=== PATIENT | female | born 1990 | race Caucasian/White ===

== ENCOUNTER 2018-12-13 06:01 | Emergency (ER) | payer OTHER ==
--- OUTSIDE RECORDS SUMMARY | 2018-12-13 06:04 | XMS REPORT | Clinical Summary ---
:1990 Author Organization [facility] Address [address] [place] [address] Care Team Providers Name Role Phone Shira Primary Care Provider Allergies No Known Allergies Medications Medication Sig Dispensed Refills Start Date End Date Status norethindrone-ethinyl Take 1 tablet by 0 Active estradiol mouth daily. (MICROGESTIN 08/16) 1-20 mg-mcg per tablet ALPRAZolam (XANAX) Take 0.5 mg by 0 Active 0.5 MG tablet mouth every night as needed for Anxiety. clonazePAM (KLONOPIN) Take 0.5 mg by 0 Active 0.5 MG tablet mouth 2 (two) times daily as needed for Anxiety. levoFLOXacin Take 1 tablet 9 tablet 0 08/22/2018 08/31/2018 (LEVAQUIN) 500 MG (500 mg total) tablet by mouth daily for 9 days. traMADol (ULTRAM) 50 Take 2 tablets 20 tablet 0 08/21/2018 08/31/2018 mg tablet (100 mg total) by mouth every 8 (eight) hours as needed for up to 10 days. Max Daily Amount: 300 mg Active Problems Problem Noted Date Hemorrhagic ovarian cyst 02/08/2017 Encounters Date Type Specialty Care Team Description 08/21/2018 Emergency Emergency Medicine Brandi Beltran Pyelonephritis ( Primary Dx); MD Gianna Acute right flank pain; Abdominal pain, unspecified abdominal location 08/21/2018 Travel after 12/12/2017 Family History Medical History Relation Name Comments Other Mother bleeding/ hysterectomy Other Sister bleeding; endometriosis Relation Name Status Comments Mother Sister Social History Tobacco Use Types Packs/Day Years Used Date Never Smoker Smokeless Tobacco: Never Used Alcohol Use Drinks/Week oz/Week Comments No Sex Assigned at Date Recorded Not on file Job Start Date Occupation Industry Not on file Not on file Not on file Travel History Travel Start Travel End No recent travel history available. Last Filed Vital Signs Vital Sign Reading Time Taken Blood Pressure 99/51 08/21/2018 6:56 AM [employer]BI[employer]HICLE OPERATOR Pulse 84 08/21/2018 6:56 AM MOBILE HEALTH VEHICLE OPERATOR Temperature 36.2 C (97.2 F) 08/21/2018 6:56 AM [employer]BILE HEALTH VEHICLE OPERATOR Respiratory Rate 19 08/21/2018 6:56 AM MOBILE HEALTH VEHICLE OPERATOR Oxygen Saturation 100% 08/21/2018 6:34 AM MOBILE HEALTH VEHICLE OPERATOR Inhaled Oxygen Concentration - - Weight 72.6 kg (160 lb) 08/21/2018 2:25 AM MOBILE HEALTH VEHICLE OPERATOR Height 167.6 cm (5' 6") 08/21/2018 2:25 AM MOBILE HE[employer] VEHICLE OPERATOR Body Mass Index 25.82 08/21/2018 2:25 AM MOBILE HE[employer] VEHICLE OPERATOR Plan of Treatment Not on file Procedures Procedure Name Priority Date/Time Associated Comments Diagnosis US PELVIS WITH STAT 08/21/2018 5:07 Results for this ENDOVAG WITH DOPPLER AM [employer]BI[employer] HE[employer] VEHICLE OPERATOR procedure are in the results section. SCREEN, STAT 08/21/2018 3:07 Results for this URINE AM [employer] HE[employer] VEHICLE OPERATOR procedure are in the results section. URINALYSIS W/ STAT 08/21/2018 3:07 Results for this MICROSCOPIC AM [employer] VEHICLE OPERATOR procedure are in the results section. CBC W/PLT COUNT & STAT 08/21/2018 3:06 Results for this AUTO DIFFERENTIAL AM [employer] HE[employer] VEHICLE OPERATOR procedure are in the results section. BASIC METABOLIC PANEL STAT 08/21/2018 3:06 Results for this (7) AM [employer]BI[employer] HE[employer] VEHICLE OPERATOR procedure are in the results section. CBC W/PLT COUNT & STAT 08/21/2018 3:06 Results for this AUTO DIFFERENTIAL AM [employer]BI[employer] HEALTH VEHICLE OPERATOR procedure are in the results section. after 12/12/2017 Results US pelvis with endovag with doppler (08/21/2018 5:07 AM MOBILE HEALTH VEHICLE OPERATOR) Specimen Narrative Performed At FINAL REPORT [facility] U/S, PELVIS, WITH ENDOVAG AND DOPPLER CLINICAL INDICATION: right lower quadrant pain , patient is not , history of endometriosis COMPARISON: None TECHNIQUE:Ultrasound imaging of the pelvis was performed transabdominally through a distended urinary bladder followed by transvaginal examination postvoid. Color and spectral Doppler evaluation was also performed. FINDINGS: Uterus Orientation: Retroverted Size: 8.1 x 4.5 x 5.2 cm Masses: None Endometrial thickness: 1.1 cm. Cervix: Unremarkable Adnexa: Right Ovary: Size: 1.7 x 1.1 x 1.5cm. Echogenicity: Normal Vascular flow: Preserved Left Ovary: Size: 2.0 x 2.0 x 2.1cm. Echogenicity: Normal Vascular flow: Preserved Free fluid: Trace. Additional findings: Small cyst within the right ovary measures 1 x 1 x 1 cm without definite through transmission. No septations or internal vascularity. IMPRESSION: Unremarkable sonographic examination of the pelvis. Signed: Jennifer Evans MD Report Verified Date/Time:08/21/2018 05:32:26 Reading Location: [address] Neuro Reading Room Procedure Note Interface, External Ris In - 08/21/2018 5:34 AM MOBILE HEALTH VEHICLE OPERATOR FINAL REPORT U/S, PELVIS, WITH ENDOVAG AND DOPPLER CLINICAL INDICATION: right lower quadrant pain , patient is not , history of endometriosis COMPARISON: None TECHNIQUE: Ultrasound imaging of the pelvis was performed transabdominally through a distended urinary bladder followed by transvaginal examination postvoid. Color and spectral Doppler evaluation was also performed. FINDINGS: Uterus Orientation: Retroverted Size: 8.1 x 4.5 x 5.2 cm Masses: None Endometrial thickness: 1.1 cm. Cervix: Unremarkable Adnexa: Right Ovary: Size: 1.7 x 1.1 x 1.5cm. Echogenicity: Normal Vascular flow: Preserved Left Ovary: Size: 2.0 x 2.0 x 2.1cm. Echogenicity: Normal Vascular flow: Preserved Free fluid: Trace. Additional findings: Small cyst within the right ovary measures 1 x 1 x 1 cm without definite through transmission. No septations or internal vascularity. IMPRESSION: Unremarkable sonographic examination of the pelvis. Signed: Jennifer Evans MD Report Verified Date/Time: 08/21/2018 05:32:26 Reading Location: [address] Neuro Reading Room Performing Organization Address City/[facility] Phone Number RIS screen, urine (08/21/2018 3:07 AM MOBILE HEALTH VEHICLE OPERATOR) Preg Test, Ur Negative [facility] Specimen Urine Performing Organization Address [facility] Phone Number [facility] [address] [place] [address] Urinalysis w/Microscopic (08/21/2018 3:07 AM MOBILE HEALTH VEHICLE OPERATOR) Color, UA Yellow [facility] Clarity, UA Slightly Cloudy [facility] Specific [place], UA 1.015 1.001 - 1.035 [facility] pH, UA 6.5 5.0 - 8.0 [facility] Protein, UA Negative Negative [facility] Glucose, UA Negative Negative [facility] Ketones, UA Negative Negative [facility] Bilirubin, UA Negative Negative [facility] Blood, UA Negative Negative [facility] Nitrite, UA Negative Negative [facility] Leukocytes, UA Moderate (A) Negative [facility] Urobilinogen, UA 0.2 0.2 - 1.0 mg/dL [facility] Bacteria, UA Few [facility] RBC, UA <5 /HPF [facility] WBC, UA 10-20 /HPF [facility] SQUAMOUS EPITHELIAL 10-20 /HPF [facility] Specimen Source [facility] Specimen Urine Performing Organization Address [facility] Phone Number [facility] [address] [place] [address] CBC with platelet count + automated diff (08/21/2018 3:06 AM MOBILE HEALTH VEHICLE OPERATOR) WBC 7.2 4.0 - 10.0 K/L [facility] RBC 4.11 4.00 - 5.00 M/L [facility] Hemoglobin 8.9 (L) 12.0 - 15.5 GM/DL [facility] Hematocrit 30.7 (L) 36.0 - 46.0 % [facility] MCV 74.7 (L) 82.0 - 99.0 fL [facility] MCH 21.7 (L) 27.0 - 33.0 pg [facility] MCHC 29.0 (L) 32.0 - 36.0 GM/DL [facility] RDW 17.9 (H) 12.0 - 15.0 % [facility] Platelets 242 150 - 430 K/CU MM [facility] MPV 11.8 (H) 6.0 - 11.5 fL [facility] nRBC 0 0 - 0 /100 WBC [facility] % Neutros 57 % [facility] % Lymphs 31 % [facility] % Monos 8 % [facility] % Eos 3 % [facility] % Baso 1 % [facility] # Neutros 4.11 1.80 - 8.00 K/L [facility] # Lymphs 2.22 1.48 - 4.50 K/L [facility] # Monos 0.60 0.00 - 1.30 K/L [facility] # Eos 0.24 0.00 - 0.50 K/L [facility] # Baso 0.05 0.00 - 0.20 K/L [facility] Immature Granulocytes-Relative 0 0 - 0 % [facility] Specimen Blood Performing Organization Address City/[facility]/Zipcode Phone Number [facility] [address] [place], [place] [id number] Basic metabolic panel (Na, K+, Cl, CO2, Glu, Ca, BUN, Cr) (08/21/2018 3:06 AM MOBILE HEALTH VEHICLE OPERATOR) Sodium 140 135 - 148 meq/L [facility] Potassium 4.0 3.6 - 5.5 meq/L [facility] Chloride 108 (H) 98 - 106 meq/L [facility] CO2 23 20 - 29 meq/L [facility] BUN 12 10 - 26 mg/dL [facility] Creatinine 0.71 0.50 - 1.20 mg/dL [facility] Glucose 87 70 - 110 mg/dL [facility] Calcium 8.8 8.5 - 10.5 mg/dL [facility] EGFR 100Comment: ESTIMATED GFR IS NOT mL/min/1.73 sq m [facility] ACCURATE CREATININE CLEARANCE IN PREDICTING GLOMERULAR FILTRATION RATE. ESTIMATED GFR IS NOT APPLICABLE FOR DIALYSIS PATIENTS. Specimen Blood Performing Organization Address City/[facility]/Zipcode Phone Number [facility] [address] [place], [place] [id number] after 12/12/2017 Insurance Payer Benefit Plan / Group Subscriber ID Type Phone Address [facility] xxxxxxxxx CHIP Contracted CHOICE CHIP Advance Directives For more information, please contact:[place] [address] [address] [facility] [place] [phone] Code Status Date Activated Date Inactivated Comments Full Code 02/08/2017 3:22 AM 02/08/2017 9:13 PM This code status was determined by: Patient
--- OUTSIDE RECORDS SUMMARY | 2018-12-13 06:04 | XMS REPORT | Clinical Summary ---
:1990 Author Organization [facility] Address [address] [place] [address] Care Team Providers Name Role Phone Leslie Chadwick MD Primary Care Provider Allergies Active Allergy Reactions Severity Noted Date Comments Ketorolac 11/27/2018 Tramadol 01/05/2017 Medications Medication Sig Dispensed Refills Start Date End Date Status ALPRAZolam (XANAX) 0.5 Take 0.5 mg by 0 Active MG tablet mouth nightly as needed for anxiety. zolpidem (AMBIEN) 5 MG Take 5 mg by 0 Active tablet mouth nightly as needed for sleep. cyclobenzaprine Take 1 tablet 20 tablet 0 11/27/2018 12/27/2018 Active (FLEXERIL) 10 mg (10 mg total) tablet by mouth 2 (two) times a day as needed for muscle spasms for up to 30 days. acetaminophen-codeine Take 1-2 15 tablet 0 11/27/2018 12/02/2018 (TYLENOL WITH CODEINE tablets by #3) 300-30 mg per mouth every 6 tablet (six) hours as needed for moderate pain for up to 5 days. Active Problems Not on file Encounters Date Type Specialty Care Team Description 11/27/2018 Emergency Emergency Medicine Nirali Mckeon, Muscle strain (Primary Dx); Contusion of left knee, initial encounter; Acute left ankle pain; Acute thoracic back pain, unspecified back pain laterality; Contusion of rib, unspecified laterality, initial encounter after 12/12/2017 Social History Tobacco Use Types Packs/Day Years Used Date Never Smoker Alcohol Use Drinks/Week oz/Week Comments Yes 1 Glasses of wine 0.6 on occasion Sex Assigned at Date Recorded Not on file Job Start Date Occupation Industry Not on file Not on file Not on file Travel History Travel Start Travel End No recent travel history available. Last Filed Vital Signs Vital Sign Reading Time Taken Blood Pressure 113/67 11/27/2018 4:54 AM CDT Pulse 104 11/27/2018 4:54 AM CDT Temperature 36.1 C (97 F) 11/27/2018 4:54 AM CDT Respiratory Rate 18 11/27/2018 4:54 AM CDT Oxygen Saturation 100% 11/27/2018 4:54 AM CDT Inhaled Oxygen Concentration - - Weight - - Height - - Body Mass Index - - Plan of Treatment Health Maintenance Due Date Last Done Comments CERVICAL CANCER SCREENING 2013 INFLUENZA VACCINE 02/25/2019 Procedures Procedure Name Priority Date/Time Associated Diagnosis Comments XR LUMBAR SPINE 2 STAT 11/27/2018 6:39 AM Results for this OR 3 VW CDT procedure are in the results section. XR THORACIC SPINE 2 STAT 11/27/2018 6:38 AM Results for this VW CDT procedure are in the results section. XR ANKLE 3+ VW LEFT STAT 11/27/2018 6:38 AM Results for this CDT procedure are in the results section. XR KNEE 1 OR 2 VW STAT 11/27/2018 6:37 AM Results for this LEFT CDT procedure are in the results section. XR SHOULDER 2+ VW STAT 11/27/2018 6:36 AM Results for this RIGHT CDT procedure are in the results section. XR RIBS 3 VW STAT 11/27/2018 6:36 AM Results for this BILATERAL CDT procedure are in the results section. HCG QUALITATIVE, STAT 11/27/2018 5:04 AM Results for this URINE SCREEN CDT procedure are in the results section. after 12/12/2017 Results XR Lumbar Spine 2 Or 3 Vw (11/27/2018 6:39 AM CDT) Specimen Narrative Performed At EXAMINATION:XR LUMBAR SPINE 2 OR 3 VW [facility] NUMBER OF VIEWS: 4 CLINICAL HISTORY:fall COMPARISON:None. FINDINGS: There is no acute abnormality demonstrated. Specifically is no fracture. There are 5 nonrib-bearing lumbar vertebra. There is mild curvature of the lumbar spine convex towards the right. The disc spaces are well-maintained. There is no significant spondylosis. There is no spondylolisthesis. IMPRESSION: No acute abnormality. [id number] Procedure Note Hm Interface, Radiology Results Incoming - 11/27/2018 7:08 AM CDT EXAMINATION: XR LUMBAR SPINE 2 OR 3 VW NUMBER OF VIEWS: 4 CLINICAL HISTORY: fall COMPARISON: None. FINDINGS: There is no acute abnormality demonstrated. Specifically is no fracture. There are 5 nonrib-bearing lumbar vertebra. There is mild curvature of the lumbar spine convex towards the right. The disc spaces are well-maintained. There is no significant spondylosis. There is no spondylolisthesis. IMPRESSION: No acute abnormality. [facility]-[id number] Performing Organization Address [facility] Phone Number [facility] [address] [place] [address] XR Thoracic Spine 2 Vw (11/27/2018 6:38 AM CDT) Specimen Narrative Performed At EXAMINATION:XR THORACIC SPINE 2 VW [facility] NUMBER OF VIEWS: 4 CLINICAL HISTORY:fall COMPARISON:None. FINDINGS: There is no acute abnormality demonstrated. Specifically there is no fracture. There is no significant thoracic spondylosis. There is very slight focal curvature of the upper thoracic spine convex towards the left and mid thoracic spine towards the right. There is straightening of the thoracic spine in the lateral projection. IMPRESSION: No acute abnormality. [id number] Procedure Note Interface, Radiology Results - 11/27/2018 7:06 AM CDT EXAMINATION: XR THORACIC SPINE 2 VW NUMBER OF VIEWS: 4 CLINICAL HISTORY: fall COMPARISON: None. FINDINGS: There is no acute abnormality demonstrated. Specifically there is no fracture. There is no significant thoracic spondylosis. There is very slight focal curvature of the upper thoracic spine convex towards the left and mid thoracic spine towards the right. There is straightening of the thoracic spine in the lateral projection. IMPRESSION: No acute abnormality. [facility]-[id number] Performing Organization Address [facility] Phone Number [facility] [address] [place] [address] XR Ankle 3+ Vw Left (11/27/2018 6:38 AM CDT) Specimen Narrative Performed At [facility] EXAMINATION:XR ANKLE 3VW LEFT CLINICAL HISTORY:fall COMPARISON:None. IMPRESSION: 1.There is no evidence of acute left ankle fracture or dislocation. [id number] Procedure Note Interface, Radiology Results Incoming - 11/27/2018 6:42 AM CDT EXAMINATION: XR ANKLE 3 VW LEFT CLINICAL HISTORY: fall COMPARISON: None. IMPRESSION: 1. There is no evidence of acute left ankle fracture or dislocation. [facility]-[id number] Performing Organization Address [facility]/Zipcode Phone Number [facility] [address] [place] [address] XR Knee 1 Or 2 Vw Left (11/27/2018 6:37 AM CDT) Specimen Narrative Performed At EXAMINATION:XR KNEE 1 OR 2 VW LEFT [facility] CLINICAL HISTORY:fall COMPARISON:None. IMPRESSION: 1.There is no evidence of left knee fracture, dislocation, or joint effusion. Bone mineralization is normal. [facility]-[id number] Procedure Note Interface, Radiology Results Incoming - 11/27/2018 6:42 AM CDT EXAMINATION: XR KNEE 1 OR 2 VW LEFT CLINICAL HISTORY: fall COMPARISON: None. IMPRESSION: 1. There is no evidence of left knee fracture, dislocation, or joint effusion. Bone mineralization is normal. [facility]-[id number] Performing Organization Address [facility] Phone Number [facility] [address] [place] [address] XR Shoulder 2+ Vw Right (11/27/2018 6:36 AM CDT) Specimen Narrative Performed At EXAMINATION:XR SHOULDER 2VW RIGHT [facility] CLINICAL HISTORY:fall COMPARISON:None available at this time. IMPRESSION: 1. No fracture, malalignment, or osseous destructive lesion of the right shoulder. 2. Joint spaces are maintained. No degenerative or inflammatory bony changes. 3. Soft tissues are unremarkable. [facility]-[id number] Procedure Note Interface, Radiology Results Incoming - 11/27/2018 6:42 AM CDT EXAMINATION: XR SHOULDER 2 VW RIGHT CLINICAL HISTORY: fall COMPARISON: None available at this time. IMPRESSION: 1. No fracture, malalignment, or osseous destructive lesion of the right shoulder. 2. Joint spaces are maintained. No degenerative or inflammatory bony changes. 3. Soft tissues are unremarkable. [facility]-[id number] Performing Organization Address [facility]/Zipcode Phone Number [facility] [address] [place] [address] XR Ribs 3 Vw Bilateral (11/27/2018 6:36 AM CDT) Specimen Narrative Performed At EXAMINATION:XR RIBS 3 VW BILATERAL [facility] CLINICAL HISTORY:fall COMPARISON:February 18, 2017. IMPRESSION: Cardiomediastinal silhouette and pulmonary vasculature are within normal limits. Lungs are clear. No pleural effusion or pneumothorax. Bones are unremarkable. No rib fracture is identified. If there is persistent pain or unexplained clinical symptoms, consider repeat radiographs in 10-[address] chest for further evaluation of radiographically occult injury. Procedure Note Interface, Radiology Results Incoming - 11/27/2018 6:46 AM CDT EXAMINATION: XR RIBS 3 VW BILATERAL CLINICAL HISTORY: fall COMPARISON: February 18, 2017. IMPRESSION: Cardiomediastinal silhouette and pulmonary vasculature are within normal limits. Lungs are clear. No pleural effusion or pneumothorax. Bones are unremarkable. No rib fracture is identified. If there is persistent pain or unexplained clinical symptoms, consider repeat radiographs in 10-[address] chest for further evaluation of radiographically occult injury. Performing Organization Address City/[facility] Phone Number [facility] [address] [place] [address] hCG qualitative, urine screen (11/27/2018 5:04 AM CDT) hCG qualitative, Negative [facility] urine Comment: EMERGENCY CARE Sensitivity of HCG test: 25 mIU/mL [facility] Negative test results in patients suspected RAN to be should be retested with a sample obtained 48-72 hours later, or by performing a quantitative assay. Specimen Urine Performing Organization Address City/[facility]/Zipcode Phone Number DEPARTMENT OF PATHOLOGY AND GENOMIC [address] [address] [place] [address] [facility] [address] [address] [place] [address] AT [facility] after 12/12/2017 Insurance Payer Benefit Plan / Subscriber ID Effective Dates Phone Address Type [facility] [employer] [facility] xxxxxxxxx 2016-Present HMO CHOICE [facility] Advance Directives Patient has advance care planning documents on file. For more information, please contact:[place] [address] [address]
--- OUTSIDE RECORDS SUMMARY | 2018-12-13 06:05 | XMS REPORT ---
:1990 Author Organization [employer] Care Team Providers Name Role Phone Leslie Chadwick Provider Role Unavailable Encounters Encounter Location Date Unknown [facility]/ C. Adriano Ding MD, PhD, [place] Aug 27, 2016 Social History Social History Element Qualifiers Date Reported Do you smoke? . Answer: nonsmoker Aug 14, 2016 Use of recreational / street drugs? . Answer: No Aug 14, 2016 Marital Status: . Single Aug 14, 2016 Caffeine intake? . Status: Yes, What type: Soft Aug 14, 2016 Drinks Do you exercise? . Answer: No Aug 14, 2016 Do you drink alcohol? . Status: No Aug 14, 2016 Occupation: . Unemployed Aug 14, 2016 Summary Purpose e[employer] Submission
--- OUTSIDE RECORDS SUMMARY | 2018-12-13 06:05 | XMS REPORT | Continuity of Care Document ---
:1990 Author Organization Interface Problems Problem Status Onset Classification Date Comments Source Date Reported Pelvic and Active Problem 07/03/2018 [place] for perineal pain [facility] Medications Medication Details Route Status Patient Ordering Order Source Instructions Provider Date Allergies, Adverse Reactions, Alerts Substance Category Reaction Severity Reaction Status Date Comments Source type Reported Immunizations Immunization Date Given Site Status Last Updated Comments Source Results Order Results Value Reference Date Interpretation Comments Source Name Range Vital Signs Vital Sign Value Date Comments Source Encounters Location Location Encounter Encounter Reason Attending ADM DC Status Source Details Type Number For Provider Date Date Visit Center For Unknown [id number] 08/27 08/27 [facility] [id number] for Health/ C. [id number] [facility] 3ae [facility] MD Toña, PhD, [place] Center For Unknown [id number] 08/27 08/27 [facility] [id number] for Health/ C. [id number] [facility] fc6 [facility] MD Toña, [place], [place] Center For Unknown [id number] 08/27 08/27 [facility] [id number] for Health/ C. [id number] [facility] 87c [facility] MD To[place], [place], [place] Center For surgery [id number] 09/05 09/05 [facility] [id number] for Health/ C. [id number] [facility] 785 [facility] MD Toña, [place], [place] Center For surgery [id number] 09/05 09/05 [facility] [id number] for Health/ C. [id number] [facility] e11 [facility] MD Toña, [place], [place] Center For Rx Request, [id number] 09/16 09/16 [facility] [id number] /[id number] for Health/ C. [id number] [facility] 8aa [facility] MD Toña, [place], [place] Procedures Procedure Code Date Perfomer Comments Source
--- OUTSIDE RECORDS SUMMARY | 2018-12-13 06:05 | XMS REPORT ---
:1990 Author Organization eClinicalWorks Care Team Providers Name Role Phone Leslie Chadwick Provider Role Unavailable Allergies No Known Allergies Problems Problem Type Condition Code Onset Dates Condition Status Problem Pelvic and perineal pain R10.2 Active Medications No Known Medications Results No Known Results Summary Purpose eClinicalWorks Submission
--- OUTSIDE RECORDS SUMMARY | 2018-12-13 06:05 | XMS REPORT ---
:1990 Author Organization eClinicalWorks Care Team Providers Name Role Phone Leslie Chadwick Provider Role Unavailable Encounters Encounter Location Date Unknown [facility] Health/ C. Adriano Ding MD, Aug 27, 2016 PhD, [place] surgery [facility]/ C. Adriano Ding MD, Sep 04, 2016 PhD, [place] Rx Request, Post Op [facility]/ C. Adriano Ding MD, Aug [place], [place] Problems Problem Type Condition ICD-9 Code Onset Dates Condition Status Problem Pelvic and perineal pain R10.2 Active Social History Social History Element Qualifiers Date Reported Do you smoke? . Answer: nonsmoker Sep 04, 2016 Use of recreational / street drugs? . Answer: No Sep 04, 2016 Marital Status: . Single Sep 04, 2016 Caffeine intake? . Status: Yes, What type: Soft Sep 04, 2016 Drinks Do you exercise? . Answer: No Sep 04, 2016 Do you drink alcohol? . Status: No Sep 04, 2016 Occupation: . Unemployed Sep 04, 2016 Summary Purpose eClinicalWorks Submission
--- OUTSIDE RECORDS SUMMARY | 2018-12-13 06:05 | XMS REPORT ---
:1990 Author Organization eClinicalWorks Care Team Providers Name Role Phone Leslie Chadwick Provider Role Unavailable Encounters Encounter Location Date Unknown [facility] s [facility]/ C. Adriano Ding MD, [place], [place] Aug 27, 2016 surgery [facility]/ C. Adriano Ding MD, [place], [place] Sep 04, 2016 Problems Problem Type Condition ICD-9 Code Onset [...]
--- OUTSIDE RECORDS SUMMARY | 2018-12-13 06:12 | XMS REPORT | Summary of Care ---
:1990 Author Name Elizabeth Chu M.A. Address Unavailable Unavailable , Care Team Providers Name Role Phone DOMINIQUE Carl, NANNETTE Unavailable Unavailable CLOTILDE BAEZA M.D. Unavailable Unavailable ALEXA N.Candido, JERNAE Unavailable Unavailable SOTERO N.PElias, UNIQUE Unavailable Unavailable Elmer MARSH, Ganga Unavailable Unavailable Unavailable Unavailable Unavailable Functional Status Name Dates Details Functional status health issues are not documented Status: Name Dates Details Cognitive status health issues are not documented Status: Problems Name Dates Details Bacterial vaginosis (616.10, N76.0) Status: Active [place] vaginitis (112.1, B37.3) Status: Active Gastritis, chronic (535.10, K29.50) Status: Active BMI 28.0-28.9,adult (V85.24, Z68.28) Status: Active Impetigo contagiosa (684, L01.00) Status: Active Pelvic pain (R10.2) Status: Active Major depressive disorder (296.20, F32.9) Status: Active Generalized anxiety disorder (300.02, F41.1) Status: Active Cannot sleep (780.52, G47.00) Status: Active Medications Name Dates Details Zolpidem Tartrate 10 MG Oral Tablet TAKE 1 TABLET AT BEDTIME NEEDED. Quantity: 30 Refills: 0 CLOTILDE BAEZA M.D. Start : 27-Aug-2016 Active Ondansetron 8 MG Oral Tablet Disintegrating TAKE 1 TABLET EVERY 8 HOURS Quantity: 30 Refills: 0 SOTERO N.P., UNIQUE Start : 18-Dec-2017 Active Mupirocin 2 % External Ointment APPLY A SMALL AMOUNT 3 TIMES DAILY DIRECTED. Quantity: 1 Refills: 1 SOTERO N.P., UNIQUE Start : 04-May-2018 Active 22 GM Tube IBU 600 MG Oral Tablet TAKE 1 TABLET 4 TIMES DAILY NEEDED. Quantity: 60 Refills: 1 NANNETTE FOX M.D. Start : 27-May-2018 Active Tylenol 8 Hour 650 MG Oral Tablet Extended Release TAKE 1 TABLET 4 TIMES DAILY NEEDED. Quantity: 60 Refills: 1 DOMINIQUE Carl NANNETTE Start : 27-May-2018 Active Sertraline HCl - 100 MG Oral Tablet TAKE 1 TABLET ONCE DAILY. Quantity: 30 Refills: 3 FELISHA Carl, CLOTILDE Start : 14-Jul-2018 Active clonazePAM 1 MG Oral Tablet TAKE 1 TABLET DAILY NEEDED. Quantity: 30 Refills: 3 FELISHA Carl, [place] Start : 14-Jul-2018 Active metroNIDAZOLE 500 MG Oral Tablet TAKE 1 TABLET TWICE DAILY Quantity: 14 Refills: 0 BIJOU N.P., JERNAE Start : 17-Jul-2018 Active Miconazole 7 2 % Vaginal Cream INSERT 1 APPLICATORFUL INTRAVAGINALLY AT BEDTIME NIGHTLY. Quantity: 7 Refills: 0 BIJOU N.P., JERNAE Start : 17-Jul-2018 Active 45 GM Tube Allergies and Adverse Reactions Name Dates Details Tramadol (Allergy) Status: Active Past Medical History Name Dates Details History of Anxiety (300.00, F41.9) Status: Resolved History of Cysts of both ovaries (620.2, N83.201) Status: Resolved History of No significant past medical history Status: Resolved Procedures Procedure Dates Details History of Ovarian Cystectomy Completed History of Section Completed History of Colonoscopy Completed Immunization Name Dates Details Immunizations not documented Family History Name Dates Details Family history of depression (V17.0, Z81.8) Status: Active Family history of Diverticulitis (562.11, K57.92) Status: Active Family history of Anxiety and depression (300.00, F41.9) Status: Active Name Dates Details Family history of CAD (coronary artery disease) (414.00, I25.10) Status: Active Family history of Anxiety and depression (300.00, F41.9) Status: Active Social History Name Dates Details - Status: Name Dates Details Never smoker Never smoker Vital Signs Date Test Result Details [id number] BP Systolic 94 mm[Hg] Status: Comments: Location: LUE; Position: Sitting BP Diastolic 62 mm[Hg] Status: Comments: Location: LUE; Position: Sitting Weight 162.5 lb Status: Body Mass Index Calculated 27.04 kg/m2 Status: Body Surface Area Calculated 1.81 m2 Status: Heart Rate 84 /min Status: Comments: Location: L Radial; Results Date Description Value Details Results not documented Plan of Care Name Dates Details Planned Observations Planned Goals not documented Interventions Provided Medication ChangesclonazePAM 1 MG Oral Tablet - Renew with ChangesSertraline HCl - 100 MG Oral Tablet - RenewZolpidem Tartrate 10 MG Oral Tablet - RenewPlanDiscussed diagnosis, differential diagnosis, co morbidities, bio psychosocial factors, predisposing,precipitating and maintaining symptoms 1) increase zoloft to 100 mg qd2) increase clonazepam to 1 mg qd prn3) ambien 10 mg 1 tab qhs prn insomnia4) discussed safety plan, call 911, suicide prevention helpline5) discussed therapy referral , pt declined.Discussion/SummaryProgress made toward Goal mild progress, actively participated. Discussed the following with patient/family/other who verbally acknowledged and agrees to comply. Safety issues, Patient understands and will comply. Bio-psychosocial factors. Co -Morbidities. Differential diagnosis. Emergency treatment. Maintaining symptoms. Predisposing symptoms. Precipating symptoms. Safety plan. Alternative medication(s). Current medication(s). Risks/benefits. Side effects. Target symptoms. Treatment plan. Diagnosis. follow-up 4 months Instructions Name Dates Details Instructions not documented Encounters Appointment; CLOTILDE BAEZA M.D. On: 03-Dec-2016 8:00 Encounter Diagnosis: Problem not documented Appointment; CLOTILDE BAEZA M.D. On: 14-Mar-2017 8:00 Encounter Diagnosis: Problem not documented Appointment; CLOTILDE BAEZA M.D. On: 20-May-2017 10:00 Encounter Diagnosis: Problem not documented Appointment; ELIZABETH BLACKBURN M.D. On: 26-May-2017 14:00 Encounter Diagnosis: Problem not documented Appointment; CLOTILDE BAEZA M.D. On: 20-Aug-2017 8:00 Encounter Diagnosis: Problem not documented Appointment; CLOTILDE BAEZA M.D. On: 11-Nov-2017 8:00 Encounter Diagnosis: Problem not documented Appointment; UNIQUE BEY NP On: 18-Dec-2017 15:30 Encounter Diagnosis: Problem not documented Appointment; CLOTILDE BAEZA M.D. On: 10-Feb-2018 8:00 Encounter Diagnosis: Problem not documented Appointment; UNIQUE BEY NP On: 04-May-2018 11:00 Encounter Diagnosis: Problem not documented Appointment; CLOTILDE BAEZA M.D. On: 12-May-2018 8:00 Encounter Diagnosis: Problem not documented Appointment; ALEJANDRA PEOPLES M.D. On: 27-May-2018 13:00 Encounter Diagnosis: Problem not documented Appointment; CLOTILDE BAEZA M.D. On: 14-Jul-2018 16:00 Encounter Diagnosis: Problem not documented Appointment; SIENNA LIU NP On: 17-Jul-2018 15:30 Encounter Diagnosis: Problem not documented Appointment; CLOTILDE BAEZA M.D. On: 25-Sep-2018 11:00 Encounter Diagnosis: Problem not documented Appointment; CLOTILDE BAEZA M.D. On: 27-Nov-2018 15:00 Encounter Diagnosis: Problem not documented
--- OUTSIDE RECORDS SUMMARY | 2018-12-13 06:12 | XMS REPORT ---
:1990 [facility] [address] [place] [address] [address] [place] [address] Care Team Providers Name Role Phone VAHE, DR JACKSON Unavailable Unavailable FUENTES, DR GERALDO Stout Unavailable Unavailable MILENA, DR SANTOS Unavailable Unavailable SUE, DR NICANOR MICHAUD Unavailable Unavailable MERCEDES, DR ABDIAS Petersen Unavailable Unavailable KIKI MOISE Unavailable Unavailable DOMINIK, DR NATE Caballero Unavailable Unavailable ZARIA, DR KIMMY Prather Unavailable Unavailable ROSA, DR HOLDER Unavailable Unavailable ARIE, DR SERGEY BELTRAN Unavailable Unavailable FUENTES, DR GARCIA Unavailable Unavailable SEAN, DR CARRERO Unavailable Unavailable ROBBY COREAS Unavailable Unavailable VINICIO, WILL Unavailable Unavailable NAHID, DR ROSARIO PLATA Unavailable Unavailable Payers Payer Name Policy Type Policy Number Effective Date Expiration Date Problems This patient has no known problems. Allergies, Adverse Reactions, Alerts Allergy Allergy Status Severity Reaction(s) Onset Inactive Treating Comments Name Type Date Date Clinician No Known DA Active U 2006-10 Contrast -10 Allergies 00:00:0 0 No Known DA Active U 2006-10 Drug -10 Allergies 00:00:0 0 No Known DA Active U 2006-10 Food -10 Allergies 00:00:0 0 No Known DA Active U 2006-10 Other -10 Allergies 00:00:0 0 Medications This patient has no known medications. Encounters Start End Encounter Admission Attending Care Care Encounter Date/Time Date/Time Type Type Clinicians Facility Department ID 2018-11-13 2018-11-13 Emergency E MANUEL COTTER [facility] [id number] 02:44:00 04:14:00 2018-11-04 2018-11-04 Emergency E [id number] 08:04:00 08:04:00 2018-10-22 2018-10-22 Emergency E GERALDO DILL [facility] [id number] 10:10:00 13:01:00 2018-10-19 2018-10-19 Emergency E DILL, GERALDO [facility] [id number] 15:20:00 18:15:00 2018-10-06 2018-10-06 Emergency E OEI, [facility] [id number] 12:53:00 14:15:00 DANIELLE 2018-09-11 2018-09-11 Emergency E SUE, [facility] [id number] 13:37:00 17:15:00 NICANOR JASWANT 2018-09-09 2018-09-09 Emergency E MERCEDES, [facility] [id number] 12:45:00 16:45:00 ABDIAS 2018-08-17 2018-08-17 Emergency E FUENTES GERALDO [facility] [id number] 01:32:00 04:20:00 2018-07-28 2018-07-28 Outpatient E DOMINIK, [facility] TELE [id number] 06:49:00 16:28:00 NATE 2018-06-19 2018-06-19 Emergency E ZARIA, [facility] [id number] 17:59:00 19:07:00 KIMMY 2018-05-21 2018-05-21 Emergency E ZARIA, [facility] [id number] 17:21:00 20:22:00 KIMMY 2018-05-10 2018-05-10 Emergency E ROSA [facility] [id number] 12:36:00 16:00:00 GLORY 2018-05-01 2018-05-01 Emergency E FUENTES GERALDO [facility] [id number] 01:08:00 03:19:00 2018-04-05 2018-04-05 Emergency E GERALDO DILL [facility] [id number] 14:18:00 17:55:00 2018-02-24 2018-02-24 Emergency E ARIE [facility] [id number] 03:20:00 05:50:00 SERGEY 2017-11-22 2017-11-22 Emergency E MERCEDES [facility] [id number] 06:21:00 11:45:00 ABDIAS 2017-08-20 2017-08-20 Emergency E FUENTES, [facility] [id number] 08:47:00 09:45:00 RADHA 2017-08-15 2017-08-15 Emergency E SEAN, [facility] [id number] 00:28:00 02:58:00 ALISE 2017-06-21 2017-06-21 Emergency E JOSS, [facility] [id number] 14:26:00 18:19:00 ROBBY Results Test Description Test Time Test Comments Text Results Atomic Results Result Comments LIVER PROFILE 2018-11-13 04:00:00 Test Item Value Reference Range Comments BILI TOTAL (test code=11A) 0.4 mg/dL 0.2-1.0 BILI DIRCT (test code=12A) <0.1 mg/dL 0.0-0.2 PROTEIN (test code=07D) 8.8 g/dL 6.4-8.2 ALBUMIN (test code=08D) 4.7 g/dL 3.5-4.8 GLOBULIN (test code=GLB) 4.1 g/dL 1.5-3.8 ALB/GLOB (test code=AGRR) 1.1 1.0-2.6 ALK PHOS (test code=35A) 99 IU/L 42-121 AST (test code=30A) 16 IU/L <=42 ALT (test code=31A) 9 IU/L <=78 AMYLASE AND [id number] 03:24:00 Test Item Value Reference Range Comments AMYLASE (test code=10A) 48 U/L 28-100 LIPASE (test code=60A) 122 IU/L 73-393 BASIC METABOLIC [id number] 03:23:00 Test Item Value Reference Range Comments GLUCOSE (test code=06D) 92 mg/dL 75-100 SODIUM (test code=01A) 138 mmol/L 136-145 POTASSIUM (test code=01B) 3.3 mmol/L 3.6-5.1 CHLORIDE (test code=04A) 104 mmol/L 98-107 CO2 (test code=02A) 25 mmol/L 22-32 ANION GAP (test code=ANG) 12.3 mmol/L BUN (test code=05D) 12 mg/dL 7-18 CREATININE (test code=03E) 0.8 mg/dL 0.4-1.1 BUN/CREA (test code=BCR) 16 12-20 CALCIUM (test code=09D) 8.8 mg/dL 8.3-9.5 URINALYSIS WITH [id number] 03:20:00 Test Item Value Reference Range Comments COLOR (test code=COLU) YELLOW YELLOW CLARITY (test code=CLA) CLOUDY CLEAR GLUCOSE UR (test code=UA GLUCOSE) NEGATIVE NEGATIVE BILI UR (test code=BILE) NEGATIVE NEGATIVE KETONES UR (test code=KARSON) NEGATIVE NEGATIVE SP GRAVITY (test code=SPGR) 1.025 1.005-1.030 PH UR (test code=PH) 6.0 4.5-8.0 PROTEIN UR (test code=PU) TRACE NEGATIVE UROBIL UR (test code=UROQ) 0.2 EU/dL 0.2-1.0 NITRITE UR (test code=NITRITE) NEGATIVE NEGATIVE BLOOD UR (test code=UA BLOOD) NEGATIVE NEGATIVE LEUK ES UR (test code=LEUK) 2+ NEGATIVE WBC UR (test code=UWBC) 4 /HPF 0-5 RBC UR (test code=URBC) 0 /HPF 0-2 EPITH UR (test code=UEPC) MANY /LPF FEW BACTERIA UR (test code=UBACT) FEW /HPF NONE CAST UR (test code=CAST) /LPF NONE CRYSTAL UR (test code=CRYU) / LPF NONE MUCUS UR (test code=MUC) / HPF NONE AMORPH UR (test code=BRENT) / HPF NONE TRICH UR (test code=UTRICH) /HPF NONE YEAST UR (test code=UY) /HPF NONE SPERM UR (test code=USPERM) /HPF NONE SERUM [id number] 03:18:00 Test Item Value Reference Range Comments PREG SRM (test code=PGS) NEGATIVE NEGATIVE CBC (INCLUDES AUTOMATED DIFFERENTIAL)2018-11-13 03:12:00 Test Item Value Reference Range Comments WBC (test code=WBC) 8.5 10\S\3/uL 4.5-11.0 RBC (test code=RBC) 4.42 10\S\6/uL 4.30-5.70 HGB (test code=HBG) 9.7 g/dL 12.0-15.5 HCT (test code=HCT) 33.0 % 35.0-44.0 MCV (test code=MCV) 74.7 fL 81.0-99.0 MCH (test code=MCH) 21.9 pg 27.0-31.0 MCHC (test code=MCHC) 29.4 g/dL 32.0-36.0 RDW (test code=RDW) 17.1 % 11.5-14.5 PLT (test code=PLT) 244 10\S\3/uL 130-400 MPV (test code=MPV) 10.9 fL 9.4-12.4 NEUTROP # (test code=NE#) 5.1 10\S\3/uL 1.6-8.0 LYMPH # (test code=LY#) 2.5 10\S\3/uL 1.1-3.5 MONOCYTE # (test code=MO#) 0.7 10\S\3/uL 0.0-1.1 EOSINOPH # (test code=EO#) 0.2 10\S\3/uL 0.0-0.7 BASOPHIL # (test code=BA#) 0.0 10\S\3/uL 0.0-0.3 IG # (test code=IG#) 0.02 10\S\3/uL 0.00-0.06 NRBC # (test code=NRBC#) 0.00 10\S\3/uL 0.00-0.01 NEUTROPH % (test code=NE%) 59.6 % 35.0-73.0 LYMPH % (test code=LY%) 29.7 % 20.0-55.0 MONO % (test code=MO%) 8.0 % 2.5-10.0 EOSINOPH % (test code=EO%) 2.1 % 0.0-5.0 BASOPHIL % (test code=BA%) 0.4 % 0.0-2.0 IG % (test code=IG%) 0.2 % 0.0-0.8 NRBC% (test code=NRBC%) 0.0 % 0.0-0.2 MANDIFF (test code=MDIFF) NO NO RBC MORPH (test code=RBCMOR) NORMAL CT ABDOMEN AND PELVIS WITH [id number] 12:25:13CT abdomen and pelvis with contrastLocation Code: [id number] HISTORY: Lower abdominal painCOMPARISON: 09/11/2018Technique: Helical CT of the abdomen and pelvis was performed following theadministration of intravenous contrast. Thin section axial, sagittal andcoronal images were obtained. Automatic exposure control was utilized. TotalDLP: 1393 mGycmFINDINGS:The lung bases are clear. The liver, gallbladder, adrenal glands, kidneys, pancreas, and spleen areunremarkable.The unopacified loops of bowel demonstrate no focal thickening or dilatation.The appendix is visualized and is normal. There is no free peritoneal air orfluid. The abdominal aorta is normal in caliber and contour. There is noretroperitoneal mass or fluid collection. The urinary bladder is unremarkable.There is no pelvic mass or fluidcollection. The bones, skin, and surrounding soft tissues are unremarkable.IMPRESSION: No acute intra- abdominal or pelvic abnormality.AMYLASE AND [id number] 11:44:00 Test Item Value Reference Range Comments AMYLASE (test code=10A) 41 U/L 28-100 LIPASE (test code=60A) 76 IU/L 73-393 COMPREHENSIVE METABOLIC [id number] 11:44:00 Test Item Value Reference Range Comments GLUCOSE (test code=06D) 89 mg/dL 75-100 SODIUM (test code=01A) 140 mmol/L 136-145 POTASSIUM (test code=01B) 3.7 mmol/L 3.6-5.1 CHLORIDE (test code=04A) 106 mmol/L 98-107 CO2 (test code=02A) 26 mmol/L 22-32 ANION GAP (test code=ANG) 11.7 mmol/L BUN (test code=05D) 14 mg/dL 7-18 CREATININE (test code=03E) 0.7 mg/dL 0.4-1.1 BUN/CREA (test code=BCR) 21 12-20 CALCIUM (test code=09D) 9.3 mg/dL 8.3-9.5 BILI TOTAL (test code=11A) 0.5 mg/dL 0.2-1.0 PROTEIN (test code=07D) 8.6 g/dL 6.4-8.2 ALBUMIN (test code=08D) 4.4 g/dL 3.5-4.8 GLOBULIN (test code=GLB) 4.2 g/dL 1.5-3.8 ALB/GLOB (test code=AGRR) 1.0 1.0-2.6 ALK PHOS (test code=35A) 105 IU/L 42-121 AST (test code=30A) 34 IU/L <=42 ALT (test code=31A) 23 IU/L <=78 PRO TIME AND [id number] 11:41:00 Test Item Value Reference Range Comments PT (test code=TT) 12.2 s 9.8-13.6 INR (test code=INR) 1.1 INRH (test code=INRH) SUGGESTED THERAPEUTIC RANGE FOR INR: 2.5 - 3.5 For Patients with Prosthetic Valves or Patients with recurrent Thromboembolic Events 2.0 - 3.0 For Most Other Applications PTT (test code=PTT) 30.5 s 20.2-38.0 PTTH (test code=PTTH) To monitor the effectiveness of heparin, we offer the Anti-Xa (Heparin Assay). It can be used for either unfractionated or LMW Heparin. Order Code is ANTI-XA SERUM [id number] 11:39:00 Test Item Value Reference Range Comments PREG SRM (test code=PGS) NEGATIVE NEGATIVE [id number] 11:39:00 Test Item Value Reference Range Comments MAGNESIUM (test code=48A) 2.1 mg/dL 1.8-2.4 OCCULT [id number] 11:28:00 Test Item Value Reference Range Comments Direct Exam (test code=DE1) POSITIVE FOR OCCULT BLOOD CBC (INCLUDES AUTOMATED DIFFERENTIAL)2018-10-22 11:24:00 Test Item Value Reference Range Comments WBC (test code=WBC) 6.4 10\S\3/uL 4.5-11.0 RBC (test code=RBC) 4.34 10\S\6/uL 4.30-5.70 HGB (test code=HBG) 9.4 g/dL 12.0-15.5 HCT (test code=HCT) 32.8 % 35.0-44.0 MCV (test code=MCV) 75.6 fL 81.0-99.0 MCH (test code=MCH) 21.7 pg 27.0-31.0 MCHC (test code=MCHC) 28.7 g/dL 32.0-36.0 RDW (test code=RDW) 16.9 % 11.5-14.5 PLT (test code=PLT) 241 10\S\3/uL 130-400 MPV (test code=MPV) 11.0 fL 9.4-12.4 NEUTROP # (test code=NE#) 4.7 10\S\3/uL 1.6-8.0 LYMPH # (test code=LY#) 1.2 10\S\3/uL 1.1-3.5 MONOCYTE # (test code=MO#) 0.4 10\S\3/uL 0.0-1.1 EOSINOPH # (test code=EO#) 0.1 10\S\3/uL 0.0-0.7 BASOPHIL # (test code=BA#) 0.0 10\S\3/uL 0.0-0.3 IG # (test code=IG#) 0.02 10\S\3/uL 0.00-0.06 NRBC # (test code=NRBC#) 0.00 10\S\3/uL 0.00-0.01 NEUTROPH % (test code=NE%) 72.5 % 35.0-73.0 LYMPH % (test code=LY%) 19.1 % 20.0-55.0 MONO % (test code=MO%) 6.4 % 2.5-10.0 EOSINOPH % (test code=EO%) 1.2 % 0.0-5.0 BASOPHIL % (test code=BA%) 0.5 % 0.0-2.0 IG % (test code=IG%) 0.3 % 0.0-0.8 NRBC% (test code=NRBC%) 0.0 % 0.0-0.2 MANDIFF (test code=MDIFF) NO NO RBC MORPH (test code=RBCMOR) NORMAL DRUGS OF [id number] 17:34:00 Test Item Value Reference Range Comments DRUG SCRN (test code=HDOA) URINE DRUG SCREEN This is an unconfirmed screening result and should not be used for non-medical purposes CANNABINOD (test code=88C) Negative NEGATIVE AMPHETAMINE (test code=84A) Negative NEGATIVE BENZODIAZP (test code=86A) POSITIVE NEGATIVE BARBITURAT (test code=85A) Negative NEGATIVE OPIATES (test code=92B) Negative NEGATIVE COCAINE (test code=87A) Negative NEGATIVE PHENCYCLID (test code=66A) Negative NEGATIVE METHADONE (test code=64A) Negative NEGATIVE DOAH (test code=DOAH.) URINE DRUG SCREEN Cut-off values are as follows: Cannabinoids 50 ng/mL Cocaine 300 ng/mL Amphetamines 1000 ng/mL Phencyclidine 25 ng/mL Benzodiazepines 200 ng.mL Methadone 300 ng/mL Barbiturates 200 ng/mL Opiates 2000 ng/mL U/S [id number] 17:32:02PELVIC ULTRASOUND:Location code: [id number] HISTORY : [id number]: Acute pelvic painComparison: NoneTECHNIQUE: Transabdominal sonography of the pelvis was performed. The patientrefused transvaginal scan..FINDINGS: The uterus is uniform in echogenicity measuring 7.8 x 83.7 x 6.9 cm. The endometrium is poorly visualized. The bilateral ovaries are nonvisualized. There is no adnexal mass or freefluid.IMPRESSION:No visualized acute abnormality on limited examination.COMPREHENSIVE METABOLIC [id number] 16:53:00 Test Item Value Reference Range Comments GLUCOSE (test code=06D) 106 mg/dL 75-100 SODIUM (test code=01A) 141 mmol/L 136-145 POTASSIUM (test code=01B) 4.2 mmol/L 3.6-5.1 CHLORIDE (test code=04A) 109 mmol/L 98-107 CO2 (test code=02A) 27 mmol/L 22-32 ANION GAP (test code=ANG) 9.2 mmol/L BUN (test code=05D) 9 mg/dL 7-18 CREATININE (test code=03E) 0.6 mg/dL 0.4-1.1 BUN/CREA (test code=BCR) 15 12-20 CALCIUM (test code=09D) 9.2 mg/dL 8.3-9.5 BILI TOTAL (test code=11A) 0.4 mg/dL 0.2-1.0 PROTEIN (test code=07D) 7.6 g/dL 6.4-8.2 ALBUMIN (test code=08D) 3.8 g/dL 3.5-4.8 GLOBULIN (test code=GLB) 3.8 g/dL 1.5-3.8 ALB/GLOB (test code=AGRR) 1.0 1.0-2.6 ALK PHOS (test code=35A) 104 IU/L 42-121 AST (test code=30A) 38 IU/L <=42 ALT (test code=31A) 21 IU/L <=78 AMYLASE AND [id number] 16:47:00 Test Item Value Reference Range Comments AMYLASE (test code=10A) 45 U/L 28-100 LIPASE (test code=60A) 47 IU/L 73-393 SERUM [id number] 16:46:00 Test Item Value Reference Range Comments PREG SRM (test code=PGS) NEGATIVE NEGATIVE [id number] 16:39:00 Test Item Value Reference Range Comments COLOR (test code=COLU) YELLOW YELLOW CLARITY (test code=CLA) CLEAR CLEAR GLUCOSE UR (test code=UA GLUCOSE) NEGATIVE NEGATIVE BILI UR (test code=BILE) NEGATIVE NEGATIVE KETONES UR (test code=KARSON) NEGATIVE NEGATIVE SP GRAVITY (test code=SPGR) 1.006 1.005-1.030 PH UR (test code=PH) 7.0 4.5-8.0 PROTEIN UR (test code=PU) NEGATIVE NEGATIVE UROBIL UR (test code=UROQ) 0.2 EU/dL 0.2-1.0 NITRITE UR (test code=NITRITE) NEGATIVE NEGATIVE BLOOD UR (test code=UA BLOOD) NEGATIVE NEGATIVE LEUK ES UR (test code=LEUK) NEGATIVE NEGATIVE CBC (INCLUDES AUTOMATED DIFFERENTIAL)2018-10-19 16:37:00 Test Item Value Reference Range Comments WBC (test code=WBC) 8.0 10\S\3/uL 4.5-11.0 RBC (test code=RBC) 4.15 10\S\6/uL 4.30-5.70 HGB (test code=HBG) 9.1 g/dL 12.0-15.5 HCT (test code=HCT) 31.2 % 35.0-44.0 MCV (test code=MCV) 75.2 fL 81.0-99.0 MCH (test code=MCH) 21.9 pg 27.0-31.0 MCHC (test code=MCHC) 29.2 g/dL 32.0-36.0 RDW (test code=RDW) 17.1 % 11.5-14.5 PLT (test code=PLT) 244 10\S\3/uL 130-400 MPV (test code=MPV) 11.1 fL 9.4-12.4 NEUTROP # (test code=NE#) 6.4 10\S\3/uL 1.6-8.0 LYMPH # (test code=LY#) 1.0 10\S\3/uL 1.1-3.5 MONOCYTE # (test code=MO#) 0.4 10\S\3/uL 0.0-1.1 EOSINOPH # (test code=EO#) 0.1 10\S\3/uL 0.0-0.7 BASOPHIL # (test code=BA#) 0.0 10\S\3/uL 0.0-0.3 IG # (test code=IG#) 0.02 10\S\3/uL 0.00-0.06 NRBC # (test code=NRBC#) 0.00 10\S\3/uL 0.00-0.01 NEUTROPH % (test code=NE%) 80.6 % 35.0-73.0 LYMPH % (test code=LY%) 12.0 % 20.0-55.0 MONO % (test code=MO%) 4.9 % 2.5-10.0 EOSINOPH % (test code=EO%) 1.8 % 0.0-5.0 BASOPHIL % (test code=BA%) 0.4 % 0.0-2.0 IG % (test code=IG%) 0.3 % 0.0-0.8 NRBC% (test code=NRBC%) 0.0 % 0.0-0.2 MANDIFF (test code=MDIFF) NO NO CBC WITH [id number] 13:43:00 Test Item Value Reference Range Comments WBC (test code=WBC) 5.2 10\S\3/uL 4.5-11.0 RBC (test code=RBC) 3.74 10\S\6/uL 4.30-5.70 HGB (test code=HBG) 8.2 g/dL 12.0-15.5 HCT (test code=HCT) 28.5 % 35.0-44.0 MCV (test code=MCV) 76.2 fL 81.0-99.0 MCH (test code=MCH) 21.9 pg 27.0-31.0 MCHC (test code=MCHC) 28.8 g/dL 32.0-36.0 RDW (test code=RDW) 18.0 % 11.5-14.5 PLT (test code=PLT) 169 10\S\3/uL 130-400 MPV (test code=MPV) 10.1 fL 9.4-12.4 NEUTROP # (test code=NE#) 3.7 10\S\3/uL 1.6-8.0 LYMPH # (test code=LY#) 1.0 10\S\3/uL 1.1-3.5 MONOCYTE # (test code=MO#) 0.4 10\S\3/uL 0.0-1.1 EOSINOPH # (test code=EO#) 0.1 10\S\3/uL 0.0-0.7 BASOPHIL # (test code=BA#) 0.0 10\S\3/uL 0.0-0.3 IG # (test code=IG#) 0.02 10\S\3/uL 0.00-0.06 NRBC # (test code=NRBC#) 0.00 10\S\3/uL 0.00-0.01 NEUTROPH % (test code=NE%) 71.8 % 35.0-73.0 LYMPH % (test code=LY%) 18.7 % 20.0-55.0 MONO % (test code=MO%) 7.3 % 2.5-10.0 EOSINOPH % (test code=EO%) 1.2 % 0.0-5.0 BASOPHIL % (test code=BA%) 0.6 % 0.0-2.0 IG % (test code=IG%) 0.4 % 0.0-0.8 NRBC% (test code=NRBC%) 0.0 % 0.0-0.2 PLT EST (test code=PLTEST) ADEQUATE ADEQUATE PLT MORPH (test code=PLTMOR) NORMAL (1.5-3 um) NORMAL HYPOCHROM (test code=HYPOC) 1+ NONE POLYCHROM (test code=POLY) 1+ NONE BASIC METABOLIC [id number] 13:40:00 Test Item Value Reference Range Comments GLUCOSE (test code=06D) 96 mg/dL 75-100 SODIUM (test code=01A) 142 mmol/L 136-145 POTASSIUM (test code=01B) 3.7 mmol/L 3.6-5.1 CHLORIDE (test code=04A) 109 mmol/L 98-107 CO2 (test code=02A) 24 mmol/L 22-32 ANION GAP (test code=ANG) 12.7 mmol/L BUN (test code=05D) 10 mg/dL 7-18 CREATININE (test code=03E) 0.6 mg/dL 0.4-1.1 BUN/CREA (test code=BCR) 16 12-20 CALCIUM (test code=09D) 8.8 mg/dL 8.3-9.5 [id number] 13:30:00 Test Item Value Reference Range Comments COLOR (test code=COLU) YELLOW YELLOW CLARITY (test code=CLA) CLEAR CLEAR GLUCOSE UR (test code=UA GLUCOSE) NEGATIVE NEGATIVE BILI UR (test code=BILE) NEGATIVE NEGATIVE KETONES UR (test code=KARSON) TRACE NEGATIVE SP GRAVITY (test code=SPGR) 1.007 1.005-1.030 PH UR (test code=PH) 6.0 4.5-8.0 PROTEIN UR (test code=PU) NEGATIVE NEGATIVE UROBIL UR (test code=UROQ) 0.2 EU/dL 0.2-1.0 NITRITE UR (test code=NITRITE) NEGATIVE NEGATIVE BLOOD UR (test code=UA BLOOD) NEGATIVE NEGATIVE LEUK ES UR (test code=LEUK) NEGATIVE NEGATIVE URINE [id number] 13:30:00 Test Item Value Reference Range Comments PREG UR (test code=PGU) NEGATIVE NEGATIVE CT ABDOMEN AND PELVIS W/O [id number] 15:32:22CT abdomen and pelvis without contrastLocation Code: [id number] HISTORY: Pain in pelvisCOMPARISON: Technique: Helical CT of the abdomen and pelvis was performed without contrast.Thin section axial, sagittal and coronal images were obtained. Automaticexposure control was utilized. Total DLP: 790 mGycmFINDINGS:The lung bases are clear. The unenhanced liver, gallbladder, adrenal glands, kidneys, pancreas, andspleen are unremarkable.The unopacified loops of bowel demonstrate no focal thickening or dilatation.The appendix is visualized and is normal. There is no free peritoneal air orfluid. The abdominal aorta is normal in caliber and contour. There is noretroperitoneal mass or fluid collection. The urinary bladder is unremarkable. 4.3 cm left adnexal cyst is likelyovarian. There is trace pelvic free fluid.The bones, skin, and surrounding soft tissues are unremarkable.IMPRESSION:1. Stable left ovarian cyst and trace pelvic free fluid. 2. Otherwise, no acute intra-abdominal or pelvic abnormality.URINALYSIS WITH [id number] 14:45:00 Test Item Value Reference Range Comments COLOR (test code=COLU) ORANGE YELLOW CLARITY (test code=CLA) CLOUDY CLEAR GLUCOSE UR (test code=UA GLUCOSE) NEGATIVE NEGATIVE BILI UR (test code=BILE) 1+ NEGATIVE KETONES UR (test code=KARSON) TRACE NEGATIVE SP GRAVITY (test code=SPGR) 1.029 1.005-1.030 PH UR (test code=PH) 5.5 4.5-8.0 PROTEIN UR (test code=PU) 1+ NEGATIVE UROBIL UR (test code=UROQ) 1.0 EU/dL 0.2-1.0 NITRITE UR (test code=NITRITE) POSITIVE NEGATIVE BLOOD UR (test code=UA BLOOD) NEGATIVE NEGATIVE LEUK ES UR (test code=LEUK) 2+ NEGATIVE WBC UR (test code=UWBC) 6 /HPF 0-5 RBC UR (test code=URBC) 0 /HPF 0-2 EPITH UR (test code=UEPC) MODERATE /LPF FEW BACTERIA UR (test code=UBACT) MODERATE /HPF NONE CAST UR (test code=CAST) /LPF NONE CRYSTAL UR (test code=CRYU) / LPF NONE MUCUS UR (test code=MUC) MODERATE / HPF NONE AMORPH UR (test code=BRENT) / HPF NONE TRICH UR (test code=UTRICH) /HPF NONE YEAST UR (test code=UY) /HPF NONE SPERM UR (test code=USPERM) /HPF NONE URINE [id number] 14:40:00 Test Item Value Reference Range Comments PREG UR (test code=PGU) NEGATIVE NEGATIVE DIRECT STREP GROUP [id number] 10:48:00 Test Item Value Reference Range Comments Culture Observations (test NO BETA HEMOLYTIC code=COB1) STREPTOCOCCUS ISOLATED Direct Exam (test code=DE1) NO STREPTOCOCCUS GROUP A ANTIGEN DETECTED U/S [id number] 15:54:21PELVIC ULTRASOUND:Location code: [id number] HISTORY : lower abdominal pain, 4cm ovarian cyst on CTComparison: CT performed earlier on same dayTECHNIQUE: Transabdominal sonography of the pelvis was performed. FINDINGS: The uterus is uniform in echogenicity measuring 7.6 x 5.4 x 6.0 cm. The endometrium is unremarkable at 13 mm. The right ovary is not visualized The left ovary measures 4.9 x 3.6 x 4.5 cm.There is a complex cyst measuring 3.8 cm with low-level internal echoes. Colorflow is normal. There is no adnexal mass or free fluid. IMPRESSION:1. 3.8 cm complex, likely hemorrhagic left ovariancyst. There is no evidenceof torsion.2. Nonvisualization of the right ovary.U/S NON [id number] 15:54:21PELVIC ULTRASOUND: Location code: [id number] HISTORY: lower abdominal pain, 4cm ovarian cyst on CTComparison: CT performed earlier on same dayTECHNIQUE: Transabdominal sonography of the pelvis was performed. FINDINGS: The uterus is uniform in echogenicity measuring 7.6 x 5.4 x 6.0 cm. The endometrium is unremarkable at 13 mm. The right ovary is not visualized The left ovary measures 4.9 x 3.6 x 4.5 cm.There is a complex cyst measuring 3.8 cm with low-level internal echoes. Colorflow is normal. There is no adnexal mass or free fluid. IMPRESSION:1. 3.8 cm complex, likely hemorrhagic left ovariancyst. There is no evidenceof torsion.2. Nonvisualization of the right ovary.URINALYSIS WITH [id number] 15:27:00 Test Item Value Reference Range Comments COLOR (test code=COLU) YELLOW YELLOW CLARITY (test code=CLA) CLOUDY CLEAR GLUCOSE UR (test code=UA GLUCOSE) NEGATIVE NEGATIVE BILI UR (test code=BILE) NEGATIVE NEGATIVE KETONES UR (test code=KARSON) NEGATIVE NEGATIVE SP GRAVITY (test code=SPGR) 1.025 1.005-1.030 PH UR (test code=PH) 7.5 4.5-8.0 PROTEIN UR (test code=PU) TRACE NEGATIVE UROBIL UR (test code=UROQ) 0.2 EU/dL 0.2-1.0 NITRITE UR (test code=NITRITE) NEGATIVE NEGATIVE BLOOD UR (test code=UA BLOOD) NEGATIVE NEGATIVE LEUK ES UR (test code=LEUK) 2+ NEGATIVE WBC UR (test code=UWBC) 6 /HPF 0-5 RBC UR (test code=URBC) 0 /HPF 0-2 EPITH UR (test code=UEPC) FEW /LPF FEW BACTERIA UR (test code=UBACT) FEW /HPF NONE CAST UR (test code=CAST) /LPF NONE CRYSTAL UR (test code=CRYU) / LPF NONE MUCUS UR (test code=MUC) / HPF NONE AMORPH UR (test code=BRENT) / HPF NONE TRICH UR (test code=UTRICH) /HPF NONE YEAST UR (test code=UY) /HPF NONE SPERM UR (test code=USPERM) /HPF NONE CT ABDOMEN AND PELVIS WITH [id number] 14:44:45CT abdomen and pelvis with contrastLocation Code: [id number] HISTORY: 2 days post laparoscopy with abd pain, back pain, feverCOMPARISON: 07/28/2018Technique: Helical CT of the abdomen and pelvis was performed following theadministration of intravenous contrast. Thin section axial, sagittal andcoronal images were obtained. Automatic exposure control was utilized. TotalDLP: 1402 mGycmFINDINGS:The lung bases are clear. The liver, gallbladder, adrenal glands, kidneys, pancreas, and spleen areunremarkable.The unopacified loops of bowel demonstrate no focal thickening or dilatation.The appendix is visualized and is normal. There is no free peritoneal air orfluid. The abdominal aorta is normal in caliberand contour. There is noretroperitoneal mass or fluid collection. The urinary bladder is unremarkable.4.2 cm left adnexal cyst is likely ovarian. There is no pelvic mass or fluidcollection. The bones, skin, and surrounding soft tissues are unremarkable.IMPRESSION:1. 4.2 cm left ovarian cyst.2. Otherwise, no acute abnormality.XR CHEST 2 [id number] 14:10:17PA and lateral chest, 2 viewsLocation code: [id number] HISTORY: CoughCOMPARISON: 06/07/2016COMMENTS:The lungs are clear and well inflated. The costophrenic angles aresharp. The cardiomediastinal silhouette is unremarkable. The bones are intact.IMPRESSION: Stable chest with no acute abnormalityAMYLASE AND [id number] 14:07:00 Test Item Value Reference Range Comments AMYLASE (test code=10A) 34 U/L 28-100 LIPASE (test code=60A) 45 IU/L 73-393 COMPREHENSIVE METABOLIC [id number] 14:07:00 Test Item Value Reference Range Comments GLUCOSE (test code=06D) 100 mg/dL 75-100 SODIUM (test code=01A) 135 mmol/L 136-145 POTASSIUM (test code=01B) 3.8 mmol/L 3.6-5.1 CHLORIDE (test code=04A) 102 mmol/L 98-107 CO2 (test code=02A) 24 mmol/L 22-32 ANION GAP (test code=ANG) 12.8 mmol/L BUN (test code=05D) 9 mg/dL 7-18 CREATININE (test code=03E) 0.8 mg/dL 0.4-1.1 BUN/CREA (test code=BCR) 12 12-20 CALCIUM (test code=09D) 8.9 mg/dL 8.3-9.5 BILI TOTAL (test code=11A) 0.5 mg/dL 0.2-1.0 PROTEIN (test code=07D) 8.2 g/dL 6.4-8.2 ALBUMIN (test code=08D) 3.9 g/dL 3.5-4.8 GLOBULIN (test code=GLB) 4.3 g/dL 1.5-3.8 ALB/GLOB (test code=AGRR) 0.9 1.0-2.6 ALK PHOS (test code=35A) 134 IU/L 42-121 AST (test code=30A) 36 IU/L <=42 ALT (test code=31A) 23 IU/L <=78 PRO TIME AND [id number] 14:00:00 Test Item Value Reference Range Comments PT (test code=TT) 12.0 s 9.8-13.6 INR (test code=INR) 1.1 INRH (test code=INRH) SUGGESTED THERAPEUTIC RANGE FOR INR: 2.5 - 3.5 For Patients with Prosthetic Valves or Patients with recurrent Thromboembolic Events 2.0 - 3.0 For Most Other Applications PTT (test code=PTT) 32.4 s 20.2-38.0 PTTH (test code=PTTH) To monitor the effectiveness of heparin, we offer the Anti-Xa (Heparin Assay). It can be used for either unfractionated or LMW Heparin. Order Code is ANTI-XA SERUM [id number] 13:59:00 Test Item Value Reference Range Comments PREG SRM (test code=PGS) NEGATIVE NEGATIVE CBC (INCLUDES AUTOMATED DIFFERENTIAL)2018-09-09 13:53:00 Test Item Value Reference Range Comments WBC (test code=WBC) 7.3 10\S\3/uL 4.5-11.0 RBC (test code=RBC) 4.26 10\S\6/uL 4.30-5.70 HGB (test code=HBG) 9.4 g/dL 12.0-15.5 HCT (test code=HCT) 31.8 % 35.0-44.0 MCV (test code=MCV) 74.6 fL 81.0-99.0 MCH (test code=MCH) 22.1 pg 27.0-31.0 MCHC (test code=MCHC) 29.6 g/dL 32.0-36.0 RDW (test code=RDW) 18.2 % 11.5-14.5 PLT (test code=PLT) 232 10\S\3/uL 130-400 MPV (test code=MPV) 10.9 fL 9.4-12.4 NEUTROP # (test code=NE#) 5.9 10\S\3/uL 1.6-8.0 LYMPH # (test code=LY#) 0.4 10\S\3/uL 1.1-3.5 MONOCYTE # (test code=MO#) 0.7 10\S\3/uL 0.0-1.1 EOSINOPH # (test code=EO#) 0.2 10\S\3/uL 0.0-0.7 BASOPHIL # (test code=BA#) 0.0 10\S\3/uL 0.0-0.3 IG # (test code=IG#) 0.01 10\S\3/uL 0.00-0.06 NRBC # (test code=NRBC#) 0.00 10\S\3/uL 0.00-0.01 NEUTROPH % (test code=NE%) 81.5 % 35.0-73.0 LYMPH % (test code=LY%) 5.8 % 20.0-55.0 MONO % (test code=MO%) 9.5 % 2.5-10.0 EOSINOPH % (test code=EO%) 2.7 % 0.0-5.0 BASOPHIL % (test code=BA%) 0.4 % 0.0-2.0 IG % (test code=IG%) 0.1 % 0.0-0.8 NRBC% (test code=NRBC%) 0.0 % 0.0-0.2 MANDIFF (test code=MDIFF) NO NO RBC MORPH (test code=RBCMOR) NORMAL DIRECT INFLUENZA A AND B [id number] 13:24:00 Test Item Value Reference Range Comments Direct Exam (test code=DE1) PRESUMPTIVE NEGATIVE FOR THE PRESENCE OF INFLUENZA ANTIGEN U/S, PELVIS, WITH ENDOVAG AND [id number] 05:32:00Reason for exam:-> right lower quadrant painShould this be performed at the bedside?->NoFINAL REPORT U/S, PELVIS, WITH ENDOVAG AND DOPPLER CLINICAL INDICATION: rightlower quadrant pain , patient is not , [...] Ovary: Size: 1.7 x 1.1 x 1.5cm. Echogenicity : Normal Vascular flow: Preserved Left Ovary: Size: 2.0 x 2.0 x 2.1cm. Echogenicity: Normal Vascular flow: Preserved Free fluid: Trace. Additional findings: Small cyst within the right ovary measures 1 x 1 x 1 cm without definite through transmission. No septations or internal vascularity. IMPRESSION: Unremarkable sonographic examination of the pelvis. Signed: Benjamin Peres MDReport Verified Date/Time: 08/21/2018 05:32:26 Reading Location: [facility] [id number] Neuro Reading Room BASIC METABOLIC [id number] 03: 50:00 Test Item Value Reference Range Comments SODIUM (BEAKER) (test 140 meq/L 135-148 ppfg=418) POTASSIUM (BEAKER) (test 4.0 meq/L 3.6-5.5 rzwa=630) CHLORIDE (BEAKER) (test 108 meq/L 98-106 zvyq=468) CO2 (BEAKER) (test 23 meq/L 20-29 ymhs=371) BLOOD UREA NITROGEN 12 mg/dL 10-26 (BEAKER) (test ridp=389) CREATININE (BEAKER) (test 0.71 mg/dL 0.50-1.20 srmg=806) GLUCOSE RANDOM (BEAKER) 87 mg/dL 70-110 (test laek=346) CALCIUM (BEAKER) (test 8.8 mg/dL 8.5-10.5 gwdt=320) EGFR (BEAKER) (test 100 mL/min/1.73 sq m ESTIMATED GFR IS NOT zlmq=1384) ACCURATE CREATININE CLEARANCE IN PREDICTING GLOMERULAR FILTRATION RATE. ESTIMATED GFR IS NOT APPLICABLE FOR DIALYSIS PATIENTS. CBC W/PLT COUNT & AUTO [id number] 03:44:00 Test Item Value Reference Range Comments WHITE BLOOD CELL COUNT (BEAKER) (test krio=005) 7.2 K/ L 4.0-10.0 RED BLOOD CELL COUNT (BEAKER) (test bozu=764) 4.11 M/ L 4.00-5.00 HEMOGLOBIN (BEAKER) (test cvcf=293) 8.9 GM/DL 12.0-15.5 HEMATOCRIT (BEAKER) (test grku=153) 30.7 % 36.0-46.0 MEAN CORPUSCULAR VOLUME (BEAKER) (test pptd=140) 74.7 fL 82.0-99.0 MEAN CORPUSCULAR HEMOGLOBIN (BEAKER) (test 21.7 pg 27.0-33.0 vohc=835) MEAN CORPUSCULAR HEMOGLOBIN CONC (BEAKER) (test 29.0 GM/DL 32.0-36.0 ajto=005) RED CELL DISTRIBUTION WIDTH (BEAKER) (test 17.9 % 12.0-15.0 dsqj=864) PLATELET COUNT (BEAKER) (test aorw=963) 242 K/CU MM 150-430 MEAN PLATELET VOLUME (BEAKER) (test pzgt=139) 11.8 fL 6.0-11.5 NUCLEATED RED BLOOD CELLS (BEAKER) (test 0 /100 WBC 0-0 xmbe=554) NEUTROPHILS RELATIVE PERCENT (BEAKER) (test 57 % rsco=266) LYMPHOCYTES RELATIVE PERCENT (BEAKER) (test 31 % wzsf=550) MONOCYTES RELATIVE PERCENT (BEAKER) (test 8 % ezwy=545) EOSINOPHILS RELATIVE PERCENT (BEAKER) (test 3 % ctgy=515) BASOPHILS RELATIVE PERCENT (BEAKER) (test 1 % zyqy=358) NEUTROPHILS ABSOLUTE COUNT (BEAKER) (test 4.11 K/ L 1.80-8.00 quzh=435) LYMPHOCYTES ABSOLUTE COUNT (BEAKER) (test 2.22 K/ L 1.48-4.50 nppa=738) MONOCYTES ABSOLUTE COUNT (BEAKER) (test 0.60 K/ L 0.00-1.30 qgso=556) EOSINOPHILS ABSOLUTE COUNT (BEAKER) (test 0.24 K/ L 0.00-0.50 ytye=381) BASOPHILS ABSOLUTE COUNT (BEAKER) (test 0.05 K/ L 0.00-0.20 ralf=304) IMMATURE GRANULOCYTES-RELATIVE PERCENT (BEAKER) 0 % 0-0 (test giur=4086) URINALYSIS W/ [id number] 03:31:00 Test Item Value Reference Range Comments COLOR (BEAKER) (test azeo=632) Yellow CLARITY (BEAKER) (test slcv=765) Slightly Cloudy SPECIFIC GRAVITY UA (BEAKER) (test gulg=384) 1.015 1.001-1.035 PH UA (BEAKER) (test azmc=469) 6.5 5.0-8.0 PROTEIN UA (BEAKER) (test hcuw=838) Negative Negative GLUCOSE UA (BEAKER) (test axkv=882) Negative Negative KETONES UA (BEAKER) (test aohw=004) Negative Negative BILIRUBIN UA (BEAKER) (test dhmn=745) Negative Negative BLOOD UA (BEAKER) (test ispu=102) Negative Negative NITRITE UA (BEAKER) (test vztu=047) Negative Negative LEUKOCYTE ESTERASE UA (BEAKER) (test Moderate Negative jvlq=793) UROBILINOGEN UA (BEAKER) (test jhmx=782) 0.2 mg/dL 0.2-1.0 BACTERIA (BEAKER) (test nksd=134) Few RBC UA-MANUAL (BEAKER) (test bywb=6915) <5 /HPF WBC UA-MANUAL (BEAKER) (test qitk=3206) 10-20 /HPF SQUAMOUS EPITHELIAL MANUAL (BEAKER) (test 10-20 /HPF jsti=4739) SOURCE(BEAKER) (test ckzf=1340) SCREEN, [id number] 03:25:00 Test Item Value Reference Range Comments TEST URINE (BEAKER) (test qljj=501) Negative U/S [id number] 03:53:09AFTER HOURS SERVICE ON: 08/17/2018 3:51 AMPelvic UltrasoundLocation Code W82Nepkhtu: pelvic painTRANSABDOMINAL ScanTechnique: Longitudinal and transverse real-time osorio scale, Doppler spectralanalysis and Doppler color flow evaluation was performed using a dedicatedtransducer. Transabdominal pelvis imaging is inherently limited for anatomicdetail without transvaginal imaging. Findings:The uterus is retroflexed measuring 12 x 6 x 8 cm. Endometrial stripe measures1.1 cm. Right ovary measures 24 x 20 x 25 mm. Left ovary measures 30 x 17 x 27mm. Adequate ovarian flow with arterial inflow and venous outflow noted. Thereis no free fluid. Impression:Unremarkable ultrasound.DRUGS OF [id number] 02:28:00 Test Item Value Reference Range Comments DRUG SCRN (test code=HDOA) URINE DRUG SCREEN This is an unconfirmed screening result and should not be used for non-medical purposes CANNABINOD (test code=88C) Negative NEGATIVE AMPHETAMINE (test code=84A) Negative NEGATIVE BENZODIAZP (test code=86A) Negative NEGATIVE BARBITURAT (test code=85A) Negative NEGATIVE OPIATES (test code=92B) Negative NEGATIVE COCAINE (test code=87A) Negative NEGATIVE PHENCYCLID (test code=66A) Negative NEGATIVE METHADONE (test code=64A) Negative NEGATIVE DOAH (test code=DOAH.) URINE DRUG SCREEN Cut-off values are as follows: Cannabinoids 50 ng/mL Cocaine 300 ng/mL Amphetamines 1000 ng/mL Phencyclidine 25 ng/mL Benzodiazepines 200 ng.mL Methadone 300 ng/mL Barbiturates 200 ng/mL Opiates 2000 ng/mL AMYLASE AND [id number] 02:27:00 Test Item Value Reference Range Comments AMYLASE (test code=10A) 62 U/L 28-100 LIPASE (test code=60A) 112 IU/L 73-393 COMPREHENSIVE METABOLIC [id number] 02:27:00 Test Item Value Reference Range Comments GLUCOSE (test code=06D) 95 mg/dL 75-100 SODIUM (test code=01A) 141 mmol/L 136-145 POTASSIUM (test code=01B) 4.1 mmol/L 3.6-5.1 CHLORIDE (test code=04A) 107 mmol/L 98-107 CO2 (test code=02A) 26 mmol/L 22-32 ANION GAP (test code=ANG) 12.1 mmol/L BUN (test code=05D) 12 mg/dL 7-18 CREATININE (test code=03E) 0.7 mg/dL 0.4-1.1 BUN/CREA (test code=BCR) 16 12-20 CALCIUM (test code=09D) 8.7 mg/dL 8.3-9.5 BILI TOTAL (test code=11A) 0.2 mg/dL 0.2-1.0 PROTEIN (test code=07D) 8.2 g/dL 6.4-8.2 ALBUMIN (test code=08D) 4.5 g/dL 3.5-4.8 GLOBULIN (test code=GLB) 3.7 g/dL 1.5-3.8 ALB/GLOB (test code=AGRR) 1.2 1.0-2.6 ALK PHOS (test code=35A) 108 IU/L 42-121 AST (test code=30A) 29 IU/L <=42 ALT (test code=31A) 15 IU/L <=78 URINALYSIS WITH [id number] 02:26:00 Test Item Value Reference Range Comments COLOR (test code=COLU) YELLOW YELLOW CLARITY (test code=CLA) CLOUDY CLEAR GLUCOSE UR (test code=UA GLUCOSE) NEGATIVE NEGATIVE BILI UR (test code=BILE) NEGATIVE NEGATIVE KETONES UR (test code=KARSON) NEGATIVE NEGATIVE SP GRAVITY (test code=SPGR) 1.008 1.005-1.030 PH UR (test code=PH) 6.5 4.5-8.0 PROTEIN UR (test code=PU) NEGATIVE NEGATIVE UROBIL UR (test code=UROQ) 0.2 EU/dL 0.2-1.0 NITRITE UR (test code=NITRITE) NEGATIVE NEGATIVE BLOOD UR (test code=UA BLOOD) NEGATIVE NEGATIVE LEUK ES UR (test code=LEUK) TRACE NEGATIVE WBC UR (test code=UWBC) 1 /HPF 0-5 RBC UR (test code=URBC) 0 /HPF 0-2 EPITH UR (test code=UEPC) FEW /LPF FEW BACTERIA UR (test code=UBACT) NONE /HPF NONE CAST UR (test code=CAST) /LPF NONE CRYSTAL UR (test code=CRYU) / LPF NONE MUCUS UR (test code=MUC) / HPF NONE AMORPH UR (test code=BRENT) FEW / HPF NONE TRICH UR (test code=UTRICH) /HPF NONE YEAST UR (test code=UY) /HPF NONE SPERM UR (test code=USPERM) /HPF NONE SERUM [id number] 02:24:00 Test Item Value Reference Range Comments PREG SRM (test code=PGS) NEGATIVE NEGATIVE CBC (INCLUDES AUTOMATED DIFFERENTIAL)2018-08-17 02:12:00 Test Item Value Reference Range Comments WBC (test code=WBC) 7.6 10\S\3/uL 4.5-11.0 RBC (test code=RBC) 4.23 10\S\6/uL 4.30-5.70 HGB (test code=HBG) 9.4 g/dL 12.0-15.5 HCT (test code=HCT) 32.1 % 35.0-44.0 MCV (test code=MCV) 75.9 fL 81.0-99.0 MCH (test code=MCH) 22.2 pg 27.0-31.0 MCHC (test code=MCHC) 29.3 g/dL 32.0-36.0 RDW (test code=RDW) 17.9 % 11.5-14.5 PLT (test code=PLT) 229 10\S\3/uL 130-400 MPV (test code=MPV) 11.0 fL 9.4-12.4 NEUTROP # (test code=NE#) 4.3 10\S\3/uL 1.6-8.0 LYMPH # (test code=LY#) 2.4 10\S\3/uL 1.1-3.5 MONOCYTE # (test code=MO#) 0.7 10\S\3/uL 0.0-1.1 EOSINOPH # (test code=EO#) 0.3 10\S\3/uL 0.0-0.7 BASOPHIL # (test code=BA#) 0.1 10\S\3/uL 0.0-0.3 IG # (test code=IG#) 0.01 10\S\3/uL 0.00-0.06 NRBC # (test code=NRBC#) 0.00 10\S\3/uL 0.00-0.01 NEUTROPH % (test code=NE%) 56.1 % 35.0-73.0 LYMPH % (test code=LY%) 31.3 % 20.0-55.0 MONO % (test code=MO%) 8.5 % 2.5-10.0 EOSINOPH % (test code=EO%) 3.3 % 0.0-5.0 BASOPHIL % (test code=BA%) 0.7 % 0.0-2.0 IG % (test code=IG%) 0.1 % 0.0-0.8 NRBC% (test code=NRBC%) 0.0 % 0.0-0.2 MANDIFF (test code=MDIFF) NO NO RBC MORPH (test code=RBCMOR) NORMAL DIRECT CHLAMYDIA EXAM *WW*2018-07-31 10:12:00 Test Item Value Reference Range Comments CHLAMYDIA TRACHOMATIS NOT DETECTED NOT DETECTED (test qbzw=[id number]) NEISSERIA GONORRHOEAE NOT DETECTED NOT DETECTED (test apue=[id number]) Endnote (test This test was performed using honp=[id number]) the APTIMA COMBO2 Assay([employer]The analytical performance characteristics of thisassay, when used to test SurePath specimens havebeen determined by [employer].TEST PERFORMED AT:[facility] [address] [id number] TALLEY M.D. HEPATITIS C ANTIBODY *WW*2018-07-29 00:07:00 Test Item Value Reference Range Comments HCAB (test code=HCAB) NON-REACTIVE NON-REACTIVE HIV *WW*2018-07-29 00:06:00 Test Item Value Reference Range Comments HIV-1,2 and p24 (test code=CHIV) NON-REACTIVE NON-REACTIVE HEPATITIS B SURFACE ANTIGEN *WW*2018-07-28 23:39:00 Test Item Value Reference Range Comments HBSAG (test code=HBSAG) NON-REACTIVE NON-REACTIVE SYPHILIS SCREENING WW2018-07-28 23:38:00 Test Item Value Reference Range Comments T PALLIDUM AB (test NON-REACTIVE NON-REACTIVE code=SYPHINT) SYPHC (test code=SYPHC) RPR test has been updated to Treponemal Immunoassay. Interpretation of results is similar MRI PELVIS W/WO CONTRAST*WW*2018-07-28 12:54:44Exam: MRI of the pelvis with and without contrastHistory: Pain with thickened endometriumLocation: [id number]: High-resolution multiplanar multiecho imaging of the pelvis wasperformed with and wgrgyka46 cc of intravenous Dotarem.Findings:Endometrium is thickened at 19 mm. There is no definite enhancing endometriallesion.No definite uterine mass, fibroid, or irregular endometrial lesion.There is no adnexal mass noted. No evidence of ovarian neoplasm.There is no evidence of pelvic adenopathy or mass.No evidence of free intrapelvic fluid.The marrow signal throughout the osseous structures is preserved.Impression:1. Thickened endometrium without definite worrisome mass although clinicalcorrelation recommended.MRCP *WW*07-28 12:11:11MRCPLocation code: [id number] history: Dilated common ductComparison: Reference is made to CT performed on 07/28/18 at 5:41 AMTechnique: Heavily T2-weighted MR imaging of the abdomen was performed withoutcontrast. Volume rendered, 3-D reformatted images of the pancreatic andbiliary ductal systems were obtained from the source data for the purpose of anMRCP. Findings:Common duct is at the upper limits of normal 7.7 mm. There is no evidence ofcholedocholithiasis. No evidence of gallstones or gallbladder wall thickening.Ampulla is unremarkable with normal insertion of the common duct.Tiny 5 mm cyst seen in the left lobe of the liver. The liver, spleen, kidneys,pancreas, and adrenal glands are otherwise unremarkable.No evidence of adenopathy or ascites.Impression: Common duct at the upper limits of normal at 7.7 mm. No choledocholithiasis orobstruction. Small cyst in the liver.CT ABDOMEN AND PELVIS WITH [id number] 06:13:19CT abdomen and pelvis with contrastLocation Code: [id number] HISTORY: [id number]: Acute pelvic painCOMPARISON: NoneTechnique: Helical CT of the abdomen and pelvis was performed followingthe administration of intravenous contrast. Thin section axial, [place] coronal images were obtained.Automatic exposure control was utilized. FINDINGS:The lung bases are clear. The liver, adrenal glands, kidneys, pancreas, and spleen are unremarkable theexception of a greater than expected dilation ofthe common bile duct measuringup to 8 mm..The gallbladder is unremarkableThe unopacified loops of bowel demonstrate no evidence of obstruction. Theappendix is visualized and is normal. A large volume of stool seen throughoutthe colon compatible clinical diagnosis of constipation. There is no freeperitoneal air or fluid. Limited evaluation of the uterus demonstrates fluid filled endometrium withquestionable density seen within the lower uterine segment/cervix, recommendfurther evaluation with directvisualization and/or MRI of the pelvis. Thebilateral adnexa have a relatively unremarkable CT appearance with theexception of a 1.3 cm left adnexal cyst.No aggressive osseous lesions are seen. IMPRESSION:1. Limited evaluation of the uterus demonstrates fluid filled endometrium withquestionable densityseen within the lower uterine segment/cervix, recommendfurther evaluation with direct visualization and/or MRI of the pelvis. Thebilateral adnexa have a relatively unremarkable CT appearance with theexception of a 1.3 cm left adnexal cyst.2.A large volume of stool seen throughout the colon compatible clinicaldiagnosis of constipation3.greater than expected dilation of the common bile duct measuring up to 8 mmrecommend further evaluation with MRCP to exclude the presence ofcholedocholithiasis or stricture.U/S NON [id number] 05:59:08PELVIC ULTRASOUND:Location code: [id number] HISTORY: Pain, bleedingComparison: NoneTECHNIQUE: Transabdominal sonography of the pelvis was performed followed byendovaginal scanning for better characterization of the ovaries. FINDINGS: The uterus is uniform in echogenicity measuring 7.7 x 5.9 x 5.5 cm.The endometrium is slightly heterogeneous and hyperdense measuring up to 1 cmThe bilateral adnexa are not visualized. Trace free fluid is noted within hqdkuk-ba-dwm.IMPRESSION: Nonspecific heterogeneityof the endometriumThe bilateral adnexa are not visualized.U/S [id number] 05:59:08PELVIC ULTRASOUND:Location code: [id number] HISTORY: Pain, bleedingComparison: NoneTECHNIQUE: Transabdominal sonography of the pelvis was performed followed byendovaginal scanning for better characterization of the ovaries. FINDINGS: The uterus is uniform in echogenicity measuring 7.7 x 5.9 x 5.5 cm.The endometrium is slightly heterogeneous and hyperdense measuring up to 1 cmThe bilateral adnexa are not visualized. Trace free fluid is noted within flzndb-kd-tfq.IMPRESSION: Nonspecific heterogeneityof the endometriumThe bilateral adnexa are not visualized.AMYLASE AND [id number] 05:13:00 Test Item Value Reference Range Comments AMYLASE (test code=10A) 80 U/L 28-100 LIPASE (test code=60A) 150 IU/L 73-393 COMPREHENSIVE METABOLIC [id number] 05:13:00 Test Item Value Reference Range Comments GLUCOSE (test code=06D) 88 mg/dL 75-100 SODIUM (test code=01A) 140 mmol/L 136-145 POTASSIUM (test code=01B) 3.7 mmol/L 3.6-5.1 CHLORIDE (test code=04A) 109 mmol/L 98-107 CO2 (test code=02A) 27 mmol/L 22-32 ANION GAP (test code=ANG) 7.7 mmol/L BUN (test code=05D) 11 mg/dL 7-18 CREATININE (test code=03E) 0.6 mg/dL 0.4-1.1 BUN/CREA (test code=BCR) 18 12-20 CALCIUM (test code=09D) 8.2 mg/dL 8.3-9.5 BILI TOTAL (test code=11A) 0.2 mg/dL 0.2-1.0 PROTEIN (test code=07D) 7.2 g/dL 6.4-8.2 ALBUMIN (test code=08D) 3.6 g/dL 3.5-4.8 GLOBULIN (test code=GLB) 3.6 g/dL 1.5-3.8 ALB/GLOB (test code=AGRR) 1.0 1.0-2.6 ALK PHOS (test code=35A) 82 IU/L 42-121 AST (test code=30A) 21 IU/L <=42 ALT (test code=31A) 16 IU/L <=78 URINALYSIS WITH [id number] 05:10:00 Test Item Value Reference Range Comments COLOR (test code=COLU) YELLOW YELLOW CLARITY (test code=CLA) CLOUDY CLEAR GLUCOSE UR (test code=UA GLUCOSE) NEGATIVE NEGATIVE BILI UR (test code=BILE) NEGATIVE NEGATIVE KETONES UR (test code=KARSON) NEGATIVE NEGATIVE SP GRAVITY (test code=SPGR) 1.011 1.005-1.030 PH UR (test code=PH) 6.5 4.5-8.0 PROTEIN UR (test code=PU) NEGATIVE NEGATIVE UROBIL UR (test code=UROQ) 0.2 EU/dL 0.2-1.0 NITRITE UR (test code=NITRITE) NEGATIVE NEGATIVE BLOOD UR (test code=UA BLOOD) NEGATIVE NEGATIVE LEUK ES UR (test code=LEUK) 3+ NEGATIVE WBC UR (test code=UWBC) 8 /HPF 0-5 RBC UR (test code=URBC) 0 /HPF 0-2 EPITH UR (test code=UEPC) FEW /LPF FEW BACTERIA UR (test code=UBACT) FEW /HPF NONE CAST UR (test code=CAST) /LPF NONE CRYSTAL UR (test code=CRYU) / LPF NONE MUCUS UR (test code=MUC) / HPF NONE AMORPH UR (test code=BRENT) / HPF NONE TRICH UR (test code=UTRICH) /HPF NONE YEAST UR (test code=UY) /HPF NONE SPERM UR (test code=USPERM) /HPF NONE URINE [id number] 05:01:00 Test Item Value Reference Range Comments PREG UR (test code=PGU) NEGATIVE NEGATIVE CBC (INCLUDES AUTOMATED DIFFERENTIAL)2018-07-28 04:48:00 Test Item Value Reference Range Comments WBC (test code=WBC) 7.3 10\S\3/uL 4.5-11.0 RBC (test code=RBC) 3.99 10\S\6/uL 4.30-5.70 HGB (test code=HBG) 8.7 g/dL 12.0-15.5 HCT (test code=HCT) 29.5 % 35.0-44.0 MCV (test code=MCV) 73.9 fL 81.0-99.0 MCH (test code=MCH) 21.8 pg 27.0-31.0 MCHC (test code=MCHC) 29.5 g/dL 32.0-36.0 RDW (test code=RDW) 18.0 % 11.5-14.5 PLT (test code=PLT) 198 10\S\3/uL 130-400 MPV (test code=MPV) 10.7 fL 9.4-12.4 NEUTROP # (test code=NE#) 4.4 10\S\3/uL 1.6-8.0 LYMPH # (test code=LY#) 2.2 10\S\3/uL 1.1-3.5 MONOCYTE # (test code=MO#) 0.5 10\S\3/uL 0.0-1.1 EOSINOPH # (test code=EO#) 0.2 10\S\3/uL 0.0-0.7 BASOPHIL # (test code=BA#) 0.0 10\S\3/uL 0.0-0.3 IG # (test code=IG#) 0.02 10\S\3/uL 0.00-0.06 NRBC # (test code=NRBC#) 0.00 10\S\3/uL 0.00-0.01 NEUTROPH % (test code=NE%) 60.3 % 35.0-73.0 LYMPH % (test code=LY%) 29.8 % 20.0-55.0 MONO % (test code=MO%) 6.4 % 2.5-10.0 EOSINOPH % (test code=EO%) 2.7 % 0.0-5.0 BASOPHIL % (test code=BA%) 0.5 % 0.0-2.0 IG % (test code=IG%) 0.3 % 0.0-0.8 NRBC% (test code=NRBC%) 0.0 % 0.0-0.2 MANDIFF (test code=MDIFF) NO NO RBC MORPH (test code=RBCMOR) NORMAL URINALYSIS WITH [id number] 18:39:00 Test Item Value Reference Range Comments COLOR (test code=COLU) YELLOW YELLOW CLARITY (test code=CLA) HAZY CLEAR GLUCOSE UR (test code=UA GLUCOSE) NEGATIVE NEGATIVE BILI UR (test code=BILE) NEGATIVE NEGATIVE KETONES UR (test code=KARSON) NEGATIVE NEGATIVE SP GRAVITY (test code=SPGR) 1.019 1.005-1.030 PH UR (test code=PH) 6.5 4.5-8.0 PROTEIN UR (test code=PU) TRACE NEGATIVE UROBIL UR (test code=UROQ) 0.2 EU/dL 0.2-1.0 NITRITE UR (test code=NITRITE) NEGATIVE NEGATIVE BLOOD UR (test code=UA BLOOD) 1+ NEGATIVE LEUK ES UR (test code=LEUK) 3+ NEGATIVE WBC UR (test code=UWBC) 8 /HPF 0-5 RBC UR (test code=URBC) 2 /HPF 0-2 EPITH UR (test code=UEPC) FEW /LPF FEW BACTERIA UR (test code=UBACT) FEW /HPF NONE CAST UR (test code=CAST) /LPF NONE CRYSTAL UR (test code=CRYU) / LPF NONE MUCUS UR (test code=MUC) FEW / HPF NONE AMORPH UR (test code=BRENT) / HPF NONE TRICH UR (test code=UTRICH) /HPF NONE YEAST UR (test code=UY) FEW /HPF NONE SPERM UR (test code=USPERM) /HPF NONE URINE [id number] 18:31:00 Test Item Value Reference Range Comments PREG UR (test code=PGU) NEGATIVE NEGATIVE U/S [id number] 18:46:36HISTORY: Pain.Location Code: [id number]: Multiple transverse and longitudinal sonographic images wereobtained.FINDINGS: The uterus measures 8 x 4 x 4.7 cm. It is likely heterogeneous inechogenicity, containing a 2.9 x 2.2 x 2.6 ammeter isoechoic lesion, likely afibroid. The endometrial stripe is notwell visualized.The ovaries are not well-visualized bilaterally. No suspicious adnexal massesare seen.There is no free fluid in the cul-de-sac.IMPRESSION:1. Suggestion of uterine fibroid2. Endometrial stripe and ovaries are not well seen.URINALYSIS WITH [id number] 18:33:00 Test Item Value Reference Range Comments COLOR (test code=COLU) YELLOW YELLOW CLARITY (test code=CLA) CLEAR CLEAR GLUCOSE UR (test code=UA GLUCOSE) NEGATIVE NEGATIVE BILI UR (test code=BILE) NEGATIVE NEGATIVE KETONES UR (test code=KARSON) NEGATIVE NEGATIVE SP GRAVITY (test code=SPGR) 1.007 1.005-1.030 PH UR (test code=PH) 6.0 4.5-8.0 PROTEIN UR (test code=PU) NEGATIVE NEGATIVE UROBIL UR (test code=UROQ) 0.2 EU/dL 0.2-1.0 NITRITE UR (test code=NITRITE) NEGATIVE NEGATIVE BLOOD UR (test code=UA BLOOD) TRACE NEGATIVE LEUK ES UR (test code=LEUK) NEGATIVE NEGATIVE WBC UR (test code=UWBC) 2 /HPF 0-5 RBC UR (test code=URBC) 4 /HPF 0-2 EPITH UR (test code=UEPC) FEW /LPF FEW BACTERIA UR (test code=UBACT) NONE /HPF NONE CAST UR (test code=CAST) /LPF NONE CRYSTAL UR (test code=CRYU) / LPF NONE MUCUS UR (test code=MUC) / HPF NONE AMORPH UR (test code=BRENT) / HPF NONE TRICH UR (test code=UTRICH) /HPF NONE YEAST UR (test code=UY) /HPF NONE SPERM UR (test code=USPERM) /HPF NONE COMPREHENSIVE METABOLIC [id number] 18:31:00 Test Item Value Reference Range Comments GLUCOSE (test code=06D) 94 mg/dL 75-100 SODIUM (test code=01A) 141 mmol/L 136-145 POTASSIUM (test code=01B) 3.8 mmol/L 3.6-5.1 CHLORIDE (test code=04A) 109 mmol/L 98-107 CO2 (test code=02A) 26 mmol/L 22-32 ANION GAP (test code=ANG) 9.8 mmol/L BUN (test code=05D) 10 mg/dL 7-18 CREATININE (test code=03E) 0.7 mg/dL 0.4-1.1 BUN/CREA (test code=BCR) 14 12-20 CALCIUM (test code=09D) 9.2 mg/dL 8.3-9.5 BILI TOTAL (test code=11A) 0.4 mg/dL 0.2-1.0 PROTEIN (test code=07D) 8.5 g/dL 6.4-8.2 ALBUMIN (test code=08D) 4.5 g/dL 3.5-4.8 GLOBULIN (test code=GLB) 4.0 g/dL 1.5-3.8 ALB/GLOB (test code=AGRR) 1.1 1.0-2.6 ALK PHOS (test code=35A) 92 IU/L 42-121 AST (test code=30A) 18 IU/L <=42 ALT (test code=31A) 11 IU/L <=78 AMYLASE AND [id number] 18:31:00 Test Item Value Reference Range Comments AMYLASE (test code=10A) 46 U/L 28-100 LIPASE (test code=60A) 97 IU/L 73-393 URINE [id number] 18:29:00 Test Item Value Reference Range Comments PREG UR (test code=PGU) NEGATIVE NEGATIVE CBC (INCLUDES AUTOMATED DIFFERENTIAL)2018-05-21 18:19:00 Test Item Value Reference Range Comments WBC (test code=WBC) 7.0 10\S\3/uL 4.5-11.0 RBC (test code=RBC) 4.47 10\S\6/uL 4.30-5.70 HGB (test code=HBG) 9.8 g/dL 12.0-15.5 HCT (test code=HCT) 33.4 % 35.0-44.0 MCV (test code=MCV) 74.7 fL 81.0-99.0 MCH (test code=MCH) 21.9 pg 27.0-31.0 MCHC (test code=MCHC) 29.3 g/dL 32.0-36.0 RDW (test code=RDW) 18.0 % 11.5-14.5 PLT (test code=PLT) 298 10\S\3/uL 130-400 MPV (test code=MPV) 10.8 fL 9.4-12.4 NEUTROP # (test code=NE#) 4.7 10\S\3/uL 1.6-8.0 LYMPH # (test code=LY#) 1.5 10\S\3/uL 1.1-3.5 MONOCYTE # (test code=MO#) 0.6 10\S\3/uL 0.0-1.1 EOSINOPH # (test code=EO#) 0.2 10\S\3/uL 0.0-0.7 BASOPHIL # (test code=BA#) 0.1 10\S\3/uL 0.0-0.3 IG # (test code=IG#) 0.01 10\S\3/uL 0.00-0.06 NRBC # (test code=NRBC#) 0.00 10\S\3/uL 0.00-0.01 NEUTROPH % (test code=NE%) 67.2 % 35.0-73.0 LYMPH % (test code=LY%) 21.5 % 20.0-55.0 MONO % (test code=MO%) 7.9 % 2.5-10.0 EOSINOPH % (test code=EO%) 2.6 % 0.0-5.0 BASOPHIL % (test code=BA%) 0.7 % 0.0-2.0 IG % (test code=IG%) 0.1 % 0.0-0.8 NRBC% (test code=NRBC%) 0.0 % 0.0-0.2 MANDIFF (test code=MDIFF) NO NO RBC MORPH (test code=RBCMOR) NORMAL URINE [id number] 08:09:00 Test Item Value Reference Range Comments Culture Observations (test NO GROWTH (<1,000 CFU/ML) code=COB1) U/S [id number] 15:59:01EXAM: Pelvic ultrasoundLocation: A1 COMPARISON: Pelvic ultrasound on 04/05/18INDICATION: Abdominal pain.DISCUSSION: Osorio scale and color Doppler transabdominal images of the pelviswere obtained. Transvaginal imaging was refused. The uterus measures 8.4 x 6.1x 4.7 cm. A hyperechoic uterine body myometrial mass measures up to 1.6 cm,consistent with a fibroid. The endometrial stripe measures 0.7 cm.Theovaries are normal in size and echogenicity. The right ovary measures 3.6 x3.5 x 4.3 cm and the leftovary measures 4.5 x 3.4 x 3.2 cm. A 2 cm dominantright ovarian follicle is identified. A 1.8 cm dominant left ovarian follicleis seen. Ovarian flow is appropriate. No free fluid is seen. No bladder wallthickening or mass is identified.IMPRESSION:1. 2 cm right ovarian cyst or dominant follicle. No ovarian torsion.2. 1.6 cm hyperechoic uterine mass, suggestive of a fibroid. The endometrialstripe is within normal limits.3. No free fluid.COMPREHENSIVE METABOLIC [id number] 13:45:00 Test Item Value Reference Range Comments GLUCOSE (test code=06D) 122 mg/dL 75-100 SODIUM (test code=01A) 139 mmol/L 136-145 POTASSIUM (test code=01B) 3.7 mmol/L 3.6-5.1 CHLORIDE (test code=04A) 106 mmol/L 98-107 CO2 (test code=02A) 24 mmol/L 22-32 ANION GAP (test code=ANG) 12.7 mmol/L BUN (test code=05D) 10 mg/dL 7-18 CREATININE (test code=03E) 0.8 mg/dL 0.4-1.1 BUN/CREA (test code=BCR) 13 12-20 CALCIUM (test code=09D) 8.8 mg/dL 8.3-9.5 BILI TOTAL (test code=11A) 0.5 mg/dL 0.2-1.0 PROTEIN (test code=07D) 8.3 g/dL 6.4-8.2 ALBUMIN (test code=08D) 4.3 g/dL 3.5-4.8 GLOBULIN (test code=GLB) 4.0 g/dL 1.5-3.8 ALB/GLOB (test code=AGRR) 1.1 1.0-2.6 ALK PHOS (test code=35A) 101 IU/L 42-121 AST (test code=30A) 22 IU/L <=42 ALT (test code=31A) 17 IU/L <=78 [id number] 13:45:00 Test Item Value Reference Range Comments AMYLASE (test code=10A) 54 U/L 28-100 LIPASE [id number] 13:40:00 Test Item Value Reference Range Comments LIPASE (test code=60A) 87 IU/L 73-393 URINALYSIS WITH [id number] 13:39:00 Test Item Value Reference Range Comments COLOR (test code=COLU) DK YELLOW YELLOW CLARITY (test code=CLA) CLOUDY CLEAR GLUCOSE UR (test code=UA GLUCOSE) NEGATIVE NEGATIVE BILI UR (test code=BILE) 1+ NEGATIVE KETONES UR (test code=KARSON) NEGATIVE NEGATIVE SP GRAVITY (test code=SPGR) 1.026 1.005-1.030 PH UR (test code=PH) 5.5 4.5-8.0 PROTEIN UR (test code=PU) TRACE NEGATIVE UROBIL UR (test code=UROQ) 0.2 EU/dL 0.2-1.0 NITRITE UR (test code=NITRITE) NEGATIVE NEGATIVE BLOOD UR (test code=UA BLOOD) NEGATIVE NEGATIVE LEUK ES UR (test code=LEUK) 2+ NEGATIVE WBC UR (test code=UWBC) 12 /HPF 0-5 RBC UR (test code=URBC) 0 /HPF 0-2 EPITH UR (test code=UEPC) MODERATE /LPF FEW BACTERIA UR (test code=UBACT) FEW /HPF NONE CAST UR (test code=CAST) /LPF NONE CRYSTAL UR (test code=CRYU) / LPF NONE MUCUS UR (test code=MUC) / HPF NONE AMORPH UR (test code=BRENT) / HPF NONE TRICH UR (test code=UTRICH) /HPF NONE YEAST UR (test code=UY) /HPF NONE SPERM UR (test code=USPERM) /HPF NONE CBC (INCLUDES AUTOMATED DIFFERENTIAL)2018-05-10 13:33:00 Test Item Value Reference Range Comments WBC (test code=WBC) 8.1 10\S\3/uL 4.5-11.0 RBC (test code=RBC) 4.52 10\S\6/uL 4.30-5.70 HGB (test code=HBG) 9.8 g/dL 12.0-15.5 HCT (test code=HCT) 33.6 % 35.0-44.0 MCV (test code=MCV) 74.3 fL 81.0-99.0 MCH (test code=MCH) 21.7 pg 27.0-31.0 MCHC (test code=MCHC) 29.2 g/dL 32.0-36.0 RDW (test code=RDW) 17.7 % 11.5-14.5 PLT (test code=PLT) 222 10\S\3/uL 130-400 MPV (test code=MPV) 10.9 fL 9.4-12.4 NEUTROP # (test code=NE#) 5.5 10\S\3/uL 1.6-8.0 LYMPH # (test code=LY#) 1.9 10\S\3/uL 1.1-3.5 MONOCYTE # (test code=MO#) 0.5 10\S\3/uL 0.0-1.1 EOSINOPH # (test code=EO#) 0.2 10\S\3/uL 0.0-0.7 BASOPHIL # (test code=BA#) 0.0 10\S\3/uL 0.0-0.3 IG # (test code=IG#) 0.02 10\S\3/uL 0.00-0.06 NRBC # (test code=NRBC#) 0.00 10\S\3/uL 0.00-0.01 NEUTROPH % (test code=NE%) 68.2 % 35.0-73.0 LYMPH % (test code=LY%) 22.8 % 20.0-55.0 MONO % (test code=MO%) 6.2 % 2.5-10.0 EOSINOPH % (test code=EO%) 2.1 % 0.0-5.0 BASOPHIL % (test code=BA%) 0.5 % 0.0-2.0 IG % (test code=IG%) 0.2 % 0.0-0.8 NRBC% (test code=NRBC%) 0.0 % 0.0-0.2 MANDIFF (test code=MDIFF) NO NO RBC MORPH (test code=RBCMOR) NORMAL URINE [id number] 13:31:00 Test Item Value Reference Range Comments PREG UR (test code=PGU) NEGATIVE NEGATIVE CT ABDOMEN AND PELVIS WITH [id number] 03:08:26CT OF THE ABDOMEN AND PELVIS WITH CONTRASTLocation code:[id number] HISTORY:lower abdominal pain COMPARISON: None TECHNIQUE:Multiple transaxial images of the abdomen and pelvis were obtained after 100 mL of Isovue 300 contrast . Coronal reformatted images wereobtained. FINDINGS: AbdomenThe visualized structures of the lower thorax are unremarkable. The liver, spleen, pancreas, gallbladder, adrenal glands, and both kidneys arewithin normal limits. Unopacified loops of large and smallbowel are within normal limits. There isno evidence for obstruction or abnormal mural thickening. The appendix is notidentified. No right lower quadrant inflammation is identified. No mesentericor retroperitoneal lymphadenopathy is found. There is no free intraperitonealair or fluid.Visualized abdominal aorta is within normal limits.FINDINGS: PelvisVisualized intra-pelvic contents are within normallimits. The urinary bladderis unremarkable. There is no free pelvic fluid.Visualized skeletal structures are within normal limits.IMPRESSION: 1. Unremarkable CT evaluation of the abdomen and pelvis.CBC WITH [id number] 02:39:00 Test Item Value Reference Range Comments WBC (test code=WBC) 9.0 10\S\3/uL 4.5-11.0 RBC (test code=RBC) 3.97 10\S\6/uL 4.30-5.70 HGB (test code=HBG) 8.5 g/dL 12.0-15.5 HCT (test code=HCT) 29.4 % 35.0-44.0 MCV (test code=MCV) 74.1 fL 81.0-99.0 MCH (test code=MCH) 21.4 pg 27.0-31.0 MCHC (test code=MCHC) 28.9 g/dL 32.0-36.0 RDW (test code=RDW) 17.2 % 11.5-14.5 PLT (test code=PLT) 224 10\S\3/uL 130-400 MPV (test code=MPV) 11.3 fL 9.4-12.4 NEUTROP # (test code=NE#) 5.9 10\S\3/uL 1.6-8.0 LYMPH # (test code=LY#) 2.2 10\S\3/uL 1.1-3.5 MONOCYTE # (test code=MO#) 0.7 10\S\3/uL 0.0-1.1 EOSINOPH # (test code=EO#) 0.2 10\S\3/uL 0.0-0.7 BASOPHIL # (test code=BA#) 0.0 10\S\3/uL 0.0-0.3 IG # (test code=IG#) 0.02 10\S\3/uL 0.00-0.06 NRBC # (test code=NRBC#) 0.00 10\S\3/uL 0.00-0.01 NEUTROPH % (test code=NE%) 65.4 % 35.0-73.0 LYMPH % (test code=LY%) 24.2 % 20.0-55.0 MONO % (test code=MO%) 7.9 % 2.5-10.0 EOSINOPH % (test code=EO%) 1.9 % 0.0-5.0 BASOPHIL % (test code=BA%) 0.4 % 0.0-2.0 IG % (test code=IG%) 0.2 % 0.0-0.8 NRBC% (test code=NRBC%) 0.0 % 0.0-0.2 PLT EST (test code=PLTEST) ADEQUATE ADEQUATE PLT MORPH (test code=PLTMOR) NORMAL (1.5-3 um) NORMAL POIK (test code=POIK) 1+ NONE HYPOCHROM (test code=HYPOC) 3+ NONE OVALOCYTES (test code=OVA) 1+ NONE TEAR DROP (test code=TD) 1+ NONE AMYLASE AND [id number] 02:19:00 Test Item Value Reference Range Comments AMYLASE (test code=10A) 67 U/L 28-100 LIPASE (test code=60A) 127 IU/L 73-393 COMPREHENSIVE METABOLIC [id number] 02:19:00 Test Item Value Reference Range Comments GLUCOSE (test code=06D) 90 mg/dL 75-100 SODIUM (test code=01A) 139 mmol/L 136-145 POTASSIUM (test code=01B) 3.8 mmol/L 3.6-5.1 CHLORIDE (test code=04A) 106 mmol/L 98-107 CO2 (test code=02A) 28 mmol/L 22-32 ANION GAP (test code=ANG) 8.8 mmol/L BUN (test code=05D) 10 mg/dL 7-18 CREATININE (test code=03E) 0.6 mg/dL 0.4-1.1 BUN/CREA (test code=BCR) 16 12-20 CALCIUM (test code=09D) 8.6 mg/dL 8.3-9.5 BILI TOTAL (test code=11A) 0.2 mg/dL 0.2-1.0 PROTEIN (test code=07D) 7.3 g/dL 6.4-8.2 ALBUMIN (test code=08D) 3.6 g/dL 3.5-4.8 GLOBULIN (test code=GLB) 3.7 g/dL 1.5-3.8 ALB/GLOB (test code=AGRR) 1.0 1.0-2.6 ALK PHOS (test code=35A) 101 IU/L 42-121 AST (test code=30A) 10 IU/L <=42 ALT (test code=31A) 10 IU/L <=78 URINALYSIS WITH [id number] 02:01:00 Test Item Value Reference Range Comments COLOR (test code=COLU) YELLOW YELLOW CLARITY (test code=CLA) CLOUDY CLEAR GLUCOSE UR (test code=UA GLUCOSE) NEGATIVE NEGATIVE BILI UR (test code=BILE) NEGATIVE NEGATIVE KETONES UR (test code=KARSON) NEGATIVE NEGATIVE SP GRAVITY (test code=SPGR) 1.010 1.005-1.030 PH UR (test code=PH) 7.0 4.5-8.0 PROTEIN UR (test code=PU) NEGATIVE NEGATIVE UROBIL UR (test code=UROQ) 0.2 EU/dL 0.2-1.0 NITRITE UR (test code=NITRITE) NEGATIVE NEGATIVE BLOOD UR (test code=UA BLOOD) NEGATIVE NEGATIVE LEUK ES UR (test code=LEUK) 2+ NEGATIVE WBC UR (test code=UWBC) 4 /HPF 0-5 RBC UR (test code=URBC) 0 /HPF 0-2 EPITH UR (test code=UEPC) FEW /LPF FEW BACTERIA UR (test code=UBACT) FEW /HPF NONE CAST UR (test code=CAST) /LPF NONE CRYSTAL UR (test code=CRYU) / LPF NONE MUCUS UR (test code=MUC) / HPF NONE AMORPH UR (test code=BRENT) / HPF NONE TRICH UR (test code=UTRICH) /HPF NONE YEAST UR (test code=UY) /HPF NONE SPERM UR (test code=USPERM) /HPF NONE SERUM [id number] 02:01:00 Test Item Value Reference Range Comments PREG SRM (test code=PGS) NEGATIVE NEGATIVE U/S NON [id number] 17:52:13EXAM: Pelvic ultrasoundLocation : A1 COMPARISON: Pelvic ultrasound on 08/15/17INDICATION: Pelvic pain, history of ruptured ovarian cyst.DISCUSSION: Osorio scale and color Doppler transabdominal and transvaginal imagesof the pelvis were obtained. The uterus is retroflexed and measures 7.9 x 5.6x 4.5 cm.No uterine mass is identified. The endometrial stripe measures 0.8cm.; There is a trace amount of endometrial canal free fluidThe ovaries are normal in size and echogenicity. The right ovary measures 2.1 x2 x 1.2 cm and the left ovary measures 3.4 x 2.9 x 1.9 cm. A 2.2 cm dominantleft ovarian follicle is noted. Ovarian flow is appropriate. Small volumenonspecific cul-de-sac free fluid is seen.IMPRESSION:1. Trace nonspecific endometrial canal free fluid. The uterus is otherwiseunremarkable.2. 2.2 cmdominant left ovarian follicle. No solid ovarian mass or torsion isseen.3. Small volume nonspecific cul-de-sac free fluid.COMPREHENSIVE METABOLIC [id number] 15:32:00 Test Item Value Reference Range Comments GLUCOSE (test code=06D) 87 mg/dL 75-100 SODIUM (test code=01A) 140 mmol/L 136-145 POTASSIUM (test code=01B) 4.0 mmol/L 3.6-5.1 CHLORIDE (test code=04A) 108 mmol/L 98-107 CO2 (test code=02A) 25 mmol/L 22-32 ANION GAP (test code=ANG) 11.0 mmol/L BUN (test code=05D) 7 mg/dL 7-18 CREATININE (test code=03E) 0.6 mg/dL 0.4-1.1 BUN/CREA (test code=BCR) 12 12-20 CALCIUM (test code=09D) 8.9 mg/dL 8.3-9.5 BILI TOTAL (test code=11A) 0.6 mg/dL 0.2-1.0 PROTEIN (test code=07D) 7.5 g/dL 6.4-8.2 ALBUMIN (test code=08D) 4.2 g/dL 3.5-4.8 GLOBULIN (test code=GLB) 3.3 g/dL 1.5-3.8 ALB/GLOB (test code=AGRR) 1.3 1.0-2.6 ALK PHOS (test code=35A) 98 IU/L 42-121 AST (test code=30A) 16 IU/L <=42 ALT (test code=31A) 11 IU/L <=78 SERUM [id number] 15:31:00 Test Item Value Reference Range Comments PREG SRM (test code=PGS) NEGATIVE NEGATIVE CBC (INCLUDES AUTOMATED DIFFERENTIAL)2018-04-05 15:25:00 Test Item Value Reference Range Comments WBC (test code=WBC) 6.4 10\S\3/uL 4.5-11.0 RBC (test code=RBC) 4.11 10\S\6/uL 4.30-5.70 HGB (test code=HBG) 9.0 g/dL 12.0-15.5 HCT (test code=HCT) 30.3 % 35.0-44.0 MCV (test code=MCV) 73.7 fL 81.0-99.0 MCH (test code=MCH) 21.9 pg 27.0-31.0 MCHC (test code=MCHC) 29.7 g/dL 32.0-36.0 RDW (test code=RDW) 16.8 % 11.5-14.5 PLT (test code=PLT) 249 10\S\3/uL 130-400 MPV (test code=MPV) 11.3 fL 9.4-12.4 NEUTROP # (test code=NE#) 3.8 10\S\3/uL 1.6-8.0 LYMPH # (test code=LY#) 1.9 10\S\3/uL 1.1-3.5 MONOCYTE # (test code=MO#) 0.6 10\S\3/uL 0.0-1.1 EOSINOPH # (test code=EO#) 0.1 10\S\3/uL 0.0-0.7 BASOPHIL # (test code=BA#) 0.0 10\S\3/uL 0.0-0.3 IG # (test code=IG#) 0.01 10\S\3/uL 0.00-0.06 NRBC # (test code=NRBC#) 0.00 10\S\3/uL 0.00-0.01 NEUTROPH % (test code=NE%) 58.2 % 35.0-73.0 LYMPH % (test code=LY%) 28.7 % 20.0-55.0 MONO % (test code=MO%) 9.8 % 2.5-10.0 EOSINOPH % (test code=EO%) 2.2 % 0.0-5.0 BASOPHIL % (test code=BA%) 0.9 % 0.0-2.0 IG % (test code=IG%) 0.2 % 0.0-0.8 NRBC% (test code=NRBC%) 0.0 % 0.0-0.2 MANDIFF (test code=MDIFF) NO NO PRO TIME AND [id number] 15:20:00 Test Item Value Reference Range Comments PT (test code=TT) 12.2 s 9.8-13.6 INR (test code=INR) 1.1 INRH (test code=INRH) SUGGESTED THERAPEUTIC RANGE FOR INR: 2.5 - 3.5 For Patients with Prosthetic Valves or Patients with recurrent Thromboembolic Events 2.0 - 3.0 For Most Other Applications PTT (test code=PTT) 18.9 s 20.2-38.0 PTTH (test code=PTTH) To monitor the effectiveness of heparin, we offer the Anti-Xa (Heparin Assay). It can be used for either unfractionated or LMW Heparin. Order Code is ANTI-XA URINALYSIS WITH [id number] 15:19:00 Test Item Value Reference Range Comments COLOR (test code=COLU) YELLOW YELLOW CLARITY (test code=CLA) CLOUDY CLEAR GLUCOSE UR (test code=UA GLUCOSE) NEGATIVE NEGATIVE BILI UR (test code=BILE) NEGATIVE NEGATIVE KETONES UR (test code=KARSON) NEGATIVE NEGATIVE SP GRAVITY (test code=SPGR) 1.024 1.005-1.030 PH UR (test code=PH) 8.0 4.5-8.0 PROTEIN UR (test code=PU) 1+ NEGATIVE UROBIL UR (test code=UROQ) 0.2 EU/dL 0.2-1.0 NITRITE UR (test code=NITRITE) NEGATIVE NEGATIVE BLOOD UR (test code=UA BLOOD) NEGATIVE NEGATIVE LEUK ES UR (test code=LEUK) 1+ NEGATIVE WBC UR (test code=UWBC) 4 /HPF 0-5 RBC UR (test code=URBC) 1 /HPF 0-2 EPITH UR (test code=UEPC) MODERATE /LPF FEW BACTERIA UR (test code=UBACT) MODERATE /HPF NONE CAST UR (test code=CAST) /LPF NONE CRYSTAL UR (test code=CRYU) / LPF NONE MUCUS UR (test code=MUC) FEW / HPF NONE AMORPH UR (test code=BRENT) / HPF NONE TRICH UR (test code=UTRICH) /HPF NONE YEAST UR (test code=UY) /HPF NONE SPERM UR (test code=USPERM) /HPF NONE URINALYSIS WITH [id number] 05:18:00 Test Item Value Reference Range Comments COLOR (test code=COLU) YELLOW YELLOW CLARITY (test code=CLA) HAZY CLEAR GLUCOSE UR (test code=UA GLUCOSE) NEGATIVE NEGATIVE BILI UR (test code=BILE) NEGATIVE NEGATIVE KETONES UR (test code=KARSON) NEGATIVE NEGATIVE SP GRAVITY (test code=SPGR) 1.012 1.005-1.030 PH UR (test code=PH) 6.5 4.5-8.0 PROTEIN UR (test code=PU) NEGATIVE NEGATIVE UROBIL UR (test code=UROQ) 0.2 EU/dL 0.2-1.0 NITRITE UR (test code=NITRITE) NEGATIVE NEGATIVE BLOOD UR (test code=UA BLOOD) NEGATIVE NEGATIVE LEUK ES UR (test code=LEUK) TRACE NEGATIVE WBC UR (test code=UWBC) 1 /HPF 0-5 RBC UR (test code=URBC) 0 /HPF 0-2 EPITH UR (test code=UEPC) MODERATE /LPF FEW BACTERIA UR (test code=UBACT) NONE /HPF NONE CAST UR (test code=CAST) /LPF NONE CRYSTAL UR (test code=CRYU) / LPF NONE MUCUS UR (test code=MUC) / HPF NONE AMORPH UR (test code=BRENT) FEW / HPF NONE TRICH UR (test code=UTRICH) /HPF NONE YEAST UR (test code=UY) /HPF NONE SPERM UR (test code=USPERM) /HPF NONE URINE [id number] 05:01:00 Test Item Value Reference Range Comments PREG UR (test code=PGU) NEGATIVE NEGATIVE PRO TIME AND [id number] 04:14:00 Test Item Value Reference Range Comments PT (test code=TT) 11.4 s 9.8-13.6 INR (test code=INR) 1.0 INRH (test code=INRH) SUGGESTED THERAPEUTIC RANGE FOR INR: 2.5 - 3.5 For Patients with Prosthetic Valves or Patients with recurrent Thromboembolic Events 2.0 - 3.0 For Most Other Applications PTT (test code=PTT) 29.4 s 20.2-38.0 PTTH (test code=PTTH) To monitor the effectiveness of heparin, we offer the Anti-Xa (Heparin Assay). It can be used for either unfractionated or LMW Heparin. Order Code is ANTI-XA COMPREHENSIVE METABOLIC [id number] 04:08:00 Test Item Value Reference Range Comments GLUCOSE (test code=06D) 92 mg/dL 75-100 SODIUM (test code=01A) 140 mmol/L 136-145 POTASSIUM (test code=01B) 3.6 mmol/L 3.6-5.1 CHLORIDE (test code=04A) 106 mmol/L 98-107 CO2 (test code=02A) 28 mmol/L 22-32 ANION GAP (test code=ANG) 9.6 mmol/L BUN (test code=05D) 12 mg/dL 7-18 CREATININE (test code=03E) 0.7 mg/dL 0.4-1.1 BUN/CREA (test code=BCR) 17 12-20 CALCIUM (test code=09D) 9.2 mg/dL 8.3-9.5 BILI TOTAL (test code=11A) 0.3 mg/dL 0.2-1.0 PROTEIN (test code=07D) 7.9 g/dL 6.4-8.2 ALBUMIN (test code=08D) 4.0 g/dL 3.5-4.8 GLOBULIN (test code=GLB) 3.9 g/dL 1.5-3.8 ALB/GLOB (test code=AGRR) 1.0 1.0-2.6 ALK PHOS (test code=35A) 100 IU/L 42-121 AST (test code=30A) 22 IU/L <=42 ALT (test code=31A) 15 IU/L <=78 CBC (INCLUDES AUTOMATED DIFFERENTIAL)2018-02-24 03:53:00 Test Item Value Reference Range Comments WBC (test code=WBC) 7.7 10\S\3/uL 4.5-11.0 RBC (test code=RBC) 4.25 10\S\6/uL 4.30-5.70 HGB (test code=HBG) 9.3 g/dL 12.0-15.5 HCT (test code=HCT) 31.8 % 35.0-44.0 MCV (test code=MCV) 74.8 fL 81.0-99.0 MCH (test code=MCH) 21.9 pg 27.0-31.0 MCHC (test code=MCHC) 29.2 g/dL 32.0-36.0 RDW (test code=RDW) 17.2 % 11.5-14.5 PLT (test code=PLT) 233 10\S\3/uL 130-400 MPV (test code=MPV) 10.8 fL 9.4-12.4 NEUTROP # (test code=NE#) 4.4 10\S\3/uL 1.6-8.0 LYMPH # (test code=LY#) 2.5 10\S\3/uL 1.1-3.5 MONOCYTE # (test code=MO#) 0.6 10\S\3/uL 0.0-1.1 EOSINOPH # (test code=EO#) 0.3 10\S\3/uL 0.0-0.7 BASOPHIL # (test code=BA#) 0.0 10\S\3/uL 0.0-0.3 IG # (test code=IG#) 0.01 10\S\3/uL 0.00-0.06 NRBC # (test code=NRBC#) 0.00 10\S\3/uL 0.00-0.01 NEUTROPH % (test code=NE%) 56.6 % 35.0-73.0 LYMPH % (test code=LY%) 31.9 % 20.0-55.0 MONO % (test code=MO%) 7.8 % 2.5-10.0 EOSINOPH % (test code=EO%) 3.2 % 0.0-5.0 BASOPHIL % (test code=BA%) 0.4 % 0.0-2.0 IG % (test code=IG%) 0.1 % 0.0-0.8 NRBC% (test code=NRBC%) 0.0 % 0.0-0.2 MANDIFF (test code=MDIFF) NO NO RBC MORPH (test code=RBCMOR) NORMAL CT HEAD W/O [id number] 07:27:51Clinical History: Headache.Location: D4.Findings: Multislice axial noncontrast images are obtained through the head.No comparison studies. No areas of abnormal density are identified within thebrain. No mass effect. No evidence of hydrocephalus. No intra or extra axialhemorrhage or fluid collections are identified. There is no evidence of acuteinfarct. There is mild/moderate mucosal thickening withinthe ethmoid sinusesand left frontal sinus.No abnormalities are noted of the visualized skeletal structures or softtissues.Impression:1. Intracranially negative.2. There is mild/moderate mucosal thickening within the ethmoid sinuses andwithin the left frontal sinus.DRUGS OF [id number] 07:16:00 Test Item Value Reference Range Comments DRUG SCRN (test code=HDOA) URINE DRUG SCREEN This is an unconfirmed screening result and should not be used for non-medical purposes CANNABINOD (test code=88C) Negative NEGATIVE AMPHETAMINE (test code=84A) Negative NEGATIVE BENZODIAZP (test code=86A) POSITIVE NEGATIVE BARBITURAT (test code=85A) Negative NEGATIVE OPIATES (test code=92B) Negative NEGATIVE COCAINE (test code=87A) Negative NEGATIVE PHENCYCLID (test code=66A) Negative NEGATIVE METHADONE (test code=64A) Negative NEGATIVE DOAH (test code=DOAH) URINE DRUG SCREEN Cut-off values are as follows: ---- Cannabinoids 50 ng/mL Cocaine 300 ng/mL Amphetamines 1000 ng/mL Phencyclidine 25 ng/mL Benzodiazepines 200 ng.mL Methadone 300 ng/mL Barbiturates 200 ng/mL Opiates 2000 ng/mL URINALYSIS WITH [id number] 07:14:00 Test Item Value Reference Range Comments COLOR (test code=COLU) YELLOW YELLOW CLARITY (test code=CLA) CLOUDY CLEAR GLUCOSE UR (test code=UA NEGATIVE NEGATIVE GLUCOSE) BILI UR (test code=BILE) NEGATIVE NEGATIVE KETONES UR (test code=KARSON) NEGATIVE NEGATIVE SP GRAVITY (test code=SPGR) 1.017 1.005-1.030 PH UR (test code=PH) 7.0 4.5-8.0 PROTEIN UR (test code=PU) NEGATIVE NEGATIVE UROBIL UR (test code=UROQ) 1.0 EU/dL 0.2-1.0 NITRITE UR (test NEGATIVE NEGATIVE code=NITRITE) BLOOD UR (test code=UA NEGATIVE NEGATIVE BLOOD) LEUK ES UR (test code=LEUK) 3+ NEGATIVE WBC UR (test code=UWBC) 10 /HPF 0-5 Previously reported as: 4 On 11/22/2017 07:14 By [id number] RBC UR (test code=URBC) 1 /HPF 0-2 Previously reported as: 0 On 11/22/2017 07:14 By [id number] EPITH UR (test code=UEPC) MODERATE /LPF FEW Previously reported as: FEW On 11/22/2017 07:14 By [id number] BACTERIA UR (test MANY /HPF NONE Previously reported as: NONE code=UBACT) On 11/22/2017 07:14 By [id number] CAST UR (test code=CAST) /LPF NONE CRYSTAL UR (test code=CRYU) / LPF NONE MUCUS UR (test code=MUC) / HPF NONE AMORPH UR (test code=BRENT) FEW / HPF NONE TRICH UR (test code=UTRICH) /HPF NONE YEAST UR (test code=UY) /HPF NONE SPERM UR (test code=USPERM) /HPF NONE COMPREHENSIVE METABOLIC [id number] 06:59:00 Test Item Value Reference Range Comments GLUCOSE (test code=06D) 99 mg/dL 75-100 SODIUM (test code=01A) 137 mmol/L 136-145 POTASSIUM (test code=01B) 3.9 mmol/L 3.6-5.1 CHLORIDE (test code=04A) 105 mmol/L 98-107 CO2 (test code=02A) 27 mmol/L 22-32 ANION GAP (test code=ANG) 8.9 mmol/L BUN (test code=05D) 8 mg/dL 7-18 CREATININE (test code=03E) 0.8 mg/dL 0.4-1.1 BUN/CREA (test code=BCR) 10 12-20 CALCIUM (test code=09D) 9.1 mg/dL 8.3-9.5 BILI TOTAL (test code=11A) 0.6 mg/dL 0.2-1.0 PROTEIN (test code=07D) 8.1 g/dL 6.4-8.2 ALBUMIN (test code=08D) 3.9 g/dL 3.5-4.8 GLOBULIN (test code=GLB) 4.2 g/dL 1.5-3.8 ALB/GLOB (test code=AGRR) 0.9 1.0-2.6 ALK PHOS (test code=35A) 102 IU/L 42-121 AST (test code=30A) 23 IU/L <=42 ALT (test code=31A) 14 IU/L <=78 SERUM [id number] 06:51:00 Test Item Value Reference Range Comments PREG SRM (test code=PGS) NEGATIVE NEGATIVE CBC (INCLUDES AUTOMATED DIFFERENTIAL)2017-11-22 06:51:00 Test Item Value Reference Range Comments WBC (test code=WBC) 8.6 10\S\3/uL 4.5-11.0 RBC (test code=RBC) 4.65 10\S\6/uL 4.30-5.70 HGB (test code=HBG) 10.2 g/dL 12.0-15.5 HCT (test code=HCT) 34.1 % 35.0-44.0 MCV (test code=MCV) 73.3 fL 81.0-99.0 MCH (test code=MCH) 21.9 pg 27.0-31.0 MCHC (test code=MCHC) 29.9 g/dL 32.0-36.0 RDW (test code=RDW) 17.7 % 11.5-14.5 PLT (test code=PLT) 231 10\S\3/uL 130-400 MPV (test code=MPV) 11.5 fL 9.4-12.4 NEUTROP # (test code=NE#) 6.4 10\S\3/uL 1.6-8.0 LYMPH # (test code=LY#) 1.6 10\S\3/uL 1.1-3.5 MONOCYTE # (test code=MO#) 0.4 10\S\3/uL 0.0-1.1 EOSINOPH # (test code=EO#) 0.1 10\S\3/uL 0.0-0.7 BASOPHIL # (test code=BA#) 0.0 10\S\3/uL 0.0-0.3 IG # (test code=IG#) 0.02 10\S\3/uL 0.00-0.06 NRBC # (test code=NRBC#) 0.00 10\S\3/uL 0.00-0.01 NEUTROPH % (test code=NE%) 74.1 % 35.0-73.0 LYMPH % (test code=LY%) 18.6 % 20.0-55.0 MONO % (test code=MO%) 5.0 % 2.5-10.0 EOSINOPH % (test code=EO%) 1.6 % 0.0-5.0 BASOPHIL % (test code=BA%) 0.5 % 0.0-2.0 IG % (test code=IG%) 0.2 % 0.0-0.8 NRBC% (test code=NRBC%) 0.0 % 0.0-0.2 MANDIFF (test code=MDIFF) NO NO RBC MORPH (test code=RBCMOR) NORMAL URINE [id number] 10:45:00 Test Item Value Reference Range Comments Culture Observations (test NO GROWTH (<1,000 CFU/ML) code=COB1) U/S PELVIS*WW*2017-08-15 02:47:38U/S PELVIS*WW*Location: [address] hours services provided 08/15/2017 2:45 AMIndication: pelvic painComparison: 06/21/17Technique: Transabdominal sonographic osorio scale, color and Doppler imaging wasperformed to the female pelvis.Findings:Uterus: Normal in size and echogenicity measuring 7.3 x 4.5 x 6.0 cm.Endometrial complex: Normal at 4 mm.Ovaries: Not seen secondary to overlying bowel gas.Other: The urinary bladder appears normal.Impression:Nonvisualization of the ovaries, otherwise normal transabdominalpelvic ultrasound.URINALYSIS WITH MICRO *WW*2017-08-15 01:24:00 Test Item Value Reference Range Comments COLOR (test code=COLU) YELLOW YELLOW CLARITY (test code=CLA) SLT HAZY CLEAR GLUCOSE UR (test code=UA NEGATIVE NEGATIVE GLUCOSE) BILI UR (test code=BILE) NEGATIVE NEGATIVE KETONES UR (test code=KARSON) NEGATIVE NEGATIVE SP GRAVITY (test code=SPGR) <=1.005 1.005-1.030 PH UR (test code=PH) 6.5 4.5-8.0 PROTEIN UR (test code=PU) NEGATIVE NEGATIVE UROBIL UR (test code=UROQ) 0.2 EU/dL 0.2-1.0 NITRITE UR (test NEGATIVE NEGATIVE code=NITRITE) BLOOD UR (test code=UA BLOOD) 3+ NEGATIVE LEUK ES UR (test code=LEUK) 3+ NEGATIVE WBC UR (test code=UWBC) 10 /HPF 0-5 few wbc clumps seen RBC UR (test code=URBC) 3 /HPF 0-2 EPITH UR (test code=UEPC) FEW /LPF FEW BACTERIA UR (test code=UBACT) MODERATE /HPF NONE CAST UR (test code=CAST) /LPF NONE CRYSTAL UR (test code=CRYU) / LPF NONE MUCUS UR (test code=MUC) / HPF NONE AMORPH UR (test code=BRENT) / HPF NONE TRICH UR (test code=UTRICH) /HPF NONE YEAST UR (test code=UY) /HPF NONE rare fungal elements seen SPERM UR (test code=USPERM) /HPF NONE URINE MONOCLONAL *WW*2017-08-15 01:07:00 Test Item Value Reference Range Comments PREG UR (test code=PGU) NEGATIVE NEGATIVE U/S [id number] 18:19:54PELVIC ULTRASOUND:Location code: [id number] HISTORY : Pelvic pain with ovarian cystComparison: NoneTECHNIQUE: Transabdominal sonography of the pelvis was performed. FINDINGS: The uterus is uniform in echogenicity measuring 8.5 x 4.5 x 6.4 cm. The endometrium is unremarkable at 12 mm. The right ovary measures 3.2 x 2.0 x 2.8 cm with a dominant cyst measuring 1.3x 1.2 cm. The left ovary measures 3.2 x 1.4 x 3.0 cm. Small follicles arenoted bilaterally. Color flow is normal in the ovaries bilaterally. There isno adnexal mass or free fluid. IMPRESSION:Dominant 1.3 cm cyst in the right ovary and otherwise unremarkable exam.BASIC METABOLIC [id number] 15:38:00 Test Item Value Reference Range Comments GLUCOSE (test code=06D) 89 mg/dL 75-100 SODIUM (test code=01A) 139 mmol/L 136-145 POTASSIUM (test code=01B) 4.2 mmol/L 3.6-5.1 CHLORIDE (test code=04A) 106 mmol/L 98-107 CO2 (test code=02A) 27 mmol/L 22-32 ANION GAP (test code=ANG) 10.2 mmol/L BUN (test code=05D) 12 mg/dL 7-18 CREATININE (test code=03E) 0.9 mg/dL 0.4-1.1 BUN/CREA (test code=BCR) 14 12-20 CALCIUM (test code=09D) 8.8 mg/dL 8.3-9.5 [id number] 15:37:00 Test Item Value Reference Range Comments COLOR (test code=COLU) YELLOW YELLOW CLARITY (test code=CLA) CLEAR CLEAR GLUCOSE UR (test code=UA GLUCOSE) NEGATIVE NEGATIVE BILI UR (test code=BILE) NEGATIVE NEGATIVE KETONES UR (test code=KARSON) NEGATIVE NEGATIVE SP GRAVITY (test code=SPGR) 1.011 1.005-1.030 PH UR (test code=PH) 6.5 4.5-8.0 PROTEIN UR (test code=PU) NEGATIVE NEGATIVE UROBIL UR (test code=UROQ) 0.2 EU/dL 0.2-1.0 NITRITE UR (test code=NITRITE) NEGATIVE NEGATIVE BLOOD UR (test code=UA BLOOD) NEGATIVE NEGATIVE LEUK ES UR (test code=LEUK) NEGATIVE NEGATIVE SERUM [id number] 15:35:00 Test Item Value Reference Range Comments PREG SRM (test code=PGS) NEGATIVE NEGATIVE PRO TIME AND [id number] 15:31:00 Test Item Value Reference Range Comments PT (test code=TT) 12.0 s 9.8-13.6 INR (test code=INR) 1.1 INRH (test code=INRH) SUGGESTED THERAPEUTIC RANGE FOR INR: 2.5 - 3.5 For Patients with Prosthetic Valves or Patients with recurrent Thromboembolic Events 2.0 - 3.0 For Most Other Applications PTT (test code=PTT) 29.5 s 20.2-38.0 PTTH (test code=PTTH) To monitor the effectiveness of heparin, we offer the Anti-Xa (Heparin Assay). It can be used for either unfractionated or LMW Heparin. Order Code is ANTI-XA CBC (INCLUDES AUTOMATED DIFFERENTIAL)2017-06-21 15:21:00 Test Item Value Reference Range Comments WBC (test code=WBC) 6.3 10\S\3/uL 4.5-11.0 RBC (test code=RBC) 4.35 10\S\6/uL 4.30-5.70 HGB (test code=HBG) 9.5 g/dL 12.0-15.5 HCT (test code=HCT) 31.4 % 35.0-44.0 MCV (test code=MCV) 72.2 fL 81.0-99.0 MCH (test code=MCH) 21.8 pg 27.0-31.0 MCHC (test code=MCHC) 30.3 g/dL 32.0-36.0 RDW (test code=RDW) 17.0 % 11.5-14.5 PLT (test code=PLT) 253 10\S\3/uL 130-400 MPV (test code=MPV) 11.5 fL 9.4-12.4 NEUTROP # (test code=NE#) 3.9 10\S\3/uL 1.6-8.0 LYMPH # (test code=LY#) 1.5 10\S\3/uL 1.1-3.5 MONOCYTE # (test code=MO#) 0.5 10\S\3/uL 0.0-1.1 EOSINOPH # (test code=EO#) 0.2 10\S\3/uL 0.0-0.7 BASOPHIL # (test code=BA#) 0.1 10\S\3/uL 0.0-0.3 IG # (test code=IG#) 0.01 10\S\3/uL 0.00-0.06 NRBC # (test code=NRBC#) 0.00 10\S\3/uL 0.00-0.01 NEUTROPH % (test code=NE%) 62.5 % 35.0-73.0 LYMPH % (test code=LY%) 24.2 % 20.0-55.0 MONO % (test code=MO%) 8.3 % 2.5-10.0 EOSINOPH % (test code=EO%) 3.8 % 0.0-5.0 BASOPHIL % (test code=BA%) 1.0 % 0.0-2.0 IG % (test code=IG%) 0.2 % 0.0-0.8 NRBC% (test code=NRBC%) 0.0 % 0.0-0.2 MANDIFF (test code=MDIFF) NO NO RBC MORPH (test code=RBCMOR) NORMAL DIRECT CHLAMYDIA [id number] 15:42:00 Test Item Value Reference Range Comments CHLAMYDIA TRACHOMATIS NOT DETECTED NOT DETECTED (test wqoi=[id number]) NEISSERIA GONORRHOEAE NOT DETECTED NOT DETECTED (test edco=[id number]) Endnote (test This test was performed using gnqb=[id number]) the APTIMA COMBO2 Assay([employer]The analytical performance characteristics of thisassay, when used to test SurePath specimens havebeen determined by [employer].TEST PERFORMED AT:[facility] [id number] [place] [address]ELFWQTWILA TALLEY M.D. U/S [id number] 23:50:15LOCATION: [id number]: 26-year-old female who presents with pelvic pain.COMMENT: After-hours service at 11:47 p.m.Sonographic imaging of this patient's pelvis was obtained with transabdominaltechnique. Grayscale, color-flow, and Doppler waveform imaging modalities wereutilized.An older study of the pelvis obtained 01/12/17 is available for comparison.The uterus is unremarkable measuring 8.7 x 4.3 x 6.0 cm.The endometrial stripe is 15 mm thick.The left ovary contains a complex cyst having the appearance of a hemorrhagiccyst, measuring 23 x 25 x 16 mm. This cyst was present previously and appearsto have slightly decreased in size. The overall dimension of the left ovary is56 x 34 x 50 mm.A small cystis seen in the right ovary measuring 10 x 11 x 11 mm. This cystalso has a mildly complex pattern, again having the appearance of a hemorrhagiccyst. The overall dimension of the right ovary is 29 x 29 x30 mm.Low resistance arterial blood flow seen in both ovaries on the Doppler study.Free fluid is seen adjacent to the left ovary.IMPRESSION:Again seen are findings of a hemorrhagic cyst in this patient's left ovary. Thesize of the hemorrhagic cyst is decreased when compared to the prior studyobtained this past December.A small cyst, possibly hemorrhagic is seen in the right ovary.The uterus and endometrial stripe are unremarkable.There is no sonographic evidence of ovarian torsion.URINALYSIS WITH [id number] 22:11:00 Test Item Value Reference Range Comments COLOR (test code=COLU) YELLOW YELLOW CLARITY (test code=CLA) HAZY CLEAR GLUCOSE UR (test code=UA GLUCOSE) NEGATIVE NEGATIVE BILI UR (test code=BILE) NEGATIVE NEGATIVE KETONES UR (test code=KARSON) NEGATIVE NEGATIVE SP GRAVITY (test code=SPGR) 1.028 1.005-1.030 PH UR (test code=PH) 6.0 4.5-8.0 PROTEIN UR (test code=PU) TRACE NEGATIVE UROBIL UR (test code=UROQ) 0.2 EU/dL 0.2-1.0 NITRITE UR (test code=NITRITE) NEGATIVE NEGATIVE BLOOD UR (test code=UA BLOOD) NEGATIVE NEGATIVE LEUK ES UR (test code=LEUK) TRACE NEGATIVE WBC UR (test code=UWBC) 3 /HPF 0-5 RBC UR (test code=URBC) 1 /HPF 0-2 EPITH UR (test code=UEPC) FEW /LPF FEW BACTERIA UR (test code=UBACT) FEW /HPF NONE CAST UR (test code=CAST) /LPF NONE CRYSTAL UR (test code=CRYU) / LPF NONE MUCUS UR (test code=MUC) / HPF NONE AMORPH UR (test code=BRENT) / HPF NONE TRICH UR (test code=UTRICH) /HPF NONE YEAST UR (test code=UY) /HPF NONE SPERM UR (test code=USPERM) /HPF NONE URINE [id number] 21:56:00 Test Item Value Reference Range Comments PREG UR (test code=PGU) NEGATIVE NEGATIVE CBC W/PLT COUNT & AUTO [id number] 18:46:00 Test Item Value Reference Range Comments WHITE BLOOD CELL COUNT (BEAKER) (test jdfl=731) 4.8 K/ L 4.0-10.0 RED BLOOD CELL COUNT (BEAKER) (test hipf=261) 3.93 M/ L 4.00-5.00 HEMOGLOBIN (BEAKER) (test tzbu=731) 8.7 GM/DL 12.0-15.0 HEMATOCRIT (BEAKER) (test dxtu=936) 28.0 % 36.0-45.0 MEAN CORPUSCULAR VOLUME (BEAKER) (test trji=203) 71.3 fL 82.0-99.0 MEAN CORPUSCULAR HEMOGLOBIN (BEAKER) (test 22.2 pg 27.0-33.0 bxaq=408) MEAN CORPUSCULAR HEMOGLOBIN CONC (BEAKER) (test 31.1 GM/DL 32.0-36.0 isst=044) RED CELL DISTRIBUTION WIDTH (BEAKER) (test 17.0 % 10.3-14.2 abrg=849) PLATELET COUNT (BEAKER) (test pvlz=879) 179 K/CU MM 150-430 MEAN PLATELET VOLUME (BEAKER) (test mgfe=275) 9.3 fL 6.5-10.5 NUCLEATED RED BLOOD CELLS (BEAKER) (test 0 /100 WBC 0-0 hggb=610) NEUTROPHILS RELATIVE PERCENT (BEAKER) (test 55 % cghu=829) LYMPHOCYTES RELATIVE PERCENT (BEAKER) (test 33 % nogz=134) MONOCYTES RELATIVE PERCENT (BEAKER) (test 8 % clsj=560) EOSINOPHILS RELATIVE PERCENT (BEAKER) (test 3 % ydta=266) BASOPHILS RELATIVE PERCENT (BEAKER) (test 1 % xsdc=015) NEUTROPHILS ABSOLUTE COUNT (BEAKER) (test 2.60 K/ L 1.80-8.00 mdlj=903) LYMPHOCYTES ABSOLUTE COUNT (BEAKER) (test 1.60 K/ L 1.48-4.50 gjuz=285) MONOCYTES ABSOLUTE COUNT (BEAKER) (test 0.40 K/ L 0.00-1.30 hdsj=857) EOSINOPHILS ABSOLUTE COUNT (BEAKER) (test 0.10 K/ L 0.00-0.50 yixo=910) BASOPHILS ABSOLUTE COUNT (BEAKER) (test 0.00 K/ L 0.00-0.20 aocb=376) (MANUAL DIFFERENTIAL)2017-02-08 18:46:00 Test Item Value Reference Range Comments TOTAL COUNTED (BEAKER) (test udpt=6874) WBC MORPHOLOGY (BEAKER) (test apir=697) Normal PLT MORPHOLOGY (BEAKER) (test xexl=135) Normal HYPOCHROMIA (BEAKER) (test wzie=240) 2+ moderate MACROCYTES (BEAKER) (test lzzq=089) 1+ few SCREEN, [id number] 00:18:00 Test Item Value Reference Range Comments TEST URINE (BEAKER) (test soeg=491) Negative URINALYSIS W/ REFLEX URINE [id number] 00:16:00 Test Item Value Reference Range Comments COLOR (BEAKER) (test pqwd=112) Yellow CLARITY (BEAKER) (test ynlj=311) Slightly Cloudy SPECIFIC GRAVITY UA (BEAKER) (test nrpv=639) 1.020 1.001-1.035 PH UA (BEAKER) (test rarb=777) 6.0 5.0-8.0 PROTEIN UA (BEAKER) (test mpao=092) Negative Negative GLUCOSE UA (BEAKER) (test eiwx=387) Negative Negative KETONES UA (BEAKER) (test awhv=576) Negative Negative BILIRUBIN UA (BEAKER) (test fzuv=076) Negative Negative BLOOD UA (BEAKER) (test scje=967) Large Negative NITRITE UA (BEAKER) (test vaah=271) Negative Negative LEUKOCYTE ESTERASE UA (BEAKER) (test Negative Negative yqen=402) UROBILINOGEN UA (BEAKER) (test gbog=685) 0.2 mg/dL 0.2-1.0 BACTERIA (BEAKER) (test hoiq=842) Few RBC UA-MANUAL (BEAKER) (test hnry=1232) 10-20 /HPF WBC UA-MANUAL (BEAKER) (test qmys=4794) <5 /HPF SQUAMOUS EPITHELIAL MANUAL (BEAKER) (test <5 /HPF slzp=4137) SOURCE(BEAKER) (test qper=4943) CBC W/PLT COUNT & AUTO [id number] 00:08:00 Test Item Value Reference Range Comments WHITE BLOOD CELL COUNT (BEAKER) (test znfb=715) 7.7 K/ L 4.0-10.0 RED BLOOD CELL COUNT (BEAKER) (test jsqe=068) 4.33 M/ L 4.00-5.00 HEMOGLOBIN (BEAKER) (test uxhr=031) 9.6 GM/DL 12.0-15.0 HEMATOCRIT (BEAKER) (test dwnh=273) 31.2 % 36.0-45.0 MEAN CORPUSCULAR VOLUME (BEAKER) (test ybie=666) 72.0 fL 82.0-99.0 MEAN CORPUSCULAR HEMOGLOBIN (BEAKER) (test 22.2 pg 27.0-33.0 mtqt=850) MEAN CORPUSCULAR HEMOGLOBIN CONC (BEAKER) (test 30.9 GM/DL 32.0-36.0 ksyc=080) RED CELL DISTRIBUTION WIDTH (BEAKER) (test 16.7 % 10.3-14.2 rvgn=958) PLATELET COUNT (BEAKER) (test mttc=206) 204 K/CU MM 150-430 MEAN PLATELET VOLUME (BEAKER) (test nghd=516) 10.0 fL 6.5-10.5 NEUTROPHILS RELATIVE PERCENT (BEAKER) (test 62 % ouie=854) LYMPHOCYTES RELATIVE PERCENT (BEAKER) (test 29 % rzdf=691) MONOCYTES RELATIVE PERCENT (BEAKER) (test 6 % twns=016) EOSINOPHILS RELATIVE PERCENT (BEAKER) (test 2 % pzgk=269) BASOPHILS RELATIVE PERCENT (BEAKER) (test 1 % tjsq=622) NEUTROPHILS ABSOLUTE COUNT (BEAKER) (test 4.80 K/ L 1.80-8.00 pcyx=818) LYMPHOCYTES ABSOLUTE COUNT (BEAKER) (test 2.20 K/ L 1.48-4.50 ojva=460) MONOCYTES ABSOLUTE COUNT (BEAKER) (test 0.50 K/ L 0.00-1.30 silo=520) EOSINOPHILS ABSOLUTE COUNT (BEAKER) (test 0.20 K/ L 0.00-0.50 sjzh=557) BASOPHILS ABSOLUTE COUNT (BEAKER) (test 0.00 K/ L 0.00-0.20 eift=412) (MANUAL DIFFERENTIAL)2017-02-08 00:08:00 Test Item Value Reference Range Comments TOTAL COUNTED (BEAKER) (test ghdt=4835) WBC MORPHOLOGY (BEAKER) (test yimp=491) Normal PLT MORPHOLOGY (BEAKER) (test vizi=141) Normal HYPOCHROMIA (BEAKER) (test zhky=068) 2+ moderate MICROCYTES (BEAKER) (test ozhq=996) 1+ few BASIC METABOLIC [id number] 00:04:00 Test Item Value Reference Range Comments SODIUM (BEAKER) (test 142 meq/L 135-148 urvt=776) POTASSIUM (BEAKER) (test 3.4 meq/L 3.6-5.5 rnko=727) CHLORIDE (BEAKER) (test 110 meq/L 98-106 gabz=673) CO2 (BEAKER) (test 20 meq/L 20-29 rgej=454) BLOOD UREA NITROGEN 6 mg/dL 10-26 (BEAKER) (test gzzg=240) CREATININE (BEAKER) (test 0.80 mg/dL 0.50-1.20 qfvo=109) GLUCOSE RANDOM (BEAKER) 88 mg/dL 70-110 (test xnyr=074) CALCIUM (BEAKER) (test 9.1 mg/dL 8.5-10.5 phmd=639) EGFR (BEAKER) (test 88 mL/min/1.73 sq m ESTIMATED GFR IS NOT osjb=8634) ACCURATE CREATININE CLEARANCE IN PREDICTING GLOMERULAR FILTRATION RATE. ESTIMATED GFR IS NOT APPLICABLE FOR DIALYSIS PATIENTS. [id number] 22:38:00 Test Item Value Reference Range Comments COLOR (test code=COLU) YELLOW YELLOW CLARITY (test code=CLA) CLEAR CLEAR GLUCOSE UR (test code=UA GLUCOSE) NEGATIVE NEGATIVE BILI UR (test code=BILE) NEGATIVE NEGATIVE KETONES UR (test code=KARSON) NEGATIVE NEGATIVE SP GRAVITY (test code=SPGR) 1.026 1.005-1.030 PH UR (test code=PH) 6.5 4.5-8.0 PROTEIN UR (test code=PU) NEGATIVE NEGATIVE UROBIL UR (test code=UROQ) 0.2 EU/dL 0.2-1.0 NITRITE UR (test code=NITRITE) NEGATIVE NEGATIVE BLOOD UR (test code=UA BLOOD) NEGATIVE NEGATIVE LEUK ES UR (test code=LEUK) NEGATIVE NEGATIVE AUAM (test code=AUAM) NO NO CT ABDOMEN AND PELVIS WITH [id number] 22:32:06LOCATION: [id number]: 26- year-old female who presents with periumbilical abdominal pain andbloody stool.COMMENT: After-hours service at 10:[address] imaging of this patient 's abdomen and pelvis was obtained during andafter IV contrast injection. Coronal and sagittal soft tissue reconstructionswere included. An older examination of 12/14/16 is available for comparison.One or more of the following dose reduction techniques are used: Automatedexposure control, adjustment of the mA and/or kV according the patient size,and/or utilization of iterative reconstruction technique.DLP: 1273 mGy-cmCONTRAST: 100 mL of Omnipaque 300 nonionic contrast was injected into the rightantecubital vein. Serum creatinine level was 0.7.FINDINGS:The lung bases are clear. The cardiac silhouette is unremarkable.The liver, spleen, pancreas, adrenal glands, kidneys , and gallbladder areunremarkable.The upper intestinal tract on the small intestine are unremarkable. Theappendix is unremarkable. Submucosal edema with hyperemia seen in the colonextending from the hepatic flexure distally to the proximal sigmoid colon,compatible with colitis.No ascites or adenopathy is seen in the abdomen.In the pelvis a large left ovarian cyst is seen measuring 15 mm in diameter.The urinary bladder, uterus, and right ovary are unremarkable.The vascular anatomy is unremarkable.The musculoskeletal anatomy is unremarkable.IMPRESSION:Findings in this patient's colon extending from the hepatic flexure distally tothe proximal sigmoid colonare suspicious for colitis.A large left ovarian cyst is seen measuring approximately 5 cm diameter. Pelvicultrasound correlation is suggested. SERUM [id number] 21:33:00 Test Item Value Reference Range Comments PREG SRM (test code=PGS) NEGATIVE NEGATIVE AMYLASE AND [id number] 21:31:00 Test Item Value Reference Range Comments AMYLASE (test code=10A) 54 U/L 28-100 LIPASE (test code=60A) 113 IU/L 73-393 COMPREHENSIVE METABOLIC [id number] 21:31:00 Test Item Value Reference Range Comments GLUCOSE (test code=06D) 106 mg/dL 75-100 SODIUM (test code=01A) 141 mmol/L 136-145 POTASSIUM (test code=01B) 3.6 mmol/L 3.6-5.1 CHLORIDE (test code=04A) 106 mmol/L 98-107 CO2 (test code=02A) 28 mmol/L 22-32 ANION GAP (test code=ANG) 10.6 mmol/L BUN (test code=05D) 8 mg/dL 7-18 CREATININE (test code=03E) 0.7 mg/dL 0.4-1.1 BUN/CREA R (test code=BCR) 11 12-20 CALCIUM (test code=09D) 8.5 mg/dL 8.3-9.5 BILI TOTAL (test code=11A) 0.3 mg/dL 0.2-1.0 PROTEIN (test code=07D) 8.0 g/dL 6.4-8.2 ALBUMIN (test code=08D) 4.1 g/dL 3.5-4.8 GLOBULIN (test code=GLB) 3.9 g/dL 1.5-3.8 ALB/GLOB (test code=AGRR) 1.1 1.0-2.6 ALK PHOS (test code=35A) 104 IU/L 42-121 AST (test code=30A) 50 IU/L <=42 ALT (test code=31A) 23 IU/L <=78 OCCULT [id number] 21:12:00 Test Item Value Reference Range Comments Direct Exam (test code=DE3) NEGATIVE FOR OCCULT BLOOD CBC (INCLUDES AUTOMATED DIFFERENTIAL)2017-01-20 21:12:00 Test Item Value Reference Range Comments WBC (test code=WBC) 7.8 10\S\3/uL 4.5-11.0 RBC (test code=RBC) 4.19 10\S\6/uL 4.30-5.70 HGB (test code=HBG) 9.4 g/dL 12.0-15.5 HCT (test code=HCT) 31.1 % 35.0-44.0 MCV (test code=MCV) 74.2 fL 81.0-99.0 MCH (test code=MCH) 22.4 pg 27.0-31.0 MCHC (test code=MCHC) 30.2 g/dL 32.0-36.0 RDW (test code=RDW) 17.1 % 11.5-14.5 PLT (test code=PLT) 261 10\S\3/uL 130-400 MPV (test code=MPV) 11.0 fL 9.4-12.4 NEUTROP # (test code=NE#) 5.9 10\S\3/uL 1.6-8.0 LYMPH # (test code=LY#) 1.2 10\S\3/uL 1.1-3.5 MONOCYTE # (test code=MO#) 0.6 10\S\3/uL 0.0-1.1 EOSINOPH # (test code=EO#) 0.1 10\S\3/uL 0.0-0.7 BASOPHIL # (test code=BA#) 0.0 10\S\3/uL 0.0-0.3 IG # (test code=IG#) 0.02 10\S\3/uL 0.00-0.06 NRBC # (test code=NRBC#) 0.00 10\S\3/uL 0.00-0.01 NEUTROPH % (test code=NE%) 75.5 % 35.0-73.0 LYMPH % (test code=LY%) 15.7 % 20.0-55.0 MONO % (test code=MO%) 7.2 % 2.5-10.0 EOSINOPH % (test code=EO%) 0.9 % 0.0-5.0 BASOPHIL % (test code=BA%) 0.4 % 0.0-2.0 IG % (test code=IG%) 0.3 % 0.0-0.8 NRBC% (test code=NRBC%) 0.0 % 0.0-0.2 MANDIFF (test code=MDIFF) NO NO RBC MORPH (test code=RBCMOR) NORMAL URINALYSIS WITH [id number] 15:38:00 Test Item Value Reference Range Comments COLOR (test code=COLU) YELLOW YELLOW CLARITY (test code=CLA) HAZY CLEAR GLUCOSE UR (test code=UA GLUCOSE) NEGATIVE NEGATIVE BILI UR (test code=BILE) NEGATIVE NEGATIVE KETONES UR (test code=KARSON) NEGATIVE NEGATIVE SP GRAVITY (test code=SPGR) 1.005 1.005-1.030 PH UR (test code=PH) 7.0 4.5-8.0 PROTEIN UR (test code=PU) NEGATIVE NEGATIVE UROBIL UR (test code=UROQ) 0.2 EU/dL 0.2-1.0 NITRITE UR (test code=NITRITE) NEGATIVE NEGATIVE BLOOD UR (test code=UA BLOOD) NEGATIVE NEGATIVE LEUK ES UR (test code=LEUK) TRACE NEGATIVE WBC UR (test code=UWBC) 4 /HPF 0-5 RBC UR (test code=URBC) 0 /HPF 0-2 EPITH UR (test code=UEPC) FEW /LPF FEW BACTERIA UR (test code=UBACT) NONE /HPF NONE CAST UR (test code=CAST) /LPF NONE CRYSTAL UR (test code=CRYU) / LPF NONE MUCUS UR (test code=MUC) / HPF NONE AMORPH UR (test code=BRENT) / HPF NONE TRICH UR (test code=UTRICH) /HPF NONE YEAST UR (test code=UY) /HPF NONE SPERM UR (test code=USPERM) /HPF NONE U/S [id number] 15:37:29LOCATION: [id number]: 26-year-old female who presents with pelvic pain.COMMENT:Sonographic imaging of this patient's pelvis was obtained with transabdominaltechnique utilizing a scale, color flow, and Doppler waveform imagingmodalities.An older examination of 12/14/16 is available for comparison.The uterus is retroverted and measures 8.0 x 5.6 x 6.5 cm. Endometrial stripeis 17 mm thick.The left ovarycontains a complex cyst exhibiting low level internalechotexture having the appearance of a hemorrhagic cyst. This cyst measures 40x 31 x 41 mm. The overall dimension of the left ovary is 15 x 39 x 46 mm.The right ovary was not seen.Low resistance arterial blood flow is seen in the left ovary on the Dopplerstudy.A small amount of fluid seen in the pelvic cul-de-sac adjacent to the leftovary.IMPRESSION: Sonographic findings compatible with a hemorrhagic cyst are seen in thispatient' s left ovary. Thereis no evidence on the Doppler study of torsion ofthis ovary.The uterus is retroverted but otherwise unremarkable.The right ovary is not seen.AMYLASE AND [id number] 15:00:00 Test Item Value Reference Range Comments AMYLASE (test code=10A) 54 U/L 28-100 LIPASE (test code=60A) 93 IU/L 73-393 COMPREHENSIVE METABOLIC [id number] 15:00:00 Test Item Value Reference Range Comments GLUCOSE (test code=06D) 109 mg/dL 75-100 SODIUM (test code=01A) 139 mmol/L 136-145 POTASSIUM (test code=01B) 4.0 mmol/L 3.6-5.1 CHLORIDE (test code=04A) 106 mmol/L 98-107 CO2 (test code=02A) 25 mmol/L 22-32 ANION GAP (test code=ANG) 12.0 mmol/L BUN (test code=05D) 7 mg/dL 7-18 CREATININE (test code=03E) 0.9 mg/dL 0.4-1.1 BUN/CREA R (test code=BCR) 8 12-20 CALCIUM (test code=09D) 9.0 mg/dL 8.3-9.5 BILI TOTAL (test code=11A) 0.7 mg/dL 0.2-1.0 PROTEIN (test code=07D) 7.8 g/dL 6.4-8.2 ALBUMIN (test code=08D) 3.9 g/dL 3.5-4.8 GLOBULIN (test code=GLB) 3.9 g/dL 1.5-3.8 ALB/GLOB (test code=AGRR) 1.0 1.0-2.6 ALK PHOS (test code=35A) 90 IU/L 42-121 AST (test code=30A) 15 IU/L <=42 ALT (test code=31A) 12 IU/L <=78 SERUM [id number] 14:52:00 Test Item Value Reference Range Comments PREG SRM (test code=PGS) NEGATIVE NEGATIVE CBC (INCLUDES AUTOMATED DIFFERENTIAL)[id number] 14:40:00 Test Item Value Reference Range Comments WBC (test code=WBC) 6.4 10\S\3/uL 4.5-11.0 RBC (test code=RBC) 4.31 10\S\6/uL 4.30-5.70 HGB (test code=HBG) 9.8 g/dL 12.0-15.5 HCT (test code=HCT) 32.2 % 35.0-44.0 MCV (test code=MCV) 74.7 fL 81.0-99.0 MCH (test code=MCH) 22.7 pg 27.0-31.0 MCHC (test code=MCHC) 30.4 g/dL 32.0-36.0 RDW (test code=RDW) 16.5 % 11.5-14.5 PLT (test code=PLT) 173 10\S\3/uL 130-400 MPV (test code=MPV) 11.5 fL 9.4-12.4 NEUTROP # (test code=NE#) 3.6 10\S\3/uL 1.6-8.0 LYMPH # (test code=LY#) 2.2 10\S\3/uL 1.1-3.5 MONOCYTE # (test code=MO#) 0.5 10\S\3/uL 0.0-1.1 EOSINOPH # (test code=EO#) 0.1 10\S\3/uL 0.0-0.7 BASOPHIL # (test code=BA#) 0.0 10\S\3/uL 0.0-0.3 IG # (test code=IG#) 0.02 10\S\3/uL 0.00-0.06 NRBC # (test code=NRBC#) 0.00 10\S\3/uL 0.00-0.01 NEUTROPH % (test code=NE%) 56.2 % 35.0-73.0 LYMPH % (test code=LY%) 33.7 % 20.0-55.0 MONO % (test code=MO%) 7.3 % 2.5-10.0 EOSINOPH % (test code=EO%) 1.9 % 0.0-5.0 BASOPHIL % (test code=BA%) 0.6 % 0.0-2.0 IG % (test code=IG%) 0.3 % 0.0-0.8 NRBC% (test code=NRBC%) 0.0 % 0.0-0.2 MANDIFF (test code=MDIFF) NO NO RBC MORPH (test code=RBCMOR) NORMAL U/S [id number] 09:19:09Exam: Ultrasound pelvis with transvaginalLocation: A 1History: Abdominal painComparison: 09/18/2016Technique: Static grayscale images of the pelvis were obtained bothtransabdominally and endovaginally.Findings:The uterus is retroverted and measures 7.6 x 6.5 x 4.9 cm. Endometrial stripemeasures 1.4 cm in thickness and appears slightly heterogeneous. No endometrialfluid is seen. Myometrium is unremarkable. Cervix is not well characterized.Right ovary is not visualized. The left ovary measures 2.4 x 1.5 x 2.5 cm.Normal arterial waveforms are seen in the left ovary. There is no free pelvicfluid.IMPRESSION:1. Right ovary is not visualized.2. Nonspecific heterogeneity of the endometrial stripe which is still withinnormal limits.3. Otherwise unremarkable sonographic evaluation of the pelvis.CT ABDOMEN AND PELVIS WITH [id number] 07:27:27CT abdomen and pelvis with contrast.Clinical indication: Right lower quadrant abdominal painComparison: July 15, 2016Location: B2.Technique: Computed axial images were obtained from the diaphragms through thepubic symphysis along with the administration of 100 mL Omnipaque 300. Findings:Abdomen: Lung bases are clear. The liver, spleen, gallbladder, adrenal glands,and pancreas are without acute abnormality. Kidneys are normal. No bowelobstruction.Pelvis: The appendix is normal. Uterus is present.Urinary bladder is partiallydistended. No free pelvic fluid. Uterus is retroverted. No acute osseousabnormality.Impression:No acute abnormality to account for patient's symptoms.DRUGS OF [id number] 06:49:00 Test Item Value Reference Range Comments DRUG SCRN (test code=HDOA) URINE DRUG SCREEN This is an unconfirmed screening result and should not be used for non-medical purposes CANNABINOD (test code=88C) Negative NEGATIVE AMPHETHETM (test code=84A) Negative NEGATIVE BENZODIAZP (test code=86A) Negative NEGATIVE BARBITURAT (test code=85A) Negative NEGATIVE OPIATES (test code=92B) Negative NEGATIVE COCAINE (test code=87A) Negative NEGATIVE PHENCYCLID (test code=66A) Negative NEGATIVE METHADONE (test code=64A) Negative NEGATIVE DOAH (test code=DOAH) URINE DRUG SCREEN Cut-off values are as follows: --- Cannabinoids 50 ng/mL Cocaine 300 ng/mL Amphetamines 1000 ng/mL Phencyclidine 25 ng/mL Benzodiazepines 200 ng.mL Methadone 300 ng/mL Barbiturates 200 ng/mL Opiates 2000 ng/mL COMPREHENSIVE METABOLIC [id number] 06:28:00 Test Item Value Reference Range Comments GLUCOSE (test code=06D) 86 mg/dL 75-100 SODIUM (test code=01A) 141 mmol/L 136-145 POTASSIUM (test code=01B) 4.6 mmol/L 3.6-5.1 CHLORIDE (test code=04A) 106 mmol/L 98-107 CO2 (test code=02A) 29 mmol/L 22-32 ANION GAP (test code=ANG) 10.6 mmol/L BUN (test code=05D) 8 mg/dL 7-18 CREATININE (test code=03E) 0.8 mg/dL 0.4-1.1 BUN/CREA R (test code=BCR) 10 12-20 CALCIUM (test code=09D) 9.2 mg/dL 8.3-9.5 BILI TOTAL (test code=11A) 0.4 mg/dL 0.2-1.0 PROTEIN (test code=07D) 8.0 g/dL 6.4-8.2 ALBUMIN (test code=08D) 3.9 g/dL 3.5-4.8 GLOBULIN (test code=GLB) 4.1 g/dL 1.5-3.8 ALB/GLOB (test code=AGRR) 1.0 1.0-2.6 ALK PHOS (test code=35A) 93 IU/L 42-121 AST (test code=30A) 44 IU/L <=42 ALT (test code=31A) 17 IU/L <=78 LIPASE [id number] 06:28:00 Test Item Value Reference Range Comments LIPASE (test code=60A) 103 IU/L 73-393 SERUM [id number] 06:20:00 Test Item Value Reference Range Comments PREG SRM (test code=PGS) NEGATIVE NEGATIVE CBC (INCLUDES AUTOMATED DIFFERENTIAL)2016-12-14 06:19:00 Test Item Value Reference Range Comments WBC (test code=WBC) 7.5 10\S\3/uL 4.5-11.0 RBC (test code=RBC) 4.17 10\S\6/uL 4.30-5.70 HGB (test code=HBG) 9.5 g/dL 12.0-15.5 HCT (test code=HCT) 31.6 % 35.0-44.0 MCV (test code=MCV) 75.8 fL 81.0-99.0 MCH (test code=MCH) 22.8 pg 27.0-31.0 MCHC (test code=MCHC) 30.1 g/dL 32.0-36.0 RDW (test code=RDW) 16.4 % 11.5-14.5 PLT (test code=PLT) 221 10\S\3/uL 130-400 MPV (test code=MPV) 11.5 fL 9.4-12.4 NEUTROP # (test code=NE#) 3.6 10\S\3/uL 1.6-8.0 LYMPH # (test code=LY#) 3.0 10\S\3/uL 1.1-3.5 MONOCYTE # (test code=MO#) 0.8 10\S\3/uL 0.0-1.1 EOSINOPH # (test code=EO#) 0.2 10\S\3/uL 0.0-0.7 BASOPHIL # (test code=BA#) 0.1 10\S\3/uL 0.0-0.3 IG # (test code=IG#) 0.01 10\S\3/uL 0.00-0.06 NRBC # (test code=NRBC#) 0.00 10\S\3/uL 0.00-0.01 NEUTROPH % (test code=NE%) 47.1 % 35.0-73.0 LYMPH % (test code=LY%) 39.1 % 20.0-55.0 MONO % (test code=MO%) 10.2 % 2.5-10.0 EOSINOPH % (test code=EO%) 2.8 % 0.0-5.0 BASOPHIL % (test code=BA%) 0.7 % 0.0-2.0 IG % (test code=IG%) 0.1 % 0.0-0.8 NRBC% (test code=NRBC%) 0.0 % 0.0-0.2 MANDIFF (test code=MDIFF) NO NO RBC MORPH (test code=RBCMOR) NORMAL [id number] 06:17:00 Test Item Value Reference Range Comments COLOR (test code=COLU) YELLOW YELLOW CLARITY (test code=CLA) CLEAR CLEAR GLUCOSE UR (test code=UA GLUCOSE) NEGATIVE NEGATIVE BILI UR (test code=BILE) NEGATIVE NEGATIVE KETONES UR (test code=KARSON) NEGATIVE NEGATIVE SP GRAVITY (test code=SPGR) 1.005 1.005-1.030 PH UR (test code=PH) 6.5 4.5-8.0 PROTEIN UR (test code=PU) NEGATIVE NEGATIVE UROBIL UR (test code=UROQ) 0.2 EU/dL 0.2-1.0 NITRITE UR (test code=NITRITE) NEGATIVE NEGATIVE BLOOD UR (test code=UA BLOOD) NEGATIVE NEGATIVE LEUK ES UR (test code=LEUK) NEGATIVE NEGATIVE U/S [id number] 10:33:25PELVIC ULTRASOUND:Location code: [id number] HISTORY : Pain,, recent ovarian cyst removalComparison: NoneTECHNIQUE: Transabdominal sonography of the pelvis was performed. The patientdeclined transvaginalscanning.FINDINGS: Evaluation is limited. The uterus and bilateral ovaries arenonvisualized. There is no pelvic mass or fluid collection. IMPRESSION:Limited exam with no visualized acute abnormality.URINALYSIS WITH [id number] 09:15:00 Test Item Value Reference Range Comments COLOR (test code=COLU) YELLOW YELLOW CLARITY (test code=CLA) HAZY CLEAR GLUCOSE UR (test code=UA GLUCOSE) NEGATIVE NEGATIVE BILI UR (test code=BILE) NEGATIVE NEGATIVE KETONES UR (test code=KARSON) NEGATIVE NEGATIVE SP GRAVITY (test code=SPGR) 1.007 1.005-1.030 PH UR (test code=PH) 6.0 4.5-8.0 PROTEIN UR (test code=PU) NEGATIVE NEGATIVE UROBIL UR (test code=UROQ) 0.2 EU/dL 0.2-1.0 NITRITE UR (test code=NITRITE) NEGATIVE NEGATIVE BLOOD UR (test code=UA BLOOD) NEGATIVE NEGATIVE LEUK ES UR (test code=LEUK) 2+ NEGATIVE WBC UR (test code=UWBC) 8 /HPF 0-5 RBC UR (test code=URBC) 0 /HPF 0-2 EPITH UR (test code=UEPC) MANY /LPF FEW BACTERIA UR (test code=UBACT) MANY /HPF NONE CAST UR (test code=CAST) /LPF NONE CRYSTAL UR (test code=CRYU) / LPF NONE MUCUS UR (test code=MUC) / HPF NONE AMORPH UR (test code=BRENT) / HPF NONE TRICH UR (test code=UTRICH) /HPF NONE YEAST UR (test code=UY) FEW /HPF NONE SPERM UR (test code=USPERM) /HPF NONE CBC WITH [id number] 08:42:00 Test Item Value Reference Range Comments WBC (test code=WBC) 5.7 10\S\3/uL 4.5-11.0 RBC (test code=RBC) 4.05 10\S\6/uL 4.30-5.70 HGB (test code=HBG) 9.8 g/dL 12.0-15.5 HCT (test code=HCT) 32.1 % 35.0-44.0 MCV (test code=MCV) 79.3 fL 81.0-99.0 MCH (test code=MCH) 24.2 pg 27.0-31.0 MCHC (test code=MCHC) 30.5 g/dL 32.0-36.0 RDW (test code=RDW) 15.1 % 11.5-14.5 PLT (test code=PLT) 251 10\S\3/uL 130-400 MPV (test code=MPV) 10.1 fL 9.4-12.4 NEUTROP # (test code=NE#) 3.1 10\S\3/uL 1.6-8.0 LYMPH # (test code=LY#) 2.0 10\S\3/uL 1.1-3.5 MONOCYTE # (test code=MO#) 0.4 10\S\3/uL 0.0-1.1 EOSINOPH # (test code=EO#) 0.2 10\S\3/uL 0.0-0.7 BASOPHIL # (test code=BA#) 0.0 10\S\3/uL 0.0-0.3 IG # (test code=IG#) 0.02 10\S\3/uL 0.00-0.06 NRBC # (test code=NRBC#) 0.00 10\S\3/uL 0.00-0.01 NEUTROPH % (test code=NE%) 53.8 % 35.0-73.0 LYMPH % (test code=LY%) 34.7 % 20.0-55.0 MONO % (test code=MO%) 6.5 % 2.5-10.0 EOSINOPH % (test code=EO%) 3.9 % 0.0-5.0 BASOPHIL % (test code=BA%) 0.7 % 0.0-2.0 IG % (test code=IG%) 0.4 % 0.0-0.8 NRBC% (test code=NRBC%) 0.0 % 0.0-0.2 PLT EST (test code=PLTEST) ADEQUATE ADEQUATE PLT MORPH (test code=PLTMOR) NORMAL (1.5-3 um) NORMAL HYPOCHROM (test code=HYPOC) 1+ NONE MICROCYTIC (test code=MICRO) 1+ NONE STOMATO (test code=STOM) 1+ NONE COMPREHENSIVE METABOLIC [id number] 08:38:00 Test Item Value Reference Range Comments GLUCOSE (test code=06D) 98 mg/dL 75-100 SODIUM (test code=01A) 140 mmol/L 136-145 POTASSIUM (test code=01B) 4.2 mmol/L 3.6-5.1 CHLORIDE (test code=04A) 106 mmol/L 98-107 CO2 (test code=02A) 27 mmol/L 22-32 ANION GAP (test code=ANG) 11.2 mmol/L BUN (test code=05D) 10 mg/dL 7-18 CREATININE (test code=03E) 0.7 mg/dL 0.4-1.1 BUN/CREA R (test code=BCR) 15 12-20 CALCIUM (test code=09D) 8.6 mg/dL 8.3-9.5 BILI TOTAL (test code=11A) 0.2 mg/dL 0.2-1.0 PROTEIN (test code=07D) 7.1 g/dL 6.4-8.2 ALBUMIN (test code=08D) 3.5 g/dL 3.5-4.8 GLOBULIN (test code=GLB) 3.6 g/dL 1.5-3.8 ALB/GLOB (test code=AGRR) 1.0 1.0-2.6 ALK PHOS (test code=35A) 101 IU/L 42-121 AST (test code=30A) 56 IU/L <=42 ALT (test code=31A) 31 IU/L <=78 SERUM [id number] 08:30:00 Test Item Value Reference Range Comments PREG SRM (test code=PGS) NEGATIVE NEGATIVE BASIC METABOLIC PANEL *WW*2016-09-12 08:28:00 Test Item Value Reference Range Comments GLUCOSE (test code=06D) 89 mg/dL 75-100 SODIUM (test code=01A) 138 mmol/L 136-145 POTASSIUM (test code=01B) 4.3 mmol/L 3.6-5.1 CHLORIDE (test code=04A) 105 mmol/L 98-107 CO2 (test code=02A) 23 mmol/L 22-32 ANION GAP (test code=ANG) 14.3 mmol/L BUN (test code=05D) 13 mg/dL 7-18 CREATININE (test code=03E) 0.6 mg/dL 0.4-1.1 BUN/CREA R (test code=BCR) 20 12-20 CALCIUM (test code=09D) 8.7 mg/dL 8.3-9.5 CBC (INCLUDES AUTOMATED DIFFERENTIAL)*[id number] 08:01:00 Test Item Value Reference Range Comments WBC (test code=WBC) 6.6 10\S\3/uL 4.5-11.0 RBC (test code=RBC) 4.21 10\S\6/uL 4.30-5.70 HGB (test code=HBG) 10.3 g/dL 12.0-15.5 HCT (test code=HCT) 33.9 % 35.0-44.0 MCV (test code=MCV) 80.5 fL 81.0-99.0 MCH (test code=MCH) 24.5 pg 27.0-31.0 MCHC (test code=MCHC) 30.4 g/dL 32.0-36.0 RDW (test code=RDW) 15.1 % 11.5-14.5 PLT (test code=PLT) 227 10\S\3/uL 130-400 MPV (test code=MPV) 11.4 fL 9.4-12.4 NEUTROP # (test code=NE#) 4.0 10\S\3/uL 1.6-8.0 LYMPH # (test code=LY#) 1.7 10\S\3/uL 1.1-3.5 MONOCYTE # (test code=MO#) 0.6 10\S\3/uL 0.0-1.1 EOSINOPH # (test code=EO#) 0.3 10\S\3/uL 0.0-0.7 BASOPHIL # (test code=BA#) 0.0 10\S\3/uL 0.0-0.3 IG # (test code=IG#) 0.01 10\S\3/uL 0.00-0.06 NRBC # (test code=NRBC#) 0.00 10\S\3/uL 0.00-0.01 NEUTROPH % (test code=NE%) 61.1 % 35.0-73.0 LYMPH % (test code=LY%) 25.6 % 20.0-55.0 MONO % (test code=MO%) 8.5 % 2.5-10.0 EOSINOPH % (test code=EO%) 4.0 % 0.0-5.0 BASOPHIL % (test code=BA%) 0.6 % 0.0-2.0 IG % (test code=IG%) 0.2 % 0.0-0.8 NRBC% (test code=NRBC%) 0.0 % 0.0-0.2 MANDIFF (test code=WMDIFF) NO NO RBC MORPH (test code=WRBCMOR) NORMAL URINE MONOCLONAL 2016-09-12 07:44:00 Test Item Value Reference Range Comments PREG UR (test code=PGU) NEGATIVE NEGATIVE URINALYSIS 2016-09-12 07:44:00 Test Item Value Reference Range Comments COLOR (test code=COLU) YELLOW YELLOW CLARITY (test code=CLA) CLEAR CLEAR GLUCOSE UR (test code=UA GLUCOSE) NEGATIVE NEGATIVE BILI UR (test code=BILE) NEGATIVE NEGATIVE KETONES UR (test code=KARSON) NEGATIVE NEGATIVE SP GRAVITY (test code=SPGR) 1.025 1.005-1.030 PH UR (test code=PH) 6.0 4.5-8.0 PROTEIN UR (test code=PU) NEGATIVE NEGATIVE UROBIL UR (test code=UROQ) 0.2 EU/dL 0.2-1.0 NITRITE UR (test code=NITRITE) NEGATIVE NEGATIVE BLOOD UR (test code=UA BLOOD) NEGATIVE NEGATIVE LEUK ES UR (test code=LEUK) NEGATIVE NEGATIVE AUAM (test code=WAUAM) NO NO
[2018-12-13] MEDS ORDERED: FENTANYL CITR 100 MCG/2 ML ONE ×3 (06:59→11:14)
[2018-12-13] MEDS ORDERED: ONDANSETRON 4 MG/2 ML VIAL ONE ×2 (07:00→09:33)
[2018-12-13] MEDS ORDERED: NA CHLORIDE 0.9% 1,000 ML ONE (07:00)
[2018-12-13 07:16] LABS: Absolute Lymphocytes (CBC) 1.7 K/uL (0.7-4.9); Absolute Monocytes 0.3 K/uL (0.1-1.3); Absolute Neutrophil 3.7 K/uL (1.8-8.0); Basophils % 1.2 % (0-1.3); Eosinophils % 4.7 % (0-4.4); Hematocrit 29.3 % (36.0-45.0); Lymphocytes % 27.9 % (15.3-44.8); MPV 8.8 fL (7.6-11.3); Monocytes % 5.6 % (3.3-12.3); RBC Red Blood Cell Count 4.16 M/uL (3.86-4.86)
[2018-12-13 07:19] LABS: ALT/SGPT 15 U/L (12-78); AST/SGOT 18 U/L (15-37); Albumin 3.7 g/dL (3.4-5.0); Alkaline Phosphatase 99 U/L (45-117); BUN Blood Urea Nitrogen 11 mg/dL (7-18); Bicarbonate 28 mmol/L (21-32); Bilirubin Direct < 0.1 mg/dL (0-0.2); Bilirubin Total 0.3 mg/dL (0.2-1.0); Glucose Level 95 mg/dL (74-106); Lipase 63 U/L (73-393); Potassium 3.6 mmol/L (3.5-5.1); Protein, Total 7.3 g/dL (6.4-8.2); Sodium Level 143 mmol/L (136-145)
[2018-12-13 07:44] LABS: Anisocytosis 1+; Blood Morphology Comment NOTED (NOT SEEN); Platelet Estimate ADEQ; Urine White Blood Cell Casts OK
[2018-12-13 07:45] LABS: Hypochromasia 1+
[2018-12-13 08:10] LABS: Urine Blood 3+ (NEG); Urine Glucose NEGATIVE (NEG); Urine Protein NEGATIVE (NEG); Urine pH 5.5 (5.0-7.0)
[2018-12-13] MEDS ORDERED: KETOROLAC 30 MG/ML INJ ONE (08:22)
--- NOTE | 2018-12-13 08:36 | RAD REPORT ---
EXAM DESCRIPTION: CTAbdomen Pelvis W Contrast - 12/13/2018 8:20 am CLINICAL HISTORY: Abdominal pain. ABD PAIN COMPARISON: No comparisons TECHNIQUE: Biphasic CT imaging of the abdomen and pelvis was performed with 100 ml non-ionic IV cont rast. All CT scans are performed using dose optimization technique as appropriate and may include automated exposure control or mA/KV adjustment according to patient size. FINDINGS: The lung bases are clear. The liver, spleen, pancreas, adrenal glands and kidneys are within normal limits. No bowel obstruction, free air, intra-abdominal free fluid or abscess. The appendix is normal. No e vidence of significant lymphadenopathy. No suspicious bony findings. Mild increased density fluid is seen in the cul-de-sac in the pelvis. IMPRESSION: Mild increased density fluid is seen in the cul-de-sac of the pelvis, could indicate rec ent cyst rupture. Otherwise, no acute process seen.
--- NOTE | 2018-12-13 09:18 | ER ---
Nurse's Notes [facility] Name: Charley Wells Age: 28 yrs Sex: Female : 1990 Arrival Date: 12/13/2018 Time: 06:03 Bed 2 Private MD: Diagnosis: Unspecified ovarian cysts Presentation: 12/13 06:20 Presenting complaint: Patient states: "suprapubic and vaginal pain radiating to cc3 bilateral lower limbs since spud driller today". Transition of care: patient was not received from another setting of care. Onset of symptoms was December 13, 2018. Risk Assessment: Do you want to hurt yourself or someone else? Patient reports no desire to harm self or others. Initial Sepsis Screen: Does the patient meet any 2 criteria? No. Patient's initial sepsis screen is negative. Does the patient have a suspected source of infection? No. Patient's initial sepsis screen is negative. Care prior to arrival: None. 06:20 Method Of Arrival: Ambulatory cc3 06:20 Acuity: STACEY 3 cc3 Triage Assessment: 06:20 General: Appears in no apparent distress. uncomfortable, Behavior is crying. Pain: cc3 Complains of pain in suprapubic and vagina Pain radiates to legs and pelvis. Pain: Pain currently is 10 out of 10 on a pain scale. EENT: No signs and/or symptoms were reported regarding the EENT system. Neuro: Level of Consciousness is awake, alert, obeys commands, Oriented to person, place, time, situation, Appropriate for age. Cardiovascular: Patient's skin is warm and dry. Respiratory: Airway is patent Respiratory effort is even, unlabored. GI: Abdomen is round. : No signs and/or symptoms were reported regarding the genitourinary system. Derm: No signs and/or symptoms reported regarding the dermatologic system. Musculoskeletal: Circulation, motion, and sensation intact. Range of motion: intact in all extremities. HAND ALTERATIONS SEAMSTRESS: 06:20 LMP 12/12/2018 cc3 Historical: - Allergies: 06:34 tramadol; cc3 - PMHx: 06:34 Anxiety; Endometriosis; Ovarian cyst; cc3 - PSHx: 06:34 ruptured cyst 3 years ago; ; cc3 - Immunization history:: Adult Immunizations up to date. - Social history:: Smoking status: Patient/guardian denies using tobacco, never smoked. - Ebola Screening: : No symptoms or risks identified at this time. Screenin:20 Abuse screen: Denies threats or abuse. Denies injuries from another. Nutritional cc3 screening: No deficits noted. Tuberculosis screening: No symptoms or risk factors identified. Fall Risk Ambulatory Aid- None/Bed Rest/Nurse Assist (0 pts). Gait- Normal/Bed Rest/Wheelchair (0 pts) Mental Status- Oriented to own ability (0 pts). Assessment: 07:25 General: Appears in no apparent distress. uncomfortable, well developed, Behavior is sv cooperative, appropriate for age, restless. Pain: Complains of pain in suprapubic area, right lower quadrant and left lower quadrant Pain currently is 10 out of 10 on a pain scale. Is continuous. Neuro: Level of Consciousness is awake, alert, obeys commands, Oriented to person, place, time, situation, Moves all extremities. Full function. Respiratory: Respiratory effort is even, unlabored, Respiratory pattern is regular, symmetrical. GI: Reports lower abdominal pain, cramping. : Reports vaginal bleeding that is bright red, heavy flow. Derm: Skin is pink, warm \\T\\ dry. 07:26 Reassessment: Type and screen redrawn and pt rebanded. sv 09:15 Reassessment: Informed Deandre MORENO pt is c/o pain. sv 09:27 Reassessment: Patient appears in no apparent distress at this time. No changes from sv previously documented assessment. Patient and/or family updated on plan of care and expected duration. Pain level reassessed. Patient is alert, oriented x 3, equal unlabored respirations, skin warm/dry/pink. 10:00 Reassessment: Patient appears in no apparent distress at this time. Patient and/or sv family updated on plan of care and expected duration. Pain level reassessed. Patient is alert, oriented x 3, equal unlabored respirations, skin warm/dry/pink. Pain: Complains of pain in left lower quadrant and right lower quadrant and suprapubic area Pain currently is 6 out of 10 on a pain scale. 10:54 Reassessment: Ultrasound done. sv 11:05 Reassessment: Patient appears in no apparent distress at this time. No changes from sv previously documented assessment. Patient and/or family updated on plan of care and expected duration. Pain level reassessed. Patient is alert, oriented x 3, equal unlabored respirations, skin warm/dry/pink. 12:28 Reassessment: Patient appears in no apparent distress at this time. Patient and/or sv family updated on plan of care and expected duration. Pain level reassessed. Patient is alert, oriented x 3, equal unlabored respirations, skin warm/dry/pink. Vital Signs: 06:20 BP 102 / 63; Pulse 113; Resp 20 S; Temp 98.2(O); Pulse Ox 100% on R/A; Weight 74.84 kg cc3 (R); Height 5 ft. 7 in. (170.18 cm) (R); Pain 10/10; 07:30 BP 101 / 58; Pulse 62; Resp 16; Pulse Ox 100% ; sv 08:51 BP 104 / 59; Pulse 91; Resp 18; Pulse Ox 98% ; sv 10:00 Pain 6/10; sv 10:06 BP 90 / 56; Pulse 73; Resp 18; Pulse Ox 100% ; sv 10:25 BP 108 / 61; Pulse 70; Resp 16; Pulse Ox 100% ; sv 11:18 BP 97 / 51; Pulse 62; Resp 18; Pulse Ox 99% ; sv 06:20 Body Mass Index 25.84 (74.84 kg, 170.18 cm) cc3 ED Course: 06:03 Patient arrived in ED. ds1 06:14 Deandre Lozano NP is PHCP. pm1 06:14 Boston Michaud MD is Attending Physician. pm1 06:20 Arm band placed on right wrist. Patient notified of wait time. cc3 06:20 Patient has correct armband on for positive identification. Bed in low position. Call cc3 light in reach. Pulse ox on. NIBP on. 06:28 Alka Wakefield is Primary Nurse. cc3 06:31 Triage completed. cc3 06:45 Initial lab(s) drawn, by me, sent to lab. Inserted saline lock: 20 gauge in right bb antecubital area, using aseptic technique. Blood collected. 07:00 Radiology exam delayed due to lab results not completed at this time. test mw3 not completed at this time. 07:00 Report given to ERIC Daniels and ERIC Cheung. cc3 07:13 Primary Nurse role handed off by Alka Wakefield sv 07:13 Frances Kramer, ERIC is Primary Nurse. sv 07:26 Radiology exam delayed due to test not completed at this time. eh 08:00 Radiology exam delayed due to test not completed at this time. eh 08:[address] via stretcher. sv 08:20 CT Abd/Pelvis - W/Contrast: IV contrast only In Process Unspecified. EDMS 08:20 CT completed. Patient tolerated procedure well. Patient moved back from CT. mw3 10:19 Awaiting: Ultrasound. sv 10:37 Ultrasound completed. Other: pt complaining exam was too painful to fully cooperate sg3 with positioning inst.. 10:37 Radiology exam delayed due to stat floor pt was being done at this time/double exam , sg3 pt taken to floor after- no transporter available to return pt. 10:56 Transvaginal Study (probe) In Process Unspecified. EDMS 13:06 No provider procedures requiring assistance completed. IV discontinued, intact, hb bleeding controlled, Pressure dressing applied. Administered Medications: 06:55 Drug: NS 0.9% 1000 ml Route: IV; Rate: 1000 ml; Site: right antecubital; bb 08:00 Follow up: Response: No adverse reaction; IV Status: Completed infusion; IV Intake: sv 1000ml 06:55 Drug: Zofran 4 mg Route: IVP; Site: right antecubital; bb 07:42 Follow up: Response: No adverse reaction sv 06:57 Drug: fentaNYL (PF) 50 mcg Route: IVP; Site: right antecubital; bb 07:42 Follow up: Response: No adverse reaction; No change in condition sv 08:11 Drug: TORadol 30 mg Route: IVP; Site: right antecubital; ph 08:51 Follow up: Response: No adverse reaction; No change in condition sv 09:23 Drug: Zofran 4 mg Route: IVP; Site: right antecubital; sv 10:00 Follow up: Response: No adverse reaction; Nausea is decreased sv 09:25 Drug: fentaNYL (PF) 25 mcg Route: IVP; Site: right antecubital; sv 10:00 Follow up: Pain 6/10 Adult; Response: No adverse reaction sv 11:05 Drug: fentaNYL (PF) 25 mcg Route: IVP; Site: right antecubital; sv 11:30 Follow up: Response: No adverse reaction sv 13:05 Drug: Atkinson 5 mg-325 mg 1 tabs Route: PO; hb 13:05 Follow up: Response: Medication administered at discharge. hb Intake: 08:00 IV: 1000ml; Total: 1000ml. sv Outcome: 09:18 Discharge ordered by MD. pm1 12:23 Discharge ordered by MD. pm1 13:06 Discharged to home ambulatory, with family. hb 13:06 Condition: stable 13:06 Discharge instructions given to patient, Instructed on discharge instructions, follow up and referral plans. medication usage, Demonstrated understanding of instructions, follow-up care, medications, Prescriptions given X 1. 13:06 Patient left the ED. hb Signatures: Dispatcher [employer] EDFrances Milian RN RN Arturo Bruno Demi ds1 Jackie Quezada RN RN bb Skye Soni RN RN ph Marinas, Patrick, JOSH [employer] WORKER pm1 Denae Delgadillo RN RN Jennifer Mcdaniel sg3 Jacqueline Red mw3 Alka Wakefield cc3
--- NOTE | 2018-12-13 09:18 | EDPHYS ---
Physician Documentation [facility] Name: Charley Wells Age: 28 yrs Sex: Female : 1990 Arrival Date: 12/13/2018 Time: 06:03 Bed 2 Private MD: ED Physician Boston Michaud HPI: 12/13 10:32 This 28 yrs old Female presents to ER via Ambulatory with complaints of pm1 Pelvic Pain. 10:33 The patient presents with Pelvic pain. pm1 10:33 Onset: The symptoms/episode began/occurred today. pm1 10:33 The symptoms radiate to right leg and left leg. Associated signs and symptoms: pm1 Pertinent negatives: nausea, vomiting, and diarrhea, chest pain, constipation, dysuria, fever, shortness of breath. The symptoms are described as sharp. Modifying factors: The symptoms are alleviated by nothing, the symptoms are aggravated by sitting. Severity of pain: in the emergency department the pain is actually worse. The patient has experienced a previous episode, approximately 3 years ago, Ruptured ovarian cyst. The patient has not recently seen a physician. 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 - Social history:: Smoking status: Patient/guardian denies using tobacco, never smoked. - Ebola Screening: : No symptoms or risks identified at this time. ROS: 10:35 Constitutional: Negative for fever, chills, and weight loss, Eyes: Negative for injury, pm1 pain, redness, and discharge, ENT: Negative for injury, pain, and discharge, Neck: Negative for injury, pain, and swelling, Cardiovascular: Negative for chest pain, palpitations, and edema, Respiratory: Negative for shortness of breath, cough, wheezing, and pleuritic chest pain, Abdomen/GI: Negative for abdominal pain, nausea, vomiting, diarrhea, and constipation, Back: Negative for injury and pain. 10:35 MS/Extremity: Negative for injury and deformity, Skin: Negative for injury, rash, and discoloration, Neuro: Negative for headache, weakness, numbness, tingling, and seizure. 10:35 : Positive for pelvic pain, Negative for burning with urination, difficulty urinating, vaginal bleeding, vaginal discharge, vaginal itching. Exam: 10:35 Constitutional: This is a well developed, well nourished patient who is awake, alert, pm1 and in no acute distress. Head/Face: Normocephalic, atraumatic. Eyes: Pupils equal round and reactive to light, extra-ocular motions intact. Lids and lashes normal. Conjunctiva and sclera are non-icteric and not injected. Cornea within normal limits. Periorbital areas with no swelling, redness, or edema. ENT: Nares patent. No nasal discharge, no septal abnormalities noted. Tympanic membranes are normal and external auditory canals are clear. Oropharynx with no redness, swelling, or masses, exudates, or evidence of obstruction, uvula midline. Mucous membranes moist. Neck: Trachea midline, no thyromegaly or masses palpated, and no cervical lymphadenopathy. Supple, full range of motion without nuchal rigidity, or vertebral point tenderness. No Meningismus. Chest/axilla: Normal chest wall appearance and motion. Nontender with no deformity. No lesions are appreciated. Cardiovascular: Regular rate and rhythm with a normal S1 and S2. No gallops, murmurs, or rubs. Normal PMI, no JVD. No pulse deficits. Respiratory: Lungs have equal breath sounds bilaterally, clear to auscultation and percussion. No rales, rhonchi or wheezes noted. No increased work of breathing, no retractions or nasal flaring. Back: No spinal tenderness. No costovertebral tenderness. Full range of motion. Skin: Warm, dry with normal turgor. Normal color with no rashes, no lesions, and no evidence of cellulitis. MS/ Extremity: Pulses equal, no cyanosis. Neurovascular intact. Full, normal range of motion. Neuro: Awake and alert, GCS 15, oriented to person, place, time, and situation. Cranial nerves II-XII grossly intact. Motor strength 5/5 in all extremities. Sensory grossly intact. Cerebellar exam normal. Normal gait. 10:35 Abdomen/GI: Inspection: abdomen appears normal, Bowel sounds: normal, Palpation: mild abdominal tenderness, in the suprapubic area, mass, is not appreciated, rebound tenderness, is not appreciated. Vital Signs: 06:20 BP 102 / 63; Pulse 113; Resp 20 S; Temp 98.2(O); Pulse Ox 100% on R/A; Weight 74.84 kg cc3 (R); Height 5 ft. 7 in. (170.18 cm) (R); Pain 10/10; 07:30 BP 101 / 58; Pulse 62; Resp 16; Pulse Ox 100% ; sv 08:51 BP 104 / 59; Pulse 91; Resp 18; Pulse Ox 98% ; sv 10:00 Pain 6/10; sv 10:06 BP 90 / 56; Pulse 73; Resp 18; Pulse Ox 100% ; sv 10:25 BP 108 / 61; Pulse 70; Resp 16; Pulse Ox 100% ; sv 11:18 BP 97 / 51; Pulse 62; Resp 18; Pulse Ox 99% ; sv 06:20 Body Mass Index 25.84 (74.84 kg, 170.18 cm) cc3 MDM: 06:37 Patient medically screened. pm1 09:14 Data reviewed: vital signs. Data interpreted: Pulse oximetry: on room air is 98 %. pm1 Interpretation: normal. 09:17 Counseling: I had a detailed discussion with the patient and/or guardian regarding: the pm1 historical points, exam findings, and any diagnostic results supporting the discharge/admit diagnosis, lab results, radiology results, the need for outpatient follow up, to return to the emergency department if symptoms worsen or persist or if there are any questions or concerns that arise at home. 13:05 Physician consultation: Darrell Clark MD regarding CT and U/S results: No signs of ovarian pm1 torsion present . 12/13 06:40 Order name: Basic Metabolic Panel; Complete Time: 07:24 pm12/13 06:40 Order name: CBC with Diff; Complete Time: 07:47 pm12/13 06:40 Order name: Creatinine for Radiology; Complete Time: 07:47 pm12/13 06:40 Order name: Hepatic Function; Complete Time: 07:24 pm12/13 06:40 Order name: Lipase; Complete Time: 07:24 pm12/13 06:40 Order name: Type And Screen pm1 12/13 06:40 Order name: CT Abd/Pelvis - W/Contrast: IV contrast only; Complete Time: 08:39 pm12/13 07:45 Order name: CBC Smear Scan; Complete Time: 07:47 EDMS 12/13 08:05 Order name: Urine Dipstick--Ancillary (enter results); Complete Time: 08:39 bd 12/13 08:05 Order name: Urine --Ancillary (enter results); Complete Time: 08:39 bd 12/13 09:26 Order name: Transvaginal Study (probe); Complete Time: 12:20 pm1 12/13 10:20 Order name: Antibody Identification EDMD 12/13 11:33 Order name: ANTIBODY CONSULTATION MD 12/13 06:40 Order name: IV Saline Lock; Complete Time: 06:44 pm1 12/13 06:40 Order name: Labs collected and sent; Complete Time: 06:44 pm12/13 06:40 Order name: Urine Dipstick-Ancillary (obtain specimen); Complete Time: 08:16 pm12/13 06:40 Order name: Urine Test (obtain specimen); Complete Time: 08:16 pm1 12/13 07:11 Order name: Labs - recollect needed; Complete Time: 07:41 bd Administered Medications: 06:55 Drug: NS 0.9% 1000 ml Route: IV; Rate: 1000 ml; Site: right antecubital; bb 08:00 Follow up: Response: No adverse reaction; IV Status: Completed infusion; IV Intake: sv 1000ml 06:55 Drug: Zofran 4 mg Route: IVP; Site: right antecubital; bb 07:42 Follow up: Response: No adverse reaction sv 06:57 Drug: fentaNYL (PF) 50 mcg Route: IVP; Site: right antecubital; bb 07:42 Follow up: Response: No adverse reaction; No change in condition sv 08:11 Drug: TORadol 30 mg Route: IVP; Site: right antecubital; ph 08:51 Follow up: Response: No adverse reaction; No change in condition sv 09:23 Drug: Zofran 4 mg Route: IVP; Site: right antecubital; sv 10:00 Follow up: Response: No adverse reaction; Nausea is decreased sv 09:25 Drug: fentaNYL (PF) 25 mcg Route: IVP; Site: right antecubital; sv 10:00 Follow up: Pain 6/10 Adult; Response: No adverse reaction sv 11:05 Drug: fentaNYL (PF) 25 mcg Route: IVP; Site: right antecubital; sv 11:30 Follow up: Response: No adverse reaction sv 13:05 Drug: [place] 5 mg-325 mg 1 tabs Route: PO; hb 13:05 Follow up: Response: Medication administered at discharge. hb Disposition: 12/14 06:52 Co-signature as Attending Physician, Boston Michaud MD I agree with the assessment and tw4 plan of care. Disposition: 12/13/18 12:23 Discharged to Home. Impression: Unspecified ovarian cysts. - Condition is Stable. - Discharge Instructions: Ovarian Cyst. - Prescriptions for Tylenol- Codeine #3 300-30 mg Oral Tablet - take 2 tablets by ORAL route every 6 hours As needed; 20 tablet. - Medication Reconciliation Form, Thank You Letter, Antibiotic Education, Prescription Opioid Use form. - Follow up: Emergency Department; When: As needed; Reason: Worsening of condition. Follow up: Private Physician; When: 2 - 3 days; Reason: Recheck today's complaints, Continuance of care, Re-evaluation by your physician. - Problem is new. - Symptoms have improved. Signatures: Dispatcher [employer] EDMS Torie Thurston Stephanie, Jackie Lopez RN, RN RN Skye Washington RN RN ph Deandre Lozano, JOSH [employer] INCIDENT RESPONSE SPECIALIST pm1 Denae Delgadillo RN RN Boston Michaud MD MD tw4 Alka Wakefield cc3 Corrections: (The following items were deleted from the chart) 12/13 09:23 09:18 12/13/2018 09:18 Discharged to Home. Impression: Other ovarian cysts. Condition pm1 is Stable. Forms are Medication Reconciliation Form, Thank You Letter, Antibiotic Education, Prescription Opioid Use. Follow up: Emergency Department; When: As needed; Reason: Worsening of condition. Follow up: Private Physician; When: 2 - 3 days; Reason: Recheck today's complaints, Continuance of care, Re-evaluation by your physician. Problem is new. Symptoms have improved. pm1 13:06 12:23 12/13/2018 12:23 Discharged to Home. Impression: Unspecified ovarian cysts. hb Condition is Stable. Forms are Medication Reconciliation Form, Thank You Letter, Antibiotic Education, Prescription Opioid Use. Follow up: Emergency Department; When: As needed; Reason: Worsening of condition. Follow up: Private Physician; When: 2 - 3 days; Reason: Recheck today's complaints, Continuance of care, Re-evaluation by your physician. Problem is new. Symptoms have improved. pm1
--- NOTE | 2018-12-13 12:00 | RAD REPORT ---
EXAM DESCRIPTION: US - Transvaginal Study Probe - 12/13/2018 10:57 am CLINICAL HISTORY: Suprapubic pain Pelvic pain. COMPARISON: Transvaginal Study Probe dated 11/19/2016Transvaginal Study Probe dated 11/19/2016; Abdome n Pelvis W Contrast dated 12/13/2018 FINDINGS: The uterus is normal in size, shape and echotexture. The uterus measures 7.0 x 5.2 x 4.9 c m. The endometrial stripe measures 14 mm, mildly thickened. Both ovaries were obscured by bowel gas. Mild pelvic free fluid in the cul-de-sac. IMPRESSION: Mild pelvic free fluid in the cul de sac. Both ovaries are obscured by bowel gas.
[2018-12-13] MEDS ORDERED: HYDROCODONE/APAP 5/325 MG TAB ONE (13:12)
== END 2018-12-13 13:06 | disposition home or self-care (01) ==
LOC: ER 06:01
DX: N83.209 Unspecified ovarian cyst, unspecified side (principal); Z88.5 Allergy status to narcotic agent
CPT/HCPCS: 36415; 74177; 76830; 80048; 80076; 81003; 81025; 83690; 85025; 86850; 86870; 86900; 86901; 86902; 96361; 96374; 96375; 99284; J2405; J3010; J7030; Q9967

== ENCOUNTER 2019-07-20 00:41 | Emergency (ER) | payer OTHER ==
--- OUTSIDE RECORDS SUMMARY | 2019-07-20 00:49 | XMS REPORT ---
:1990 Author Organization [facility] Address [address] [place] [address] Care Team Providers Name Role Phone ESCOBAR, DR PARKER Unavailable Unavailable COTTER, DR JACKSON Unavailable Unavailable FUENTES, DR GERALDO Stout Unavailable Unavailable MILENA, DR SANTOS Unavailable Unavailable DR NICANOR ROGERS Unavailable Unavailable MERCEDES, DR ABDIAS Petersen Unavailable Unavailable KIKI MOISE Unavailable Unavailable DOMINIK, DR NATE Caballero Unavailable Unavailable DR KIMMY ENCISO Unavailable Unavailable DR GLORY LEE Unavailable Unavailable DR SERGEY SARGENT Unavailable Unavailable DR RADHA DILL Unavailable Unavailable DR ALISE ESTRADA Unavailable Unavailable ROBBY COREAS Unavailable Unavailable VINICIO, NGOZI Unavailable Unavailable DR ROSARIO WHITFIELD Unavailable Unavailable Payers Payer Name Policy Type Policy Number Effective Date Expiration Date Problems This patient has no known problems. Allergies, Adverse Reactions, Alerts Allergy Allergy Status Severity Reaction(s) Onset Inactive Treating Comments Name Type Date Date Clinician tramadol DA Active U 2018-08 00:00:0 0 tramadol DA Active U 2018-08 00:00:0 0 No Known DA Active U 2006-10 Contrast [...] Date/Time Type Type Clinicians Facility Department ID 2019-03-07 2019-03-07 Emergency E ELENA CODY [facility] [id number] 03:26:00 06:00:00 2018-11-13 2018-11-13 Emergency E MANUEL COTTER [facility] [id number] 02:44:00 04:14:00 2018-11-04 2018-11-04 Emergency E [facility] [id number] 08:04:00 08:04:00 2018-10-22 2018-10-22 Emergency E EGRALDO DILL [facility] [id number] 10:10:00 13:01:00 2018-10-19 2018-10-19 Emergency E DILLGERALDO [facility] [id number] 15:20:00 18:15:00 2018-10-06 2018-10-06 Emergency E MILENA [facility] [id number] 12:53:00 14:15:00 DANIELLE 2018-09-11 2018-09-11 Emergency E SUE [facility] [id number] 13:37:00 17:15:00 NICANOR JASWANT 2018-09-09 2018-09-09 Emergency E MERCEDES, [facility] [id number] 12:45:00 16:45:00 ABDIAS 2018-08-17 2018-08-17 Emergency E DILL, GERALDO [facility] [id number] 01:32:00 04:20:00 2018-07-28 2018-07-28 Outpatient E DOMINIK, [facility] TELE [id number] 06:49:00 16:28:00 NATE 2018-06-19 2018-06-19 Emergency E ZARIA, [facility] [id number] 17:59:00 19:07:00 KIMMY 2018-05-21 2018-05-21 Emergency E ZARIA, [facility] [id number] 17:21:00 20:22:00 KIMMY 2018-05-10 2018-05-10 Emergency E ROSA [facility] [id number] 12:36:00 16:00:00 GLORY 2018-05-01 2018-05-01 Emergency E GERALDO DILL [facility] [id number] 01:08:00 03:19:00 2018-04-05 2018-04-05 Emergency E GERALDO DILL [facility] [id number] 14:18:00 17:55:00 2018-02-24 2018-02-24 Emergency E ARIE, [facility] [id number] 03:20:00 05:50:00 RINCON 2017-11-22 2017-11-22 Emergency E MERCEDES, [facility] [id number] 06:21:00 11:45:00 ABDIAS 2017-08-20 2017-08-20 Emergency E FUENTES, [facility] [id number] 08:47:00 09:45:00 RADHA 2017-08-15 2017-08-15 Emergency E SEAN, [facility] [id number] 00:28:00 02:58:00 ALISE 2017-06-21 2017-06-21 Emergency E JOSS, [facility] [id number] 14:26:00 18:19:00 ROBBY Results Test Description Test Time Test Comments Text Results Atomic Results Result Comments CT NECK W/CONTRAST 2019-03-07 05:21:32 HISTORY: Neck swellingTechnique: Axial tomograms through the neck were obtained after intravenouscontrast. Dose reduction techniques were utilized in compliance with ACR imagewisely.Location: C3 FINDINGS:The visualized aerodigestive tract is within normal limits. No peritonsillar orparapharyngeal mass or fluid collection. The parotid glands and submandibularglands as well as thyroid gland show no significant abnormalities. No softtissue mass or fluid collection.Scattered small lymph nodes are present along the jugular chains bilaterally.No acute osseous abnormalities demonstrated.IMPRESSION:1. No soft tissue mass or fluid collection. No other acute abnormalities. T4 FREE 2019-03-07 04:37:00 Test Item Value Reference Range Comments T4 FREE (test code=A91) 1.12 ng/dL 0.76-1.46 THYROID PANEL/SCREEN (TSH)2019-03-07 04:27:00 Test Item Value Reference Range Comments TSH (test code=A57) 5.350 uIU/mL 0.358-3.740 CBC WITH [id number] 04:16:00 Test Item Value Reference Range Comments WBC (test code=WBC) 9.3 10\\S\\3/uL 4.5-11.0 RBC (test code=RBC) 3.91 10\\S\\6/uL 4.30-5.70 HGB (test code=HBG) 8.3 g/dL 12.0-15.5 HCT (test code=HCT) 28.7 % 35.0-44.0 MCV (test code=MCV) 73.4 fL 81.0-99.0 MCH (test code=MCH) 21.2 pg 27.0-31.0 MCHC (test code=MCHC) 28.9 g/dL 32.0-36.0 RDW (test code=RDW) 18.0 % 11.5-14.5 PLT (test code=PLT) 272 10\\S\\3/uL 130-400 MPV (test code=MPV) 10.3 fL 9.4-12.4 NEUTROP # (test code=NE#) 5.7 10\\S\\3/uL 1.6-8.0 LYMPH # (test code=LY#) 2.6 10\\S\\3/uL 1.1-3.5 MONOCYTE # (test code=MO#) 0.7 10\\S\\3/uL 0.0-1.1 EOSINOPH # (test code=EO#) 0.2 10\\S\\3/uL 0.0-0.7 BASOPHIL # (test code=BA#) 0.1 10\\S\\3/uL 0.0-0.3 IG # (test code=IG#) 0.02 10\\S\\3/uL 0.00-0.06 NRBC # (test code=NRBC#) 0.00 10\\S\\3/uL 0.00-0.01 NEUTROPH % (test code=NE%) 61.2 % 35.0-73.0 LYMPH % (test code=LY%) 27.9 % 20.0-55.0 MONO % (test code=MO%) 8.0 % 2.5-10.0 EOSINOPH % (test code=EO%) 2.2 % 0.0-5.0 BASOPHIL % (test code=BA%) 0.5 % 0.0-2.0 IG % (test code=IG%) 0.2 % 0.0-0.8 NRBC% (test code=NRBC%) 0.0 % 0.0-0.2 PLT EST (test code=PLTEST) ADEQUATE ADEQUATE PLT MORPH (test code=PLTMOR) NORMAL (1.5-3 um) NORMAL AMYLASE AND [id number] 04:13:00 Test Item Value Reference Range Comments AMYLASE (test code=10A) 50 U/L 28-100 LIPASE (test code=60A) 87 IU/L 73-393 COMPREHENSIVE METABOLIC [id number] 04:13:00 Test Item Value Reference Range Comments GLUCOSE (test code=06D) 99 mg/dL 75-100 SODIUM (test code=01A) 139 mmol/L 136-145 POTASSIUM (test code=01B) 3.3 mmol/L 3.6-5.1 CHLORIDE (test code=04A) 106 mmol/L 98-107 CO2 (test code=02A) 26 mmol/L 22-32 ANION GAP (test code=ANG) 10.3 mmol/L BUN (test code=05D) 17 mg/dL 7-18 CREATININE (test code=03E) 1.1 mg/dL 0.4-1.1 BUN/CREA (test code=BCR) 16 12-20 CALCIUM (test code=09D) 8.9 mg/dL 8.3-9.5 BILI TOTAL (test code=11A) 0.3 mg/dL 0.2-1.0 PROTEIN (test code=07D) 7.9 g/dL 6.4-8.2 ALBUMIN (test code=08D) 3.9 g/dL 3.5-4.8 GLOBULIN (test code=GLB) 4.0 g/dL 1.5-3.8 ALB/GLOB (test code=AGRR) 1.0 1.0-2.6 ALK PHOS (test code=35A) 102 IU/L 42-121 AST (test code=30A) 15 IU/L <=42 ALT (test code=31A) 8 IU/L <=78 [id number] 04:08:00 Test Item Value Reference Range Comments MAGNESIUM (test code=48A) 1.9 mg/dL 1.8-2.4 SERUM [id number] 04:08:00 Test Item Value Reference Range Comments PREG SRM (test code=PGS) NEGATIVE NEGATIVE LIVER [id number] 04:00:00 Test Item Value Reference Range Comments [...] (test code=31A) 9 IU/L <=78 AMYLASE AND [id number] 03:24:00 Test Item Value Reference Range Comments AMYLASE (test code=10A) 48 U/L 28-100 LIPASE (test code=60A) 122 IU/L 73-393 BASIC METABOLIC [id number] 03:23:00 Test Item Value Reference Range Comments [...] (test code=09D) 8.8 mg/dL 8.3-9.5 URINALYSIS WITH [id number] 03:20:00 Test Item Value Reference Range Comments [...] SPERM UR (test code=USPERM) /HPF NONE SERUM [id number] 03:18:00 Test Item Value Reference Range Comments PREG SRM (test code=PGS) NEGATIVE NEGATIVE CBC (INCLUDES AUTOMATED DIFFERENTIAL)2018-11-13 03:12:00 Test Item Value Reference Range Comments WBC (test code=WBC) 8.5 10\\S\\3/uL 4.5-11.0 RBC (test code=RBC) 4.42 10\\S\\6/uL 4.30-5.70 HGB (test code=HBG) 9.7 g/dL 12.0-15.5 HCT (test code=HCT) 33.0 % 35.0-44.0 MCV (test code=MCV) 74.7 fL 81.0-99.0 MCH (test code=MCH) 21.9 pg 27.0-31.0 MCHC (test code=MCHC) 29.4 g/dL 32.0-36.0 RDW (test code=RDW) 17.1 % 11.5-14.5 PLT (test code=PLT) 244 10\\S\\3/uL 130-400 MPV (test code=MPV) 10.9 fL 9.4-12.4 NEUTROP # (test code=NE#) 5.1 10\\S\\3/uL 1.6-8.0 LYMPH # (test code=LY#) 2.5 10\\S\\3/uL 1.1-3.5 MONOCYTE # (test code=MO#) 0.7 10\\S\\3/uL 0.0-1.1 EOSINOPH # (test code=EO#) 0.2 10\\S\\3/uL 0.0-0.7 BASOPHIL # (test code=BA#) 0.0 10\\S\\3/uL 0.0-0.3 IG # (test code=IG#) 0.02 10\\S\\3/uL 0.00-0.06 NRBC # (test code=NRBC#) 0.00 10\\S\\3/uL 0.00-0.01 NEUTROPH % (test code=NE%) 59.6 % [...] code=RBCMOR) NORMAL CT ABDOMEN AND PELVIS WITH [id number] 12:25:13CT abdomen and pelvis with contrastLocation Code: [id number] HISTORY: Lower abdominal painCOMPARISON: 09/11/2018Technique: Helical CT [...] acute intra- abdominal or pelvic abnormality.AMYLASE AND [id number] 11:44:00 Test Item Value Reference Range Comments AMYLASE (test code=10A) 41 U/L 28-100 LIPASE (test code=60A) 76 IU/L 73-393 COMPREHENSIVE METABOLIC [id number] 11:44:00 Test Item Value Reference Range Comments [...] code=31A) 23 IU/L <=78 PRO TIME AND [id number] 11:41:00 Test Item Value Reference Range Comments [...] LMW Heparin. Order Code is ANTI-XA SERUM [id number] 11:39:00 Test Item Value Reference Range Comments PREG SRM (test code=PGS) NEGATIVE NEGATIVE [id number] 11:39:00 Test Item Value Reference Range Comments MAGNESIUM (test code=48A) 2.1 mg/dL 1.8-2.4 OCCULT [id number] 11:28:00 Test Item Value Reference Range Comments Direct Exam (test code=DE1) POSITIVE FOR OCCULT BLOOD CBC (INCLUDES AUTOMATED DIFFERENTIAL)2018-10-22 11:24:00 Test Item Value Reference Range Comments WBC (test code=WBC) 6.4 10\\S\\3/uL 4.5-11.0 RBC (test code=RBC) 4.34 10\\S\\6/uL 4.30-5.70 HGB (test code=HBG) 9.4 g/dL 12.0-15.5 HCT (test code=HCT) 32.8 % 35.0-44.0 MCV (test code=MCV) 75.6 fL 81.0-99.0 MCH (test code=MCH) 21.7 pg 27.0-31.0 MCHC (test code=MCHC) 28.7 g/dL 32.0-36.0 RDW (test code=RDW) 16.9 % 11.5-14.5 PLT (test code=PLT) 241 10\\S\\3/uL 130-400 MPV (test code=MPV) 11.0 fL 9.4-12.4 NEUTROP # (test code=NE#) 4.7 10\\S\\3/uL 1.6-8.0 LYMPH # (test code=LY#) 1.2 10\\S\\3/uL 1.1-3.5 MONOCYTE # (test code=MO#) 0.4 10\\S\\3/uL 0.0-1.1 EOSINOPH # (test code=EO#) 0.1 10\\S\\3/uL 0.0-0.7 BASOPHIL # (test code=BA#) 0.0 10\\S\\3/uL 0.0-0.3 IG # (test code=IG#) 0.02 10\\S\\3/uL 0.00-0.06 NRBC # (test code=NRBC#) 0.00 10\\S\\3/uL 0.00-0.01 NEUTROPH % (test code=NE%) 72.5 % 35.0-73.0 LYMPH % (test code=LY%) 19.1 % 20.0-55.0 MONO % (test code=MO%) 6.4 % 2.5-10.0 EOSINOPH % (test code=EO%) 1.2 % 0.0-5.0 BASOPHIL % (test code=BA%) 0.5 % 0.0-2.0 IG % (test code=IG%) 0.3 % 0.0-0.8 NRBC% (test code=NRBC%) 0.0 % 0.0-0.2 MANDIFF (test code=MDIFF) NO NO RBC MORPH (test code=RBCMOR) NORMAL DRUGS OF [id number] 17:34:00 Test Item Value Reference Range Comments [...] Barbiturates 200 ng/mL Opiates 2000 ng/mL U/S [id number] 17:32:02PELVIC ULTRASOUND:Location code: [id number] HISTORY : [id number]: Acute pelvic painComparison: NoneTECHNIQUE: Transabdominal sonography of the pelvis was performed. The patientrefused transvaginal scan..FINDINGS: The uterus is uniform in echogenicity measuring 7.8 x 83.7 x 6.9 cm. The endometrium is poorly visualized. The bilateral ovaries are nonvisualized. There is no adnexal mass or freefluid.IMPRESSION:No visualized acute abnormality on limited examination.COMPREHENSIVE METABOLIC [id number] 16:53:00 Test Item Value Reference Range Comments [...] (test code=31A) 21 IU/L <=78 AMYLASE AND [id number] 16:47:00 Test Item Value Reference Range Comments AMYLASE (test code=10A) 45 U/L 28-100 LIPASE (test code=60A) 47 IU/L 73-393 SERUM [id number] 16:46:00 Test Item Value Reference Range Comments PREG SRM (test code=PGS) NEGATIVE NEGATIVE [id number] 16:39:00 Test Item Value Reference Range Comments [...] Reference Range Comments WBC (test code=WBC) 8.0 10\\S\\3/uL 4.5-11.0 RBC (test code=RBC) 4.15 10\\S\\6/uL 4.30-5.70 HGB (test code=HBG) 9.1 g/dL 12.0-15.5 HCT (test code=HCT) 31.2 % 35.0-44.0 MCV (test code=MCV) 75.2 fL 81.0-99.0 MCH (test code=MCH) 21.9 pg 27.0-31.0 MCHC (test code=MCHC) 29.2 g/dL 32.0-36.0 RDW (test code=RDW) 17.1 % 11.5-14.5 PLT (test code=PLT) 244 10\\S\\3/uL 130-400 MPV (test code=MPV) 11.1 fL 9.4-12.4 NEUTROP # (test code=NE#) 6.4 10\\S\\3/uL 1.6-8.0 LYMPH # (test code=LY#) 1.0 10\\S\\3/uL 1.1-3.5 MONOCYTE # (test code=MO#) 0.4 10\\S\\3/uL 0.0-1.1 EOSINOPH # (test code=EO#) 0.1 10\\S\\3/uL 0.0-0.7 BASOPHIL # (test code=BA#) 0.0 10\\S\\3/uL 0.0-0.3 IG # (test code=IG#) 0.02 10\\S\\3/uL 0.00-0.06 NRBC # (test code=NRBC#) 0.00 10\\S\\3/uL 0.00-0.01 NEUTROPH % (test code=NE%) 80.6 % 35.0-73.0 LYMPH % (test code=LY%) 12.0 % 20.0-55.0 MONO % (test code=MO%) 4.9 % 2.5-10.0 EOSINOPH % (test code=EO%) 1.8 % 0.0-5.0 BASOPHIL % (test code=BA%) 0.4 % 0.0-2.0 IG % (test code=IG%) 0.3 % 0.0-0.8 NRBC% (test code=NRBC%) 0.0 % 0.0-0.2 MANDIFF (test code=MDIFF) NO NO CBC WITH [id number] 13:43:00 Test Item Value Reference Range Comments WBC (test code=WBC) 5.2 10\\S\\3/uL 4.5-11.0 RBC (test code=RBC) 3.74 10\\S\\6/uL 4.30-5.70 HGB (test code=HBG) 8.2 g/dL 12.0-15.5 HCT (test code=HCT) 28.5 % 35.0-44.0 MCV (test code=MCV) 76.2 fL 81.0-99.0 MCH (test code=MCH) 21.9 pg 27.0-31.0 MCHC (test code=MCHC) 28.8 g/dL 32.0-36.0 RDW (test code=RDW) 18.0 % 11.5-14.5 PLT (test code=PLT) 169 10\\S\\3/uL 130-400 MPV (test code=MPV) 10.1 fL 9.4-12.4 NEUTROP # (test code=NE#) 3.7 10\\S\\3/uL 1.6-8.0 LYMPH # (test code=LY#) 1.0 10\\S\\3/uL 1.1-3.5 MONOCYTE # (test code=MO#) 0.4 10\\S\\3/uL 0.0-1.1 EOSINOPH # (test code=EO#) 0.1 10\\S\\3/uL 0.0-0.7 BASOPHIL # (test code=BA#) 0.0 10\\S\\3/uL 0.0-0.3 IG # (test code=IG#) 0.02 10\\S\\3/uL 0.00-0.06 NRBC # (test code=NRBC#) 0.00 10\\S\\3/uL 0.00-0.01 NEUTROPH % (test code=NE%) 71.8 % [...] POLYCHROM (test code=POLY) 1+ NONE BASIC METABOLIC [id number] 13:40:00 Test Item Value Reference Range Comments [...] 12-20 CALCIUM (test code=09D) 8.8 mg/dL 8.3-9.5 [id number] 13:30:00 Test Item Value Reference Range Comments [...] ES UR (test code=LEUK) NEGATIVE NEGATIVE URINE [id number] 13:30:00 Test Item Value Reference Range Comments PREG UR (test code=PGU) NEGATIVE NEGATIVE CT ABDOMEN AND PELVIS W/O [id number] 15:32:22CT abdomen and pelvis without contrastLocation Code: [id number] HISTORY: Pain in pelvisCOMPARISON: Technique: Helical CT [...] no acute intra-abdominal or pelvic abnormality.URINALYSIS WITH [id number] 14:45:00 Test Item Value Reference Range Comments [...] SPERM UR (test code=USPERM) /HPF NONE URINE [id number] 14:40:00 Test Item Value Reference Range Comments PREG UR (test code=PGU) NEGATIVE NEGATIVE DIRECT STREP GROUP [id number] 10:48:00 Test Item Value Reference Range Comments Culture Observations (test NO BETA HEMOLYTIC code=COB1) STREPTOCOCCUS ISOLATED Direct Exam (test code=DE1) NO STREPTOCOCCUS GROUP A ANTIGEN DETECTED COMPREHENSIVE METABOLIC [id number] 23:46:00 Test Item Value Reference Range Comments SODIUM (test code=NA) 137 mEq/L 135-145 POTASSIUM (test code=K) 3.8 mEq/L 3.5-5.0 CHLORIDE (test code=CL) 104 mEq/L 100-115 CARBON DIOXIDE (test code=CO2) 28 mEq/L 22-31 ANION GAP (test code=GAP) 9.00 10-20 GLUCOSE (test code=GLU) 89 mg/dL 65-110 BLOOD UREA NITROGEN (test code=BUN) 9 mg/dL 7-18 GLOMERULAR FILTRATION RATE (test code=GFR) 102 ml/min >60 CREATININE (test code=CREAT) 0.7 mg/dL 0.5-1.0 TOTAL PROTEIN (test code=PROT) 7.1 gm/dL 6.3-8.2 ALBUMIN (test code=ALB) 3.4 gm/dL 3.4-4.8 CALCIUM (test code=CA) 8.7 mg/dL 8.4-10.2 BILIRUBIN TOTAL (test code=BILT) 0.2 mg/dL 0.2-1.0 SGOT/AST (test code=AST) 27 units/L 15-37 SGPT/ALT (test code=ALT) 15 units/L 12-78 ALKALINE PHOSPHATASE TOTAL (test code=ALKP) 118 units/L 46-116 CBC W/AUTO [id number] 23:30:00 Test Item Value Reference Range Comments WHITE BLOOD CELL (test code=WBC) 4.2 K/mm3 6.6-12.1 RED BLOOD CELL (test code=RBC) 3.74 M/mm3 3.45-5.01 HEMOGLOBIN (test code=HGB) 8.2 g/dL 10.7-13.9 HEMATOCRIT (test code=HCT) 28.1 % 32.1-42.1 MEAN CELL VOLUME (test code=MCV) 75 fL 84.1-94.8 MEAN CELL HGB (test code=MCH) 21.9 pg 27-35 MEAN CELL HGB CONCETRATION (test code=MCHC) 29.2 gm/dL 32.2-34.1 RED CELL DISTRIBUTION WIDTH (test code=RDW) 18.3 % 12.4-16.5 PLATELET COUNT (test code=PLT) 198 K/mm3 133-385 IMMATURE PLATELET FRACTION (test code=IPF) 0.0 % 0.0-10.8 MEAN PLATELET VOLUME (test code=MPV) 10.9 fl 9.1-12.7 NEUTROPHIL % (test code=NT%) 75.1 % 56.5-79.4 LYMPHOCYTE % (test code=LY%) 9.1 % 14.3-34.3 MONOCYTE % (test code=MO%) 12.5 % 5.1-10.4 EOSINOPHIL % (test code=EO%) 2.6 % 0.1-3.0 BASOPHIL % (test code=BA%) 0.5 % 0.1-1.0 NEUTROPHIL # (test code=NT#) 3.1 K/mm3 LYMPHOCYTE # (test code=LY#) 0.4 K/mm3 MONOCYTE # (test code=MO#) 0.5 K/mm3 EOSINOPHIL # (test code=EO#) 0.11 K/mm3 BASOPHIL # (test code=BA#) 0.0 K/mm3 RBC MORPHOLOGY REQUIRED (test code=RBCM) NORMAL NORMAL PLATELET MORPHOLOGY REQUIRED (test code=PLTMR) NORMAL NORMAL INFLUENZA A B [id number] 23:18:00 Test Item Value Reference Range Comments INFLUENZA A PCR (test POSITIVE NEGATIVE RESULTS CALLED TO GENI.READ code=FLUAPCR) BACK & CONFIRMED? Y.BY FEliasLAB.LGL0 09/09/18 2317. INFLUENZA B PCR (test NEGATIVE NEGATIVE code=FLUBPCR) UA RFLX MICR CULT IF [id number] 22:36:00 Test Item Value Reference Range Comments UA COLOR (test code=COLU) YELLOW YELLOW UA APPEARANCE (test code=APPU) CLOUDY CLEAR UA GLUCOSE DIPSTICK (test code=DGLUU) NEGATIVE NEG UA BILIRUBIN DIPSTICK (test code=BILU) NEGATIVE NEG UA KETONE DIPSTICK (test code=KETU) NEGATIVE NEG UA SPECIFIC GRAVITY (test code=SGU) 1.013 1.001-1.035 UA BLOOD DIPSTICK (test code=SANAZ) 1+ NEG UA PH DIPSTICK (test code=ELISA) 5.0 5-9 UA PROTEIN DIPSTICK (test code=PROU) NEGATIVE NEG UA UROBILINIOGEN DIPSTICK (test code=URO) NEGATIVE mg/dL NEG UA NITRITE DIPSTICK (test code=GREGORIO) NEG NEG UA LEUKOCYTE ESTERASE DIPSTICK (test 3+ NEG code=LEUU) UA WBC (test code=WBCU) 31-40 #/hpf NONE SEEN UA RBC (test code=RBCU) 21-30 #/hpf NONE SEEN UA EPITHELIAL CELLS (test code=EPIU) MANY #/HPF RARE-FEW UA BACTERIA (test code=BACU) RARE /HPF RARE-FEW UA MUCUS (test code=MUCU) RARE NONE SEEN UR HCG [id number] 22:36:00 Test Item Value Reference Range Comments UR HCG QUAL (test NEGATIVE 1. Very dilute urine specimens, as code=HCGQLU) indicated by a lowspecific gravity, may not contain claims customer service representative levels ofhCG. 2. False negative results may occur when the levels of hCGare below the sensitivity level of the test. If is still suspected, a first morningurine specimen should be collected 48 hours later andtested. UA RFLX MICR CULT IF [id number] 22:33:00 Test Item Value Reference Range Comments UA COLOR (test code=COLU) YELLOW UA APPEARANCE (test code=APPU) CLEAR UA GLUCOSE DIPSTICK (test code=DGLUU) NEGATIVE UA BILIRUBIN DIPSTICK (test code=BILU) NEGATIVE UA KETONE DIPSTICK (test code=KETU) NEGATIVE UA SPECIFIC GRAVITY (test code=SGU) 1.001-1.035 UA BLOOD DIPSTICK (test code=SANAZ) NEGATIVE UA PH DIPSTICK (test code=ELISA) 5-9 UA PROTEIN DIPSTICK (test code=PROU) NEGATIVE UA UROBILINIOGEN DIPSTICK (test code=URO) EU/dL <=1.0 UA NITRITE DIPSTICK (test code=GREGORIO) NEGATIVE UA LEUKOCYTE ESTERASE DIPSTICK (test code=LEUU) NEG UA WBC (test code=WBCU) #/hpf NONE SEEN UA EPITHELIAL CELLS (test code=EPIU) #/HPF RARE-FEW UR HCG [id number] 22:33:00 Test Item Value Reference Range Comments UR HCG QUAL (test NEGATIVE 1. Very dilute urine specimens, as code=HCGQLU) indicated by a lowspecific gravity, may not contain claims customer service representative levels ofhCG. 2. False negative results may occur when the levels of hCGare below the sensitivity level of the test. If is still suspected, a first morningurine specimen should be collected 48 hours later andtested. U/S [id number] 15:54:21PELVIC ULTRASOUND:Location code: [id number] HISTORY : lower abdominal pain, 4cm ovarian [...] torsion.2. Nonvisualization of the right ovary.U/S NON [id number] 15:54:21PELVIC ULTRASOUND: Location code: [id number] HISTORY: lower abdominal pain, 4cm ovarian cyst [...] torsion.2. Nonvisualization of the right ovary.URINALYSIS WITH [id number] 15:27:00 Test Item Value Reference Range Comments [...] /HPF NONE CT ABDOMEN AND PELVIS WITH [id number] 14:44:45CT abdomen and pelvis with contrastLocation Code: [id number] HISTORY: 2 days post laparoscopy with abd [...] cyst.2. Otherwise, no acute abnormality.XR CHEST 2 [id number] 14:10:17PA and lateral chest, 2 viewsLocation code: [id number] HISTORY: CoughCOMPARISON: 06/07/2016COMMENTS:The lungs are clear and well inflated. The costophrenic angles aresharp. The cardiomediastinal silhouette is unremarkable. The bones are intact.IMPRESSION: Stable chest with no acute abnormalityAMYLASE AND [id number] 14:07:00 Test Item Value Reference Range Comments AMYLASE (test code=10A) 34 U/L 28-100 LIPASE (test code=60A) 45 IU/L 73-393 COMPREHENSIVE METABOLIC [id number] 14:07:00 Test Item Value Reference Range Comments [...] code=31A) 23 IU/L <=78 PRO TIME AND [id number] 14:00:00 Test Item Value Reference Range Comments [...] LMW Heparin. Order Code is ANTI-XA SERUM [id number] 13:59:00 Test Item Value Reference Range Comments PREG SRM (test code=PGS) NEGATIVE NEGATIVE CBC (INCLUDES AUTOMATED DIFFERENTIAL)2018-09-09 13:53:00 Test Item Value Reference Range Comments WBC (test code=WBC) 7.3 10\\S\\3/uL 4.5-11.0 RBC (test code=RBC) 4.26 10\\S\\6/uL 4.30-5.70 HGB (test code=HBG) 9.4 g/dL 12.0-15.5 HCT (test code=HCT) 31.8 % 35.0-44.0 MCV (test code=MCV) 74.6 fL 81.0-99.0 MCH (test code=MCH) 22.1 pg 27.0-31.0 MCHC (test code=MCHC) 29.6 g/dL 32.0-36.0 RDW (test code=RDW) 18.2 % 11.5-14.5 PLT (test code=PLT) 232 10\\S\\3/uL 130-400 MPV (test code=MPV) 10.9 fL 9.4-12.4 NEUTROP # (test code=NE#) 5.9 10\\S\\3/uL 1.6-8.0 LYMPH # (test code=LY#) 0.4 10\\S\\3/uL 1.1-3.5 MONOCYTE # (test code=MO#) 0.7 10\\S\\3/uL 0.0-1.1 EOSINOPH # (test code=EO#) 0.2 10\\S\\3/uL 0.0-0.7 BASOPHIL # (test code=BA#) 0.0 10\\S\\3/uL 0.0-0.3 IG # (test code=IG#) 0.01 10\\S\\3/uL 0.00-0.06 NRBC # (test code=NRBC#) 0.00 10\\S\\3/uL 0.00-0.01 NEUTROPH % (test code=NE%) 81.5 % [...] code=RBCMOR) NORMAL DIRECT INFLUENZA A AND B [id number] 13:24:00 Test Item Value Reference Range Comments Direct Exam (test code=DE1) PRESUMPTIVE NEGATIVE FOR THE PRESENCE OF INFLUENZA ANTIGEN PERITONEUM,[id number] 14:26:00 RUN DATE: 09/07/18 [facility] PAGE 1 RUN TIME: 1455 Specimen Inquiry RUN USER: INTERFACE PATIENT: [facility]EDOYA [id number] AGE/SX: 27/ [facility] RE09/04/18REG DR: Ganga Payne MD : [id number] BED: A DIS: STATUS: DIS Wilver TLOC: ----- ------- SPEC #: [id number] RECD: 09/04/18 STATUS: BRUCE TERRY #: [id number] CHACHO: 09/04/18- SUBM DR: Ganga Payne MD ENTERED: 09/05/18 SP TYPE: PERITBX MELLISA DR: ORDERED: LEVEL IV CODES: [id number] - PERITONEUM, NOS PROCEDURES: LEVEL IV (Incomplete) TISSUES: PERITONEUM, NOS - SIDEWALL CLINICAL HISTORY 27 year old, chronic pelvic pain, ovary cyst, endometriosis (kr) FINAL DIAGNOSIS Tissue from sidewall, laterality undesignated: - benign cysts lined by tubal epithelial consistent with benign paratubal cysts (2) Tissue code 1 CPT code(s): 67830 cds/kr dt: 09/07/18 GROSS DESCRIPTION ANATOMICSOURCE OF TISSUE (per Requisition): Sidewall The specimen is received in a formalin-filled container, labeled with the patient's name and designated "possible endometriosis sidewall". The specimen consists of a 0.5 cm portion of elizabeth tissue and is submitted in one cassette. hz/kr 09/04/18 @9153 MICROSCOPIC DESCRIPTION Two benign paratubal cysts are present. No endometriosis perse is identified. hoa/kr dt: 09/07/18------ ------ Signed Jay Corrales 1426 END OF REPORT HCG SERUM [id number] 20:10:00 Test Item Value Reference Range Comments HCG SERUM QUAL (test code=HCGQL) NEGATIVE CBC W/AUTO [id number] 19:43:00 Test Item Value Reference Range Comments WHITE BLOOD CELL (test 7.6 K/mm3 6.6-12.1 code=WBC) RED BLOOD CELL (test 4.22 M/mm3 3.45-5.01 code=RBC) HEMOGLOBIN (test code=HGB) 9.0 g/dL 10.7-13.9 HEMATOCRIT (test code=HCT) 32.2 % 32.1-42.1 MEAN CELL VOLUME (test 76 fL 84.1-94.8 code=MCV) MEAN CELL HGB (test code=MCH) 21.3 pg 27-35 MEAN CELL HGB CONCETRATION 28.0 gm/dL 32.2-34.1 (test code=MCHC) RED CELL DISTRIBUTION WIDTH 18.0 % 12.4-16.5 (test code=RDW) PLATELET COUNT (test 266 K/mm3 133-385 code=PLT) IMMATURE PLATELET FRACTION 0.0 % 0.0-10.8 (test code=IPF) MEAN PLATELET VOLUME (test 11.8 fl 9.1-12.7 code=MPV) NEUTROPHIL % (test code=NT%) 64.3 % 56.5-79.4 LYMPHOCYTE % (test code=LY%) 25.3 % 14.3-34.3 MONOCYTE % (test code=MO%) 6.6 % 5.1-10.4 EOSINOPHIL % (test code=EO%) 3.0 % 0.1-3.0 BASOPHIL % (test code=BA%) 0.5 % 0.1-1.0 NEUTROPHIL # (test code=NT#) 4.9 K/mm3 LYMPHOCYTE # (test code=LY#) 1.9 K/mm3 MONOCYTE # (test code=MO#) 0.5 K/mm3 EOSINOPHIL # (test code=EO#) 0.23 K/mm3 BASOPHIL # (test code=BA#) 0.0 K/mm3 RBC MORPHOLOGY REQUIRED (test ABNORMAL NORMAL +1 HYPOCHROMIA+1 ANISOCYTOSIS code=RBCM) PLATELET MORPHOLOGY REQUIRED NORMAL NORMAL (test code=PLTMR) URINALYSIS [id number] 19:35:00 Test Item Value Reference Range Comments UA COLOR (test code=COLU) YELLOW YELLOW UA APPEARANCE (test code=APPU) Slightly-Cloudy CLEAR UA GLUCOSE DIPSTICK (test code=DGLUU) NEGATIVE NEG UA BILIRUBIN DIPSTICK (test code=BILU) NEGATIVE NEG UA KETONE DIPSTICK (test code=KETU) NEGATIVE NEG UA SPECIFIC GRAVITY (test code=SGU) 1.011 1.001-1.035 UA BLOOD DIPSTICK (test code=SANAZ) NEG NEG UA PH DIPSTICK (test code=ELISA) 5.0 5-9 UA PROTEIN DIPSTICK (test code=PROU) NEGATIVE NEG UA UROBILINIOGEN DIPSTICK (test code=URO) NEGATIVE mg/dL NEG UA NITRITE DIPSTICK (test code=GREGORIO) NEG NEG UA LEUKOCYTE ESTERASE DIPSTICK (test NEG NEG code=LEUU) UA WBC (test code=WBCU) 0-2 #/hpf NONE SEEN UA RBC (test code=RBCU) 0-2 #/hpf NONE SEEN UA EPITHELIAL CELLS (test code=EPIU) RARE #/HPF RARE-FEW UA BACTERIA (test code=BACU) NEGATIVE /HPF RARE-FEW UA MUCUS (test code=MUCU) RARE NONE SEEN URINE SAMPLE: CLEAN CATCHU/S, PELVIS, WITH ENDOVAG AND [id number] 05:32: 00Reason for exam:->right lower quadrant painShould this be performed at [...] IMPRESSION: Unremarkable sonographic examination of the pelvis. Signed:Benjamin Peres MDReport Verified Date/Time: 08/21/2018 05:32:26 Reading Location: [address] Neuro Reading Room BASIC METABOLIC [id number] 03:50:00 Test Item Value Reference Range Comments SODIUM (BEAKER) (test 140 meq/L 135-148 vmsb=525) POTASSIUM (BEAKER) (test 4.0 meq/L 3.6-5.5 ftns=362) CHLORIDE (BEAKER) (test 108 meq/L 98-106 ojoy=386) CO2 (BEAKER) (test 23 meq/L 20-29 psvn=917) BLOOD UREA NITROGEN 12 mg/dL 10-26 (BEAKER) (test cpxl=068) CREATININE (BEAKER) (test 0.71 mg/dL 0.50-1.20 fmqh=668) GLUCOSE RANDOM (BEAKER) 87 mg/dL 70-110 (test pxjq=422) CALCIUM (BEAKER) (test 8.8 mg/dL 8.5-10.5 ebkb=855) EGFR (BEAKER) (test 100 mL/min/1.73 sq m ESTIMATED GFR IS NOT bhew=0407) ACCURATE CREATININE CLEARANCE IN PREDICTING GLOMERULAR FILTRATION RATE. ESTIMATED GFR IS NOT APPLICABLE FOR DIALYSIS PATIENTS. CBC W/PLT COUNT & AUTO [id number] 03:44:00 Test Item Value Reference Range Comments WHITE BLOOD CELL COUNT (BEAKER) (test sphj=945) 7.2 K/ L 4.0-10.0 RED BLOOD CELL COUNT (BEAKER) (test gzdv=850) 4.11 M/ L 4.00-5.00 HEMOGLOBIN (BEAKER) (test yjvg=339) 8.9 GM/DL 12.0-15.5 HEMATOCRIT (BEAKER) (test iwhl=552) 30.7 % 36.0-46.0 MEAN CORPUSCULAR VOLUME (BEAKER) (test xndn=622) 74.7 fL 82.0-99.0 MEAN CORPUSCULAR HEMOGLOBIN (BEAKER) (test 21.7 pg 27.0-33.0 ntzd=104) MEAN CORPUSCULAR HEMOGLOBIN CONC (BEAKER) (test 29.0 GM/DL 32.0-36.0 ugfi=464) RED CELL DISTRIBUTION WIDTH (BEAKER) (test 17.9 % 12.0-15.0 nzjj=299) PLATELET COUNT (BEAKER) (test mvsl=023) 242 K/CU MM 150-430 MEAN PLATELET VOLUME (BEAKER) (test xvlf=854) 11.8 fL 6.0-11.5 NUCLEATED RED BLOOD CELLS (BEAKER) (test 0 /100 WBC 0-0 gyss=251) NEUTROPHILS RELATIVE PERCENT (BEAKER) (test 57 % zwrp=288) LYMPHOCYTES RELATIVE PERCENT (BEAKER) (test 31 % ydnh=834) MONOCYTES RELATIVE PERCENT (BEAKER) (test 8 % kiye=364) EOSINOPHILS RELATIVE PERCENT (BEAKER) (test 3 % tybn=271) BASOPHILS RELATIVE PERCENT (BEAKER) (test 1 % pfjf=672) NEUTROPHILS ABSOLUTE COUNT (BEAKER) (test 4.11 K/ L 1.80-8.00 mfvo=383) LYMPHOCYTES ABSOLUTE COUNT (BEAKER) (test 2.22 K/ L 1.48-4.50 ejdm=696) MONOCYTES ABSOLUTE COUNT (BEAKER) (test 0.60 K/ L 0.00-1.30 kwmp=145) EOSINOPHILS ABSOLUTE COUNT (BEAKER) (test 0.24 K/ L 0.00-0.50 ghvs=501) BASOPHILS ABSOLUTE COUNT (BEAKER) (test 0.05 K/ L 0.00-0.20 aosq=908) IMMATURE GRANULOCYTES-RELATIVE PERCENT (BEAKER) 0 % 0-0 (test kxqf=1282) URINALYSIS W/ [id number] 03:31:00 Test Item Value Reference Range Comments COLOR (BEAKER) (test kado=541) Yellow CLARITY (BEAKER) (test dpyc=083) Slightly Cloudy SPECIFIC GRAVITY UA (BEAKER) (test fvra=897) 1.015 1.001-1.035 PH UA (BEAKER) (test cnyl=828) 6.5 5.0-8.0 PROTEIN UA (BEAKER) (test muxe=904) Negative Negative GLUCOSE UA (BEAKER) (test qoui=300) Negative Negative KETONES UA (BEAKER) (test rabl=671) Negative Negative BILIRUBIN UA (BEAKER) (test mums=553) Negative Negative BLOOD UA (BEAKER) (test qvts=575) Negative Negative NITRITE UA (BEAKER) (test vocx=979) Negative Negative LEUKOCYTE ESTERASE UA (BEAKER) (test Moderate Negative nnqc=679) UROBILINOGEN UA (BEAKER) (test jahs=401) 0.2 mg/dL 0.2-1.0 BACTERIA (BEAKER) (test awqi=196) Few RBC UA-MANUAL (BEAKER) (test puys=6804) <5 /HPF WBC UA-MANUAL (BEAKER) (test ywsz=1801) 10-20 /HPF SQUAMOUS EPITHELIAL MANUAL (BEAKER) (test 10-20 /HPF nnlm=2350) SOURCE(BEAKER) (test yaaw=9344) SCREEN, [id number] 03:25:00 Test Item Value Reference Range Comments TEST URINE (BEAKER) (test swwh=619) Negative U/S [id number] 03:53:09AFTER HOURS SERVICE ON: 08/17/2018 3:51 AMPelvic UltrasoundLocation Code [id number]: pelvic painTRANSABDOMINAL ScanTechnique: Longitudinal and transverse real-time [...] Thereis no free fluid. Impression:Unremarkable ultrasound.DRUGS OF [id number] 02:28:00 Test Item Value Reference Range Comments [...] 200 ng/mL Opiates 2000 ng/mL AMYLASE AND [id number] 02:27:00 Test Item Value Reference Range Comments AMYLASE (test code=10A) 62 U/L 28-100 LIPASE (test code=60A) 112 IU/L 73-393 COMPREHENSIVE METABOLIC [id number] 02:27:00 Test Item Value Reference Range Comments [...] (test code=31A) 15 IU/L <=78 URINALYSIS WITH [id number] 02:26:00 Test Item Value Reference Range Comments [...] SPERM UR (test code=USPERM) /HPF NONE SERUM [id number] 02:24:00 Test Item Value Reference Range Comments PREG SRM (test code=PGS) NEGATIVE NEGATIVE CBC (INCLUDES AUTOMATED DIFFERENTIAL)2018-08-17 02:12:00 Test Item Value Reference Range Comments WBC (test code=WBC) 7.6 10\\S\\3/uL 4.5-11.0 RBC (test code=RBC) 4.23 10\\S\\6/uL 4.30-5.70 HGB (test code=HBG) 9.4 g/dL 12.0-15.5 HCT (test code=HCT) 32.1 % 35.0-44.0 MCV (test code=MCV) 75.9 fL 81.0-99.0 MCH (test code=MCH) 22.2 pg 27.0-31.0 MCHC (test code=MCHC) 29.3 g/dL 32.0-36.0 RDW (test code=RDW) 17.9 % 11.5-14.5 PLT (test code=PLT) 229 10\\S\\3/uL 130-400 MPV (test code=MPV) 11.0 fL 9.4-12.4 NEUTROP # (test code=NE#) 4.3 10\\S\\3/uL 1.6-8.0 LYMPH # (test code=LY#) 2.4 10\\S\\3/uL 1.1-3.5 MONOCYTE # (test code=MO#) 0.7 10\\S\\3/uL 0.0-1.1 EOSINOPH # (test code=EO#) 0.3 10\\S\\3/uL 0.0-0.7 BASOPHIL # (test code=BA#) 0.1 10\\S\\3/uL 0.0-0.3 IG # (test code=IG#) 0.01 10\\S\\3/uL 0.00-0.06 NRBC # (test code=NRBC#) 0.00 10\\S\\3/uL 0.00-0.01 NEUTROPH % (test code=NE%) 56.1 % [...] CHLAMYDIA TRACHOMATIS NOT DETECTED NOT DETECTED (test ngyq=[id number]) NEISSERIA GONORRHOEAE NOT DETECTED NOT DETECTED (test jfbu=[id number]) Endnote (test This test was performed using bidv=[id number]) the APTIMA COMBO2 Assay([employer]The analytical performance characteristics of thisassay, when used to test SurePath specimens havebeen determined by [employer].TEST PERFORMED AT:[facility] [id number] [place] [id number] TALLEY M.D. HEPATITIS C ANTIBODY *WW*2018-07-29 00:07:00 [...] and without contrastHistory: Pain with thickened endometriumLocation: F5Yvmgrzveb: High-resolution multiplanar multiecho imaging of the pelvis wasperformed with and fdlyhvo93 cc of intravenous Dotarem.Findings:Endometrium is thickened at [...] mass although clinicalcorrelation recommended.MRCP *WW*07-28 12:11:11MRCPLocation code: L2Rcfkiqav history: Dilated common ductComparison: Reference is made [...] in the liver.CT ABDOMEN AND PELVIS WITH [id number] 06:13:19CT abdomen and pelvis with contrastLocation Code: [id number] HISTORY: [id number]: Acute pelvic painCOMPARISON: NoneTechnique: Helical CT of [...] exclude the presence ofcholedocholithiasis or stricture.U/S NON [id number] 05:59:08PELVIC ULTRASOUND:Location code: [id number] HISTORY: Pain, bleedingComparison: NoneTECHNIQUE: Transabdominal sonography of the pelvis was performed followed byendovaginal scanning for better characterization of the ovaries. FINDINGS: The uterus is uniform in echogenicity measuring 7.7 x 5.9 x 5.5 cm.The endometrium is slightly heterogeneous and hyperdense measuring up to 1 cmThe bilateral adnexa are not visualized. Trace free fluid is noted within vmupey-xh-zzb.IMPRESSION: Nonspecific heterogeneityof the endometriumThe bilateral adnexa are not visualized.U/S [id number] 05:59:08PELVIC ULTRASOUND:Location code: [id number] HISTORY: Pain, bleedingComparison: NoneTECHNIQUE: Transabdominal sonography of the pelvis was performed followed byendovaginal scanning for better characterization of the ovaries. FINDINGS: The uterus is uniform in echogenicity measuring 7.7 x 5.9 x 5.5 cm.The endometrium is slightly heterogeneous and hyperdense measuring up to 1 cmThe bilateral adnexa are not visualized. Trace free fluid is noted within bjgfgu-si-fgh.IMPRESSION: Nonspecific heterogeneityof the endometriumThe bilateral adnexa are not visualized.AMYLASE AND [id number] 05:13:00 Test Item Value Reference Range Comments AMYLASE (test code=10A) 80 U/L 28-100 LIPASE (test code=60A) 150 IU/L 73-393 COMPREHENSIVE METABOLIC [id number] 05:13:00 Test Item Value Reference Range Comments [...] (test code=31A) 16 IU/L <=78 URINALYSIS WITH [id number] 05:10:00 Test Item Value Reference Range Comments [...] SPERM UR (test code=USPERM) /HPF NONE URINE [id number] 05:01:00 Test Item Value Reference Range Comments PREG UR (test code=PGU) NEGATIVE NEGATIVE CBC (INCLUDES AUTOMATED DIFFERENTIAL)2018-07-28 04:48:00 Test Item Value Reference Range Comments WBC (test code=WBC) 7.3 10\\S\\3/uL 4.5-11.0 RBC (test code=RBC) 3.99 10\\S\\6/uL 4.30-5.70 HGB (test code=HBG) 8.7 g/dL 12.0-15.5 HCT (test code=HCT) 29.5 % 35.0-44.0 MCV (test code=MCV) 73.9 fL 81.0-99.0 MCH (test code=MCH) 21.8 pg 27.0-31.0 MCHC (test code=MCHC) 29.5 g/dL 32.0-36.0 RDW (test code=RDW) 18.0 % 11.5-14.5 PLT (test code=PLT) 198 10\\S\\3/uL 130-400 MPV (test code=MPV) 10.7 fL 9.4-12.4 NEUTROP # (test code=NE#) 4.4 10\\S\\3/uL 1.6-8.0 LYMPH # (test code=LY#) 2.2 10\\S\\3/uL 1.1-3.5 MONOCYTE # (test code=MO#) 0.5 10\\S\\3/uL 0.0-1.1 EOSINOPH # (test code=EO#) 0.2 10\\S\\3/uL 0.0-0.7 BASOPHIL # (test code=BA#) 0.0 10\\S\\3/uL 0.0-0.3 IG # (test code=IG#) 0.02 10\\S\\3/uL 0.00-0.06 NRBC # (test code=NRBC#) 0.00 10\\S\\3/uL 0.00-0.01 NEUTROPH % (test code=NE%) 60.3 % 35.0-73.0 LYMPH % (test code=LY%) 29.8 % 20.0-55.0 MONO % (test code=MO%) 6.4 % 2.5-10.0 EOSINOPH % (test code=EO%) 2.7 % 0.0-5.0 BASOPHIL % (test code=BA%) 0.5 % 0.0-2.0 IG % (test code=IG%) 0.3 % 0.0-0.8 NRBC% (test code=NRBC%) 0.0 % 0.0-0.2 MANDIFF (test code=MDIFF) NO NO RBC MORPH (test code=RBCMOR) NORMAL URINALYSIS WITH [id number] 18:39:00 Test Item Value Reference Range Comments [...] SPERM UR (test code=USPERM) /HPF NONE URINE [id number] 18:31:00 Test Item Value Reference Range Comments PREG UR (test code=PGU) NEGATIVE NEGATIVE U/S [id number] 18:46:36HISTORY: Pain.Location Code: [id number]: Multiple transverse and longitudinal sonographic images wereobtained.FINDINGS: [...] and ovaries are not well seen.URINALYSIS WITH [id number] 18:33:00 Test Item Value Reference Range Comments [...] UR (test code=USPERM) /HPF NONE COMPREHENSIVE METABOLIC [id number] 18:31:00 Test Item Value Reference Range Comments [...] (test code=31A) 11 IU/L <=78 AMYLASE AND [id number] 18:31:00 Test Item Value Reference Range Comments AMYLASE (test code=10A) 46 U/L 28-100 LIPASE (test code=60A) 97 IU/L 73-393 URINE [id number] 18:29:00 Test Item Value Reference Range Comments PREG UR (test code=PGU) NEGATIVE NEGATIVE CBC (INCLUDES AUTOMATED DIFFERENTIAL)2018-05-21 18:19:00 Test Item Value Reference Range Comments WBC (test code=WBC) 7.0 10\\S\\3/uL 4.5-11.0 RBC (test code=RBC) 4.47 10\\S\\6/uL 4.30-5.70 HGB (test code=HBG) 9.8 g/dL 12.0-15.5 HCT (test code=HCT) 33.4 % 35.0-44.0 MCV (test code=MCV) 74.7 fL 81.0-99.0 MCH (test code=MCH) 21.9 pg 27.0-31.0 MCHC (test code=MCHC) 29.3 g/dL 32.0-36.0 RDW (test code=RDW) 18.0 % 11.5-14.5 PLT (test code=PLT) 298 10\\S\\3/uL 130-400 MPV (test code=MPV) 10.8 fL 9.4-12.4 NEUTROP # (test code=NE#) 4.7 10\\S\\3/uL 1.6-8.0 LYMPH # (test code=LY#) 1.5 10\\S\\3/uL 1.1-3.5 MONOCYTE # (test code=MO#) 0.6 10\\S\\3/uL 0.0-1.1 EOSINOPH # (test code=EO#) 0.2 10\\S\\3/uL 0.0-0.7 BASOPHIL # (test code=BA#) 0.1 10\\S\\3/uL 0.0-0.3 IG # (test code=IG#) 0.01 10\\S\\3/uL 0.00-0.06 NRBC # (test code=NRBC#) 0.00 10\\S\\3/uL 0.00-0.01 NEUTROPH % (test code=NE%) 67.2 % 35.0-73.0 LYMPH % (test code=LY%) 21.5 % 20.0-55.0 MONO % (test code=MO%) 7.9 % 2.5-10.0 EOSINOPH % (test code=EO%) 2.6 % 0.0-5.0 BASOPHIL % (test code=BA%) 0.7 % 0.0-2.0 IG % (test code=IG%) 0.1 % 0.0-0.8 NRBC% (test code=NRBC%) 0.0 % 0.0-0.2 MANDIFF (test code=MDIFF) NO NO RBC MORPH (test code=RBCMOR) NORMAL URINE [id number] 08:09:00 Test Item Value Reference Range Comments Culture Observations (test NO GROWTH (<1,000 CFU/ML) code=COB1) U/S [id number] 15:59:01EXAM: Pelvic ultrasoundLocation: A1 COMPARISON: Pelvic ultrasound [...] within normal limits.3. No free fluid.COMPREHENSIVE METABOLIC [id number] 13:45:00 Test Item Value Reference Range Comments [...] <=42 ALT (test code=31A) 17 IU/L <=78 [id number] 13:45:00 Test Item Value Reference Range Comments AMYLASE (test code=10A) 54 U/L 28-100 LIPASE [id number] 13:40:00 Test Item Value Reference Range Comments LIPASE (test code=60A) 87 IU/L 73-393 URINALYSIS WITH [id number] 13:39:00 Test Item Value Reference Range Comments [...] Reference Range Comments WBC (test code=WBC) 8.1 10\\S\\3/uL 4.5-11.0 RBC (test code=RBC) 4.52 10\\S\\6/uL 4.30-5.70 HGB (test code=HBG) 9.8 g/dL 12.0-15.5 HCT (test code=HCT) 33.6 % 35.0-44.0 MCV (test code=MCV) 74.3 fL 81.0-99.0 MCH (test code=MCH) 21.7 pg 27.0-31.0 MCHC (test code=MCHC) 29.2 g/dL 32.0-36.0 RDW (test code=RDW) 17.7 % 11.5-14.5 PLT (test code=PLT) 222 10\\S\\3/uL 130-400 MPV (test code=MPV) 10.9 fL 9.4-12.4 NEUTROP # (test code=NE#) 5.5 10\\S\\3/uL 1.6-8.0 LYMPH # (test code=LY#) 1.9 10\\S\\3/uL 1.1-3.5 MONOCYTE # (test code=MO#) 0.5 10\\S\\3/uL 0.0-1.1 EOSINOPH # (test code=EO#) 0.2 10\\S\\3/uL 0.0-0.7 BASOPHIL # (test code=BA#) 0.0 10\\S\\3/uL 0.0-0.3 IG # (test code=IG#) 0.02 10\\S\\3/uL 0.00-0.06 NRBC # (test code=NRBC#) 0.00 10\\S\\3/uL 0.00-0.01 NEUTROPH % (test code=NE%) 68.2 % 35.0-73.0 LYMPH % (test code=LY%) 22.8 % 20.0-55.0 MONO % (test code=MO%) 6.2 % 2.5-10.0 EOSINOPH % (test code=EO%) 2.1 % 0.0-5.0 BASOPHIL % (test code=BA%) 0.5 % 0.0-2.0 IG % (test code=IG%) 0.2 % 0.0-0.8 NRBC% (test code=NRBC%) 0.0 % 0.0-0.2 MANDIFF (test code=MDIFF) NO NO RBC MORPH (test code=RBCMOR) NORMAL URINE [id number] 13:31:00 Test Item Value Reference Range Comments PREG UR (test code=PGU) NEGATIVE NEGATIVE CT ABDOMEN AND PELVIS WITH [id number] 03:08:26CT OF THE ABDOMEN AND PELVIS WITH CONTRASTLocation code:Z1PRJEXHOX HISTORY:lower abdominal pain COMPARISON: None TECHNIQUE:Multiple transaxial [...] evaluation of the abdomen and pelvis.CBC WITH [id number] 02:39:00 Test Item Value Reference Range Comments WBC (test code=WBC) 9.0 10\\S\\3/uL 4.5-11.0 RBC (test code=RBC) 3.97 10\\S\\6/uL 4.30-5.70 HGB (test code=HBG) 8.5 g/dL 12.0-15.5 HCT (test code=HCT) 29.4 % 35.0-44.0 MCV (test code=MCV) 74.1 fL 81.0-99.0 MCH (test code=MCH) 21.4 pg 27.0-31.0 MCHC (test code=MCHC) 28.9 g/dL 32.0-36.0 RDW (test code=RDW) 17.2 % 11.5-14.5 PLT (test code=PLT) 224 10\\S\\3/uL 130-400 MPV (test code=MPV) 11.3 fL 9.4-12.4 NEUTROP # (test code=NE#) 5.9 10\\S\\3/uL 1.6-8.0 LYMPH # (test code=LY#) 2.2 10\\S\\3/uL 1.1-3.5 MONOCYTE # (test code=MO#) 0.7 10\\S\\3/uL 0.0-1.1 EOSINOPH # (test code=EO#) 0.2 10\\S\\3/uL 0.0-0.7 BASOPHIL # (test code=BA#) 0.0 10\\S\\3/uL 0.0-0.3 IG # (test code=IG#) 0.02 10\\S\\3/uL 0.00-0.06 NRBC # (test code=NRBC#) 0.00 10\\S\\3/uL 0.00-0.01 NEUTROPH % (test code=NE%) 65.4 % [...] DROP (test code=TD) 1+ NONE AMYLASE AND [id number] 02:19:00 Test Item Value Reference Range Comments AMYLASE (test code=10A) 67 U/L 28-100 LIPASE (test code=60A) 127 IU/L 73-393 COMPREHENSIVE METABOLIC [id number] 02:19:00 Test Item Value Reference Range Comments [...] (test code=31A) 10 IU/L <=78 URINALYSIS WITH [id number] 02:01:00 Test Item Value Reference Range Comments [...] SPERM UR (test code=USPERM) /HPF NONE SERUM [id number] 02:01:00 Test Item Value Reference Range Comments PREG SRM (test code=PGS) NEGATIVE NEGATIVE U/S NON [id number] 17:52:13EXAM: Pelvic ultrasoundLocation : A1 COMPARISON: Pelvic [...] Small volume nonspecific cul-de-sac free fluid.COMPREHENSIVE METABOLIC [id number] 15:32:00 Test Item Value Reference Range Comments [...] ALT (test code=31A) 11 IU/L <=78 SERUM [id number] 15:31:00 Test Item Value Reference Range Comments PREG SRM (test code=PGS) NEGATIVE NEGATIVE CBC (INCLUDES AUTOMATED DIFFERENTIAL)2018-04-05 15:25:00 Test Item Value Reference Range Comments WBC (test code=WBC) 6.4 10\\S\\3/uL 4.5-11.0 RBC (test code=RBC) 4.11 10\\S\\6/uL 4.30-5.70 HGB (test code=HBG) 9.0 g/dL 12.0-15.5 HCT (test code=HCT) 30.3 % 35.0-44.0 MCV (test code=MCV) 73.7 fL 81.0-99.0 MCH (test code=MCH) 21.9 pg 27.0-31.0 MCHC (test code=MCHC) 29.7 g/dL 32.0-36.0 RDW (test code=RDW) 16.8 % 11.5-14.5 PLT (test code=PLT) 249 10\\S\\3/uL 130-400 MPV (test code=MPV) 11.3 fL 9.4-12.4 NEUTROP # (test code=NE#) 3.8 10\\S\\3/uL 1.6-8.0 LYMPH # (test code=LY#) 1.9 10\\S\\3/uL 1.1-3.5 MONOCYTE # (test code=MO#) 0.6 10\\S\\3/uL 0.0-1.1 EOSINOPH # (test code=EO#) 0.1 10\\S\\3/uL 0.0-0.7 BASOPHIL # (test code=BA#) 0.0 10\\S\\3/uL 0.0-0.3 IG # (test code=IG#) 0.01 10\\S\\3/uL 0.00-0.06 NRBC # (test code=NRBC#) 0.00 10\\S\\3/uL 0.00-0.01 NEUTROPH % (test code=NE%) 58.2 % 35.0-73.0 LYMPH % (test code=LY%) 28.7 % 20.0-55.0 MONO % (test code=MO%) 9.8 % 2.5-10.0 EOSINOPH % (test code=EO%) 2.2 % 0.0-5.0 BASOPHIL % (test code=BA%) 0.9 % 0.0-2.0 IG % (test code=IG%) 0.2 % 0.0-0.8 NRBC% (test code=NRBC%) 0.0 % 0.0-0.2 MANDIFF (test code=MDIFF) NO NO PRO TIME AND [id number] 15:20:00 Test Item Value Reference Range Comments [...] Heparin. Order Code is ANTI-XA URINALYSIS WITH [id number] 15:19:00 Test Item Value Reference Range Comments [...] UR (test code=USPERM) /HPF NONE URINALYSIS WITH [id number] 05:18:00 Test Item Value Reference Range Comments [...] SPERM UR (test code=USPERM) /HPF NONE URINE [id number] 05:01:00 Test Item Value Reference Range Comments PREG UR (test code=PGU) NEGATIVE NEGATIVE PRO TIME AND [id number] 04:14:00 Test Item Value Reference Range Comments [...] Heparin. Order Code is ANTI-XA COMPREHENSIVE METABOLIC [id number] 04:08:00 Test Item Value Reference Range Comments [...] Reference Range Comments WBC (test code=WBC) 7.7 10\\S\\3/uL 4.5-11.0 RBC (test code=RBC) 4.25 10\\S\\6/uL 4.30-5.70 HGB (test code=HBG) 9.3 g/dL 12.0-15.5 HCT (test code=HCT) 31.8 % 35.0-44.0 MCV (test code=MCV) 74.8 fL 81.0-99.0 MCH (test code=MCH) 21.9 pg 27.0-31.0 MCHC (test code=MCHC) 29.2 g/dL 32.0-36.0 RDW (test code=RDW) 17.2 % 11.5-14.5 PLT (test code=PLT) 233 10\\S\\3/uL 130-400 MPV (test code=MPV) 10.8 fL 9.4-12.4 NEUTROP # (test code=NE#) 4.4 10\\S\\3/uL 1.6-8.0 LYMPH # (test code=LY#) 2.5 10\\S\\3/uL 1.1-3.5 MONOCYTE # (test code=MO#) 0.6 10\\S\\3/uL 0.0-1.1 EOSINOPH # (test code=EO#) 0.3 10\\S\\3/uL 0.0-0.7 BASOPHIL # (test code=BA#) 0.0 10\\S\\3/uL 0.0-0.3 IG # (test code=IG#) 0.01 10\\S\\3/uL 0.00-0.06 NRBC # (test code=NRBC#) 0.00 10\\S\\3/uL 0.00-0.01 NEUTROPH % (test code=NE%) 56.6 % 35.0-73.0 LYMPH % (test code=LY%) 31.9 % 20.0-55.0 MONO % (test code=MO%) 7.8 % 2.5-10.0 EOSINOPH % (test code=EO%) 3.2 % 0.0-5.0 BASOPHIL % (test code=BA%) 0.4 % 0.0-2.0 IG % (test code=IG%) 0.1 % 0.0-0.8 NRBC% (test code=NRBC%) 0.0 % 0.0-0.2 MANDIFF (test code=MDIFF) NO NO RBC MORPH (test code=RBCMOR) NORMAL CT HEAD W/O [id number] 07:27:51Clinical History: Headache.Location: D4.Findings: Multislice axial noncontrast [...] sinuses andwithin the left frontal sinus.DRUGS OF [id number] 07:16:00 Test Item Value Reference Range Comments [...] 200 ng/mL Opiates 2000 ng/mL URINALYSIS WITH [id number] 07:14:00 Test Item Value Reference Range Comments [...] UR (test code=USPERM) /HPF NONE COMPREHENSIVE METABOLIC [id number] 06:59:00 Test Item Value Reference Range Comments [...] ALT (test code=31A) 14 IU/L <=78 SERUM [id number] 06:51:00 Test Item Value Reference Range Comments PREG SRM (test code=PGS) NEGATIVE NEGATIVE CBC (INCLUDES AUTOMATED DIFFERENTIAL)2017-11-22 06:51:00 Test Item Value Reference Range Comments WBC (test code=WBC) 8.6 10\\S\\3/uL 4.5-11.0 RBC (test code=RBC) 4.65 10\\S\\6/uL 4.30-5.70 HGB (test code=HBG) 10.2 g/dL 12.0-15.5 HCT (test code=HCT) 34.1 % 35.0-44.0 MCV (test code=MCV) 73.3 fL 81.0-99.0 MCH (test code=MCH) 21.9 pg 27.0-31.0 MCHC (test code=MCHC) 29.9 g/dL 32.0-36.0 RDW (test code=RDW) 17.7 % 11.5-14.5 PLT (test code=PLT) 231 10\\S\\3/uL 130-400 MPV (test code=MPV) 11.5 fL 9.4-12.4 NEUTROP # (test code=NE#) 6.4 10\\S\\3/uL 1.6-8.0 LYMPH # (test code=LY#) 1.6 10\\S\\3/uL 1.1-3.5 MONOCYTE # (test code=MO#) 0.4 10\\S\\3/uL 0.0-1.1 EOSINOPH # (test code=EO#) 0.1 10\\S\\3/uL 0.0-0.7 BASOPHIL # (test code=BA#) 0.0 10\\S\\3/uL 0.0-0.3 IG # (test code=IG#) 0.02 10\\S\\3/uL 0.00-0.06 NRBC # (test code=NRBC#) 0.00 10\\S\\3/uL 0.00-0.01 NEUTROPH % (test code=NE%) 74.1 % 35.0-73.0 LYMPH % (test code=LY%) 18.6 % 20.0-55.0 MONO % (test code=MO%) 5.0 % 2.5-10.0 EOSINOPH % (test code=EO%) 1.6 % 0.0-5.0 BASOPHIL % (test code=BA%) 0.5 % 0.0-2.0 IG % (test code=IG%) 0.2 % 0.0-0.8 NRBC% (test code=NRBC%) 0.0 % 0.0-0.2 MANDIFF (test code=MDIFF) NO NO RBC MORPH (test code=RBCMOR) NORMAL URINE [id number] 10:45:00 Test Item Value Reference Range Comments Culture Observations (test NO GROWTH (<1,000 CFU/ML) code=COB1) U/S PELVIS*WW*2017-08-15 02:47:38U/S PELVIS*WW*Location: [address] services provided 08/15/2017 2:45 AMIndication: pelvic painComparison: [...] PREG UR (test code=PGU) NEGATIVE NEGATIVE U/S [id number] 18:19:54PELVIC ULTRASOUND:Location code: [id number] HISTORY : Pelvic pain with ovarian cystComparison: [...] right ovary and otherwise unremarkable exam.BASIC METABOLIC [id number] 15:38:00 Test Item Value Reference Range Comments [...] 12-20 CALCIUM (test code=09D) 8.8 mg/dL 8.3-9.5 [id number] 15:37:00 Test Item Value Reference Range Comments [...] ES UR (test code=LEUK) NEGATIVE NEGATIVE SERUM [id number] 15:35:00 Test Item Value Reference Range Comments PREG SRM (test code=PGS) NEGATIVE NEGATIVE PRO TIME AND [id number] 15:31:00 Test Item Value Reference Range Comments [...] Reference Range Comments WBC (test code=WBC) 6.3 10\\S\\3/uL 4.5-11.0 RBC (test code=RBC) 4.35 10\\S\\6/uL 4.30-5.70 HGB (test code=HBG) 9.5 g/dL 12.0-15.5 HCT (test code=HCT) 31.4 % 35.0-44.0 MCV (test code=MCV) 72.2 fL 81.0-99.0 MCH (test code=MCH) 21.8 pg 27.0-31.0 MCHC (test code=MCHC) 30.3 g/dL 32.0-36.0 RDW (test code=RDW) 17.0 % 11.5-14.5 PLT (test code=PLT) 253 10\\S\\3/uL 130-400 MPV (test code=MPV) 11.5 fL 9.4-12.4 NEUTROP # (test code=NE#) 3.9 10\\S\\3/uL 1.6-8.0 LYMPH # (test code=LY#) 1.5 10\\S\\3/uL 1.1-3.5 MONOCYTE # (test code=MO#) 0.5 10\\S\\3/uL 0.0-1.1 EOSINOPH # (test code=EO#) 0.2 10\\S\\3/uL 0.0-0.7 BASOPHIL # (test code=BA#) 0.1 10\\S\\3/uL 0.0-0.3 IG # (test code=IG#) 0.01 10\\S\\3/uL 0.00-0.06 NRBC # (test code=NRBC#) 0.00 10\\S\\3/uL 0.00-0.01 NEUTROPH % (test code=NE%) 62.5 % 35.0-73.0 LYMPH % (test code=LY%) 24.2 % 20.0-55.0 MONO % (test code=MO%) 8.3 % 2.5-10.0 EOSINOPH % (test code=EO%) 3.8 % 0.0-5.0 BASOPHIL % (test code=BA%) 1.0 % 0.0-2.0 IG % (test code=IG%) 0.2 % 0.0-0.8 NRBC% (test code=NRBC%) 0.0 % 0.0-0.2 MANDIFF (test code=MDIFF) NO NO RBC MORPH (test code=RBCMOR) NORMAL DIRECT CHLAMYDIA [id number] 15:42:00 Test Item Value Reference Range Comments CHLAMYDIA TRACHOMATIS NOT DETECTED NOT DETECTED (test xrso=[id number]) NEISSERIA GONORRHOEAE NOT DETECTED NOT DETECTED (test jpln=[id number]) Endnote (test This test was performed using wqgv=[id number]) the APTIMA COMBO2 Assay([employer]The analytical performance characteristics of thisassay, when used to test SurePath specimens havebeen determined by [employer].TEST PERFORMED AT:[facility] [address] [id number] TALLEY M.D. U/S [id number] 23:50:15LOCATION: [id number]: 26-year-old female who presents with pelvic pain.COMMENT: [...] no sonographic evidence of ovarian torsion.URINALYSIS WITH [id number] 22:11:00 Test Item Value Reference Range Comments [...] SPERM UR (test code=USPERM) /HPF NONE URINE [id number] 21:56:00 Test Item Value Reference Range Comments PREG UR (test code=PGU) NEGATIVE NEGATIVE CBC W/PLT COUNT & AUTO [id number] 18:46:00 Test Item Value Reference Range Comments WHITE BLOOD CELL COUNT (BEAKER) (test dfgg=242) 4.8 K/ L 4.0-10.0 RED BLOOD CELL COUNT (BEAKER) (test dxqi=538) 3.93 M/ L 4.00-5.00 HEMOGLOBIN (BEAKER) (test otwp=747) 8.7 GM/DL 12.0-15.0 HEMATOCRIT (BEAKER) (test yics=878) 28.0 % 36.0-45.0 MEAN CORPUSCULAR VOLUME (BEAKER) (test kvrj=684) 71.3 fL 82.0-99.0 MEAN CORPUSCULAR HEMOGLOBIN (BEAKER) (test 22.2 pg 27.0-33.0 ufsi=240) MEAN CORPUSCULAR HEMOGLOBIN CONC (BEAKER) (test 31.1 GM/DL 32.0-36.0 dmsd=943) RED CELL DISTRIBUTION WIDTH (BEAKER) (test 17.0 % 10.3-14.2 ftiv=040) PLATELET COUNT (BEAKER) (test novu=738) 179 K/CU MM 150-430 MEAN PLATELET VOLUME (BEAKER) (test uaur=652) 9.3 fL 6.5-10.5 NUCLEATED RED BLOOD CELLS (BEAKER) (test 0 /100 WBC 0-0 vpbl=636) NEUTROPHILS RELATIVE PERCENT (BEAKER) (test 55 % ekds=289) LYMPHOCYTES RELATIVE PERCENT (BEAKER) (test 33 % kcmt=672) MONOCYTES RELATIVE PERCENT (BEAKER) (test 8 % zfir=794) EOSINOPHILS RELATIVE PERCENT (BEAKER) (test 3 % imbj=617) BASOPHILS RELATIVE PERCENT (BEAKER) (test 1 % uaqc=363) NEUTROPHILS ABSOLUTE COUNT (BEAKER) (test 2.60 K/ L 1.80-8.00 kywf=867) LYMPHOCYTES ABSOLUTE COUNT (BEAKER) (test 1.60 K/ L 1.48-4.50 deau=920) MONOCYTES ABSOLUTE COUNT (BEAKER) (test 0.40 K/ L 0.00-1.30 zmrh=844) EOSINOPHILS ABSOLUTE COUNT (BEAKER) (test 0.10 K/ L 0.00-0.50 kbcb=258) BASOPHILS ABSOLUTE COUNT (BEAKER) (test 0.00 K/ L 0.00-0.20 nbjt=157) (MANUAL DIFFERENTIAL)2017-02-08 18:46:00 Test Item Value Reference Range Comments TOTAL COUNTED (BEAKER) (test dpfk=2531) WBC MORPHOLOGY (BEAKER) (test gwmp=837) Normal PLT MORPHOLOGY (BEAKER) (test burw=465) Normal HYPOCHROMIA (BEAKER) (test ccpk=649) 2+ moderate MACROCYTES (BEAKER) (test wdwg=930) 1+ few SCREEN, [id number] 00:18:00 Test Item Value Reference Range Comments TEST URINE (BEAKER) (test daew=403) Negative URINALYSIS W/ REFLEX URINE [id number] 00:16:00 Test Item Value Reference Range Comments COLOR (BEAKER) (test fgwk=206) Yellow CLARITY (BEAKER) (test lvbu=447) Slightly Cloudy SPECIFIC GRAVITY UA (BEAKER) (test mrux=122) 1.020 1.001-1.035 PH UA (BEAKER) (test xpjd=546) 6.0 5.0-8.0 PROTEIN UA (BEAKER) (test cifx=350) Negative Negative GLUCOSE UA (BEAKER) (test wchm=978) Negative Negative KETONES UA (BEAKER) (test wjcy=960) Negative Negative BILIRUBIN UA (BEAKER) (test kuqq=129) Negative Negative BLOOD UA (BEAKER) (test gbml=662) Large Negative NITRITE UA (BEAKER) (test owjw=507) Negative Negative LEUKOCYTE ESTERASE UA (BEAKER) (test Negative Negative reer=900) UROBILINOGEN UA (BEAKER) (test wmdg=303) 0.2 mg/dL 0.2-1.0 BACTERIA (BEAKER) (test nlnn=529) Few RBC UA-MANUAL (BEAKER) (test caai=1622) 10-20 /HPF WBC UA-MANUAL (BEAKER) (test adfn=7091) <5 /HPF SQUAMOUS EPITHELIAL MANUAL (BEAKER) (test <5 /HPF isji=6804) SOURCE(BEAKER) (test kzss=1725) CBC W/PLT COUNT & AUTO [id number] 00:08:00 Test Item Value Reference Range Comments WHITE BLOOD CELL COUNT (BEAKER) (test vscu=433) 7.7 K/ L 4.0-10.0 RED BLOOD CELL COUNT (BEAKER) (test gywz=589) 4.33 M/ L 4.00-5.00 HEMOGLOBIN (BEAKER) (test dozm=063) 9.6 GM/DL 12.0-15.0 HEMATOCRIT (BEAKER) (test jino=614) 31.2 % 36.0-45.0 MEAN CORPUSCULAR VOLUME (BEAKER) (test jrei=279) 72.0 fL 82.0-99.0 MEAN CORPUSCULAR HEMOGLOBIN (BEAKER) (test 22.2 pg 27.0-33.0 efnd=439) MEAN CORPUSCULAR HEMOGLOBIN CONC (BEAKER) (test 30.9 GM/DL 32.0-36.0 zffg=084) RED CELL DISTRIBUTION WIDTH (BEAKER) (test 16.7 % 10.3-14.2 dybp=028) PLATELET COUNT (BEAKER) (test xmos=003) 204 K/CU MM 150-430 MEAN PLATELET VOLUME (BEAKER) (test mkyg=209) 10.0 fL 6.5-10.5 NEUTROPHILS RELATIVE PERCENT (BEAKER) (test 62 % cxbm=724) LYMPHOCYTES RELATIVE PERCENT (BEAKER) (test 29 % ppug=039) MONOCYTES RELATIVE PERCENT (BEAKER) (test 6 % mhxa=423) EOSINOPHILS RELATIVE PERCENT (BEAKER) (test 2 % jhhc=767) BASOPHILS RELATIVE PERCENT (BEAKER) (test 1 % ruqe=796) NEUTROPHILS ABSOLUTE COUNT (BEAKER) (test 4.80 K/ L 1.80-8.00 vazl=472) LYMPHOCYTES ABSOLUTE COUNT (BEAKER) (test 2.20 K/ L 1.48-4.50 rvzj=228) MONOCYTES ABSOLUTE COUNT (BEAKER) (test 0.50 K/ L 0.00-1.30 jrir=475) EOSINOPHILS ABSOLUTE COUNT (BEAKER) (test 0.20 K/ L 0.00-0.50 xwsh=523) BASOPHILS ABSOLUTE COUNT (BEAKER) (test 0.00 K/ L 0.00-0.20 mozx=769) (MANUAL DIFFERENTIAL)2017-02-08 00:08:00 Test Item Value Reference Range Comments TOTAL COUNTED (BEAKER) (test zlrv=5211) WBC MORPHOLOGY (BEAKER) (test rglj=083) Normal PLT MORPHOLOGY (BEAKER) (test gzbi=966) Normal HYPOCHROMIA (BEAKER) (test aveg=854) 2+ moderate MICROCYTES (BEAKER) (test ddyg=201) 1+ few BASIC METABOLIC [id number] 00:04:00 Test Item Value Reference Range Comments SODIUM (BEAKER) (test 142 meq/L 135-148 wiqz=480) POTASSIUM (BEAKER) (test 3.4 meq/L 3.6-5.5 avtt=798) CHLORIDE (BEAKER) (test 110 meq/L 98-106 dcvq=873) CO2 (BEAKER) (test 20 meq/L 20-29 lccc=025) BLOOD UREA NITROGEN 6 mg/dL 10-26 (BEAKER) (test sepr=436) CREATININE (BEAKER) (test 0.80 mg/dL 0.50-1.20 wxej=022) GLUCOSE RANDOM (BEAKER) 88 mg/dL 70-110 (test xoms=801) CALCIUM (BEAKER) (test 9.1 mg/dL 8.5-10.5 faks=657) EGFR (BEAKER) (test 88 mL/min/1.73 sq m ESTIMATED GFR IS NOT qtys=0273) ACCURATE CREATININE CLEARANCE IN PREDICTING GLOMERULAR FILTRATION RATE. ESTIMATED GFR IS NOT APPLICABLE FOR DIALYSIS PATIENTS. [id number] 22:38:00 Test Item Value Reference Range Comments [...] NO NO CT ABDOMEN AND PELVIS WITH [id number] 22:32:06LOCATION: [id number]: 26- year-old female who presents with periumbilical [...] cm diameter. Pelvicultrasound correlation is suggested. SERUM [id number] 21:33:00 Test Item Value Reference Range Comments PREG SRM (test code=PGS) NEGATIVE NEGATIVE AMYLASE AND [id number] 21:31:00 Test Item Value Reference Range Comments AMYLASE (test code=10A) 54 U/L 28-100 LIPASE (test code=60A) 113 IU/L 73-393 COMPREHENSIVE METABOLIC [id number] 21:31:00 Test Item Value Reference Range Comments [...] ALT (test code=31A) 23 IU/L <=78 OCCULT [id number] 21:12:00 Test Item Value Reference Range Comments Direct Exam (test code=DE3) NEGATIVE FOR OCCULT BLOOD CBC (INCLUDES AUTOMATED DIFFERENTIAL)2017-01-20 21:12:00 Test Item Value Reference Range Comments WBC (test code=WBC) 7.8 10\\S\\3/uL 4.5-11.0 RBC (test code=RBC) 4.19 10\\S\\6/uL 4.30-5.70 HGB (test code=HBG) 9.4 g/dL 12.0-15.5 HCT (test code=HCT) 31.1 % 35.0-44.0 MCV (test code=MCV) 74.2 fL 81.0-99.0 MCH (test code=MCH) 22.4 pg 27.0-31.0 MCHC (test code=MCHC) 30.2 g/dL 32.0-36.0 RDW (test code=RDW) 17.1 % 11.5-14.5 PLT (test code=PLT) 261 10\\S\\3/uL 130-400 MPV (test code=MPV) 11.0 fL 9.4-12.4 NEUTROP # (test code=NE#) 5.9 10\\S\\3/uL 1.6-8.0 LYMPH # (test code=LY#) 1.2 10\\S\\3/uL 1.1-3.5 MONOCYTE # (test code=MO#) 0.6 10\\S\\3/uL 0.0-1.1 EOSINOPH # (test code=EO#) 0.1 10\\S\\3/uL 0.0-0.7 BASOPHIL # (test code=BA#) 0.0 10\\S\\3/uL 0.0-0.3 IG # (test code=IG#) 0.02 10\\S\\3/uL 0.00-0.06 NRBC # (test code=NRBC#) 0.00 10\\S\\3/uL 0.00-0.01 NEUTROPH % (test code=NE%) 75.5 % 35.0-73.0 LYMPH % (test code=LY%) 15.7 % 20.0-55.0 MONO % (test code=MO%) 7.2 % 2.5-10.0 EOSINOPH % (test code=EO%) 0.9 % 0.0-5.0 BASOPHIL % (test code=BA%) 0.4 % 0.0-2.0 IG % (test code=IG%) 0.3 % 0.0-0.8 NRBC% (test code=NRBC%) 0.0 % 0.0-0.2 MANDIFF (test code=MDIFF) NO NO RBC MORPH (test code=RBCMOR) NORMAL URINALYSIS WITH [id number] 15:38:00 Test Item Value Reference Range Comments [...] SPERM UR (test code=USPERM) /HPF NONE U/S [id number] 15:37:29LOCATION: [id number]: 26-year-old female who presents with pelvic pain.COMMENT:Sonographic [...] unremarkable.The right ovary is not seen.AMYLASE AND [id number] 15:00:00 Test Item Value Reference Range Comments AMYLASE (test code=10A) 54 U/L 28-100 LIPASE (test code=60A) 93 IU/L 73-393 COMPREHENSIVE METABOLIC [id number] 15:00:00 Test Item Value Reference Range Comments [...] ALT (test code=31A) 12 IU/L <=78 SERUM [id number] 14:52:00 Test Item Value Reference Range Comments PREG SRM (test code=PGS) NEGATIVE NEGATIVE CBC (INCLUDES AUTOMATED DIFFERENTIAL)2017-01-12 14:40:00 Test Item Value Reference Range Comments WBC (test code=WBC) 6.4 10\\S\\3/uL 4.5-11.0 RBC (test code=RBC) 4.31 10\\S\\6/uL 4.30-5.70 HGB (test code=HBG) 9.8 g/dL 12.0-15.5 HCT (test code=HCT) 32.2 % 35.0-44.0 MCV (test code=MCV) 74.7 fL 81.0-99.0 MCH (test code=MCH) 22.7 pg 27.0-31.0 MCHC (test code=MCHC) 30.4 g/dL 32.0-36.0 RDW (test code=RDW) 16.5 % 11.5-14.5 PLT (test code=PLT) 173 10\\S\\3/uL 130-400 MPV (test code=MPV) 11.5 fL 9.4-12.4 NEUTROP # (test code=NE#) 3.6 10\\S\\3/uL 1.6-8.0 LYMPH # (test code=LY#) 2.2 10\\S\\3/uL 1.1-3.5 MONOCYTE # (test code=MO#) 0.5 10\\S\\3/uL 0.0-1.1 EOSINOPH # (test code=EO#) 0.1 10\\S\\3/uL 0.0-0.7 BASOPHIL # (test code=BA#) 0.0 10\\S\\3/uL 0.0-0.3 IG # (test code=IG#) 0.02 10\\S\\3/uL 0.00-0.06 NRBC # (test code=NRBC#) 0.00 10\\S\\3/uL 0.00-0.01 NEUTROPH % (test code=NE%) 56.2 % 35.0-73.0 LYMPH % (test code=LY%) 33.7 % 20.0-55.0 MONO % (test code=MO%) 7.3 % 2.5-10.0 EOSINOPH % (test code=EO%) 1.9 % 0.0-5.0 BASOPHIL % (test code=BA%) 0.6 % 0.0-2.0 IG % (test code=IG%) 0.3 % 0.0-0.8 NRBC% (test code=NRBC%) 0.0 % 0.0-0.2 MANDIFF (test code=MDIFF) NO NO RBC MORPH (test code=RBCMOR) NORMAL U/S [id number] 09:19:09Exam: Ultrasound pelvis with transvaginalLocation: A 1History: [...] of the pelvis.CT ABDOMEN AND PELVIS WITH [id number] 07:27:27CT abdomen and pelvis with contrast.Clinical indication: [...] abnormality to account for patient's symptoms.DRUGS OF [id number] 06:49:00 Test Item Value Reference Range Comments [...] 200 ng/mL Opiates 2000 ng/mL COMPREHENSIVE METABOLIC [id number] 06:28:00 Test Item Value Reference Range Comments [...] ALT (test code=31A) 17 IU/L <=78 LIPASE [id number] 06:28:00 Test Item Value Reference Range Comments LIPASE (test code=60A) 103 IU/L 73-393 SERUM [id number] 06:20:00 Test Item Value Reference Range Comments PREG SRM (test code=PGS) NEGATIVE NEGATIVE CBC (INCLUDES AUTOMATED DIFFERENTIAL)2016-12-14 06:19:00 Test Item Value Reference Range Comments WBC (test code=WBC) 7.5 10\\S\\3/uL 4.5-11.0 RBC (test code=RBC) 4.17 10\\S\\6/uL 4.30-5.70 HGB (test code=HBG) 9.5 g/dL 12.0-15.5 HCT (test code=HCT) 31.6 % 35.0-44.0 MCV (test code=MCV) 75.8 fL 81.0-99.0 MCH (test code=MCH) 22.8 pg 27.0-31.0 MCHC (test code=MCHC) 30.1 g/dL 32.0-36.0 RDW (test code=RDW) 16.4 % 11.5-14.5 PLT (test code=PLT) 221 10\\S\\3/uL 130-400 MPV (test code=MPV) 11.5 fL 9.4-12.4 NEUTROP # (test code=NE#) 3.6 10\\S\\3/uL 1.6-8.0 LYMPH # (test code=LY#) 3.0 10\\S\\3/uL 1.1-3.5 MONOCYTE # (test code=MO#) 0.8 10\\S\\3/uL 0.0-1.1 EOSINOPH # (test code=EO#) 0.2 10\\S\\3/uL 0.0-0.7 BASOPHIL # (test code=BA#) 0.1 10\\S\\3/uL 0.0-0.3 IG # (test code=IG#) 0.01 10\\S\\3/uL 0.00-0.06 NRBC # (test code=NRBC#) 0.00 10\\S\\3/uL 0.00-0.01 NEUTROPH % (test code=NE%) 47.1 % 35.0-73.0 LYMPH % (test code=LY%) 39.1 % 20.0-55.0 MONO % (test code=MO%) 10.2 % 2.5-10.0 EOSINOPH % (test code=EO%) 2.8 % 0.0-5.0 BASOPHIL % (test code=BA%) 0.7 % 0.0-2.0 IG % (test code=IG%) 0.1 % 0.0-0.8 NRBC% (test code=NRBC%) 0.0 % 0.0-0.2 MANDIFF (test code=MDIFF) NO NO RBC MORPH (test code=RBCMOR) NORMAL [id number] 06:17:00 Test Item Value Reference Range Comments [...] ES UR (test code=LEUK) NEGATIVE NEGATIVE U/S [id number] 10:33:25PELVIC ULTRASOUND:Location code: [id number] HISTORY : Pain,, recent ovarian cyst removalComparison: NoneTECHNIQUE: Transabdominal sonography of the pelvis was performed. The patientdeclined transvaginalscanning.FINDINGS: Evaluation is limited. The uterus and bilateral ovaries arenonvisualized. There is no pelvic mass or fluid collection. IMPRESSION:Limited exam with no visualized acute abnormality.URINALYSIS WITH [id number] 09:15:00 Test Item Value Reference Range Comments [...] UR (test code=USPERM) /HPF NONE CBC WITH [id number] 08:42:00 Test Item Value Reference Range Comments WBC (test code=WBC) 5.7 10\\S\\3/uL 4.5-11.0 RBC (test code=RBC) 4.05 10\\S\\6/uL 4.30-5.70 HGB (test code=HBG) 9.8 g/dL 12.0-15.5 HCT (test code=HCT) 32.1 % 35.0-44.0 MCV (test code=MCV) 79.3 fL 81.0-99.0 MCH (test code=MCH) 24.2 pg 27.0-31.0 MCHC (test code=MCHC) 30.5 g/dL 32.0-36.0 RDW (test code=RDW) 15.1 % 11.5-14.5 PLT (test code=PLT) 251 10\\S\\3/uL 130-400 MPV (test code=MPV) 10.1 fL 9.4-12.4 NEUTROP # (test code=NE#) 3.1 10\\S\\3/uL 1.6-8.0 LYMPH # (test code=LY#) 2.0 10\\S\\3/uL 1.1-3.5 MONOCYTE # (test code=MO#) 0.4 10\\S\\3/uL 0.0-1.1 EOSINOPH # (test code=EO#) 0.2 10\\S\\3/uL 0.0-0.7 BASOPHIL # (test code=BA#) 0.0 10\\S\\3/uL 0.0-0.3 IG # (test code=IG#) 0.02 10\\S\\3/uL 0.00-0.06 NRBC # (test code=NRBC#) 0.00 10\\S\\3/uL 0.00-0.01 NEUTROPH % (test code=NE%) 53.8 % [...] STOMATO (test code=STOM) 1+ NONE COMPREHENSIVE METABOLIC [id number] 08:38:00 Test Item Value Reference Range Comments [...] ALT (test code=31A) 31 IU/L <=78 SERUM [id number] 08:30:00 Test Item Value Reference Range Comments [...] code=09D) 8.7 mg/dL 8.3-9.5 CBC (INCLUDES AUTOMATED DIFFERENTIAL)*[id number] 08:01:00 Test Item Value Reference Range Comments WBC (test code=WBC) 6.6 10\\S\\3/uL 4.5-11.0 RBC (test code=RBC) 4.21 10\\S\\6/uL 4.30-5.70 HGB (test code=HBG) 10.3 g/dL 12.0-15.5 HCT (test code=HCT) 33.9 % 35.0-44.0 MCV (test code=MCV) 80.5 fL 81.0-99.0 MCH (test code=MCH) 24.5 pg 27.0-31.0 MCHC (test code=MCHC) 30.4 g/dL 32.0-36.0 RDW (test code=RDW) 15.1 % 11.5-14.5 PLT (test code=PLT) 227 10\\S\\3/uL 130-400 MPV (test code=MPV) 11.4 fL 9.4-12.4 NEUTROP # (test code=NE#) 4.0 10\\S\\3/uL 1.6-8.0 LYMPH # (test code=LY#) 1.7 10\\S\\3/uL 1.1-3.5 MONOCYTE # (test code=MO#) 0.6 10\\S\\3/uL 0.0-1.1 EOSINOPH # (test code=EO#) 0.3 10\\S\\3/uL 0.0-0.7 BASOPHIL # (test code=BA#) 0.0 10\\S\\3/uL 0.0-0.3 IG # (test code=IG#) 0.01 10\\S\\3/uL 0.00-0.06 NRBC # (test code=NRBC#) 0.00 10\\S\\3/uL 0.00-0.01 NEUTROPH % (test code=NE%) 61.1 % 35.0-73.0 LYMPH % (test code=LY%) 25.6 % 20.0-55.0 MONO % (test code=MO%) 8.5 % 2.5-10.0 EOSINOPH % (test code=EO%) 4.0 % 0.0-5.0 BASOPHIL % (test code=BA%) 0.6 % 0.0-2.0 IG % (test code=IG%) 0.2 % 0.0-0.8 NRBC% (test code=NRBC%) 0.0 % 0.0-0.2 MANDIFF (test code=WMDIFF) NO NO RBC MORPH (test code=WRBCMOR) NORMAL URINE MONOCLONAL *WW*2016-09-12 07:44:00 Test Item Value Reference Range Comments PREG UR (test code=PGU) NEGATIVE NEGATIVE URINALYSIS *WW*2016-09-12 07:44:00 Test Item Value Reference Range Comments [...]
--- OUTSIDE RECORDS SUMMARY | 2019-07-20 00:50 | XMS REPORT | Summary of Care ---
:1990 Author Name RADHA GANN M.D. Address Unavailable Unavailable , Care Team Providers Name Role Phone DOMINIQUE Carl, NANNETTE Unavailable Unavailable RADHA GANN M.D. Unavailable Unavailable ALEXA N.PElias, JERNAE Unavailable Unavailable SOTERO N.PElias, UNIQUE Unavailable Unavailable FREDDIE MARSH, EDDIE Nicolas Unavailable Unavailable Elmer MARSH, Ganga Unavailable Unavailable AZEEM MARSH, RADHA Unavailable Unavailable [facility] [place] Unavailable Unavailable Unavailable Unavailable Unavailable Functional Status Name Dates Details Functional status health issues are not documented Status: Name Dates Details Cognitive status health issues are not documented Status: Problems Name Dates Details Cannot sleep (780.52, G47.00) Status: Active Gastritis, chronic (535.10, K29.50) Status: Active Impetigo contagiosa (684, L01.00) Status: Active BMI 28.0-28.9,adult (V85.24, Z68.28) Status: Active Pelvic pain (R10.2) Status: Active Bacterial vaginosis (616.10, N76.0) Status: Active [place] vaginitis (112.1, B37.3) Status: Active Generalized anxiety disorder (300.02, F41.1) Status: Active Major depressive disorder (296.20, F32.9) Status: Active Medications Name Dates Details Zolpidem Tartrate 10 MG Oral Tablet TAKE 1 TABLET AT BEDTIME NEEDED. Quantity: 30 Refills: 1 RADHA GANN M.D. Start : 27-Aug-2016 Active Ondansetron 8 [...] DOMINIQUE Carl NANNETTE Start : 27-May-2018 Active Tylenol 8 Hour 650 MG Oral Tablet Extended Release TAKE 1 TABLET 4 TIMES DAILY NEEDED. Quantity: 60 Refills: 1 DOMINIQUE Carl, NANNETTE Start : 27-May-2018 Active Sertraline HCl - 100 MG Oral Tablet TAKE 1.5 TABLET BY MOUTH DAILY FOR 3 DAYS AND THEN TAKE 2 TABLET DAILY Quantity: 60 Refills: 2 RADHA GANN M.D. Start : 14-Jul-2018 Active clonazePAM 1 MG Oral Tablet TAKE 1/2 TABLET 3 TIMES DAILY NEEDED. Quantity: 45 Refills: 1 AZEEM Carl, RADHA Start : 14-Jul-2018 Active metroNIDAZOLE 500 MG [...] Active Name Dates Details Family history of Anxiety and depression (300.00, F41.9) Status: Active Family history of CAD (coronary artery disease) (414.00, I25.10) Status: Active Social History Name Dates Details - Status: Name Dates Details Never smoker Never smoker Vital Signs Date Test Result Details [id number] BP Systolic 103 mm[Hg] Status: Comments: [place] [facility] [place] Position: Sitting BP Diastolic 66 mm[Hg] Status: Comments: Location: LUE; Position: Sitting Height 65 in Status: Weight 169 lb Status: Body Mass Index Calculated 28.12 kg/m2 Status: Body Surface Area Calculated 1.84 m2 Status: Temperature 98.1 f Status: Comments: Method: Oral Heart Rate 62 /min Status: Comments: Location: L Radial; Quality: Normal Respiration Rate 16 /min Status: Comments: Quality: Normal O2 SAT 97 % Status: Comments: Source: RA Physical Findings 0 Status: Comments: Alcohol Screen - How many times in the past yr have you had 5 (for M) or 4 (for F) or 4 (for all > 65yrs) or more drinks in a day? Physical Findings 14 Status: Comments: PHQ-9 Adult Depression Screening [id number] BP Systolic 111 mm[Hg] Status: Comments: Location: L[facility]; Position: Sitting BP Diastolic 68 mm[Hg] Status: Comments: Location: LUE; Position: Sitting Height 65 in Status: Weight 169 lb Status: Body Mass Index Calculated 28.12 kg/m2 Status: Body Surface Area Calculated 1.84 m2 Status: Temperature 98.3 f Status: Comments: Method: Oral Heart Rate 84 /min Status: Comments: Location: L Radial; Quality: Normal Respiration Rate 16 /min Status: Comments: Quality: Normal O2 SAT 98 % Status: Comments: Source: RA Physical Findings 0 Status: Comments: Alcohol Screen - How many times in the past yr have you had 5 (for M) or 4 (for F) or 4 (for all > 65yrs) or more drinks in a day? Physical Findings 13 Status: Comments: PHQ-9 Adult Depression Screening Results Date Description Value Details Results not documented Plan of Care Name Dates Details Planned Observations Planned Goals not documented Planned Encounters Appointment; RADHA GANN M.D. On: 16-Jun-2019 10:30 Interventions Provided Medication ChangesclonazePAM 1 MG Oral Tablet - RenewPlanDiscussed diagnosis, differential diagnosis, co morbidities, bio psychosocial factors, predisposing, precipitating and maintaining symptoms Continue sertraline 200mg daily for TANYA and depression.Prescribed gabapentin, patient did not take it. Asking increase clonazepam dose. Continue clonazepam1 mg daily daily as needed for anxiety panic attacks. Discussed the risks of Benzos, including abuse/dependence, causing and affecting driving. Advice not to combine Benzos with Ambien, opioids and alcohol. Educated about Benzos are not the long-term and first line treatment for anxiety. Plans to taper off when stable in the future.Discontinue trazodone due to feeling chest tightness.Continue Zolpidem 10mg bedtime prn for sleep. discussed safety plan, call 911, suicide prevention helpline Psychotherapy referral. Has appointment. Supportive psychotherapy provided.RTC 2 m.Discussion/SummaryProgress made toward Goal moderate progress, actively participated. Discussed the following with patient/family/other who verbally acknowledged and agrees to comply. Safety issues, Patient understands and will comply. Bio-psychosocial factors. Co-Morbidities. Differential diagnosis. Emergency treatment. Maintaining symptoms. Predisposing symptoms. Precipating symptoms. Safety plan. Alternative medication(s). Current medication(s). Risks/ benefits. Side effects. Target symptoms. Treatment plan. Diagnosis. follow-up 4 months Instructions Name Dates Details Instructions not documented Encounters Appointment; CLOTILDE BAEZA M.D. On: 20-May-2017 10:00 [...] 27-Nov-2018 15:00 Encounter Diagnosis: Problem not documented Appointment; RADHA GANN M.D. On: 27-Jan-2019 14:00 Encounter Diagnosis: Problem not documented Appointment; RADHA GANN M.D. On: 26-Feb-2019 12:30 Encounter Diagnosis: Problem not documented Appointment; LOUIS RIBEIRO LCSW On: 03-Mar-2019 12:00 Encounter Diagnosis: Problem not documented Appointment; RADHA GANN M.D. On: 23-Mar-2019 13:30 Encounter Diagnosis: Problem not documented Appointment; LOUIS RIBEIRO LCSW On: 08-Apr-2019 13:00 Encounter Diagnosis: Problem not documented Appointment; RADHA GANN M.D. On: 19-Apr-2019 10:30 Encounter Diagnosis: Problem not documented
[2019-07-20] MEDS ORDERED: MORPHINE 4 MG/ML SYR ONE ×2 (01:14→02:40)
[2019-07-20] MEDS ORDERED: ONDANSETRON 4 MG/2 ML VIAL ONE (01:14)
[2019-07-20] MEDS ORDERED: NA CHLORIDE 0.9% 1,000 ML ONE (01:14)
[2019-07-20 01:53] LABS: Absolute Lymphocytes (CBC) 1.7 K/uL (0.7-4.9); Basophils % 0.6 % (0-1.3); Hematocrit 28.8 % (36.0-45.0); Lymphocytes % 21.1 % (15.3-44.8); MPV 8.4 fL (7.6-11.3); RBC Red Blood Cell Count 4.01 M/uL (3.86-4.86)
[2019-07-20] MEDS ORDERED: KETOROLAC 30 MG/ML INJ ONE (01:59)
[2019-07-20 02:00] LABS: BUN Blood Urea Nitrogen 12 mg/dL (7-18); Bicarbonate 29 mmol/L (21-32); Glucose Level 80 mg/dL (74-106); Sodium Level 141 mmol/L (136-145)
[2019-07-20 02:54] LABS: Urine Blood 2+ (NEG); Urine Glucose NEGATIVE (NEG); Urine Protein NEGATIVE (NEG); Urine Specific Gravity 1.015 (1.005-1.030)
--- NOTE | 2019-07-20 04:06 | ER ---
Nurse's Notes [facility] Name: Charley Wells Age: 28 yrs Sex: Female : 1990 Arrival Date: 07/20/2019 Time: 00:42 Bed 16 Private MD: Diagnosis: Abnormal uterine and vaginal bleeding, unspecified;Constipation Presentation: 07/20 01:00 Presenting complaint: Patient states: Reports having pelvic pain and bleeding since ea yesterday, pt reports she was seen at [facility] ED for the same pain, reports they did a scan. Pt states "I have had this type of pain in the past". Transition of care: patient was not received from another setting of care. Onset of symptoms was July 20, 2019. Risk Assessment: Do you want to hurt yourself or someone else? Patient reports no desire to harm self or others. Initial Sepsis Screen: Does the patient meet any 2 criteria? No. Patient's initial sepsis screen is negative. Does the patient have a suspected source of infection? No. Patient's initial sepsis screen is negative. Care prior to arrival: None. 01:00 Method Of Arrival: Wheelchair ea 01:00 Acuity: STACEY 3 ea Triage Assessment: 01:10 General: Appears in no apparent distress. Behavior is calm, cooperative, appropriate ea for age. Pain: Complains of pain in pelvis. Neuro: Level of Consciousness is awake, alert, obeys commands, Oriented to person, place, time, situation. Cardiovascular: Patient's skin is warm and dry. Respiratory: Airway is patent Respiratory effort is even, unlabored, Respiratory pattern is regular, symmetrical. : Reports vaginal bleeding that is heavy flow. Derm: Skin is pink, warm \\T\\ dry. Historical: - Allergies: 02:20 tramadol; ea - PMHx: 02:20 Ovarian cyst; Endometriosis; Anxiety; ea - PSHx: 02:20 ; ruptured cyst 3 years ago; ea - Immunization history:: Adult Immunizations up to date. - Social history:: Smoking status: Patient/guardian denies using tobacco. - Ebola Screening: : No symptoms or risks identified at this time. Screenin:19 Abuse screen: Denies threats or abuse. Nutritional screening: No deficits noted. ea Tuberculosis screening: No symptoms or risk factors identified. Fall Risk Assessment: 01:10 Reassessment: see triage assessment. ea 02:30 Reassessment: Patient and/or family updated on plan of care and expected duration. Pain ea level reassessed. Patient is alert, oriented x 3, equal unlabored respirations, skin warm/dry/pink. 03:30 Reassessment: Patient and/or family updated on plan of care and expected duration. Pain ea level reassessed. Patient is alert, oriented x 3, equal unlabored respirations, skin warm/dry/pink. Returned from CT. 04:25 Reassessment: Patient and/or family updated on plan of care and expected duration. Pain ea level reassessed. Patient is alert, oriented x 3, equal unlabored respirations, skin warm/dry/pink. Discharge instruction given to patient, verbalized the understanding of instruction. Pt left ED ambulatory, pt tolerating well. Vital Signs: 01:15 BP 127 / 75; Pulse 81; Resp 18; Temp 98.6; Pulse Ox 100% on R/A; ea 02:00 BP 111 / 55; Pulse 75; Resp 18; Pulse Ox 100% ; ea 02:46 BP 105 / 63; Pulse 56; Resp 18; Pulse Ox 100% ; ea 03:55 BP 112 / 60; Pulse 60; Resp 18; Pulse Ox 100% on R/A; ea 04:00 BP 120 / 58; Pulse 70; Resp 18; Temp 98.5; Pulse Ox 99% ; ea ED Course: 00:42 Patient arrived in ED. ds1 00:55 Deandre Lozano NP is PHCP. pm1 00:55 Rl Grove MD is Attending Physician. pm1 01:00 Patient has correct armband on for positive identification. Placed in gown. Bed in low ea position. Call light in reach. 01:08 Antonieta Rosales, RN is Primary Nurse. ea 01:10 Arm band placed on right wrist. Patient placed in an exam room, on a stretcher, on ea pulse oximetry. 01:58 Radiology exam delayed due to lab results not completed at this time. (BUN/Creatinine). kw1 02:19 Triage completed. ea 03:30 CT Abd/Pelvis - IV Contrast Only In Process Unspecified. EDMS 04:20 No provider procedures requiring assistance completed. IV discontinued, intact, ea bleeding controlled, No redness/swelling at site. Pressure dressing applied. Administered Medications: 01:30 Drug: Zofran 4 mg Route: IVP; Site: left antecubital; ea 02:00 Follow up: Response: No adverse reaction ea 01:31 Drug: NS 0.9% 1000 ml Route: IV; Rate: 1000 ml; Site: right antecubital; ea 01:33 Drug: morphine 4 mg {Note: RASS 1.} Route: IVP; Site: left antecubital; ea 02:00 Follow up: Response: No adverse reaction; Pain is unchanged, physician notified; RASS: ea Restless (+1) 02:07 Drug: TORadol - Ketorolac 15 mg Route: IVP; Site: left antecubital; ea 02:35 Follow up: Response: No adverse reaction; Pain is unchanged, physician notified; RASS: ea Restless (+1) 02:39 Drug: morphine 4 mg {Note: RASS 1.} Route: IVP; Site: left antecubital; ea Outcome: 04:05 Discharge ordered by . pm1 04:28 Discharged to home ambulatory. ea 04:28 Condition: stable 04:28 Discharge instructions given to patient, Instructed on discharge instructions, follow up and referral plans. medication usage, Demonstrated understanding of instructions, follow-up care, medications, Prescriptions given X 2. 04:30 Patient left the ED. ea Signatures: Dispatcher [employer] Rody Haywood ds1 Deandre Lozano NP CROCHETER HAND pm1 Antonieta Rosales RN RN Jazzy Leonard kw1
--- NOTE | 2019-07-20 04:06 | EDPHYS ---
Physician Documentation [facility] Name: Charley Wells Age: 28 yrs Sex: Female : 1990 Arrival Date: 07/20/2019 Time: 00:42 Bed 16 Private MD: ED Physician Rl Grove HPI: 07/20 00:56 This 28 yrs old Female presents to ER via Wheelchair with complaints of pm1 Pelvic Pain, Vaginal Bleeding. 00:56 The patient presents with pelvic pain, vaginal bleeding that is light, with no clots. pm1 Onset: The symptoms/episode began/occurred 2 day(s) ago. Modifying factors: The symptoms are alleviated by nothing, the symptoms are aggravated by nothing. Associated signs and symptoms: Pertinent negatives: diarrhea, dysuria, fever, nausea, vomiting. Severity of symptoms: in the emergency department the symptoms are actually worse. The patient has experienced similar episodes in the past, today's symptoms are similar, to previous ovarian cysts. The patient has been recently seen by a physician: with similar presenting complaints, and apparently given a diagnosis of ovarian cysts, lab tests were done, CT scan was done, At [facility] ER 2 days ago. 00:56 Associated signs and symptoms: Pertinent positives: constipation. pm1 Historical: - Allergies: 02:20 tramadol; ea - PMHx: 02:20 Ovarian cyst; Endometriosis; Anxiety; ea - PSHx: 02:20 ; ruptured cyst 3 years ago; ea - Immunization history:: Adult Immunizations up to date. - Social history:: Smoking status: Patient/guardian denies using tobacco. - Ebola Screening: : No symptoms or risks identified at this time. ROS: 00:56 Positive for vaginal bleeding, Negative for urinary symptoms. pm1 00:56 Constitutional: Negative for fever, chills, and weight loss, Eyes: Negative for injury, pain, redness, and discharge, ENT: Negative for injury, pain, and discharge, Neck: Negative for injury, pain, and swelling, Cardiovascular: Negative for chest pain, palpitations, and edema, Respiratory: Negative for shortness of breath, cough, wheezing, and pleuritic chest pain. 00:56 Back: Negative for injury and pain, : Negative for injury, bleeding, discharge, and swelling, MS/Extremity: Negative for injury and deformity, Skin: Negative for injury, rash, and discoloration, Neuro: Negative for headache, weakness, numbness, tingling, and seizure. 00:56 Abdomen/GI: Positive for abdominal pain, of the suprapubic area, Negative for nausea, vomiting, and diarrhea. Exam: 00:56 Constitutional: This is a well developed, well nourished patient who is awake, alert, pm1 and in no acute distress. Head/Face: Normocephalic, atraumatic. Eyes: Pupils equal round and reactive to light, extra-ocular motions intact. Lids and lashes normal. Conjunctiva and sclera are non-icteric and not injected. Cornea within normal limits. Periorbital areas with no swelling, redness, or edema. ENT: Nares patent. No nasal discharge, no septal abnormalities noted. Tympanic membranes are normal and external auditory canals are clear. Oropharynx with no redness, swelling, or masses, exudates, or evidence of obstruction, uvula midline. Mucous membranes moist. Neck: Trachea midline, no thyromegaly or masses palpated, and no cervical lymphadenopathy. Supple, full range of motion without nuchal rigidity, or vertebral point tenderness. No Meningismus. Chest/axilla: Normal chest wall appearance and motion. Nontender with no deformity. No lesions are appreciated. Cardiovascular: Regular rate and rhythm with a normal S1 and S2. No gallops, murmurs, or rubs. Normal PMI, no JVD. No pulse deficits. Respiratory: Lungs have equal breath sounds bilaterally, clear to auscultation and percussion. No rales, rhonchi or wheezes noted. No increased work of breathing, no retractions or nasal flaring. 00:56 Back: No spinal tenderness. No costovertebral tenderness. Full range of motion. Skin: Warm, dry with normal turgor. Normal color with no rashes, no lesions, and no evidence of cellulitis. MS/ Extremity: Pulses equal, no cyanosis. Neurovascular intact. Full, normal range of motion. 00:56 Abdomen/GI: Inspection: abdomen appears normal, Bowel sounds: normal, Palpation: soft, mild abdominal tenderness, in the suprapubic area. 00:56 Neuro: Orientation: is normal, Motor: is normal, moves all fours, Gait: is steady, at a normal pace, without difficulty. Vital Signs: 01:15 BP 127 / 75; Pulse 81; Resp 18; Temp 98.6; Pulse Ox 100% on R/A; ea 02:00 BP 111 / 55; Pulse 75; Resp 18; Pulse Ox 100% ; ea 02:46 BP 105 / 63; Pulse 56; Resp 18; Pulse Ox 100% ; ea 03:55 BP 112 / 60; Pulse 60; Resp 18; Pulse Ox 100% on R/A; ea 04:00 BP 120 / 58; Pulse 70; Resp 18; Temp 98.5; Pulse Ox 99% ; ea MDM: 00:56 Patient medically screened. pm1 03:26 Data reviewed: vital signs. Data interpreted: Pulse oximetry: on room air is 100 %. pm1 Interpretation: normal. 04:01 Counseling: I had a detailed discussion with the patient and/or guardian regarding: the pm1 historical points, exam findings, and any diagnostic results supporting the discharge/admit diagnosis, lab results, radiology results, the need for outpatient follow up, to return to the emergency department if symptoms worsen or persist or if there are any questions or concerns that arise at home. 07/20 00:56 Order name: Basic Metabolic Panel; Complete Time: 02:16 pm1 07/20 00:56 Order name: CBC with Diff; Complete Time: 02:16 pm1 07/20 01:06 Order name: CT Abd/Pelvis - IV Contrast Only pm1 07/20 01:54 Order name: Urine Dipstick--Ancillary (enter results); Complete Time: 02:57 mt 07/20 01:54 Order name: Urine --Ancillary (enter results); Complete Time: 02:57 mt 07/20 00:56 Order name: Urine Test (obtain specimen); Complete Time: 02:19 pm1 07/20 00:56 Order name: IV Saline Lock; Complete Time: 02:19 pm1 07/20 00:56 Order name: Labs collected and sent; Complete Time: 02:19 pm1 07/20 00:56 Order name: NPO; Complete Time: 02:19 pm1 07/20 00:56 Order name: Urine Dipstick-Ancillary (obtain specimen); Complete Time: 02:19 pm1 Administered Medications: 01:30 Drug: Zofran 4 mg Route: IVP; Site: left antecubital; ea 02:00 Follow up: Response: No adverse reaction ea 01:31 Drug: NS 0.9% 1000 ml Route: IV; Rate: 1000 ml; Site: right antecubital; ea 01:33 Drug: morphine 4 mg {Note: RASS 1.} Route: IVP; Site: left antecubital; ea 02:00 Follow up: Response: No adverse reaction; Pain is unchanged, physician notified; RASS: ea Restless (+1) 02:07 Drug: TORadol - Ketorolac 15 mg Route: IVP; Site: left antecubital; ea 02:35 Follow up: Response: No adverse reaction; Pain is unchanged, physician notified; RASS: ea Restless (+1) 02:39 Drug: morphine 4 mg {Note: RASS 1.} Route: IVP; Site: left antecubital; ea Disposition: 07/20/19 04:05 Discharged to Home. Impression: Abnormal uterine and vaginal bleeding, unspecified, Constipation. - Condition is Stable. - Discharge Instructions: Abnormal Uterine Bleeding, Constipation, Adult. - Prescriptions for Tylenol- Codeine #3 300-30 mg Oral Tablet - take 2 tablets by ORAL route every 6 hours As needed; 20 tablet. Lactulose 10 gram/15 mL Oral Solution - take 30 milliliter by ORAL route once daily; 300 milliliter. - Medication Reconciliation Form, Thank You Letter, Antibiotic Education, Prescription Opioid Use form. - Follow up: Emergency Department; When: As needed; Reason: Worsening of condition. Follow up: Private Physician; When: 2 - 3 days; Reason: Recheck today's complaints, Continuance of care, Re-evaluation by your physician. - Problem is new. - Symptoms have improved. Addendum: 07/21/2019 18:40 Co-signature as Attending Physician, Rl Grove MD I agree with the assessment and c ordoñez plan of care. Signatures: Dispatcher [employer] EDMI Rl Grove MD MD cha Marinas, Patrick, UPHOLSTERY REPAIRER UPHOLSTERY REPAIRER pm1 Antonieta Rosales RN RN ea Corrections: (The following items were deleted from the chart) 07/20 04:30 04:05 07/20/2019 04:05 Discharged to Home. Impression: Abnormal uterine and vaginal ea bleeding, unspecified; Constipation. Condition is Stable. Forms are Medication Reconciliation Form, Thank You Letter, Antibiotic Education, Prescription Opioid Use. Follow up: Emergency Department; When: As needed; Reason: Worsening of condition. Follow up: Private Physician; When: 2 - 3 days; Reason: Recheck today's complaints, Continuance of care, Re-evaluation by your physician. Problem is new. Symptoms have improved. pm1
[2019-07-20 05:10] VITALS: BP 120/58; TEMP 98.5; O2SAT 99
--- NOTE | 2019-07-20 12:09 | RAD REPORT ---
EXAM DESCRIPTION: CT - Abdomen Pelvis W Contrast - 07/20/2019 4:20 am CLINICAL HISTORY: The patient is 28 years old and is Female; ABD PAIN TECHNIQUE: Axial computed tomography images of the abdomen and pelvis with intravenous contrast. S agittal and coronal reformatted images were created and reviewed. This CT exam was performed using one or more of the following dose reduction techniques: automated exposure control, adjustment of t he mA and/or kV according to patient size, and/or use of iterative reconstruction technique. DLP: 812 mGy*cm COMPARISON: CT abdomen and pelvis with IV contrast dated 12/13/2018. FINDINGS: LUNG BASES: Bilateral basilar dependent atelectasis. Lung bases are otherwise clear. HEART: Visualized heart is normal. ABDOMEN: LIVER: Unremarkable. No mass. GALLBLADDER AND BILE DUCTS: Unremarkable. No calcified stones. No ductal dilation. PANCREAS: Unremarkable. No mass. No ductal dilation. SPLEEN: Unremarkable. No splenomegaly. ADRENALS: Unremarkable. No mass. KIDNEYS AND URETERS: Unremarkable. No solid mass. No hydronephrosis. STOMACH AND BOWEL: Moderate stool burden throughout the large bowel. No mucosal thickening. PELVIS: APPENDIX: The appendix is seen and is within normal limits. BLADDER: Unremarkable. No mass. REPRODUCTIVE: Unremarkable as visualized. ABDOMEN and PELVIS: INTRAPERITONEAL SPACE: Unremarkable. No free air. No significant fluid collection. BONES/JOINTS: No acute fracture. No dislocation. SOFT TISSUES: Small fat-containing umbilical hernia. VASCULATURE: Multiple pelvic phleboliths. No abdominal aortic aneurysm. LYMPH NODES: Unremarkable. No enlarged lymph nodes. IMPRESSION: 1. No acute abdominal or pelvic abnormality. 2. Moderate stool burden throughout the large bowel. Correlate for constipation. Electronically signed by: Yoel Moreno DO 07/20/2019 3:52 AM PRODUCTION SOLDERER Due to temporary technical issues with the PACS/Fluency reporting system, reports are being signed by the in house radiologist as a courtesy to ensure prompt reporting. The interpreting radiologist is narciso greerly responsible for the content of the report.
== END 2019-07-20 04:30 | disposition home or self-care (01) ==
LOC: ER 00:41
DX: K59.00 Constipation, unspecified (principal); Z88.5 Allergy status to narcotic agent
CPT/HCPCS: 85025; 80048; 36415; 81025; 81003; 74177; 96375; 96374; 99284; Q9967; J7030; J2405

== ENCOUNTER 2019-09-15 02:49 | Emergency (ER) | payer OTHER ==
--- OUTSIDE RECORDS SUMMARY | 2019-09-15 02:59 | XMS REPORT ---
:1990 [facility] [address] [place] [address] Care Team Providers Name Role Phone ESCOBAR, [...] Unavailable Unavailable FUENTES, DR GARCIA Unavailable Unavailable DR ALISE ESTRADA Unavailable Unavailable ROBBY COREAS Unavailable Unavailable VINICIO, NGOZI Unavailable Unavailable NAHID, DR ROSARIO PLATA Unavailable [...] ID 2019-03-07 2019-03-07 Emergency E ELENA C[place] [facility] [id number] 03:26:00 06:00:00 2018-11-13 2018-11-13 Emergency E MANUEL COTTER [facility] [id number] 02:44:00 04:14:00 2018-11-04 2018-11-04 Emergency E [facility] [id number] 08:04:00 08:04:00 2018-10-22 2018-10-22 Emergency E GERALDO DILL [facility] [id number] 10:10:00 13:01:00 2018-10-19 2018-10-19 Emergency E DILLGERALDO [facility] [id number] 15:20:00 18:15:00 2018-10-06 2018-10-06 Emergency E MILENA [facility] [id number] 12:53:00 14:15:00 DANIELLE 2018-09-11 2018-09-11 Emergency E SUE [facility] [id number] 13:37:00 17:15:00 NICANOR MICHAUD 2018-09-09 2018-09-09 Emergency E MERCEDES [facility] [id number] 12:45:00 16:45:00 ABDIAS 2018-08-17 2018-08-17 Emergency E DILL, GERALDO [facility] [id number] 01:32:00 04:20:00 2018-07-28 2018-07-28 Outpatient E DOMINIK [facility] [id number] 06:49:00 16:28:00 NATE 2018-06-19 2018-06-19 Emergency E ZARIA [facility] [id number] 17:59:00 19:07:00 KIMMY 2018-05-21 2018-05-21 Emergency E ZARIA [facility] [id number] 17:21:00 20:22:00 KIMMY 2018-05-10 2018-05-10 Emergency E ROSA [facility] [id number] 12:36:00 16:00:00 GLORY 2018-05-01 2018-05-01 Emergency E GERALDO DILL [facility] [id number] 01:08:00 03:19:00 2018-04-05 2018-04-05 Emergency E GERALDO DILL [facility] [id number] 14:18:00 17:55:00 2018-02-24 2018-02-24 Emergency E ARIE, [facility] [id number] 03:20:00 05:50:00 RINCON 2017-11-22 2017-11-22 Emergency E MERCEDES, [facility] [id number] 06:21:00 11:45:00 ABDIAS 2017-08-20 2017-08-20 Emergency E FUENTES, [facility] [id number] 08:47:00 09:45:00 RADHA 2017-08-15 2017-08-15 Emergency E SEAN, [facility] [id number] 00:28:00 02:58:00 ALISE 2017-06-21 2017-06-21 Emergency E JOSS, [facility] [id number] 14:26:00 18:19:00 ROBBY Results Test Description Test [...] (test code=A57) 5.350 uIU/mL 0.358-3.740 CBC WITH [id number] 04:16:00 Test Item Value Reference Range Comments [...] code=PLTMOR) NORMAL (1.5-3 um) NORMAL AMYLASE AND [id number] 04:13:00 Test Item Value Reference Range Comments AMYLASE (test code=10A) 50 U/L 28-100 LIPASE (test code=60A) 87 IU/L 73-393 COMPREHENSIVE METABOLIC [id number] 04:13:00 Test Item Value Reference Range Comments [...] <=42 ALT (test code=31A) 8 IU/L <=78 [id number] 04:08:00 Test Item Value Reference Range Comments MAGNESIUM (test code=48A) 1.9 mg/dL 1.8-2.4 SERUM [id number] 04:08:00 Test Item Value Reference Range Comments PREG SRM (test code=PGS) NEGATIVE NEGATIVE LIVER [id number] 04:00:00 Test Item Value Reference Range Comments [...] (test code=31A) 9 IU/L <=78 AMYLASE AND [id number] 03:24:00 Test Item Value Reference Range Comments AMYLASE (test code=10A) 48 U/L 28-100 LIPASE (test code=60A) 122 IU/L 73-393 BASIC METABOLIC [id number] 03:23:00 Test Item Value Reference Range Comments [...] (test code=09D) 8.8 mg/dL 8.3-9.5 URINALYSIS WITH [id number] 03:20:00 Test Item Value Reference Range Comments [...] SPERM UR (test code=USPERM) /HPF NONE SERUM [id number] 03:18:00 Test Item Value Reference Range Comments [...] code=RBCMOR) NORMAL CT ABDOMEN AND PELVIS WITH [id number] 12:25:13CT abdomen and pelvis with contrastLocation Code: L9OJVCOHOW HISTORY: Lower abdominal painCOMPARISON: 09/11/2018Technique: Helical CT [...] acute intra- abdominal or pelvic abnormality.AMYLASE AND [id number] 11:44:00 Test Item Value Reference Range Comments AMYLASE (test code=10A) 41 U/L 28-100 LIPASE (test code=60A) 76 IU/L 73-393 COMPREHENSIVE METABOLIC [id number] 11:44:00 Test Item Value Reference Range Comments [...] code=31A) 23 IU/L <=78 PRO TIME AND [id number] 11:41:00 Test Item Value Reference Range Comments [...] LMW Heparin. Order Code is ANTI-XA SERUM [id number] 11:39:00 Test Item Value Reference Range Comments PREG SRM (test code=PGS) NEGATIVE NEGATIVE [id number] 11:39:00 Test Item Value Reference Range Comments MAGNESIUM (test code=48A) 2.1 mg/dL 1.8-2.4 OCCULT [id number] 11:28:00 Test Item Value Reference Range Comments [...] RBC MORPH (test code=RBCMOR) NORMAL DRUGS OF [id number] 17:34:00 Test Item Value Reference Range Comments [...] Barbiturates 200 ng/mL Opiates 2000 ng/mL U/S [id number] 17:32:02PELVIC ULTRASOUND:Location code: [id number] HISTORY : [id number]: Acute pelvic painComparison: NoneTECHNIQUE: Transabdominal sonography of the pelvis was performed. The patientrefused transvaginal scan..FINDINGS: The uterus is uniform in echogenicity measuring 7.8 x 83.7 x 6.9 cm. The endometrium is poorly visualized. The bilateral ovaries are nonvisualized. There is no adnexal mass or freefluid.IMPRESSION:No visualized acute abnormality on limited examination.COMPREHENSIVE METABOLIC [id number] 16:53:00 Test Item Value Reference Range Comments [...] (test code=31A) 21 IU/L <=78 AMYLASE AND [id number] 16:47:00 Test Item Value Reference Range Comments AMYLASE (test code=10A) 45 U/L 28-100 LIPASE (test code=60A) 47 IU/L 73-393 SERUM [id number] 16:46:00 Test Item Value Reference Range Comments PREG SRM (test code=PGS) NEGATIVE NEGATIVE [id number] 16:39:00 Test Item Value Reference Range Comments [...] MANDIFF (test code=MDIFF) NO NO CBC WITH [id number] 13:43:00 Test Item Value Reference Range Comments [...] POLYCHROM (test code=POLY) 1+ NONE BASIC METABOLIC [id number] 13:40:00 Test Item Value Reference Range Comments [...] 12-20 CALCIUM (test code=09D) 8.8 mg/dL 8.3-9.5 [id number] 13:30:00 Test Item Value Reference Range Comments [...] ES UR (test code=LEUK) NEGATIVE NEGATIVE URINE [id number] 13:30:00 Test Item Value Reference Range Comments PREG UR (test code=PGU) NEGATIVE NEGATIVE CT ABDOMEN AND PELVIS W/O [id number] 15:32:22CT abdomen and pelvis without contrastLocation Code: [id number] HISTORY: Pain in pelvisCOMPARISON: Technique: Helical CT [...] no acute intra-abdominal or pelvic abnormality.URINALYSIS WITH [id number] 14:45:00 Test Item Value Reference Range Comments [...] SPERM UR (test code=USPERM) /HPF NONE URINE [id number] 14:40:00 Test Item Value Reference Range Comments PREG UR (test code=PGU) NEGATIVE NEGATIVE DIRECT STREP GROUP [id number] 10:48:00 Test Item Value Reference Range Comments Culture Observations (test NO BETA HEMOLYTIC code=COB1) STREPTOCOCCUS ISOLATED Direct Exam (test code=DE1) NO STREPTOCOCCUS GROUP A ANTIGEN DETECTED COMPREHENSIVE METABOLIC [id number] 23:46:00 Test Item Value Reference Range Comments [...] (test code=ALKP) 118 units/L 46-116 CBC W/AUTO [id number] 23:30:00 Test Item Value Reference Range Comments [...] (test code=PLTMR) NORMAL NORMAL INFLUENZA A B [id number] 23:18:00 Test Item Value Reference Range Comments INFLUENZA A PCR (test POSITIVE NEGATIVE RESULTS CALLED TO GENI.READ code=FLUAPCR) BACK & CONFIRMED? Y.BY PEREZLGL0 09/09/18 2317. INFLUENZA B PCR (test NEGATIVE NEGATIVE code=FLUBPCR) UA RFLX MICR CULT IF [id number] 22:36:00 Test Item Value Reference Range Comments [...] (test code=MUCU) RARE NONE SEEN UR HCG [id number] 22:36:00 Test Item Value Reference Range Comments UR HCG QUAL (test NEGATIVE 1. Very dilute urine specimens, as code=HCGQLU) indicated by a lowspecific gravity, may not contain parts representative levels ofhCG. 2. False negative results may occur when the levels of hCGare below the sensitivity level of the test. If is still suspected, a first morningurine specimen should be collected 48 hours later andtested. UA RFLX MICR CULT IF [id number] 22:33:00 Test Item Value Reference Range Comments [...] CELLS (test code=EPIU) #/HPF RARE-FEW UR HCG [id number] 22:33:00 Test Item Value Reference Range Comments UR HCG QUAL (test NEGATIVE 1. Very dilute urine specimens, as code=HCGQLU) indicated by a lowspecific gravity, may not contain parts representative levels ofhCG. 2. False negative results may occur when the levels of hCGare below the sensitivity level of the test. If is still suspected, a first morningurine specimen should be collected 48 hours later andtested. U/S [id number] 15:54:21PELVIC ULTRASOUND:Location code: [id number] HISTORY : lower abdominal pain, 4cm ovarian [...] torsion.2. Nonvisualization of the right ovary.U/S NON [id number] 15:54:21PELVIC ULTRASOUND: Location code: J7CIZVMCYN HISTORY: lower abdominal pain, 4cm ovarian cyst [...] torsion.2. Nonvisualization of the right ovary.URINALYSIS WITH [id number] 15:27:00 Test Item Value Reference Range Comments [...] /HPF NONE CT ABDOMEN AND PELVIS WITH [id number] 14:44:45CT abdomen and pelvis with contrastLocation Code: L8GEDOOWGZ HISTORY: 2 days post laparoscopy with abd [...] cyst.2. Otherwise, no acute abnormality.XR CHEST 2 [id number] 14:10:17PA and lateral chest, 2 viewsLocation code: K3CGEXROKR HISTORY: CoughCOMPARISON: 06/07/2016COMMENTS:The lungs are clear and well inflated. The costophrenic angles aresharp. The cardiomediastinal silhouette is unremarkable. The bones are intact.IMPRESSION: Stable chest with no acute abnormalityAMYLASE AND [id number] 14:07:00 Test Item Value Reference Range Comments AMYLASE (test code=10A) 34 U/L 28-100 LIPASE (test code=60A) 45 IU/L 73-393 COMPREHENSIVE METABOLIC [id number] 14:07:00 Test Item Value Reference Range Comments [...] code=31A) 23 IU/L <=78 PRO TIME AND [id number] 14:00:00 Test Item Value Reference Range Comments [...] LMW Heparin. Order Code is ANTI-XA SERUM [id number] 13:59:00 Test Item Value Reference Range Comments [...] code=RBCMOR) NORMAL DIRECT INFLUENZA A AND B [id number] 13:24:00 Test Item Value Reference Range Comments Direct Exam (test code=DE1) PRESUMPTIVE NEGATIVE FOR THE PRESENCE OF INFLUENZA ANTIGEN PERITONEUM,[id number] 14:26:00 RUN DATE: 09/07/18 [facility] PAGE 1 RUN TIME: 1455 Specimen Inquiry RUN USER: INTERFACE PATIENT: TOBY BEDOYA [facility] [id number] AGE/SX: 27/F [facility] RE09/04/18REG DR: Ganga Payne MD : 92 BED: A DIS: STATUS: DIS Wilevr TLOC: ----- ------- SPEC #: [id number] RECD: 09/04/18 STATUS: BRUCE RE #: [id number] CHACHO: 09/04/18- SUBM DR: Ganga Payne MD ENTERED: 09/05/18 SP TYPE: PERITBX MELLISA DR: ORDERED: LEVEL IV CODES: EH5556 - PERITONEUM, NOS PROCEDURES: LEVEL IV (Incomplete) TISSUES: PERITONEUM, NOS - SIDEWALL CLINICAL HISTORY 27 year old, chronic pelvic pain, ovary cyst, endometriosis (kr) FINAL DIAGNOSIS Tissue from sidewall, laterality undesignated: - benign cysts lined by tubal epithelial consistent with benign paratubal cysts (2) Tissue code 1 CPT code(s): 41892 cds/kr dt: 09/07/18 GROSS DESCRIPTION ANATOMICSOURCE OF TISSUE (per Requisition): Sidewall The specimen is received in a formalin-filled container, labeled with the patient's name and designated "possible endometriosis sidewall". The specimen consists of a 0.5 cm portion of elizabeth tissue and is submitted in one cassette. abbe/nilda 09/04/18 @4205 MICROSCOPIC DESCRIPTION Two benign paratubal cysts are present. No endometriosis perse is identified. hoa/nilda dt: 09/07/18------ ------ Signed Jay Corrales 1426 END OF REPORT HCG SERUM [id number] 20:10:00 Test Item Value Reference Range Comments HCG SERUM QUAL (test code=HCGQL) NEGATIVE CBC W/AUTO [id number] 19:43:00 Test Item Value Reference Range Comments [...] MORPHOLOGY REQUIRED NORMAL NORMAL (test code=PLTMR) URINALYSIS [id number] 19:35:00 Test Item Value Reference Range Comments [...] SAMPLE: CLEAN CATCHU/S, PELVIS, WITH ENDOVAG AND [id number] 05:32: 00Reason for exam:->right lower quadrant painShould [...] MDReport Verified Date/Time: 08/21/2018 05:32:26 Reading Location: [address] Neuro Reading Room BASIC METABOLIC [id number] 03:50:00 Test Item Value Reference Range Comments SODIUM (BEAKER) (test 140 meq/L 135-148 clgp=923) POTASSIUM (BEAKER) (test 4.0 meq/L 3.6-5.5 vucu=871) CHLORIDE (BEAKER) (test 108 meq/L 98-106 rzwd=682) CO2 (BEAKER) (test 23 meq/L 20-29 fbvx=592) BLOOD UREA NITROGEN 12 mg/dL 10-26 (BEAKER) (test fiky=728) CREATININE (BEAKER) (test 0.71 mg/dL 0.50-1.20 fwiw=190) GLUCOSE RANDOM (BEAKER) 87 mg/dL 70-110 (test pyar=140) CALCIUM (BEAKER) (test 8.8 mg/dL 8.5-10.5 mjdu=613) EGFR (BEAKER) (test 100 mL/min/1.73 sq m ESTIMATED GFR IS NOT hlbs=6070) ACCURATE CREATININE CLEARANCE IN PREDICTING GLOMERULAR FILTRATION RATE. ESTIMATED GFR IS NOT APPLICABLE FOR DIALYSIS PATIENTS. CBC W/PLT COUNT & AUTO [id number] 03:44:00 Test Item Value Reference Range Comments WHITE BLOOD CELL COUNT (BEAKER) (test owtj=637) 7.2 K/ L 4.0-10.0 RED BLOOD CELL COUNT (BEAKER) (test wylv=262) 4.11 M/ L 4.00-5.00 HEMOGLOBIN (BEAKER) (test saex=790) 8.9 GM/DL 12.0-15.5 HEMATOCRIT (BEAKER) (test aagz=687) 30.7 % 36.0-46.0 MEAN CORPUSCULAR VOLUME (BEAKER) (test byoz=650) 74.7 fL 82.0-99.0 MEAN CORPUSCULAR HEMOGLOBIN (BEAKER) (test 21.7 pg 27.0-33.0 otgf=414) MEAN CORPUSCULAR HEMOGLOBIN CONC (BEAKER) (test 29.0 GM/DL 32.0-36.0 wnul=130) RED CELL DISTRIBUTION WIDTH (BEAKER) (test 17.9 % 12.0-15.0 yliu=966) PLATELET COUNT (BEAKER) (test hvyv=358) 242 K/CU MM 150-430 MEAN PLATELET VOLUME (BEAKER) (test jeof=883) 11.8 fL 6.0-11.5 NUCLEATED RED BLOOD CELLS (BEAKER) (test 0 /100 WBC 0-0 gtug=051) NEUTROPHILS RELATIVE PERCENT (BEAKER) (test 57 % ebxi=147) LYMPHOCYTES RELATIVE PERCENT (BEAKER) (test 31 % dgyj=181) MONOCYTES RELATIVE PERCENT (BEAKER) (test 8 % tczs=400) EOSINOPHILS RELATIVE PERCENT (BEAKER) (test 3 % pgec=938) BASOPHILS RELATIVE PERCENT (BEAKER) (test 1 % fffb=168) NEUTROPHILS ABSOLUTE COUNT (BEAKER) (test 4.11 K/ L 1.80-8.00 qkwz=674) LYMPHOCYTES ABSOLUTE COUNT (BEAKER) (test 2.22 K/ L 1.48-4.50 gxhf=638) MONOCYTES ABSOLUTE COUNT (BEAKER) (test 0.60 K/ L 0.00-1.30 lwgl=487) EOSINOPHILS ABSOLUTE COUNT (BEAKER) (test 0.24 K/ L 0.00-0.50 agjx=155) BASOPHILS ABSOLUTE COUNT (BEAKER) (test 0.05 K/ L 0.00-0.20 kcjm=864) IMMATURE GRANULOCYTES-RELATIVE PERCENT (BEAKER) 0 % 0-0 (test vkvx=3306) URINALYSIS W/ [id number] 03:31:00 Test Item Value Reference Range Comments COLOR (BEAKER) (test gcmi=148) Yellow CLARITY (BEAKER) (test gzcw=973) Slightly Cloudy SPECIFIC GRAVITY UA (BEAKER) (test ijwv=081) 1.015 1.001-1.035 PH UA (BEAKER) (test whik=944) 6.5 5.0-8.0 PROTEIN UA (BEAKER) (test aign=715) Negative Negative GLUCOSE UA (BEAKER) (test fhto=237) Negative Negative KETONES UA (BEAKER) (test lqdz=605) Negative Negative BILIRUBIN UA (BEAKER) (test ocul=174) Negative Negative BLOOD UA (BEAKER) (test pxei=726) Negative Negative NITRITE UA (BEAKER) (test osxo=198) Negative Negative LEUKOCYTE ESTERASE UA (BEAKER) (test Moderate Negative auxt=837) UROBILINOGEN UA (BEAKER) (test jstq=372) 0.2 mg/dL 0.2-1.0 BACTERIA (BEAKER) (test ozre=557) Few RBC UA-MANUAL (BEAKER) (test ndue=0271) <5 /HPF WBC UA-MANUAL (BEAKER) (test mkma=8098) 10-20 /HPF SQUAMOUS EPITHELIAL MANUAL (BEAKER) (test 10-20 /HPF cpaf=7056) SOURCE(BEAKER) (test krbr=8261) SCREEN, [id number] 03:25:00 Test Item Value Reference Range Comments TEST URINE (SHA) (test rmaf=381) Negative U/S [id number] 03:53:09AFTER HOURS SERVICE ON: 08/17/2018 3:51 AMPelvic UltrasoundLocation Code L80Cyokpoa: pelvic painTRANSABDOMINAL ScanTechnique: Longitudinal and transverse real-time [...] Thereis no free fluid. Impression:Unremarkable ultrasound.DRUGS OF [id number] 02:28:00 Test Item Value Reference Range Comments [...] 200 ng/mL Opiates 2000 ng/mL AMYLASE AND [id number] 02:27:00 Test Item Value Reference Range Comments AMYLASE (test code=10A) 62 U/L 28-100 LIPASE (test code=60A) 112 IU/L 73-393 COMPREHENSIVE METABOLIC [id number] 02:27:00 Test Item Value Reference Range Comments [...] (test code=31A) 15 IU/L <=78 URINALYSIS WITH [id number] 02:26:00 Test Item Value Reference Range Comments [...] SPERM UR (test code=USPERM) /HPF NONE SERUM [id number] 02:24:00 Test Item Value Reference Range Comments [...] CHLAMYDIA TRACHOMATIS NOT DETECTED NOT DETECTED (test oxyx=19515845) NEISSERIA GONORRHOEAE NOT DETECTED NOT DETECTED (test lrza=35043326) Endnote (test This test was performed using rxjm=[id number]) the APTIMA COMBO2 Assay([employer]The analytical performance characteristics of thisassay, when used to test SurePath specimens havebeen determined by [employer].TEST PERFORMED AT:[employer] [id number] [place] [id number] TALLEY M.D. HEPATITIS C ANTIBODY *WW*2018-07-29 00:07:00 [...] and without contrastHistory: Pain with thickened endometriumLocation: X6Avgptllhe: High-resolution multiplanar multiecho imaging of the pelvis wasperformed with and vwfxwag90 cc of intravenous Dotarem.Findings:Endometrium is thickened at [...] mass although clinicalcorrelation recommended.MRCP *WW*07-28 12:11:11MRCPLocation code: W2Cgnwxjas history: Dilated common ductComparison: Reference is made [...] in the liver.CT ABDOMEN AND PELVIS WITH [id number] 06:13:19CT abdomen and pelvis with contrastLocation Code: F05FIYFPRQZ HISTORY: [id number]: Acute pelvic painCOMPARISON: NoneTechnique: Helical CT of [...] exclude the presence ofcholedocholithiasis or stricture.U/S NON [id number] 05:59:08PELVIC ULTRASOUND:Location code: O5RPTGSFIR HISTORY: Pain, bleedingComparison: NoneTECHNIQUE: Transabdominal sonography of the pelvis was performed followed byendovaginal scanning for better characterization of the ovaries. FINDINGS: The uterus is uniform in echogenicity measuring 7.7 x 5.9 x 5.5 cm.The endometrium is slightly heterogeneous and hyperdense measuring up to 1 cmThe bilateral adnexa are not visualized. Trace free fluid is noted within ipmjgk-js-cpc.IMPRESSION: Nonspecific heterogeneityof the endometriumThe bilateral adnexa are not visualized.U/S [id number] 05:59:08PELVIC ULTRASOUND:Location code: L0ZYVAIXPR HISTORY: Pain, bleedingComparison: NoneTECHNIQUE: Transabdominal sonography of the pelvis was performed followed byendovaginal scanning for better characterization of the ovaries. FINDINGS: The uterus is uniform in echogenicity measuring 7.7 x 5.9 x 5.5 cm.The endometrium is slightly heterogeneous and hyperdense measuring up to 1 cmThe bilateral adnexa are not visualized. Trace free fluid is noted within feoasf-rz-jhp.IMPRESSION: Nonspecific heterogeneityof the endometriumThe bilateral adnexa are not visualized.AMYLASE AND [id number] 05:13:00 Test Item Value Reference Range Comments AMYLASE (test code=10A) 80 U/L 28-100 LIPASE (test code=60A) 150 IU/L 73-393 COMPREHENSIVE METABOLIC [id number] 05:13:00 Test Item Value Reference Range Comments [...] (test code=31A) 16 IU/L <=78 URINALYSIS WITH [id number] 05:10:00 Test Item Value Reference Range Comments [...] SPERM UR (test code=USPERM) /HPF NONE URINE [id number] 05:01:00 Test Item Value Reference Range Comments [...] RBC MORPH (test code=RBCMOR) NORMAL URINALYSIS WITH [id number] 18:39:00 Test Item Value Reference Range Comments [...] SPERM UR (test code=USPERM) /HPF NONE URINE [id number] 18:31:00 Test Item Value Reference Range Comments PREG UR (test code=PGU) NEGATIVE NEGATIVE U/S [id number] 18:46:36HISTORY: Pain.Location Code: C3TXDDAEKVQ: Multiple transverse and longitudinal sonographic images wereobtained.FINDINGS: [...] and ovaries are not well seen.URINALYSIS WITH [id number] 18:33:00 Test Item Value Reference Range Comments [...] UR (test code=USPERM) /HPF NONE COMPREHENSIVE METABOLIC [id number] 18:31:00 Test Item Value Reference Range Comments [...] (test code=31A) 11 IU/L <=78 AMYLASE AND [id number] 18:31:00 Test Item Value Reference Range Comments AMYLASE (test code=10A) 46 U/L 28-100 LIPASE (test code=60A) 97 IU/L 73-393 URINE [id number] 18:29:00 Test Item Value Reference Range Comments [...] NO RBC MORPH (test code=RBCMOR) NORMAL URINE [id number] 08:09:00 Test Item Value Reference Range Comments Culture Observations (test NO GROWTH (<1,000 CFU/ML) code=COB1) U/S [id number] 15:59:01EXAM: Pelvic ultrasoundLocation: A1 COMPARISON: Pelvic ultrasound [...] within normal limits.3. No free fluid.COMPREHENSIVE METABOLIC [id number] 13:45:00 Test Item Value Reference Range Comments [...] <=42 ALT (test code=31A) 17 IU/L <=78 [id number] 13:45:00 Test Item Value Reference Range Comments AMYLASE (test code=10A) 54 U/L 28-100 LIPASE [id number] 13:40:00 Test Item Value Reference Range Comments LIPASE (test code=60A) 87 IU/L 73-393 URINALYSIS WITH [id number] 13:39:00 Test Item Value Reference Range Comments [...] NO RBC MORPH (test code=RBCMOR) NORMAL URINE [id number] 13:31:00 Test Item Value Reference Range Comments PREG UR (test code=PGU) NEGATIVE NEGATIVE CT ABDOMEN AND PELVIS WITH [id number] 03:08:26CT OF THE ABDOMEN AND PELVIS WITH CONTRASTLocation code:J9OYQPMTYG HISTORY:lower abdominal pain COMPARISON: None TECHNIQUE:Multiple transaxial [...] evaluation of the abdomen and pelvis.CBC WITH [id number] 02:39:00 Test Item Value Reference Range Comments [...] DROP (test code=TD) 1+ NONE AMYLASE AND [id number] 02:19:00 Test Item Value Reference Range Comments AMYLASE (test code=10A) 67 U/L 28-100 LIPASE (test code=60A) 127 IU/L 73-393 COMPREHENSIVE METABOLIC [id number] 02:19:00 Test Item Value Reference Range Comments [...] (test code=31A) 10 IU/L <=78 URINALYSIS WITH [id number] 02:01:00 Test Item Value Reference Range Comments [...] SPERM UR (test code=USPERM) /HPF NONE SERUM [id number] 02:01:00 Test Item Value Reference Range Comments PREG SRM (test code=PGS) NEGATIVE NEGATIVE U/S NON [id number] 17:52:13EXAM: Pelvic ultrasoundLocation : A1 COMPARISON: Pelvic [...] Small volume nonspecific cul-de-sac free fluid.COMPREHENSIVE METABOLIC [id number] 15:32:00 Test Item Value Reference Range Comments [...] ALT (test code=31A) 11 IU/L <=78 SERUM [id number] 15:31:00 Test Item Value Reference Range Comments [...] (test code=MDIFF) NO NO PRO TIME AND [id number] 15:20:00 Test Item Value Reference Range Comments [...] Heparin. Order Code is ANTI-XA URINALYSIS WITH [id number] 15:19:00 Test Item Value Reference Range Comments [...] UR (test code=USPERM) /HPF NONE URINALYSIS WITH [id number] 05:18:00 Test Item Value Reference Range Comments [...] SPERM UR (test code=USPERM) /HPF NONE URINE [id number] 05:01:00 Test Item Value Reference Range Comments PREG UR (test code=PGU) NEGATIVE NEGATIVE PRO TIME AND [id number] 04:14:00 Test Item Value Reference Range Comments [...] Heparin. Order Code is ANTI-XA COMPREHENSIVE METABOLIC [id number] 04:08:00 Test Item Value Reference Range Comments [...] MORPH (test code=RBCMOR) NORMAL CT HEAD W/O [id number] 07:27:51Clinical History: Headache.Location: D4.Findings: Multislice axial noncontrast [...] sinuses andwithin the left frontal sinus.DRUGS OF [id number] 07:16:00 Test Item Value Reference Range Comments [...] 200 ng/mL Opiates 2000 ng/mL URINALYSIS WITH [id number] 07:14:00 Test Item Value Reference Range Comments [...] UR (test code=USPERM) /HPF NONE COMPREHENSIVE METABOLIC [id number] 06:59:00 Test Item Value Reference Range Comments [...] ALT (test code=31A) 14 IU/L <=78 SERUM [id number] 06:51:00 Test Item Value Reference Range Comments [...] NO RBC MORPH (test code=RBCMOR) NORMAL URINE [id number] 10:45:00 Test Item Value Reference Range Comments Culture Observations (test NO GROWTH (<1,000 CFU/ML) code=COB1) U/S PELVIS*WW*2017-08-15 02:47:38U/S PELVIS*WW*Location: [address] services provided 08/15/2017 2:45 AMIndication: pelvic [...] PREG UR (test code=PGU) NEGATIVE NEGATIVE U/S [id number] 18:19:54PELVIC ULTRASOUND:Location code: [id number] HISTORY : Pelvic pain with ovarian cystComparison: [...] right ovary and otherwise unremarkable exam.BASIC METABOLIC [id number] 15:38:00 Test Item Value Reference Range Comments [...] 12-20 CALCIUM (test code=09D) 8.8 mg/dL 8.3-9.5 [id number] 15:37:00 Test Item Value Reference Range Comments [...] ES UR (test code=LEUK) NEGATIVE NEGATIVE SERUM [id number] 15:35:00 Test Item Value Reference Range Comments PREG SRM (test code=PGS) NEGATIVE NEGATIVE PRO TIME AND [id number] 15:31:00 Test Item Value Reference Range Comments [...] RBC MORPH (test code=RBCMOR) NORMAL DIRECT CHLAMYDIA [id number] 15:42:00 Test Item Value Reference Range Comments CHLAMYDIA TRACHOMATIS NOT DETECTED NOT DETECTED (test hukl=[id number]) NEISSERIA GONORRHOEAE NOT DETECTED NOT DETECTED (test pbwo=[id number]) Endnote (test This test was performed using mwus=[id number]) the APTIMA COMBO2 Assay([employer].).The analytical performance characteristics of thisassay, when used to test SurePath specimens havebeen determined by [employer].TEST PERFORMED AT:[facility] [id number] [place] [id number] TALLEY M.D. U/S [id number] 23:50:15LOCATION: [id number]: 26-year-old female who presents with pelvic pain.COMMENT: [...] no sonographic evidence of ovarian torsion.URINALYSIS WITH [id number] 22:11:00 Test Item Value Reference Range Comments [...] SPERM UR (test code=USPERM) /HPF NONE URINE [id number] 21:56:00 Test Item Value Reference Range Comments PREG UR (test code=PGU) NEGATIVE NEGATIVE CBC W/PLT COUNT & AUTO [id number] 18:46:00 Test Item Value Reference Range Comments WHITE BLOOD CELL COUNT (BEAKER) (test mvzx=610) 4.8 K/ L 4.0-10.0 RED BLOOD CELL COUNT (BEAKER) (test vjvi=527) 3.93 M/ L 4.00-5.00 HEMOGLOBIN (BEAKER) (test rnlt=908) 8.7 GM/DL 12.0-15.0 HEMATOCRIT (BEAKER) (test cbug=782) 28.0 % 36.0-45.0 MEAN CORPUSCULAR VOLUME (BEAKER) (test ozrz=475) 71.3 fL 82.0-99.0 MEAN CORPUSCULAR HEMOGLOBIN (BEAKER) (test 22.2 pg 27.0-33.0 hkpm=077) MEAN CORPUSCULAR HEMOGLOBIN CONC (BEAKER) (test 31.1 GM/DL 32.0-36.0 gxta=355) RED CELL DISTRIBUTION WIDTH (BEAKER) (test 17.0 % 10.3-14.2 hpeh=174) PLATELET COUNT (BEAKER) (test ejpc=352) 179 K/CU MM 150-430 MEAN PLATELET VOLUME (BEAKER) (test dadv=718) 9.3 fL 6.5-10.5 NUCLEATED RED BLOOD CELLS (BEAKER) (test 0 /100 WBC 0-0 owgw=471) NEUTROPHILS RELATIVE PERCENT (BEAKER) (test 55 % yayk=383) LYMPHOCYTES RELATIVE PERCENT (BEAKER) (test 33 % vxfy=573) MONOCYTES RELATIVE PERCENT (BEAKER) (test 8 % dqkn=362) EOSINOPHILS RELATIVE PERCENT (BEAKER) (test 3 % amft=965) BASOPHILS RELATIVE PERCENT (BEAKER) (test 1 % jxgl=589) NEUTROPHILS ABSOLUTE COUNT (BEAKER) (test 2.60 K/ L 1.80-8.00 iybb=473) LYMPHOCYTES ABSOLUTE COUNT (BEAKER) (test 1.60 K/ L 1.48-4.50 tejq=725) MONOCYTES ABSOLUTE COUNT (BEAKER) (test 0.40 K/ L 0.00-1.30 mnvu=316) EOSINOPHILS ABSOLUTE COUNT (BEAKER) (test 0.10 K/ L 0.00-0.50 hequ=224) BASOPHILS ABSOLUTE COUNT (BEAKER) (test 0.00 K/ L 0.00-0.20 lyqi=427) (MANUAL DIFFERENTIAL)2017-02-08 18:46:00 Test Item Value Reference Range Comments TOTAL COUNTED (BEAKER) (test ztdi=1079) WBC MORPHOLOGY (BEAKER) (test vkwr=661) Normal PLT MORPHOLOGY (BEAKER) (test cdfq=874) Normal HYPOCHROMIA (BEAKER) (test nvih=586) 2+ moderate MACROCYTES (BEAKER) (test zkle=383) 1+ few SCREEN, [id number] 00:18:00 Test Item Value Reference Range Comments TEST URINE (BEAKER) (test hnjc=492) Negative URINALYSIS W/ REFLEX URINE [id number] 00:16:00 Test Item Value Reference Range Comments COLOR (BEAKER) (test cdcr=118) Yellow CLARITY (BEAKER) (test vghh=196) Slightly Cloudy SPECIFIC GRAVITY UA (BEAKER) (test pthk=801) 1.020 1.001-1.035 PH UA (BEAKER) (test fzrk=523) 6.0 5.0-8.0 PROTEIN UA (BEAKER) (test jmbn=695) Negative Negative GLUCOSE UA (BEAKER) (test wpzt=593) Negative Negative KETONES UA (BEAKER) (test tsgz=538) Negative Negative BILIRUBIN UA (BEAKER) (test lbrq=686) Negative Negative BLOOD UA (BEAKER) (test eovi=794) Large Negative NITRITE UA (BEAKER) (test bikx=558) Negative Negative LEUKOCYTE ESTERASE UA (BEAKER) (test Negative Negative puus=062) UROBILINOGEN UA (BEAKER) (test ktel=384) 0.2 mg/dL 0.2-1.0 BACTERIA (BEAKER) (test txvy=402) Few RBC UA-MANUAL (BEAKER) (test bnto=8840) 10-20 /HPF WBC UA-MANUAL (BEAKER) (test cqat=5274) <5 /HPF SQUAMOUS EPITHELIAL MANUAL (BEAKER) (test <5 /HPF cmvj=2684) SOURCE(BEAKER) (test dasr=6480) CBC W/PLT COUNT & AUTO [id number] 00:08:00 Test Item Value Reference Range Comments WHITE BLOOD CELL COUNT (BEAKER) (test myvj=940) 7.7 K/ L 4.0-10.0 RED BLOOD CELL COUNT (BEAKER) (test kgfu=547) 4.33 M/ L 4.00-5.00 HEMOGLOBIN (BEAKER) (test lmme=732) 9.6 GM/DL 12.0-15.0 HEMATOCRIT (BEAKER) (test bdmf=431) 31.2 % 36.0-45.0 MEAN CORPUSCULAR VOLUME (BEAKER) (test fluw=866) 72.0 fL 82.0-99.0 MEAN CORPUSCULAR HEMOGLOBIN (BEAKER) (test 22.2 pg 27.0-33.0 royb=811) MEAN CORPUSCULAR HEMOGLOBIN CONC (BEAKER) (test 30.9 GM/DL 32.0-36.0 jcms=161) RED CELL DISTRIBUTION WIDTH (BEAKER) (test 16.7 % 10.3-14.2 znwv=936) PLATELET COUNT (BEAKER) (test hrbl=515) 204 K/CU MM 150-430 MEAN PLATELET VOLUME (BEAKER) (test kxyq=208) 10.0 fL 6.5-10.5 NEUTROPHILS RELATIVE PERCENT (BEAKER) (test 62 % xrpo=369) LYMPHOCYTES RELATIVE PERCENT (BEAKER) (test 29 % qxqp=846) MONOCYTES RELATIVE PERCENT (BEAKER) (test 6 % hcdy=902) EOSINOPHILS RELATIVE PERCENT (BEAKER) (test 2 % fhjd=702) BASOPHILS RELATIVE PERCENT (BEAKER) (test 1 % potu=914) NEUTROPHILS ABSOLUTE COUNT (BEAKER) (test 4.80 K/ L 1.80-8.00 pvqb=418) LYMPHOCYTES ABSOLUTE COUNT (BEAKER) (test 2.20 K/ L 1.48-4.50 hznh=885) MONOCYTES ABSOLUTE COUNT (BEAKER) (test 0.50 K/ L 0.00-1.30 udtu=138) EOSINOPHILS ABSOLUTE COUNT (BEAKER) (test 0.20 K/ L 0.00-0.50 cebw=507) BASOPHILS ABSOLUTE COUNT (BEAKER) (test 0.00 K/ L 0.00-0.20 pqbk=437) (MANUAL DIFFERENTIAL)2017-02-08 00:08:00 Test Item Value Reference Range Comments TOTAL COUNTED (BEAKER) (test mply=6796) WBC MORPHOLOGY (BEAKER) (test gfhh=222) Normal PLT MORPHOLOGY (BEAKER) (test nptn=968) Normal HYPOCHROMIA (BEAKER) (test mxda=577) 2+ moderate MICROCYTES (BEAKER) (test lyyd=486) 1+ few BASIC METABOLIC [id number] 00:04:00 Test Item Value Reference Range Comments SODIUM (BEAKER) (test 142 meq/L 135-148 dwjy=867) POTASSIUM (BEAKER) (test 3.4 meq/L 3.6-5.5 evkj=262) CHLORIDE (BEAKER) (test 110 meq/L 98-106 bmmt=529) CO2 (BEAKER) (test 20 meq/L 20-29 vgqo=462) BLOOD UREA NITROGEN 6 mg/dL 10-26 (BEAKER) (test qmyp=136) CREATININE (BEAKER) (test 0.80 mg/dL 0.50-1.20 qwla=015) GLUCOSE RANDOM (BEAKER) 88 mg/dL 70-110 (test zosg=207) CALCIUM (BEAKER) (test 9.1 mg/dL 8.5-10.5 hpwr=087) EGFR (BEAKER) (test 88 mL/min/1.73 sq m ESTIMATED GFR IS NOT wtli=3560) ACCURATE CREATININE CLEARANCE IN PREDICTING GLOMERULAR FILTRATION RATE. ESTIMATED GFR IS NOT APPLICABLE FOR DIALYSIS PATIENTS. [id number] 22:38:00 Test Item Value Reference Range Comments [...] NO NO CT ABDOMEN AND PELVIS WITH [id number] 22:32:06LOCATION: [id number]: 26- year-old female who presents with periumbilical [...] cm diameter. Pelvicultrasound correlation is suggested. SERUM [id number] 21:33:00 Test Item Value Reference Range Comments PREG SRM (test code=PGS) NEGATIVE NEGATIVE AMYLASE AND [id number] 21:31:00 Test Item Value Reference Range Comments AMYLASE (test code=10A) 54 U/L 28-100 LIPASE (test code=60A) 113 IU/L 73-393 COMPREHENSIVE METABOLIC [id number] 21:31:00 Test Item Value Reference Range Comments [...] ALT (test code=31A) 23 IU/L <=78 OCCULT [id number] 21:12:00 Test Item Value Reference Range Comments [...] RBC MORPH (test code=RBCMOR) NORMAL URINALYSIS WITH [id number] 15:38:00 Test Item Value Reference Range Comments [...] SPERM UR (test code=USPERM) /HPF NONE U/S [id number] 15:37:29LOCATION: [id number]: 26-year-old female who presents with pelvic pain.COMMENT:Sonographic [...] unremarkable.The right ovary is not seen.AMYLASE AND [id number] 15:00:00 Test Item Value Reference Range Comments AMYLASE (test code=10A) 54 U/L 28-100 LIPASE (test code=60A) 93 IU/L 73-393 COMPREHENSIVE METABOLIC [id number] 15:00:00 Test Item Value Reference Range Comments [...] ALT (test code=31A) 12 IU/L <=78 SERUM [id number] 14:52:00 Test Item Value Reference Range Comments [...] NO RBC MORPH (test code=RBCMOR) NORMAL U/S [id number] 09:19:09Exam: Ultrasound pelvis with transvaginalLocation: A 1History: [...] of the pelvis.CT ABDOMEN AND PELVIS WITH [id number] 07:27:27CT abdomen and pelvis with contrast.Clinical indication: [...] abnormality to account for patient's symptoms.DRUGS OF [id number] 06:49:00 Test Item Value Reference Range Comments [...] 200 ng/mL Opiates 2000 ng/mL COMPREHENSIVE METABOLIC [id number] 06:28:00 Test Item Value Reference Range Comments [...] ALT (test code=31A) 17 IU/L <=78 LIPASE [id number] 06:28:00 Test Item Value Reference Range Comments LIPASE (test code=60A) 103 IU/L 73-393 SERUM [id number] 06:20:00 Test Item Value Reference Range Comments [...] NO NO RBC MORPH (test code=RBCMOR) NORMAL [id number] 06:17:00 Test Item Value Reference Range Comments [...] ES UR (test code=LEUK) NEGATIVE NEGATIVE U/S [id number] 10:33:25PELVIC ULTRASOUND:Location code: [id number] HISTORY : Pain,, recent ovarian cyst removalComparison: NoneTECHNIQUE: Transabdominal sonography of the pelvis was performed. The patientdeclined transvaginalscanning.FINDINGS: Evaluation is limited. The uterus and bilateral ovaries arenonvisualized. There is no pelvic mass or fluid collection. IMPRESSION:Limited exam with no visualized acute abnormality.URINALYSIS WITH [id number] 09:15:00 Test Item Value Reference Range Comments COLOR (test code=COLU) YELLOW YELLOW CLARITY (test code=CLA) HAZY CLEAR GLUCOSE UR (test code=UA GLUCOSE) NEGATIVE NEGATIVE BILI UR (test code=BILE) NEGATIVE NEGATIVE KETONES UR (test code=KARSNO) NEGATIVE NEGATIVE SP GRAVITY (test code=SPGR) 1.007 [...] UR (test code=USPERM) /HPF NONE CBC WITH [id number] 08:42:00 Test Item Value Reference Range Comments [...] STOMATO (test code=STOM) 1+ NONE COMPREHENSIVE METABOLIC [id number] 08:38:00 Test Item Value Reference Range Comments [...] ALT (test code=31A) 31 IU/L <=78 SERUM [id number] 08:30:00 Test Item Value Reference Range Comments [...] code=09D) 8.7 mg/dL 8.3-9.5 CBC (INCLUDES AUTOMATED DIFFERENTIAL)*[id number] 08:01:00 Test Item Value Reference Range Comments [...]
--- OUTSIDE RECORDS SUMMARY | 2019-09-15 03:00 | XMS REPORT | Summary of Care ---
:1990 Author Organization [facility] - [facility] Address [address] [place] [address] Care Team Providers Name Role Phone Erik Irwin MD Primary Care Provider Rich Donohue Insurance Hmo Reason for Referral Other (Routine) Status Reason Specialty Diagnoses / Referred By Referred To Procedures Contact Contact New Request Diagnoses Endometriosis Pelvic pain Ty Koroma Lam, Vien Cam, MD Procedures Discharge Follow-up: Specialty Provider TEDDY HA; 1 Week PAC [address] [place] [phone] Phone: Radiology Services (STAT) Status Reason Specialty Diagnoses / Referred By Referred To Procedures Contact Contact New Request Diagnostic Diagnoses Abdominal pain, unspecified abdominal location Ty Koroma Radiology Procedures US OVARY TORSION Sarah PAC [address] [place] [address] [address] [place] [address] Reason for Visit Reason Comments Pelvic Pain Back Pain Auth/Cert Status Reason Specialty Diagnoses / Referred By Referred To Procedures Contact Contact [facility] [address] [place] [address] [place] [address] Encounter Details Date Type Department Care Team Description 08/14/2019 Emergency [facility]-Emergency Ty Koroma, Endometriosis (Primary Dx); Department PAC Abdominal pain, unspecified abdominal location; [address] [place] [address] [facility] [place] [address] [place] [address] [place] [address] Allergies No Known Allergiesdocumented as of this encounter (statuses as of 08/14/2019) Medications Medication Sig Dispensed Refills Start Date End Date Status zolpidem (AMBIEN) 10 Take 1 tablet 30 tablet 0 05/12/2019 Active mg by mouth at tabletIndications: bedtime as Insomnia due to needed for mental disorder Insomnia. clonazePAM 1 mg Take 1 tablet 30 tablet 0 05/12/2019 Active tabletIndications: by mouth 3 Takes PRN (three) times daily as needed (anxiety). Indications: Takes PRN ondansetron 4 mg Take 1 tablet 20 tablet 0 05/17/2019 Active disintegrating by mouth every tabletIndications: 4 (four) hours Lower abdominal as needed for pain, Bruising Nausea and Vomiting (N/V). proMETHazine 25 mg Take 1 tablet 12 tablet 0 07/16/2019 Active tabletIndications: by mouth every Abdominal bloating 6 (six) hours with cramps, as needed for Endometriosis Nausea and Vomiting (N/V). traMADol (ULTRAM) 50 Take 1 tablet 9 tablet 0 07/16/2019 Active mg by mouth every tabletIndications: 8 (eight) Abdominal bloating hours as with cramps, needed for Endometriosis Pain (scale 4-6). acetaminophen-codein Take 1 tablet 9 tablet 0 07/16/2019 Active e (TYLENOL-CODEINE by mouth every #3) 300-30 mg 6 (six) hours tabletIndications: as needed for Abdominal bloating Pain (scale with cramps, 4-6) (for Endometriosis cough). naproxen (NAPROSYN) Take 1 tablet 30 tablet 0 08/14/2019 Active 500 mg by mouth 2 tabletIndications: (two) times Endometriosis, daily with Pelvic pain meals. naproxen (NAPROSYN) Take 1 tablet 30 tablet 0 08/14/2019 Discontinued 500 mg by mouth 2 0 tabletIndications: (two) times Endometriosis daily with meals. documented as of this encounter (statuses as of 08/14/2019) Active Problems No known active problemsdocumented as of this encounter (statuses as of 2019) Social History Tobacco Use Types Packs/Day Years Used Date Never Smoker Smokeless Tobacco: Never Used Alcohol Use Drinks/Week oz/Week Comments Never Alcohol Habits Answer Date Recorded How often do you have a drink containing alcohol? Never 05/12/2019 How many drinks containing alcohol do you have on a typical Not asked day when you are drinking? How often do you have six or more drinks on one occasion? Not asked Sex Assigned at Date Recorded Not on file Job Start Date Occupation Industry Not on file Not on file Not on file Travel History Travel Start Travel End No recent travel history available. documented as of this encounter Last Filed Vital Signs Vital Sign Reading Time Taken Comments Blood Pressure 105/69 08/14/2019 12:56 PM PRESS MAINTAINER Pulse 78 08/14/2019 12:56 PM PRESS MAINTAINER Temperature 36.5 C (97.7 F) 08/14/2019 10:19 AM PRESS MAINTAINER Respiratory Rate 12 08/14/2019 12:56 PM PRESS MAINTAINER Oxygen Saturation 100% 08/14/2019 12:56 PM PRESS MAINTAINER Inhaled Oxygen Concentration - - Weight 77.1 kg (170 lb) 08/14/2019 10:19 AM PRESS MAINTAINER Height - - Body Mass Index 27.44 06/18/2019 2:42 AM PRESS MAINTAINER documented in this encounter Discharge Instructions AttachmentsThe following attachments cannot be sent through Care Everywhere.Endometriosis, Treating (Panamanian)Endometriosis, Living with (Panamanian) documented in this encounter Plan of Treatment Health Maintenance Due Date Last Done Comments VARICELLA VACCINES (1 of 2 - 1993 2-dose childhood series) DTaP,Tdap,and Td Vaccines (1 - 12/01/2003 Tdap) HPV VACCINES (1 - Female 2-dose 12/01/2003 series) PAP SMEAR 2013 INFLUENZA VACCINE (#1) 2019 PNEUMOCOCCAL 0-64 YEARS COMBINED Aged Out No longer eligible based on SERIES patient's age to complete this topic documented as of this encounter Procedures Procedure Name Priority Date/Time Associated Diagnosis Comments US OVARY TORSION STAT 08/14/2019 12:50 Abdominal pain, Results for this PM PRESS MAINTAINER unspecified procedure are in abdominal location the results section. POCT TEST CESAR 08/14/2019 10:35 Abdominal pain, Results for this AM PRESS MAINTAINER unspecified procedure are in abdominal location the results section. CBC WITH DIFFERENTIAL STAT 08/14/2019 10:28 Abdominal pain, Results for this AM PRESS MAINTAINER unspecified procedure are in abdominal location the results section. POCT TEST Routine 08/14/2019 10:28 Abdominal pain, Results for this AM PRESS MAINTAINER unspecified procedure are in abdominal location the results section. URINALYSIS STAT 08/14/2019 10:28 Abdominal pain, Results for this AM PRESS MAINTAINER unspecified procedure are in abdominal location the results section. CBC WITH DIFFERENTIAL Routine 08/14/2019 10:28 Abdominal pain, Results for this AM PRESS MAINTAINER unspecified procedure are in abdominal location the results section. COMP. METABOLIC PANEL STAT 08/14/2019 10:28 Abdominal pain, Results for this (18705) AM PRESS MAINTAINER unspecified procedure are in abdominal location the results section. LIPASE STAT 08/14/2019 10:28 Abdominal pain, Results for this AM PRESS MAINTAINER unspecified procedure are in abdominal location the results section. NOTICE OF PRIVACY Routine 08/14/2019 10:09 PRACTICES AM PRESS MAINTAINER documented in this encounter Results US OVARY TORSION (08/14/2019 12:50 PM PRESS MAINTAINER) Specimen Impressions Performed At PACS/VR/DOSE 1. No acute changes. 2. No signs of torsion. AFC: [id number]. RL: [id number]. Narrative Performed At Ordering Physician: Ty Koroma PACS/VR/DOSE History: Severe pelvic pain with history of cysts and endometriosis, evaluation for torsion. Comparison Study: None. Findings: Transabdominal and endovaginal imaging was performed. Endovaginal images were obtained for better visualization of the uterus and adnexal structures. Ultrasound images demonstrate a uterus of unremarkable echotexture. Endometrial stripe is uniform in appearance with a measurement of 10 mm. Uterus measures 9.1 x 4.6 x 5.6 cm. Retroverted uterus. Color flow images and Doppler evaluation of the ovaries were performed. There is color flow in both ovaries. No signs of torsion. Ovaries are well-visualized and unremarkable, no signs of mass formation. Right ovary measures 1.5 x 0.7 x 1.1 cm and the left ovary measures 3.1 x 1.6 x 2 cm. No adnexal masses. No significant free fluid. Bladder images are unremarkable. Procedure Note [facility], Radiant Results Inft User - 08/14/2019 1:03 PM PRESS MAINTAINER Ordering Physician: Ty Koroma History: Severe pelvic pain with history of cysts and endometriosis, evaluation for torsion. Comparison Study: None. Findings: Transabdominal and endovaginal imaging was performed. Endovaginal images were obtained for better visualization of the uterus and adnexal structures. Ultrasound images demonstrate a uterus of unremarkable echotexture. Endometrial stripe is uniform in appearance with a measurement of 10 mm. Uterus measures 9.1 x 4.6 x 5.6 cm. Retroverted uterus. Color flow images and Doppler evaluation of the ovaries were performed. There is color flow in both ovaries. No signs of torsion. Ovaries are well-visualized and unremarkable, no signs of mass formation. Right ovary measures 1.5 x 0.7 x 1.1 cm and the left ovary measures 3.1 x 1.6 x 2 cm. No adnexal masses. No significant free fluid. Bladder images are unremarkable. IMPRESSION 1. No acute changes. 2. No signs of torsion. AFC: [id number]. RL: [id number]. Performing Organization Address City/State/Zipcode Phone Number PACS/VR/DOSE POCT TEST (08/14/2019 10:35 AM PRESS MAINTAINER) POCT PREG Negative On board controls acceptable Yes with C Line POCT PREG LOT # [id number] POCT PREG TEST DATE 02/24/2021 Specimen Urine - URINE, CLEAN CATCH CBC WITH DIFFERENTIAL (08/14/2019 10:28 AM PRESS MAINTAINER) WBC 6.77 4.30 - 11.10 [facility] 10*3/L [facility] RBC 4.36 3.93 - 5.25 [facility] 10*6/L [facility] HGB 9.5 (L) 11.6 - 15.0 [facility] g/dL [facility] HCT 33.5 (L) 35.7 - 45.2 % [facility] MCV 76.8 (L) 80.6 - 95.5 fL [facility] MCH 21.8 (L) 25.9 - 32.8 pg [facility] MCHC 28.4 (L) 31.6 - 35.1 [facility] g/dL HOSPITAL [facility] RDW-SD 47.1 39.0 - 49.9 fL [facility] RDW-CV 17.1 (H) 12.0 - 15.5 % [facility] PLT 245 166 - 358 [facility] 10*3/L [facility] MPV 10.4 9.5 - 12.9 fL [facility] NRBC/100 WBC 0.0 0.0 - 10.0 /100 [facility] WBCs [facility] NRBC x10^3 <0.01 10*3/L [facility] GRAN MAT (NEUT) % 69.0 % [facility] IMM GRAN % 0.30 % [facility] LYMPH % 19.4 % [facility] MONO % 8.1 % [facility] EOS % 2.5 % [facility] BASO % 0.7 % [facility] GRAN MAT x10^3(ANC) 4.67 1.88 - 7.09 [facility] 10*3/uL [facility] IMM GRAN x10^3 <0.03 0.00 - 0.06 [facility] 10*3/uL [facility] LYMPH x10^3 1.31 (L) 1.32 - 3.29 [facility] 10*3/uL [facility] MONO x10^3 0.55 0.33 - 0.92 [facility] 10*3/uL [facility] EOS x10^3 0.17 0.03 - 0.39 [facility] 10*3/uL [facility] BASO x10^3 0.05 0.01 - 0.07 [place] [address]*3/uL [facility] Specimen Blood - VENOUS Performing Organization Address City/State/Zipcode Phone Number [facility] CLIA: [id number], [address] [place] [address] POCT Test (08/14/2019 10:28 AM PRESS MAINTAINER) [facility] POCT PREG negative On board controls acceptable present with C Line POCT PREG LOT # [id number] POCT PREG TEST DATE 7,914,021 Specimen Urine - URINE, CLEAN CATCH Complete Metabolic Panel (08/14/2019 10:28 AM PRESS MAINTAINER) NA 141 135 - 145 [facility] mmol/L HOSPITAL [facility] K 3.7 3.5 - 5.0 [facility] mmol/L HOSPITAL [facility] CL 105 98 - 108 mmol/L [facility] CO2 TOTAL 26 23 - 31 mmol/L [facility] AGAP 10 2 - 16 [facility] BUN 16 7 - 23 mg/dL [facility] GLUCOSE 110 70 - 110 mg/dL [facility] CREATININE 0.63 0.50 - 1.04 [facility] mg/dL [facility] TOTAL BILI 0.3 0.1 - 1.1 mg/dL [facility] CALCIUM 9.7 8.6 - 10.6 [facility] mg/dL [facility] T PROTEIN 8.4 (H) 6.3 - 8.2 g/dL [facility] ALBUMIN 4.6 3.5 - 5.0 g/dL [facility] ALK PHOS 113 34 - 122 U/L [facility] ALTv 19 5 - 35 U/L [facility] AST(SGOT) 29 13 - 40 U/L [facility] eGFR Calculation 114.2 mL/min/1.73m2 [facility] (Non-[facility]ATORY [place]) eGFR Calculation 138.4 mL/min/1.73m2 [facility] () [facility] Specimen Blood - VENOUS Narrative Performed At Association of Glomerular Filtration Rate (GFR) [facility]ORY and Staging of Kidney Disease* + + +- + | GFR (mL/min/1.73 m2) | With Kidney Damage | Without Kidney Damage + + +- + | >90 | Stage one | Normal + + +- + | 60-89 | Stage two | Decreased GFR + + +- + | 30-59 | Stage three | Stage three + + +- + | 15-29 | Stage four | Stage four + + +- + | <15 (or dialysis) | Stage five | Stage five + + +- + *Each stage assumes the associated GFR level has been in effect for at least three months. Stages 1 to 5, with or without kidney disease, indicate chronic kidney disease. Notes: Determination of stages one and two (with eGFR >59mL/min/1.73 m2) requires estimation of kidney damage for at least three months as defined by structural or functional abnormalities of the kidney, manifested by either: Pathological abnormalities or Markers of kidney damage (including abnormalities in the composition of the blood or urine or abnormalities in imaging tests). Performing Organization Address [facility] Phone Number [facility] CLIA: [id number], [address] [place], [place] [id number] [address] Urinalysis (08/14/2019 10:28 AM PRESS MAINTAINER) APPEARANCE Hazy (A) Clear [facility] COLOR Di (A) Yellow [facility] PH 5.0 4.8 - 8.0 [facility] SP GRAVITY 1.023 1.003 - 1.030 [facility] GLU U QUAL Normal Normal [facility] BLOOD Negative Negative [facility] KETONES Negative Negative [facility] PROTEIN Negative Negative [facility] UROBILIN 2.0 mg/dL (A) Normal [facility] BILIRUBIN Negative Negative [facility] NITRITE Negative Negative [facility] LEUK SHERRY Negative Negative [facility] RBC/HPF 3 0 - 3 HPF [facility] WBC/HPF 4 0 - 5 HPF [facility] BACTERIA Few (A) Negative [facility] MUCOUS Slight (A) Negative LPF [facility] SQ EPITH 22 HPF [facility] Specimen Urine - URINE, CLEAN CATCH Performing Organization Address [facility] Centercomt Phone Number [facility] CLIA: [id number], [address] [place] [address] Lipase, Serum (08/14/2019 10:28 AM PRESS MAINTAINER) LIPASE 61 0 - 220 U/L [facility] Specimen Blood - VENOUS Performing Organization Address [facility] Centercode Phone Number [facility] CLIA: [id number], [address] [place] [address] documented in this encounter Visit Diagnoses Diagnosis Endometriosis - Primary Endometriosis, site unspecified Abdominal pain, unspecified abdominal location Pelvic pain Unspecified symptom associated with female genital organs documented in this encounter Administered Medications Medication Order MAR Action Action Date Dose Rate Site ketorolac (TORADOL) injection 30 Given 08/14/2019 11:18 AM PRESS MAINTAINER 30 mg mg 30 mg, Slow IV Push, ONCE, 1 dose, 08/14/19 at 1145, CESAR, lance crewmember/mlrs sergeant approving Restricted medication: Ty KOROMA morpHINE injection 4 mg Given 08/14/2019 11:18 AM PRESS MAINTAINER 4 mg 4 mg, Slow IV Push, ONCE, 1 dose, 08/14/19 at 1230, Routine morpHINE injection 4 mg Given 08/14/2019 12:16 PM PRESS MAINTAINER 4 mg 4 mg, Slow IV Push, ONCE, 1 dose, 08/14/19 at 1315, Routine NaCl 0.9% (NS) bolus infusion New Bag 08/14/2019 10:33 AM PRESS MAINTAINER 1,000 mL 999 mL/hr 1,000 mL at 999 mL/hr, 1,000 mL, IV Infusion, ONCE, 1 dose, 08/14/19 at 1130, STAT NaCl 0.9% (NS) bolus infusion New Bag 08/14/2019 11:24 AM PRESS MAINTAINER 1,000 mL 999 mL/hr 1,000 mL at 999 mL/hr, 1,000 mL, IV Infusion, ONCE, 1 dose, 08/14/19 at 1230, STAT ondansetron (ZOFRAN (PF)) injection 4 mg Given 08/14/2019 11:18 AM PRESS MAINTAINER 4 mg 4 mg, Slow IV Push, ONCE, 1 dose, 08/14/19 at 1230, CESAR documented in this encounter Insurance Payer Benefit Plan / Subscriber ID Effective Phone Address Type Group Dates [employer] xxxxxxxxx 2019-[facility] [address] [place] [id number] [place] [address] (Home) [place] [address] documented as of this encounter"
--- OUTSIDE RECORDS SUMMARY | 2019-09-15 03:00 | XMS REPORT | Summary of Care ---
:1990 Author Organization [facility] - Health Address [address] [place] [address] Care Team Providers Name Role Phone Erik Irwin MD Primary Care Provider Rich Donohue Insurance Hmo Encounter Details Date Type Department Care Team Description 08/14/2019 Orders Only [facility] Doctor Unassigned, No [address] [facility] [place] [address] [place] [id number] Allergies No Known Allergiesdocumented as of this encounter (statuses as of 08/14/2019) Medications Medication Sig Dispensed Refills Start Date End Date Status zolpidem (AMBIEN) 10 mg Take 1 tablet by 30 tablet 0 05/12/2019 Active tabletIndications: mouth at bedtime Insomnia due to mental as needed for disorder Insomnia. clonazePAM 1 mg Take 1 tablet by 30 tablet 0 05/12/2019 Active tabletIndications: mouth 3 (three) Takes PRN times daily as needed (anxiety). Indications: Takes PRN ondansetron 4 mg Take 1 tablet by 20 tablet 0 05/17/2019 Active disintegrating mouth every 4 tabletIndications: (four) hours as Lower abdominal pain, needed for Nausea Bruising and Vomiting (N/V). proMETHazine 25 mg Take 1 tablet by 12 tablet 0 07/16/2019 Active tabletIndications: mouth every 6 Abdominal bloating with (six) hours as cramps, Endometriosis needed for Nausea and Vomiting (N/V). traMADol (ULTRAM) 50 mg Take 1 tablet by 9 tablet 0 07/16/2019 Active tabletIndications: mouth every 8 Abdominal bloating with (eight) hours as cramps, Endometriosis needed for Pain (scale 4-6). acetaminophen-codeine Take 1 tablet by 9 tablet 0 07/16/2019 Active (TYLENOL-CODEINE #3) mouth every 6 300-30 mg (six) hours as tabletIndications: needed for Pain Abdominal bloating with (scale 4-6) (for cramps, Endometriosis cough). 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
--- OUTSIDE RECORDS SUMMARY | 2019-09-15 03:00 | XMS REPORT | Summary of Care ---
:1990 Author Organization [facility] - Health Address [address] [place] [address] Care Team Providers Name Role Phone Erik Irwin MD Primary Care Provider Rich Donohue Insurance Hmo Encounter Details Date Type Department Care Team Description 08/18/2019 Orders Only [facility] Doctor Unassigned, No 301 [facility] [place] [address] [place] [id number] Allergies No Known Allergiesdocumented as of this encounter (statuses as of 09/14/2019) Medications No known medicationsdocumented as of this encounter (statuses as of 09/14/2019) Active Problems No known active problemsdocumented as [...] Due Date Last Done Comments VARICELLA VACCINES ( - 1993 2-dose childhood series) DTaP,Tdap,and Td Vaccines (1 - 12/01/2003 Tdap) HPV VACCINES (1 - Female 2-dose 12/01/2003 series) PAP SMEAR 2013 INFLUENZA VACCINE (#1) 2019 PNEUMOCOCCAL 0-64 YEARS COMBINED Aged Out No longer eligible based on SERIES patient's age to complete this topic documented as of this encounter Results Not on filedocumented in this encounter Insurance Payer Benefit Plan / Subscriber ID Effective Phone Address Type Group Dates [employer] xxxxxxxxx 2019-Melodie [place] [id number] [place] [address] documented as of this encounter
[2019-09-15] MEDS ORDERED: NA CHLORIDE 0.9% 1,000 ML ONE (03:25)
[2019-09-15 03:42] LABS: Absolute Lymphocytes (CBC) 1.7 K/uL (0.7-4.9); Basophils % 0.8 % (0-1.3); Hematocrit 31.1 % (36.0-45.0); Lymphocytes % 24.1 % (15.3-44.8); MPV 8.9 fL (7.6-11.3); RBC Red Blood Cell Count 4.36 M/uL (3.86-4.86)
[2019-09-15 03:54] LABS: Urine Blood NEGATIVE (NEG); Urine Glucose NEGATIVE (NEG); Urine Protein NEGATIVE (NEG); Urine pH 5.5 (5.0-7.0)
[2019-09-15 04:01] LABS: BUN Blood Urea Nitrogen 14 mg/dL (7-18); Bicarbonate 25 mmol/L (21-32); Glucose Level 102 mg/dL (74-106); HCG, Quantitative 238 mIU/mL (1-3); Potassium 3.8 mmol/L (3.5-5.1); Sodium Level 138 mmol/L (136-145)
--- NOTE | 2019-09-15 05:06 | ER ---
Nurse's Notes [facility] Name: Charley Wells Age: 28 yrs Sex: Female : 1990 Arrival Date: 09/15/2019 Time: 02:57 Bed 5 Private MD: Diagnosis: Weakness; related conditions, unspecified, first trimester; related exhaustion and fatigue, first trimester;Pelvic and perineal pain;Urinary tract infection, site not specified Presentation: 09/15 03:03 Presenting complaint: Patient states: Pt reports she has been feeling tired, reports ea she missed her period this month, took a test this evening and it was positive. Pt states "I take medications and have endometriosis, I just don't want to have a miscarriage". Transition of care: patient was not received from another setting of care. Onset of symptoms was September 15, 2019. Risk Assessment: Do you want to hurt yourself or someone else? Patient reports no desire to harm self or others. Initial Sepsis Screen: Does the patient meet any 2 criteria? No. Patient's initial sepsis screen is negative. Does the patient have a suspected source of infection? No. Patient's initial sepsis screen is negative. Care prior to arrival: None. 03:03 Method Of Arrival: Ambulatory ea 03:03 Acuity: STACEY 3 ea Triage Assessment: 03:11 General: Appears in no apparent distress. Behavior is calm, cooperative, appropriate ea for age. Pain: Denies pain. Neuro: Level of Consciousness is awake, alert, obeys commands, Oriented to person, place, time, situation. Cardiovascular: Patient's skin is warm and dry. Respiratory: Airway is patent Respiratory effort is even, unlabored, Respiratory pattern is regular, symmetrical. Derm: Skin is pink, warm \\T\\ dry. BILLET RECORDER: 03:08 LMP 08/12/2019 ea 03:15 5, Full Term 2, Premature 0, 2, Living 2 paulina Historical: - Allergies: 03:11 Toradol; ea 03:11 tramadol; ea - Home Meds: 03:11 sertraline Oral [Active]; ea - PMHx: 03:11 Ovarian cyst; Endometriosis; Anxiety; ea - PSHx: 03:11 ruptured ovarian cyst; ; ea - Immunization history:: Adult Immunizations up to date. - Coronavirus screen:: The patient has NOT traveled to [place] in the past 14 days. - Social history:: Smoking status: Patient denies any tobacco usage or history of. - Family history:: not pertinent. - Ebola Screening: : No symptoms or risks identified at this time. Screenin:07 Abuse screen: Denies threats or abuse. Nutritional screening: No deficits noted. ea Tuberculosis screening: No symptoms or risk factors identified. Fall Risk None identified. Assessment: 03:12 Reassessment: see triage assessment. ea 04:26 Reassessment: Patient and/or family updated on plan of care and expected duration. Pain ea level reassessed. Patient is alert, oriented x 3, equal unlabored respirations, skin warm/dry/pink. 04:39 Reassessment: Patient and/or family updated on plan of care and expected duration. Pain ea level reassessed. Patient is alert, oriented x 3, equal unlabored respirations, skin warm/dry/pink. Pt taken to ultrasound. 05:33 Reassessment: Patient and/or family updated on plan of care and expected duration. Pain ea level reassessed. Patient is alert, oriented x 3, equal unlabored respirations, skin warm/dry/pink. 05:43 Reassessment: Patient and/or family updated on plan of care and expected duration. Pain ea level reassessed. Patient is alert, oriented x 3, equal unlabored respirations, skin warm/dry/pink. Discharge instruction given to patient, verbalized the understanding of instruction. Pt left ED ambulatory, tolerating well. Vital Signs: 03:08 BP 126 / 70; Pulse 98; Resp 18; Temp 97.2(TE); Pulse Ox 98% ; Weight 72.57 kg; Height 5 ea ft. 6 in. (167.64 cm); 04:27 BP 91 / 55; Pulse 80; Resp 18; Pulse Ox 99% ; ea 05:44 BP 99 / 67; Pulse 80; Resp 18; Pulse Ox 98% on R/A; ea 03:08 Body Mass Index 25.82 (72.57 kg, 167.64 cm) ea ED Course: 02:57 Patient arrived in ED. ag3 03:03 Rl Grove MD is Attending Physician. paulina 03:07 Triage completed. ea 03:07 Arm band placed on right wrist. Patient placed in an exam room, on a stretcher, on ea pulse oximetry. 03:07 Patient has correct armband on for positive identification. Bed in low position. Call ea light in reach. 03:13 Antonieta Rosales, RN is Primary Nurse. ea 03:50 Inserted saline lock: 20 gauge in right antecubital area, using aseptic technique. ea 05:41 No provider procedures requiring assistance completed. IV discontinued, intact, ea bleeding controlled, No redness/swelling at site. Pressure dressing applied. 07:11 US Transvaginal Ob In Process Unspecified. EDMS Administered Medications: 03:50 Drug: NS 0.9% 1000 ml Route: IV; Rate: 1 bolus; Site: right antecubital; ea 05:42 Follow up: Response: No adverse reaction; IV Status: Completed infusion; IV Intake: ea 700ml 05:32 Drug: Rocephin 1 grams Route: IV; Rate: per protocol; Site: right antecubital; ea 05:42 Follow up: Response: No adverse reaction; IV Status: Completed infusion ea Intake: 05:42 IV: 700ml; Total: 700ml. ea Outcome: 05:05 Discharge ordered by . paulina 05:42 Discharge instructions given to patient, Instructed on discharge instructions, follow ea up and referral plans. medication usage, Demonstrated understanding of instructions, follow-up care, medications, Prescriptions given X 2. 05:43 Discharged to home ambulatory. ea 05:43 Condition: stable 05:44 Patient left the ED. ea Signatures: Dispatcher [employer] EDMS Rl Grove MD MD cha Antunez, Elena, RN RN Gem Lofton ag3
--- NOTE | 2019-09-15 05:06 | EDPHYS ---
Physician Documentation [facility] Name: Charley Wells Age: 28 yrs Sex: Female : 1990 Arrival Date: 09/15/2019 Time: 02:57 Bed 5 Private MD: MARGARET Physician Rl Grove HPI: 09/15 03:15 This 28 yrs old Female presents to ER via Ambulatory with complaints of Flu paulina Symptoms. 03:15 The patient presents with pelvic pain, that is located in/on the right lower quadrant paulina and left lower quadrant. Onset: The symptoms/episode began/occurred 2 day(s) ago. Modifying factors: The symptoms are alleviated by. Associated signs and symptoms: The patient has no apparent associated signs or symptoms. Severity of symptoms: At their worst the symptoms were mild, moderate, in the emergency department the symptoms are unchanged. The patient is sexually active, reportedly has a single partner. 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 - Coronavirus screen:: The patient has NOT traveled to [place] in the past 14 days. - Social history:: Smoking status: Patient denies any tobacco usage or history of. - Family history:: not pertinent. - Ebola Screening: : No symptoms or risks identified at this time. ROS: 03:15 Constitutional: Negative for fever, chills, and weight loss, Eyes: Negative for injury, paulina pain, redness, and discharge, ENT: Negative for injury, pain, and discharge, Neck: Negative for injury, pain, and swelling, Cardiovascular: Negative for chest pain, palpitations, and edema, Respiratory: Negative for shortness of breath, cough, wheezing, and pleuritic chest pain, Back: Negative for injury and pain, : Negative for injury, bleeding, discharge, and swelling, MS/Extremity: Negative for injury and deformity, Skin: Negative for injury, rash, and discoloration, Neuro: Negative for headache, weakness, numbness, tingling, and seizure, Psych: Negative for depression, anxiety, suicide ideation, homicidal ideation, and hallucinations, Allergy/Immunology: Negative for hives, rash, and allergies, Endocrine: Negative for neck swelling, polydipsia, polyuria, polyphagia, and marked weight changes. 03:15 Abdomen/GI: Positive for abdominal pain. Exam: 03:15 Constitutional: This is a well developed, well nourished patient who is awake, alert, paulina and in no acute distress. Head/Face: Normocephalic, atraumatic. Eyes: Pupils equal round and reactive to light, extra-ocular motions intact. Lids and lashes normal. Conjunctiva and sclera are non-icteric and not injected. Cornea within normal limits. Periorbital areas with no swelling, redness, or edema. ENT: Nares patent. No nasal discharge, no septal abnormalities noted. Tympanic membranes are normal and external auditory canals are clear. Oropharynx with no redness, swelling, or masses, exudates, or evidence of obstruction, uvula midline. Mucous membranes moist. Neck: Trachea midline, no thyromegaly or masses palpated, and no cervical lymphadenopathy. Supple, full range of motion without nuchal rigidity, or vertebral point tenderness. No Meningismus. Chest/axilla: Normal chest wall appearance and motion. Nontender with no deformity. No lesions are appreciated. Cardiovascular: Regular rate and rhythm with a normal S1 and S2. No gallops, murmurs, or rubs. Normal PMI, no JVD. No pulse deficits. Respiratory: Lungs have equal breath sounds bilaterally, clear to auscultation and percussion. No rales, rhonchi or wheezes noted. No increased work of breathing, no retractions or nasal flaring. Abdomen/GI: Soft, non-tender, with normal bowel sounds. No distension or tympany. No guarding or rebound. No evidence of tenderness throughout. Back: No spinal tenderness. No costovertebral tenderness. Full range of motion. Skin: Warm, dry with normal turgor. Normal color with no rashes, no lesions, and no evidence of cellulitis. MS/ Extremity: Pulses equal, no cyanosis. Neurovascular intact. Full, normal range of motion. Neuro: Awake and alert, GCS 15, oriented to person, place, time, and situation. Cranial nerves II-XII grossly intact. Motor strength 5/5 in all extremities. Sensory grossly intact. Cerebellar exam normal. Normal gait. Psych: Awake, alert, with orientation to person, place and time. Behavior, mood, and affect are within normal limits. Vital Signs: 03:08 BP 126 / 70; Pulse 98; Resp 18; Temp 97.2(TE); Pulse Ox 98% ; Weight 72.57 kg; Height 5 ea ft. 6 in. (167.64 cm); 04:27 BP 91 / 55; Pulse 80; Resp 18; Pulse Ox 99% ; ea 05:44 BP 99 / 67; Pulse 80; Resp 18; Pulse Ox 98% on R/A; ea 03:08 Body Mass Index 25.82 (72.57 kg, 167.64 cm) ea MDM: 03:03 Patient medically screened. [facility] 03:21 Data reviewed: vital signs, nurses notes, lab test result(s), radiologic studies, paul[place] ultrasound. 09/15 03:14 Order name: Quantitative Hcg; Complete Time: 05:01 [facility] 09/15 03:14 Order name: Abo/rh Typing; Complete Time: 05:01 [facility] 09/15 03:14 Order name: Basic Metabolic Panel; Complete Time: 05:01 [facility] 09/15 03:14 Order name: CBC with Diff; Complete Time: 05:01 [facility] 09/15 03:23 Order name: Urine Dipstick--Ancillary (enter results); Complete Time: 05:01 cm6 09/15 03:23 Order name: Urine --Ancillary (enter results); Complete Time: 05:01 cm6 09/15 03:14 Order name: Urine Test (obtain specimen); Complete Time: 04:22 [facility] 09/15 03:14 Order name: IV Saline Lock; Complete Time: 04:26 [facility] 09/15 03:14 Order name: Labs collected and sent; Complete Time: 04: [facility] 09/15 03:14 Order name: NPO; Complete Time: 04: [facility] 09/15 03:14 Order name: Urine Dipstick-Ancillary (obtain specimen); Complete Time: 04: [facility] 09/15 03:14 Order name: US Transvaginal Ob [facility] Administered Medications: 03:50 Drug: NS 0.9% 1000 ml Route: IV; Rate: 1 bolus; Site: right antecubital; ea 05:42 Follow up: Response: No adverse reaction; IV Status: Completed infusion; IV Intake: ea 700ml 05:32 Drug: Rocephin 1 grams Route: IV; Rate: per protocol; Site: right antecubital; ea 05:42 Follow up: Response: No adverse reaction; IV Status: Completed infusion ea Disposition: 09/15/19 05:05 Discharged to Home. Impression: Weakness, related conditions, unspecified, first trimester, related exhaustion and fatigue, first trimester, Pelvic and perineal pain, Urinary tract infection, site not specified. - Condition is Stable. - Discharge Instructions: Dysuria, Weakness, First Trimester of , [id number]-[id number], Fatigue, First Trimester of , Weakness, [id number]-[id number], Pelvic Rest. - Prescriptions for Vitamin 27- 0.8 mg Oral Tablet - take 1 tablet by ORAL route once daily; 30 tablet. Macrobid 100 mg Oral Capsule - take 1 capsule by ORAL route every 12 hours for 7 days; 14 capsule. - Medication Reconciliation Form, Thank You Letter, Antibiotic Education, Prescription Opioid Use form. - Follow up: Private Physician; When: 2 - 3 days; Reason: Recheck today's complaints, Continuance of care, Re-evaluation by your physician. - Problem is new. - Symptoms have improved. Signatures: Dispatcher [employer] EDRl Haque MD MD cha Antunez, Elena RN RN yeni Corrections: (The following items were deleted from the chart) 05:06 05:05 09/15/2019 05:05 Discharged to Home. Impression: Weakness; related paulina conditions, unspecified, first trimester; related exhaustion and fatigue, first trimester; Pelvic and perineal pain. Condition is Stable. Discharge Instructions: Weakness, First Trimester of , [id number], Fatigue, First Trimester of , Weakness, [id number], Pelvic Rest. Prescriptions for Vitamin 27-0.8 mg Oral Tablet - take 1 tablet by ORAL route once daily; 30 tablet. and Forms are Medication Reconciliation Form, Thank You Letter, Antibiotic Education, Prescription Opioid Use. Follow up: Private Physician; When: 2 - 3 days; Reason: Recheck today's complaints, Continuance of care, Re-evaluation by your physician. Problem is new. Symptoms have improved. paulina 05:44 05:06 09/15/2019 05:05 Discharged to Home. Impression: Weakness; related ea conditions, unspecified, first trimester; related exhaustion and fatigue, first trimester; Pelvic and perineal pain; Urinary tract infection, site not specified. Condition is Stable. Discharge Instructions: Weakness, First Trimester of , [id number], Fatigue, First Trimester of , Weakness, Cafi-mu-Dkwz, Pelvic Rest. Prescriptions for Vitamin 27-0.8 mg Oral Tablet - take 1 tablet by ORAL route once daily; 30 tablet. and Forms are Medication Reconciliation Form, Thank You Letter, Antibiotic Education, Prescription Opioid Use. Follow up: Private Physician; When: 2 - 3 days; Reason: Recheck today's complaints, Continuance of care, Re-evaluation by your physician. Problem is new. Symptoms have improved. paulina
[2019-09-15] MEDS ORDERED: CEFTRIAXONE/SWI 1gm 1 GM/10 ML SYR ONE (05:32)
[2019-09-15 07:27] VITALS: TEMP 97.2
[2019-09-15 07:28] VITALS: BP 91/55; O2SAT 99
--- NOTE | 2019-09-15 08:46 | RAD REPORT ---
EXAM DESCRIPTION: US - Transvaginal OB - 09/15/2019 7:08 am CLINICAL HISTORY: ABD CRAMPING, COMPARISON: No comparisons FINDINGS: The uterus measures 6.5 x 5.0 x 4.8 cm. Endometrial thickness is 15 mm without evidence of IUP. The maternal adnexa and left ovary are within normal limits. Normal Doppler blood flow was demonstrat ed to the left ovary. The right ovary was obscured by bowel gas. No pelvic ascites. IMPRESSION: Thickened endometrial stripe is seen without evidence of a gestational sac. In the setti ng of an elevated HCG level, this would be compatible with of unknown location. Advise seri al HCG measurements and follow-up ultrasound in 10-12 days.
== END 2019-09-15 05:44 | disposition home or self-care (01) ==
LOC: ER 02:49
DX: O23.41 Unspecified infection of urinary tract in pregnancy, first trimester (principal); O26.811 Pregnancy related exhaustion and fatigue, first trimester
CPT/HCPCS: 96361; 85025; 80048; 36415; 86900; 81025; 86901; 84702; 81003; 76817; 96374; 99284; J0696; J7030

== ENCOUNTER 2019-09-28 00:54 | Emergency (ER) | payer OTHER ==
--- OUTSIDE RECORDS SUMMARY | 2019-09-28 01:09 | XMS REPORT ---
:1990 Author Organization [facility] Address [address] [place] [address] Care Team Providers Name Role Phone VAHE, DR JACKSON Unavailable Unavailable ESCOBAR, DR PARKER Unavailable Unavailable FUENTES, DR GERALDO Stout Unavailable [...] Date/Time Type Type Clinicians Facility Department ID 2019-09-18 2019-09-20 Emergency E MANUEL COT[facility] [id number] 23:34:00 01:55:00 2019-03-07 2019-03-07 Emergency E ELENA CODY [facility] [id number] 03:26:00 06:00:00 2018-11-13 2018-11-13 Emergency E [facility]UEL [facility] [id number] 02:44:00 04:14:00 2018-11-04 2018-11-04 Emergency E [facility] [id number] 08:04:00 08:04:00 2018-10-22 2018-10-22 Emergency E GERALDO DILL [facility] [id number] 10:10:00 13:01:00 2018-10-19 2018-10-19 Emergency E GERALDO DILL [facility] [id number] 15:20:00 18:15:00 2018-10-06 2018-10-06 Emergency E MILENA [facility] [id number] 12:53:00 14:15:00 DANIELLE 2018-09-11 2018-09-11 Emergency E SUE [facility] [id number] 13:37:00 17:15:00 NICANOR JASWANT 2018-09-09 2018-09-09 Emergency E MERCEDES [facility] [id number] 12:45:00 16:45:00 ABDIAS 2018-08-17 2018-08-17 Emergency E GERALDO DILL [facility] [id number] 01:32:00 04:20:00 2018-07-28 2018-07-28 Outpatient E DOMINIK [facility] TELE [id number] 06:49:00 16:28:00 NATE 2018-06-19 2018-06-19 Emergency E ZARIA [facility] [id number] 17:59:00 19:07:00 KIMMY 2018-05-21 2018-05-21 Emergency E ZARIA, [facility] [id number] 17:21:00 20:22:00 KIMMY 2018-05-10 2018-05-10 Emergency E ROSA, [facility] [id number] 12:36:00 16:00:00 GLORY 2018-05-01 2018-05-01 Emergency E GERALDO DILL [facility] [id number] 01:08:00 03:19:00 2018-04-05 2018-04-05 Emergency E GERALDO DILL [facility] [id number] 14:18:00 17:55:00 2018-02-24 2018-02-24 Emergency E ARIE, [facility] [id number] 03:20:00 05:50:00 SERGEY 2017-11-22 2017-11-22 Emergency E MERCEDES, [facility] [id number] 06:21:00 11:45:00 ABDIAS 2017-08-20 2017-08-20 Emergency E FUENTES, [facility] [id number] 08:47:00 09:45:00 RADHA 2017-08-15 2017-08-15 Emergency E SEAN, [facility] [id number] 00:28:00 02:58:00 ALISE 2017-06-21 2017-06-21 Emergency E JOSS, [facility] [id number] 14:26:00 18:19:00 ROBBY Results Test Description Test Time Test Comments Text Results Atomic Results Result Comments BETA HCG QUANTITATIVE SERUM 2019-09-19 00:51:00 Test Item Value Reference Range Comments BHCG QUANT (test code=A17) 1354.00 mIU/mL BHCGQ (test code=BHCQ) QUANTITATIVE BHCG RESULT INTERPRETATION APPROXIMATE APPROXIMATE GESTATIONAL AGE HCG RANGE (WEEKS) (mIU/mL) 0.2 - 1 5 - 50 1 - 2 50 - 500 2 - 3 100 - 5,000 3 - 4 500 - 10,000 4 - 5 1,000 - 50,000 5 - 6 10,000 - 100,000 6 - 8 15,000 - 200,000 8 - 12 10,000 - 100,000 COMPREHENSIVE METABOLIC [id number] 00:51:00 Test Item Value Reference Range Comments GLUCOSE (test code=06D) 85 mg/dL 75-100 SODIUM (test code=01A) 139 mmol/L 136-145 POTASSIUM (test code=01B) 3.7 mmol/L 3.6-5.1 CHLORIDE (test code=04A) 110 mmol/L 98-107 CO2 (test code=02A) 24 mmol/L 22-32 ANION GAP (test code=ANG) 8.7 mmol/L BUN (test code=05D) 13 mg/dL 7-18 CREATININE (test code=03E) 0.7 mg/dL 0.4-1.1 GFR (test code=GFR) 119 mL/min/1.73m\\S\\2 >=90 GFR (test 138 mL/min/1.73m\\S\\2 >=90 code=GFRAA) EGFR (test code=EGFR) eGFR BY CKD-EPI CALCULATION IS NOT RECOMMENDED FOR PATIENTS UNDER 18 YEARS OF AGE. BUN/CREA (test code=BCR) 19 12-20 CALCIUM (test code=09D) 8.5 mg/dL 8.3-9.5 BILI TOTAL (test code=11A) 0.2 mg/dL 0.2-1.0 PROTEIN (test code=07D) 7.7 g/dL 6.4-8.2 ALBUMIN (test code=08D) 3.7 g/dL 3.5-4.8 GLOBULIN (test code=GLB) 4.0 g/dL 1.5-3.8 ALB/GLOB (test code=AGRR) 0.9 1.0-2.6 ALK PHOS (test code=35A) 97 IU/L 42-121 AST (test code=30A) 12 IU/L <=42 ALT (test code=31A) 9 IU/L <=78 PRO TIME AND [id number] 00:37:00 Test Item Value Reference Range Comments PT (test code=TT) 12.4 s 9.8-13.6 INR (test code=INR) 1.1 INRH (test code=INRH) SUGGESTED THERAPEUTIC RANGE FOR INR: 2.5 - 3.5 For Patients with Prosthetic Valves or Patients with recurrent Thromboembolic Events 2.0 - 3.0 For Most Other Applications PTT (test code=PTT) 33.2 s 20.2-38.0 PTTH (test code=PTTH) To monitor the effectiveness of heparin, we offer the Anti-Xa (Heparin Assay). It can be used for either unfractionated or LMW Heparin. Order Code is ANTI-XA CBC (INCLUDES AUTOMATED DIFFERENTIAL)2019-09-19 00:31:00 Test Item Value Reference Range Comments WBC (test code=WBC) 7.2 10\\S\\3/uL 4.5-11.0 RBC (test code=RBC) 3.90 10\\S\\6/uL 4.30-5.70 HGB (test code=HBG) 8.8 g/dL 12.0-15.5 HCT (test code=HCT) 29.1 % 35.0-44.0 MCV (test code=MCV) 74.6 fL 81.0-99.0 MCH (test code=MCH) 22.6 pg 27.0-31.0 MCHC (test code=MCHC) 30.2 g/dL 32.0-36.0 RDW (test code=RDW) 17.2 % 11.5-14.5 PLT (test code=PLT) 249 10\\S\\3/uL 130-400 MPV (test code=MPV) 10.9 fL 9.4-12.4 NEUTROP # (test code=NE#) 4.4 10\\S\\3/uL 1.6-8.0 LYMPH # (test code=LY#) 1.9 10\\S\\3/uL 1.1-3.5 MONOCYTE # (test code=MO#) 0.7 10\\S\\3/uL 0.0-1.1 EOSINOPH # (test code=EO#) 0.2 10\\S\\3/uL 0.0-0.7 BASOPHIL # (test code=BA#) 0.1 10\\S\\3/uL 0.0-0.3 IG # (test code=IG#) 0.02 10\\S\\3/uL 0.00-0.06 NRBC # (test code=NRBC#) 0.00 10\\S\\3/uL 0.00-0.01 NEUTROPH % (test code=NE%) 60.7 % 35.0-73.0 LYMPH % (test code=LY%) 26.2 % 20.0-55.0 MONO % (test code=MO%) 9.9 % 2.5-10.0 EOSINOPH % (test code=EO%) 2.2 % 0.0-5.0 BASOPHIL % (test code=BA%) 0.7 % 0.0-2.0 IG % (test code=IG%) 0.3 % 0.0-0.8 NRBC% (test code=NRBC%) 0.0 % 0.0-0.2 MANDIFF (test code=MDIFF) NO NO RBC MORPH (test code=RBCMOR) NORMAL [id number] 00:31:00 Test Item Value Reference Range Comments COLOR (test code=COLU) YELLOW YELLOW CLARITY (test code=CLA) CLEAR CLEAR GLUCOSE UR (test code=UA GLUCOSE) NEGATIVE NEGATIVE BILI UR (test code=BILE) NEGATIVE NEGATIVE KETONES UR (test code=KARSON) NEGATIVE NEGATIVE SP GRAVITY (test code=SPGR) 1.008 1.005-1.030 PH UR (test code=PH) 6.0 4.5-8.0 PROTEIN UR (test code=PU) NEGATIVE NEGATIVE UROBIL UR (test code=UROQ) 0.2 EU/dL 0.2-1.0 NITRITE UR (test code=NITRITE) NEGATIVE NEGATIVE BLOOD UR (test code=UA BLOOD) NEGATIVE NEGATIVE LEUK ES UR (test code=LEUK) NEGATIVE NEGATIVE URINE [id number] 00:25:00 Test Item Value Reference Range Comments PREG UR (test code=PGU) POSITIVE NEGATIVE CT NECK [id number] 05:21:32HISTORY: Neck swellingTechnique: Axial tomograms through the neck were obtained after intravenouscontrast. Dose reduction techniques were utilized in compliance with ACR imagewisely.Location: C3 FINDINGS:The visualized aerodigestive tract is within normal limits. No peritonsillar orparapharyngeal massor fluid collection. The parotid glands and submandibularglands as well as thyroid gland show no significant abnormalities. No softtissue mass or fluid collection.Scattered small lymph nodes are present along the jugular chains bilaterally.No acute osseous abnormalities demonstrated.IMPRESSION:1. No soft tissue mass or fluid collection. No other acute abnormalities.T4 [id number] 04:37:00 Test Item Value Reference Range Comments T4 FREE (test code=A91) 1.12 ng/dL 0.76-1.46 THYROID PANEL/SCREEN (TSH)2019-03-07 04:27:00 Test Item Value Reference Range Comments TSH (test code=A57) 5.350 uIU/mL 0.358-3.740 CBC WITH [id number] 04:16:00 Test Item Value Reference Range Comments [...] code=PLTMOR) NORMAL (1.5-3 um) NORMAL AMYLASE AND [id number] 04:13:00 Test Item Value Reference Range Comments AMYLASE (test code=10A) 50 U/L 28-100 LIPASE (test code=60A) 87 IU/L 73-393 COMPREHENSIVE METABOLIC [id number] 04:13:00 Test Item Value Reference Range Comments [...] <=42 ALT (test code=31A) 8 IU/L <=78 [id number] 04:08:00 Test Item Value Reference Range Comments MAGNESIUM (test code=48A) 1.9 mg/dL 1.8-2.4 SERUM [id number] 04:08:00 Test Item Value Reference Range Comments PREG SRM (test code=PGS) NEGATIVE NEGATIVE LIVER [id number] 04:00:00 Test Item Value Reference Range Comments [...] (test code=31A) 9 IU/L <=78 AMYLASE AND [id number] 03:24:00 Test Item Value Reference Range Comments AMYLASE (test code=10A) 48 U/L 28-100 LIPASE (test code=60A) 122 IU/L 73-393 BASIC METABOLIC [id number] 03:23:00 Test Item Value Reference Range Comments [...] (test code=09D) 8.8 mg/dL 8.3-9.5 URINALYSIS WITH [id number] 03:20:00 Test Item Value Reference Range Comments [...] SPERM UR (test code=USPERM) /HPF NONE SERUM [id number] 03:18:00 Test Item Value Reference Range Comments [...] code=RBCMOR) NORMAL CT ABDOMEN AND PELVIS WITH [id number] 12:25:13CT abdomen and pelvis with contrastLocation Code: [id number] HISTORY: Lower abdominal painCOMPARISON: 09/11/2018Technique: Helical CT [...] acute intra- abdominal or pelvic abnormality.AMYLASE AND [id number] 11:44:00 Test Item Value Reference Range Comments AMYLASE (test code=10A) 41 U/L 28-100 LIPASE (test code=60A) 76 IU/L 73-393 COMPREHENSIVE METABOLIC [id number] 11:44:00 Test Item Value Reference Range Comments [...] code=31A) 23 IU/L <=78 PRO TIME AND [id number] 11:41:00 Test Item Value Reference Range Comments [...] LMW Heparin. Order Code is ANTI-XA SERUM [id number] 11:39:00 Test Item Value Reference Range Comments PREG SRM (test code=PGS) NEGATIVE NEGATIVE [id number] 11:39:00 Test Item Value Reference Range Comments MAGNESIUM (test code=48A) 2.1 mg/dL 1.8-2.4 OCCULT [id number] 11:28:00 Test Item Value Reference Range Comments [...] RBC MORPH (test code=RBCMOR) NORMAL DRUGS OF [id number] 17:34:00 Test Item Value Reference Range Comments [...] Barbiturates 200 ng/mL Opiates 2000 ng/mL U/S [id number] 17:32:02PELVIC ULTRASOUND:Location code: [id number] HISTORY : [id number]: Acute pelvic painComparison: NoneTECHNIQUE: Transabdominal sonography of the pelvis was performed. The patientrefused transvaginal scan..FINDINGS: The uterus is uniform in echogenicity measuring 7.8 x 83.7 x 6.9 cm. The endometrium is poorly visualized. The bilateral ovaries are nonvisualized. There is no adnexal mass or freefluid.IMPRESSION:No visualized acute abnormality on limited examination.COMPREHENSIVE METABOLIC [id number] 16:53:00 Test Item Value Reference Range Comments [...] (test code=31A) 21 IU/L <=78 AMYLASE AND [id number] 16:47:00 Test Item Value Reference Range Comments AMYLASE (test code=10A) 45 U/L 28-100 LIPASE (test code=60A) 47 IU/L 73-393 SERUM [id number] 16:46:00 Test Item Value Reference Range Comments PREG SRM (test code=PGS) NEGATIVE NEGATIVE [id number] 16:39:00 Test Item Value Reference Range Comments [...] MANDIFF (test code=MDIFF) NO NO CBC WITH [id number] 13:43:00 Test Item Value Reference Range Comments [...] POLYCHROM (test code=POLY) 1+ NONE BASIC METABOLIC [id number] 13:40:00 Test Item Value Reference Range Comments [...] 12-20 CALCIUM (test code=09D) 8.8 mg/dL 8.3-9.5 [id number] 13:30:00 Test Item Value Reference Range Comments [...] ES UR (test code=LEUK) NEGATIVE NEGATIVE URINE [id number] 13:30:00 Test Item Value Reference Range Comments PREG UR (test code=PGU) NEGATIVE NEGATIVE CT ABDOMEN AND PELVIS W/O [id number] 15:32:22CT abdomen and pelvis without contrastLocation Code: [id number] HISTORY: Pain in pelvisCOMPARISON: Technique: Helical CT [...] no acute intra-abdominal or pelvic abnormality.URINALYSIS WITH [id number] 14:45:00 Test Item Value Reference Range Comments [...] SPERM UR (test code=USPERM) /HPF NONE URINE [id number] 14:40:00 Test Item Value Reference Range Comments PREG UR (test code=PGU) NEGATIVE NEGATIVE DIRECT STREP GROUP [id number] 10:48:00 Test Item Value Reference Range Comments Culture Observations (test NO BETA HEMOLYTIC code=COB1) STREPTOCOCCUS ISOLATED Direct Exam (test code=DE1) NO STREPTOCOCCUS GROUP A ANTIGEN DETECTED COMPREHENSIVE METABOLIC [id number] 23:46:00 Test Item Value Reference Range Comments [...] (test code=ALKP) 118 units/L 46-116 CBC W/AUTO [id number] 23:30:00 Test Item Value Reference Range Comments [...] (test code=PLTMR) NORMAL NORMAL INFLUENZA A B [id number] 23:18:00 Test Item Value Reference Range Comments INFLUENZA A PCR (test POSITIVE NEGATIVE RESULTS CALLED TO GENI.READ code=FLUAPCR) BACK & CONFIRMED? Y.BY F.LAB.LGL0 09/09/18 2317. INFLUENZA B PCR (test NEGATIVE NEGATIVE code=FLUBPCR) UA RFLX MICR CULT IF [id number] 22:36:00 Test Item Value Reference Range Comments [...] (test code=MUCU) RARE NONE SEEN UR HCG [id number] 22:36:00 Test Item Value Reference Range Comments UR HCG QUAL (test NEGATIVE 1. Very dilute urine specimens, as code=HCGQLU) indicated by a lowspecific gravity, may not contain commercial representative levels ofhCG. 2. False negative results may occur when the levels of hCGare below the sensitivity level of the test. If is still suspected, a first morningurine specimen should be collected 48 hours later andtested. UA RFLX MICR CULT IF [id number] 22:33:00 Test Item Value Reference Range Comments [...] CELLS (test code=EPIU) #/HPF RARE-FEW UR HCG [id number] 22:33:00 Test Item Value Reference Range Comments UR HCG QUAL (test NEGATIVE 1. Very dilute urine specimens, as code=HCGQLU) indicated by a lowspecific gravity, may not contain commercial representative levels ofhCG. 2. False negative results may occur when the levels of hCGare below the sensitivity level of the test. If is still suspected, a first morningurine specimen should be collected 48 hours later andtested. U/S [id number] 15:54:21PELVIC ULTRASOUND:Location code: F7YBRYZCSC HISTORY : lower abdominal pain, 4cm ovarian [...] torsion.2. Nonvisualization of the right ovary.U/S NON [id number] 15:54:21PELVIC ULTRASOUND: Location code: W8DLFUGMXO HISTORY: lower abdominal pain, 4cm ovarian cyst [...] torsion.2. Nonvisualization of the right ovary.URINALYSIS WITH [id number] 15:27:00 Test Item Value Reference Range Comments [...] /HPF NONE CT ABDOMEN AND PELVIS WITH [id number] 14:44:45CT abdomen and pelvis with contrastLocation Code: Y2DCVJUZWF HISTORY: 2 days post laparoscopy with abd [...] cyst.2. Otherwise, no acute abnormality.XR CHEST 2 [id number] 14:10:17PA and lateral chest, 2 viewsLocation code: T8FNLZQJZN HISTORY: CoughCOMPARISON: 06/07/2016COMMENTS:The lungs are clear and well inflated. The costophrenic angles aresharp. The cardiomediastinal silhouette is unremarkable. The bones are intact.IMPRESSION: Stable chest with no acute abnormalityAMYLASE AND [id number] 14:07:00 Test Item Value Reference Range Comments AMYLASE (test code=10A) 34 U/L 28-100 LIPASE (test code=60A) 45 IU/L 73-393 COMPREHENSIVE METABOLIC [id number] 14:07:00 Test Item Value Reference Range Comments [...] code=31A) 23 IU/L <=78 PRO TIME AND [id number] 14:00:00 Test Item Value Reference Range Comments [...] LMW Heparin. Order Code is ANTI-XA SERUM [id number] 13:59:00 Test Item Value Reference Range Comments [...] code=RBCMOR) NORMAL DIRECT INFLUENZA A AND B [id number] 13:24:00 Test Item Value Reference Range Comments Direct Exam (test code=DE1) PRESUMPTIVE NEGATIVE FOR THE PRESENCE OF INFLUENZA ANTIGEN PERITONEUM,[id number] 14:26:00 RUN DATE: 09/07/18 [facility] PAGE 1 RUN TIME: 1455 Specimen Inquiry RUN USER: INTERFACE PATIENT: TOBY BEDOYA LOC: U #: [id number] AGE/SX: 27/F ROOM: [facility] RE09/04/18REG DR: Ganga Payne MD : 89 BED: A DIS: STATUS: DIS Wilver TLOC: ----- ------- SPEC #: [id number] RECD: 09/04/18 STATUS: BRUCE TERRY #: [id number] CHACHO: 09/04/18- SUBM DR: Ganga Payne MD ENTERED: 09/05/18 SP TYPE: PERITBX OTHR DR: ORDERED: LEVEL IV CODES: AE3475 - PERITONEUM, NOS PROCEDURES: LEVEL IV (Incomplete) TISSUES: PERITONEUM, NOS - SIDEWALL CLINICAL HISTORY 27 year old, chronic pelvic pain, ovary cyst, endometriosis (kr) FINAL DIAGNOSIS Tissue from sidewall, laterality undesignated: - benign cysts lined by tubal epithelial consistent with benign paratubal cysts (2) Tissue code 1 CPT code(s): 06790 cds/kr dt: 09/07/18 GROSS DESCRIPTION ANATOMICSOURCE OF TISSUE (per Requisition): Sidewall The specimen is received in a formalin-filled container, labeled with the patient's name and designated "possible endometriosis sidewall". The specimen consists of a 0.5 cm portion of elizabeth tissue and is submitted in one cassette. /kr 09/04/18 @7466 MICROSCOPIC DESCRIPTION Two benign paratubal cysts are present. No endometriosis perse is identified. cds/kr dt: 09/07/18------ ------ Signed Jay Corrales 1426 END OF REPORT HCG SERUM [id number] 20:10:00 Test Item Value Reference Range Comments HCG SERUM QUAL (test code=HCGQL) NEGATIVE CBC W/AUTO [id number] 19:43:00 Test Item Value Reference Range Comments [...] MORPHOLOGY REQUIRED NORMAL NORMAL (test code=PLTMR) URINALYSIS [id number] 19:35:00 Test Item Value Reference Range Comments [...] SAMPLE: CLEAN CATCHU/S, PELVIS, WITH ENDOVAG AND [id number] 05:32: 00Reason for exam:->right lower quadrant painShould [...] MDReport Verified Date/Time: 08/21/2018 05:32:26 Reading Location: [facility] C013 Neuro Reading Room BASIC METABOLIC [id number] 03:50:00 Test Item Value Reference Range Comments SODIUM (BEAKER) (test 140 meq/L 135-148 owhb=787) POTASSIUM (BEAKER) (test 4.0 meq/L 3.6-5.5 ylqk=479) CHLORIDE (BEAKER) (test 108 meq/L 98-106 sppd=773) CO2 (BEAKER) (test 23 meq/L 20-29 solr=595) BLOOD UREA NITROGEN 12 mg/dL 10-26 (BEAKER) (test iwwy=639) CREATININE (BEAKER) (test 0.71 mg/dL 0.50-1.20 zbto=774) GLUCOSE RANDOM (BEAKER) 87 mg/dL 70-110 (test uqdm=525) CALCIUM (BEAKER) (test 8.8 mg/dL 8.5-10.5 baxz=406) EGFR (BEAKER) (test 100 mL/min/1.73 sq m ESTIMATED GFR IS NOT wgmo=5029) ACCURATE CREATININE CLEARANCE IN PREDICTING GLOMERULAR FILTRATION RATE. ESTIMATED GFR IS NOT APPLICABLE FOR DIALYSIS PATIENTS. CBC W/PLT COUNT & AUTO [id number] 03:44:00 Test Item Value Reference Range Comments WHITE BLOOD CELL COUNT (BEAKER) (test fjvh=559) 7.2 K/ L 4.0-10.0 RED BLOOD CELL COUNT (BEAKER) (test ydnj=299) 4.11 M/ L 4.00-5.00 HEMOGLOBIN (BEAKER) (test xtge=763) 8.9 GM/DL 12.0-15.5 HEMATOCRIT (BEAKER) (test cxlc=394) 30.7 % 36.0-46.0 MEAN CORPUSCULAR VOLUME (BEAKER) (test ngrn=475) 74.7 fL 82.0-99.0 MEAN CORPUSCULAR HEMOGLOBIN (BEAKER) (test 21.7 pg 27.0-33.0 jyhe=019) MEAN CORPUSCULAR HEMOGLOBIN CONC (BEAKER) (test 29.0 GM/DL 32.0-36.0 ncjf=640) RED CELL DISTRIBUTION WIDTH (BEAKER) (test 17.9 % 12.0-15.0 mzua=567) PLATELET COUNT (BEAKER) (test hkhp=143) 242 K/CU MM 150-430 MEAN PLATELET VOLUME (BEAKER) (test rulk=457) 11.8 fL 6.0-11.5 NUCLEATED RED BLOOD CELLS (BEAKER) (test 0 /100 WBC 0-0 mpct=548) NEUTROPHILS RELATIVE PERCENT (BEAKER) (test 57 % rziu=419) LYMPHOCYTES RELATIVE PERCENT (BEAKER) (test 31 % cpto=542) MONOCYTES RELATIVE PERCENT (BEAKER) (test 8 % khwk=242) EOSINOPHILS RELATIVE PERCENT (BEAKER) (test 3 % ibma=149) BASOPHILS RELATIVE PERCENT (BEAKER) (test 1 % scru=636) NEUTROPHILS ABSOLUTE COUNT (BEAKER) (test 4.11 K/ L 1.80-8.00 ttoj=695) LYMPHOCYTES ABSOLUTE COUNT (BEAKER) (test 2.22 K/ L 1.48-4.50 sill=295) MONOCYTES ABSOLUTE COUNT (BEAKER) (test 0.60 K/ L 0.00-1.30 guzs=202) EOSINOPHILS ABSOLUTE COUNT (BEAKER) (test 0.24 K/ L 0.00-0.50 kjos=113) BASOPHILS ABSOLUTE COUNT (BEAKER) (test 0.05 K/ L 0.00-0.20 nntf=441) IMMATURE GRANULOCYTES-RELATIVE PERCENT (BEAKER) 0 % 0-0 (test nzzy=2826) URINALYSIS W/ [id number] 03:31:00 Test Item Value Reference Range Comments COLOR (BEAKER) (test wvhi=797) Yellow CLARITY (BEAKER) (test ozjp=009) Slightly Cloudy SPECIFIC GRAVITY UA (BEAKER) (test hhqs=299) 1.015 1.001-1.035 PH UA (BEAKER) (test ivpb=953) 6.5 5.0-8.0 PROTEIN UA (BEAKER) (test wlpu=120) Negative Negative GLUCOSE UA (BEAKER) (test znju=436) Negative Negative KETONES UA (BEAKER) (test iesz=491) Negative Negative BILIRUBIN UA (BEAKER) (test zlho=150) Negative Negative BLOOD UA (BEAKER) (test rgwa=245) Negative Negative NITRITE UA (BEAKER) (test ehtn=101) Negative Negative LEUKOCYTE ESTERASE UA (BEAKER) (test Moderate Negative gnbj=897) UROBILINOGEN UA (BEAKER) (test sqoo=746) 0.2 mg/dL 0.2-1.0 BACTERIA (BEAKER) (test iqqv=408) Few RBC UA-MANUAL (BEAKER) (test edbl=8276) <5 /HPF WBC UA-MANUAL (BEAKER) (test vnes=9087) 10-20 /HPF SQUAMOUS EPITHELIAL MANUAL (BEAKER) (test 10-20 /HPF owue=6371) SOURCE(BEAKER) (test nokk=7391) SCREEN, [id number] 03:25:00 Test Item Value Reference Range Comments TEST URINE (BEAKER) (test bcmr=381) Negative U/S [id number] 03:53:09AFTER HOURS SERVICE ON: 08/17/2018 3:51 AMPelvic UltrasoundLocation Code A91Npkszbn: pelvic painTRANSABDOMINAL ScanTechnique: Longitudinal and transverse real-time [...] Thereis no free fluid. Impression:Unremarkable ultrasound.DRUGS OF [id number] 02:28:00 Test Item Value Reference Range Comments [...] 200 ng/mL Opiates 2000 ng/mL AMYLASE AND [id number] 02:27:00 Test Item Value Reference Range Comments AMYLASE (test code=10A) 62 U/L 28-100 LIPASE (test code=60A) 112 IU/L 73-393 COMPREHENSIVE METABOLIC [id number] 02:27:00 Test Item Value Reference Range Comments [...] (test code=31A) 15 IU/L <=78 URINALYSIS WITH [id number] 02:26:00 Test Item Value Reference Range Comments [...] SPERM UR (test code=USPERM) /HPF NONE SERUM [id number] 02:24:00 Test Item Value Reference Range Comments [...] MORPH (test code=RBCMOR) NORMAL DIRECT CHLAMYDIA EXAM 2018-07-31 10:12:00 Test Item Value Reference Range Comments CHLAMYDIA TRACHOMATIS NOT DETECTED NOT DETECTED (test qily=18411304) NEISSERIA GONORRHOEAE NOT DETECTED NOT DETECTED (test sbxd=[id number]) Endnote (test This test was performed using kbne=[id number]) the APTIMA COMBO2 Assay([employer]The analytical performance characteristics of thisassay, when used to test SurePath specimens havebeen determined by [employer].TEST PERFORMED AT:[facility] [address] [id number] TALLEY M.D. HEPATITIS C ANTIBODY *WW*2018-07-29 00:07:00 [...] and without contrastHistory: Pain with thickened endometriumLocation: A3Sicrmwlek: High-resolution multiplanar multiecho imaging of the pelvis wasperformed with and oaisjfh82 cc of intravenous Dotarem.Findings:Endometrium is thickened at [...] mass although clinicalcorrelation recommended.MRCP *WW*07-28 12:11:11MRCPLocation code: A1Vwdgqygm history: Dilated common ductComparison: Reference is made [...] in the liver.CT ABDOMEN AND PELVIS WITH [id number] 06:13:19CT abdomen and pelvis with contrastLocation Code: [id number] HISTORY: [id number]: Acute pelvic painCOMPARISON: NoneTechnique: Helical CT of [...] exclude the presence ofcholedocholithiasis or stricture.U/S NON [id number] 05:59:08PELVIC ULTRASOUND:Location code: [id number] HISTORY: Pain, bleedingComparison: NoneTECHNIQUE: Transabdominal sonography of the pelvis was performed followed byendovaginal scanning for better characterization of the ovaries. FINDINGS: The uterus is uniform in echogenicity measuring 7.7 x 5.9 x 5.5 cm.The endometrium is slightly heterogeneous and hyperdense measuring up to 1 cmThe bilateral adnexa are not visualized. Trace free fluid is noted within [id number].IMPRESSION: Nonspecific heterogeneityof the endometriumThe bilateral adnexa are not visualized.U/S [id number] 05:59:08PELVIC ULTRASOUND:Location code: [id number] HISTORY: Pain, bleedingComparison: NoneTECHNIQUE: Transabdominal sonography of the pelvis was performed followed byendovaginal scanning for better characterization of the ovaries. FINDINGS: The uterus is uniform in echogenicity measuring 7.7 x 5.9 x 5.5 cm.The endometrium is slightly heterogeneous and hyperdense measuring up to 1 cmThe bilateral adnexa are not visualized. Trace free fluid is noted within [id number].IMPRESSION: Nonspecific heterogeneityof the endometriumThe bilateral adnexa are not visualized.AMYLASE AND [id number] 05:13:00 Test Item Value Reference Range Comments AMYLASE (test code=10A) 80 U/L 28-100 LIPASE (test code=60A) 150 IU/L 73-393 COMPREHENSIVE METABOLIC [id number] 05:13:00 Test Item Value Reference Range Comments [...] (test code=31A) 16 IU/L <=78 URINALYSIS WITH [id number] 05:10:00 Test Item Value Reference Range Comments [...] SPERM UR (test code=USPERM) /HPF NONE URINE [id number] 05:01:00 Test Item Value Reference Range Comments [...] RBC MORPH (test code=RBCMOR) NORMAL URINALYSIS WITH [id number] 18:39:00 Test Item Value Reference Range Comments [...] SPERM UR (test code=USPERM) /HPF NONE URINE [id number] 18:31:00 Test Item Value Reference Range Comments PREG UR (test code=PGU) NEGATIVE NEGATIVE U/S [id number] 18:46:36HISTORY: Pain.Location Code: [id number]: Multiple transverse and longitudinal sonographic images wereobtained.FINDINGS: [...] and ovaries are not well seen.URINALYSIS WITH [id number] 18:33:00 Test Item Value Reference Range Comments [...] UR (test code=USPERM) /HPF NONE COMPREHENSIVE METABOLIC [id number] 18:31:00 Test Item Value Reference Range Comments [...] (test code=31A) 11 IU/L <=78 AMYLASE AND [id number] 18:31:00 Test Item Value Reference Range Comments AMYLASE (test code=10A) 46 U/L 28-100 LIPASE (test code=60A) 97 IU/L 73-393 URINE [id number] 18:29:00 Test Item Value Reference Range Comments [...] NO RBC MORPH (test code=RBCMOR) NORMAL URINE [id number] 08:09:00 Test Item Value Reference Range Comments Culture Observations (test NO GROWTH (<1,000 CFU/ML) code=COB1) U/S [id number] 15:59:01EXAM: Pelvic ultrasoundLocation: A1 COMPARISON: Pelvic ultrasound [...] within normal limits.3. No free fluid.COMPREHENSIVE METABOLIC [id number] 13:45:00 Test Item Value Reference Range Comments [...] <=42 ALT (test code=31A) 17 IU/L <=78 [id number] 13:45:00 Test Item Value Reference Range Comments AMYLASE (test code=10A) 54 U/L 28-100 LIPASE [id number] 13:40:00 Test Item Value Reference Range Comments LIPASE (test code=60A) 87 IU/L 73-393 URINALYSIS WITH [id number] 13:39:00 Test Item Value Reference Range Comments [...] NO RBC MORPH (test code=RBCMOR) NORMAL URINE [id number] 13:31:00 Test Item Value Reference Range Comments PREG UR (test code=PGU) NEGATIVE NEGATIVE CT ABDOMEN AND PELVIS WITH [id number] 03:08:26CT OF THE ABDOMEN AND PELVIS WITH CONTRASTLocation code:[id number] HISTORY:lower abdominal pain COMPARISON: None TECHNIQUE:Multiple transaxial [...] evaluation of the abdomen and pelvis.CBC WITH [id number] 02:39:00 Test Item Value Reference Range Comments [...] DROP (test code=TD) 1+ NONE AMYLASE AND [id number] 02:19:00 Test Item Value Reference Range Comments AMYLASE (test code=10A) 67 U/L 28-100 LIPASE (test code=60A) 127 IU/L 73-393 COMPREHENSIVE METABOLIC [id number] 02:19:00 Test Item Value Reference Range Comments [...] (test code=31A) 10 IU/L <=78 URINALYSIS WITH [id number] 02:01:00 Test Item Value Reference Range Comments [...] SPERM UR (test code=USPERM) /HPF NONE SERUM [id number] 02:01:00 Test Item Value Reference Range Comments PREG SRM (test code=PGS) NEGATIVE NEGATIVE U/S NON [id number] 17:52:13EXAM: Pelvic ultrasoundLocation : A1 COMPARISON: Pelvic [...] Small volume nonspecific cul-de-sac free fluid.COMPREHENSIVE METABOLIC [id number] 15:32:00 Test Item Value Reference Range Comments [...] ALT (test code=31A) 11 IU/L <=78 SERUM [id number] 15:31:00 Test Item Value Reference Range Comments [...] (test code=MDIFF) NO NO PRO TIME AND [id number] 15:20:00 Test Item Value Reference Range Comments [...] Heparin. Order Code is ANTI-XA URINALYSIS WITH [id number] 15:19:00 Test Item Value Reference Range Comments [...] UR (test code=USPERM) /HPF NONE URINALYSIS WITH [id number] 05:18:00 Test Item Value Reference Range Comments [...] SPERM UR (test code=USPERM) /HPF NONE URINE [id number] 05:01:00 Test Item Value Reference Range Comments PREG UR (test code=PGU) NEGATIVE NEGATIVE PRO TIME AND [id number] 04:14:00 Test Item Value Reference Range Comments [...] Heparin. Order Code is ANTI-XA COMPREHENSIVE METABOLIC [id number] 04:08:00 Test Item Value Reference Range Comments [...] MORPH (test code=RBCMOR) NORMAL CT HEAD W/O [id number] 07:27:51Clinical History: Headache.Location: D4.Findings: Multislice axial noncontrast [...] sinuses andwithin the left frontal sinus.DRUGS OF [id number] 07:16:00 Test Item Value Reference Range Comments [...] 200 ng/mL Opiates 2000 ng/mL URINALYSIS WITH [id number] 07:14:00 Test Item Value Reference Range Comments [...] UR (test code=USPERM) /HPF NONE COMPREHENSIVE METABOLIC [id number] 06:59:00 Test Item Value Reference Range Comments [...] ALT (test code=31A) 14 IU/L <=78 SERUM [id number] 06:51:00 Test Item Value Reference Range Comments [...] NO RBC MORPH (test code=RBCMOR) NORMAL URINE [id number] 10:45:00 Test Item Value Reference Range Comments Culture Observations (test NO GROWTH (<1,000 CFU/ML) code=COB1) U/S PELVIS*WW*2017-08-15 02:47:38U/S PELVIS*WW*Location: [address] hours services provided 08/15/2017 2:45 AMIndication: pelvic painComparison: 06/21/17Technique: Transabdominal sonographic osorio scale, color and Doppler imaging wasperformed to the female pelvis.Findings:Uterus: Normal in size and echogenicity measuring 7.3 x 4.5 x 6.0 cm.Endometrial complex: Normal at 4 mm.Ovaries: Not seen secondary to overlying bowel gas.Other: The urinary bladder appears normal.Impression:Nonvisualization of the ovaries, otherwise normal transabdominalpelvic ultrasound.URINALYSIS WITH MICRO *STEPHIE*2017-08-15 01:24:00 Test Item Value Reference Range Comments [...] UR (test code=USPERM) /HPF NONE URINE MONOCLONAL *STEPHIE*2017-08-15 01:07:00 Test Item Value Reference Range Comments PREG UR (test code=PGU) NEGATIVE NEGATIVE U/S [id number] 18:19:54PELVIC ULTRASOUND:Location code: [id number] HISTORY : Pelvic pain with ovarian cystComparison: [...] right ovary and otherwise unremarkable exam.BASIC METABOLIC [id number] 15:38:00 Test Item Value Reference Range Comments [...] 12-20 CALCIUM (test code=09D) 8.8 mg/dL 8.3-9.5 [id number] 15:37:00 Test Item Value Reference Range Comments [...] ES UR (test code=LEUK) NEGATIVE NEGATIVE SERUM [id number] 15:35:00 Test Item Value Reference Range Comments PREG SRM (test code=PGS) NEGATIVE NEGATIVE PRO TIME AND [id number] 15:31:00 Test Item Value Reference Range Comments [...] RBC MORPH (test code=RBCMOR) NORMAL DIRECT CHLAMYDIA [id number] 15:42:00 Test Item Value Reference Range Comments CHLAMYDIA TRACHOMATIS NOT DETECTED NOT DETECTED (test lsbk=[id number]) NEISSERIA GONORRHOEAE NOT DETECTED NOT DETECTED (test zpvn=[id number]) Endnote (test This test was performed using iyqe=[id number]) the APTIMA COMBO2 Assay([employer]The analytical performance characteristics of thisassay, when used to test SurePath specimens havebeen determined by [employer].TEST PERFORMED AT:[facility] [id number] [place] [id number] TALLEY M.D. U/S [id number] 23:50:15LOCATION: [id number]: 26-year-old female who presents with pelvic pain.COMMENT: [...] no sonographic evidence of ovarian torsion.URINALYSIS WITH [id number] 22:11:00 Test Item Value Reference Range Comments [...] SPERM UR (test code=USPERM) /HPF NONE URINE [id number] 21:56:00 Test Item Value Reference Range Comments PREG UR (test code=PGU) NEGATIVE NEGATIVE CBC W/PLT COUNT & AUTO [id number] 18:46:00 Test Item Value Reference Range Comments WHITE BLOOD CELL COUNT (BEAKER) (test bpxs=408) 4.8 K/ L 4.0-10.0 RED BLOOD CELL COUNT (BEAKER) (test ject=874) 3.93 M/ L 4.00-5.00 HEMOGLOBIN (BEAKER) (test wqzi=542) 8.7 GM/DL 12.0-15.0 HEMATOCRIT (BEAKER) (test hpmj=957) 28.0 % 36.0-45.0 MEAN CORPUSCULAR VOLUME (BEAKER) (test abfk=220) 71.3 fL 82.0-99.0 MEAN CORPUSCULAR HEMOGLOBIN (BEAKER) (test 22.2 pg 27.0-33.0 rxrb=175) MEAN CORPUSCULAR HEMOGLOBIN CONC (BEAKER) (test 31.1 GM/DL 32.0-36.0 vfaf=551) RED CELL DISTRIBUTION WIDTH (BEAKER) (test 17.0 % 10.3-14.2 mewr=976) PLATELET COUNT (BEAKER) (test zurh=049) 179 K/CU MM 150-430 MEAN PLATELET VOLUME (BEAKER) (test prlw=086) 9.3 fL 6.5-10.5 NUCLEATED RED BLOOD CELLS (BEAKER) (test 0 /100 WBC 0-0 aacy=057) NEUTROPHILS RELATIVE PERCENT (BEAKER) (test 55 % nmzh=267) LYMPHOCYTES RELATIVE PERCENT (BEAKER) (test 33 % dgfq=556) MONOCYTES RELATIVE PERCENT (BEAKER) (test 8 % mhbm=884) EOSINOPHILS RELATIVE PERCENT (BEAKER) (test 3 % nprz=117) BASOPHILS RELATIVE PERCENT (BEAKER) (test 1 % edat=510) NEUTROPHILS ABSOLUTE COUNT (BEAKER) (test 2.60 K/ L 1.80-8.00 cdui=048) LYMPHOCYTES ABSOLUTE COUNT (BEAKER) (test 1.60 K/ L 1.48-4.50 mwlm=382) MONOCYTES ABSOLUTE COUNT (BEAKER) (test 0.40 K/ L 0.00-1.30 fipn=402) EOSINOPHILS ABSOLUTE COUNT (BEAKER) (test 0.10 K/ L 0.00-0.50 uzgk=924) BASOPHILS ABSOLUTE COUNT (BEAKER) (test 0.00 K/ L 0.00-0.20 ltsg=284) (MANUAL DIFFERENTIAL)2017-02-08 18:46:00 Test Item Value Reference Range Comments TOTAL COUNTED (BEAKER) (test idsi=8167) WBC MORPHOLOGY (BEAKER) (test kjmw=683) Normal PLT MORPHOLOGY (BEAKER) (test vaur=685) Normal HYPOCHROMIA (BEAKER) (test tcws=559) 2+ moderate MACROCYTES (BEAKER) (test odlg=056) 1+ few SCREEN, [id number] 00:18:00 Test Item Value Reference Range Comments TEST URINE (BEAKER) (test qipb=024) Negative URINALYSIS W/ REFLEX URINE [id number] 00:16:00 Test Item Value Reference Range Comments COLOR (BEAKER) (test lnul=589) Yellow CLARITY (BEAKER) (test lfqb=812) Slightly Cloudy SPECIFIC GRAVITY UA (BEAKER) (test zntc=582) 1.020 1.001-1.035 PH UA (BEAKER) (test prnl=204) 6.0 5.0-8.0 PROTEIN UA (BEAKER) (test klhc=385) Negative Negative GLUCOSE UA (BEAKER) (test xoql=384) Negative Negative KETONES UA (BEAKER) (test kjbw=705) Negative Negative BILIRUBIN UA (BEAKER) (test uvlt=809) Negative Negative BLOOD UA (BEAKER) (test umsb=579) Large Negative NITRITE UA (BEAKER) (test eugb=981) Negative Negative LEUKOCYTE ESTERASE UA (BEAKER) (test Negative Negative qtkb=202) UROBILINOGEN UA (BEAKER) (test xkec=484) 0.2 mg/dL 0.2-1.0 BACTERIA (BEAKER) (test alme=741) Few RBC UA-MANUAL (BEAKER) (test srxn=1231) 10-20 /HPF WBC UA-MANUAL (BEAKER) (test nqqo=2241) <5 /HPF SQUAMOUS EPITHELIAL MANUAL (BEAKER) (test <5 /HPF uxhq=5515) SOURCE(BEAKER) (test twuw=7448) CBC W/PLT COUNT & AUTO [id number] 00:08:00 Test Item Value Reference Range Comments WHITE BLOOD CELL COUNT (BEAKER) (test exxe=478) 7.7 K/ L 4.0-10.0 RED BLOOD CELL COUNT (BEAKER) (test sbkc=099) 4.33 M/ L 4.00-5.00 HEMOGLOBIN (BEAKER) (test djke=011) 9.6 GM/DL 12.0-15.0 HEMATOCRIT (BEAKER) (test vbdf=360) 31.2 % 36.0-45.0 MEAN CORPUSCULAR VOLUME (BEAKER) (test zbul=514) 72.0 fL 82.0-99.0 MEAN CORPUSCULAR HEMOGLOBIN (BEAKER) (test 22.2 pg 27.0-33.0 kmcd=606) MEAN CORPUSCULAR HEMOGLOBIN CONC (BEAKER) (test 30.9 GM/DL 32.0-36.0 pbxr=730) RED CELL DISTRIBUTION WIDTH (BEAKER) (test 16.7 % 10.3-14.2 obyx=989) PLATELET COUNT (BEAKER) (test pamx=222) 204 K/CU MM 150-430 MEAN PLATELET VOLUME (BEAKER) (test vcxn=404) 10.0 fL 6.5-10.5 NEUTROPHILS RELATIVE PERCENT (BEAKER) (test 62 % rxhs=733) LYMPHOCYTES RELATIVE PERCENT (BEAKER) (test 29 % khtq=312) MONOCYTES RELATIVE PERCENT (BEAKER) (test 6 % ntqb=589) EOSINOPHILS RELATIVE PERCENT (BEAKER) (test 2 % fuom=817) BASOPHILS RELATIVE PERCENT (BEAKER) (test 1 % ebet=760) NEUTROPHILS ABSOLUTE COUNT (BEAKER) (test 4.80 K/ L 1.80-8.00 aguo=093) LYMPHOCYTES ABSOLUTE COUNT (BEAKER) (test 2.20 K/ L 1.48-4.50 awkw=753) MONOCYTES ABSOLUTE COUNT (BEAKER) (test 0.50 K/ L 0.00-1.30 tksk=439) EOSINOPHILS ABSOLUTE COUNT (BEAKER) (test 0.20 K/ L 0.00-0.50 putc=407) BASOPHILS ABSOLUTE COUNT (BEAKER) (test 0.00 K/ L 0.00-0.20 sdfs=793) (MANUAL DIFFERENTIAL)2017-02-08 00:08:00 Test Item Value Reference Range Comments TOTAL COUNTED (BEAKER) (test hqjo=7994) WBC MORPHOLOGY (BEAKER) (test ubpa=425) Normal PLT MORPHOLOGY (BEAKER) (test dleh=027) Normal HYPOCHROMIA (BEAKER) (test lrsw=934) 2+ moderate MICROCYTES (BEAKER) (test iarg=029) 1+ few BASIC METABOLIC [id number] 00:04:00 Test Item Value Reference Range Comments SODIUM (BEAKER) (test 142 meq/L 135-148 tfss=907) POTASSIUM (BEAKER) (test 3.4 meq/L 3.6-5.5 ckmb=983) CHLORIDE (BEAKER) (test 110 meq/L 98-106 mobp=608) CO2 (BEAKER) (test 20 meq/L 20-29 bpdy=641) BLOOD UREA NITROGEN 6 mg/dL - (BEAKER) (test gtqx=534) CREATININE (BEAKER) (test 0.80 mg/dL 0.50-1.20 dryc=736) GLUCOSE RANDOM (BEAKER) 88 mg/dL 70-110 (test qxci=974) CALCIUM (BEAKER) (test 9.1 mg/dL 8.5-10.5 pkec=599) EGFR (BEAKER) (test 88 mL/min/1.73 sq m ESTIMATED GFR IS NOT wpdh=8235) ACCURATE CREATININE CLEARANCE IN PREDICTING GLOMERULAR FILTRATION RATE. ESTIMATED GFR IS NOT APPLICABLE FOR DIALYSIS PATIENTS. [id number] 22:38:00 Test Item Value Reference Range Comments [...] NO NO CT ABDOMEN AND PELVIS WITH [id number] 22:32:06LOCATION: [id number]: 26- year-old female who presents with periumbilical [...] cm diameter. Pelvicultrasound correlation is suggested. SERUM [id number] 21:33:00 Test Item Value Reference Range Comments PREG SRM (test code=PGS) NEGATIVE NEGATIVE AMYLASE AND [id number] 21:31:00 Test Item Value Reference Range Comments AMYLASE (test code=10A) 54 U/L 28-100 LIPASE (test code=60A) 113 IU/L 73-393 COMPREHENSIVE METABOLIC [id number] 21:31:00 Test Item Value Reference Range Comments [...] ALT (test code=31A) 23 IU/L <=78 OCCULT [id number] 21:12:00 Test Item Value Reference Range Comments [...] RBC MORPH (test code=RBCMOR) NORMAL URINALYSIS WITH [id number] 15:38:00 Test Item Value Reference Range Comments [...] SPERM UR (test code=USPERM) /HPF NONE U/S [id number] 15:37:29LOCATION: [id number]: 26-year-old female who presents with pelvic pain.COMMENT:Sonographic [...] unremarkable.The right ovary is not seen.AMYLASE AND [id number] 15:00:00 Test Item Value Reference Range Comments AMYLASE (test code=10A) 54 U/L 28-100 LIPASE (test code=60A) 93 IU/L 73-393 COMPREHENSIVE METABOLIC [id number] 15:00:00 Test Item Value Reference Range Comments [...] ALT (test code=31A) 12 IU/L <=78 SERUM [id number] 14:52:00 Test Item Value Reference Range Comments [...] NO RBC MORPH (test code=RBCMOR) NORMAL U/S [id number] 09:19:09Exam: Ultrasound pelvis with transvaginalLocation: A 1History: [...] of the pelvis.CT ABDOMEN AND PELVIS WITH [id number] 07:27:27CT abdomen and pelvis with contrast.Clinical indication: [...] abnormality to account for patient's symptoms.DRUGS OF [id number] 06:49:00 Test Item Value Reference Range Comments [...] 200 ng/mL Opiates 2000 ng/mL COMPREHENSIVE METABOLIC [id number] 06:28:00 Test Item Value Reference Range Comments [...] ALT (test code=31A) 17 IU/L <=78 LIPASE [id number] 06:28:00 Test Item Value Reference Range Comments LIPASE (test code=60A) 103 IU/L 73-393 SERUM [id number] 06:20:00 Test Item Value Reference Range Comments [...] NO NO RBC MORPH (test code=RBCMOR) NORMAL [id number] 06:17:00 Test Item Value Reference Range Comments [...] ES UR (test code=LEUK) NEGATIVE NEGATIVE U/S [id number] 10:33:25PELVIC ULTRASOUND:Location code: [id number] HISTORY : Pain,, recent ovarian cyst removalComparison: NoneTECHNIQUE: Transabdominal sonography of the pelvis was performed. The patientdeclined transvaginalscanning.FINDINGS: Evaluation is limited. The uterus and bilateral ovaries arenonvisualized. There is no pelvic mass or fluid collection. IMPRESSION:Limited exam with no visualized acute abnormality.URINALYSIS WITH [id number] 09:15:00 Test Item Value Reference Range Comments [...] UR (test code=USPERM) /HPF NONE CBC WITH [id number] 08:42:00 Test Item Value Reference Range Comments [...] STOMATO (test code=STOM) 1+ NONE COMPREHENSIVE METABOLIC [id number] 08:38:00 Test Item Value Reference Range Comments [...] ALT (test code=31A) 31 IU/L <=78 SERUM [id number] 08:30:00 Test Item Value Reference Range Comments [...] code=09D) 8.7 mg/dL 8.3-9.5 CBC (INCLUDES AUTOMATED DIFFERENTIAL)*[id number] 08:01:00 Test Item Value Reference Range Comments [...]
--- OUTSIDE RECORDS SUMMARY | 2019-09-28 01:10 | XMS REPORT | Summary of Care ---
:1990 Author Name RADHA GANN M.D. Address Unavailable Unavailable , Care Team Providers Name Role Phone DOMINIQUE Carl, NANNETTE Unavailable Unavailable RADHA GANN M.D. Unavailable Unavailable BICARTACHO N.P., JERNAE Unavailable Unavailable SOTERO N.P., UNIQUE Unavailable Unavailable STORM DO, NA LY Unavailable Unavailable Elmer MARSH, Ganga Unavailable Unavailable RADHA GANN MD Unavailable Unavailable QUINTIN BRADLEYW CT, [place] Unavailable Unavailable FREDDIE MARSH, EDDIE Nicolas Unavailable Unavailable Unavailable Unavailable Unavailable Functional Status [...] TABLET AT BEDTIME NEEDED. Quantity: 30 Refills: 2 RADHA AGNN M.D. Start : 27-Aug-2016 Active Ondansetron 8 [...] TIMES DAILY NEEDED. Quantity: 60 Refills: 1 ENMANUELKATE Galloway.Teresa, NANNETTE Start : 27-May-2018 Active Tylenol 8 Hour 650 MG Oral Tablet Extended Release TAKE 1 TABLET 4 TIMES DAILY NEEDED. Quantity: 60 Refills: 1 ENMANUELKATE M.D., NANNETTE Start : 27-May-2018 Active Sertraline HCl - 100 MG Oral Tablet TAKE 2 TABLET DAILY Quantity: 60 Refills: 2 GANN Laverne.Teresa, RADHA Start : 14-Jul-2018 Active clonazePAM 1 MG Oral Tablet TAKE 1/2 TABLET 3 TIMES DAILY NEEDED. Quantity: 45 Refills: 2 GANN M.Bridger., ORLANDOOFABIÁNE Start : 14-Jul-2018 Active metroNIDAZOLE 500 MG [...] Details - Status: Name Dates Details Never smoked tobacco (finding) Never smoked tobacco (finding) Vital Signs Date Test Result Details [id number] Physical Findings 6 Status: Comments: PHQ-9 Adult Depression Screening Results Date Description Value Details Results not documented Plan of Care Name Dates Details Planned Observations Planned Goals not documented Planned Encounters Appointment; RADHA GANN M.D. On: 16-Nov-2019 12:00 Instructions Name Dates Details Instructions not documented Encounters Appointment; CLOTILDE BAEZA M.D. On: 11-Nov-2017 8:00 [...] 19-Apr-2019 10:30 Encounter Diagnosis: Problem not documented Appointment; RADHA GANN M.D. On: 17-Aug-2019 12:00 Encounter Diagnosis: Problem not documented
[2019-09-28 02:29] LABS: Absolute Lymphocytes (CBC) 2.2 K/uL (0.7-4.9)
[2019-09-28 02:35] LABS: Basophils % 0.6 % (0-1.3); Hematocrit 29.6 % (36.0-45.0); Lymphocytes % 31.5 % (15.3-44.8); MPV 8.8 fL (7.6-11.3); RBC Red Blood Cell Count 4.14 M/uL (3.86-4.86)
[2019-09-28 03:03] LABS: BUN Blood Urea Nitrogen 10 mg/dL (7-18); Bicarbonate 26 mmol/L (21-32); Glucose Level 87 mg/dL (74-106); HCG, Quantitative 31242 mIU/mL (1-3); Potassium 3.5 mmol/L (3.5-5.1); Sodium Level 137 mmol/L (136-145)
[2019-09-28] MEDS ORDERED: ACETAMINOPHEN 325 MG TABLET ONE (03:19)
--- NOTE | 2019-09-28 03:34 | ER ---
Nurse's Notes [facility] Name: Charley Wells Age: 28 yrs Sex: Female : 1990 Arrival Date: 09/28/2019 Time: 00:58 Bed 19 Private MD: Diagnosis: Lower abdominal pain, unspecified;Intrauterine Presentation: 09/27 01:14 Chief complaint: Patient states: she has been having abdominal pain, severe nausea, bb vomiting and back pain for over a week saw her ob-change advisor last week and was told she might have some cramping, dull pain but her pain is much worse, she can't move, she denies vaginal bleeding, denies dysuria. Coronavirus screen: The patient has NOT traveled to [place] in the past 14 days. Proceed with normal triage procedures. Ebola Screen: No symptoms or risks identified at this time. Initial Sepsis Screen: Does the patient meet any 2 criteria? No. Patient's initial sepsis screen is negative. Does the patient have a suspected source of infection? No. Patient's initial sepsis screen is negative. Risk Assessment: Do you want to hurt yourself or someone else? Patient reports no desire to harm self or others. 01:14 Method Of Arrival: Ambulatory bb 01:14 Acuity: STACEY 3 bb 01:20 Onset of symptoms was September 28, 2019. 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 - Social history:: Smoking status: Patient denies any tobacco usage or history of. - Family history:: not pertinent. - Hospitalizations: : No recent hospitalization is reported. Screenin:30 Abuse screen: Denies threats or abuse. Denies injuries from another. Nutritional screening: No deficits noted. Tuberculosis screening: No symptoms or risk factors identified. Fall Risk None identified. Assessment: 01:30 General: Appears in no apparent distress. Behavior is calm, cooperative, appropriate for age. Pain: Complains of pain in suprapubic area Pain does not radiate. Pain currently is 5 out of 10 on a pain scale. Quality of pain is described as aching, Pain began a week ago. Neuro: Level of Consciousness is awake, alert, obeys commands, Oriented to person, place, time, situation, Appropriate for age. Cardiovascular: Heart tones S1 S2. Respiratory: Airway is patent Respiratory effort is even, unlabored, Respiratory pattern is regular, symmetrical, Breath sounds are clear bilaterally. GI: Abdomen is flat, non-distended, Bowel sounds present X 4 quads. Abd is soft and non tender X 4 quads. Reports lower abdominal pain, nausea, vomiting. : No signs and/or symptoms were reported regarding the genitourinary system. EENT: No signs and/or symptoms were reported regarding the EENT system. Derm: Skin is intact, is healthy with good turgor, Skin is pink, warm \T\ dry. normal. Musculoskeletal: Circulation, motion, and sensation intact. 02:30 Reassessment: Patient appears in no apparent distress at this time. No changes from previously documented assessment. Patient and/or family updated on plan of care and expected duration. Pain level reassessed. Patient is alert, oriented x 3, equal unlabored respirations, skin warm/dry/pink. 03:10 Reassessment: Pt C/O pain notified Provider. Reassessment: Pt does not want Tylenol. wh stating she will AMA notified provider. 03:26 Reassessment: provider in the room with pt. jv1 03:27 Reassessment: pt rips her IV out and said she is leaving. jv1 03:34 Reassessment: pt stated she wants to leave and she will remove her IV herself. told her jv1 to wait because the doctor will talk to her. Provider informed. . Vital Signs: 01:14 BP 114 / 73; Pulse 79; Resp 16 S; Temp 98.8(O); Pulse Ox 100% on R/A; Weight 77.11 kg bb (R); Height 5 ft. 6 in. (167.64 cm) (R); Pain 9/10; 01:14 Body Mass Index 27.44 (77.11 kg, 167.64 cm) ED Course: 00:58 Patient arrived in ED. jg7 01:17 Triage completed. 01:18 Arm band placed on Patient placed in an exam room, on a stretcher, on pulse oximetry. 01:30 Patient has correct armband on for positive identification. Placed in gown. Bed in low wh position. Call light in reach. Side rails up X 1. Pulse ox on. NIBP on. 01:33 Chris Garcia MD is Attending Physician. rn 01:42 Denny Ly is Primary Nurse. 01:45 Inserted saline lock: 20 gauge in right antecubital area, using aseptic technique. Blood collected. 02:31 US Transvaginal Ob In Process Unspecified. EDMS 03:30 IV discontinued, intact, bleeding controlled, No redness/swelling at site. Pt pulled wh her Iv, gauze applied. 03:30 No provider procedures requiring assistance completed. Administered Medications: 03:54 Not Given (Patient Refused): Tylenol 650 mg PO once Outcome: 03:40 AMA AMA form signed 03:40 Condition: stable 03:55 Patient left the ED. Signatures: Dispatcher [employer] EDMS Jackie Quezada RN RN Chris Garcia MD MD rn Habalo, Winsy Rubi Navarrete RN RN Violet Forbes [email or web address]
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
[2019-09-28 05:04] VITALS: BP 114/73; TEMP 98.8; O2SAT 100
--- NOTE | 2019-09-28 06:40 | RAD REPORT ---
EXAM DESCRIPTION: US - Transvaginal OB - 09/28/2019 2:31 am CLINICAL HISTORY: rule out ectopic, , pelvic pain, no beta HCG available at the time of the examination Preliminary findings provided at the time of the study. COMPARISON: Transvaginal OB dated 09/15/2019 TECHNIQUE: Endovaginal sonography performed. FINDINGS: A slightly irregularly-shaped gestational sac seen in the fundal portion of the uterus rig ht side. Yolk sac is identified. Subchorionic hemorrhages present along the inferior margin. There is a small echogenic focus that is potentially pole. [place]-rump length measurement corresponds to a 6 week 0 day age. Cardiac activity was not definitive. Right ovary was identifiable. No right adnexal mass could be seen. No blood or fluid identified in th e cul de sac. Normal left ovary was seen with normal blood flow within the stroma. IMPRESSION: Intrauterine gestational sac and yolk sac are confirmed showing progression from the Aug study. Small echogenic focus believed to be the pole corresponds to a 6 week 0 day age. Cardiac activi ty is suspected but not definitive. Normal left ovary and left adnexa. Nonvisualization of the right ovary. No right adnexal mass could be seen.
== END 2019-09-28 03:55 | disposition left against medical advice (07) ==
LOC: ER 00:54
DX: O26.891 Other specified pregnancy related conditions, first trimester (principal); Z3A.01 Less than 8 weeks gestation of pregnancy; Z88.6 Allergy status to analgesic agent
CPT/HCPCS: 36415; 76817; 80048; 84702; 85025; 86900; 86901; 99284

== ENCOUNTER 2020-02-05 06:08 | Emergency (ER) | payer OTHER ==
--- OUTSIDE RECORDS SUMMARY | 2020-02-05 06:11 | XMS REPORT | Clinical Summary ---
:1990 Author Organization [facility] Address [address] [place] [address] Care Team Providers Name Role Phone Shira Primary Care Provider Allergies No Known Allergies Medications Medication Sig Dispensed Refills Start Date End Date Status norethindrone-ethinyl Take 1 tablet by 0 Active estradiol (MICROGESTIN mouth daily. 08/16) 1-20 mg-mcg per tablet ALPRAZolam (XANAX) 0.5 Take 0.5 mg by 0 Active MG tablet mouth every night as needed for Anxiety. clonazePAM (KLONOPIN) Take 0.5 mg by 0 Active 0.5 MG tablet mouth 2 (two) times daily as needed for Anxiety. Active Problems Problem Noted Date Hemorrhagic ovarian cyst 02/08/2017 Family History Medical History Relation Name Comments Other Mother bleeding/ hyster ectomy Other Sister bleeding; endome triosis Relation Name Status Comments Mother Sister Social [...] travel history available. Last Filed Vital Signs Not on file Plan of Treatment Not on file Results Not on fileafter 02/04/2019 Insurance Payer Benefit Plan / Group Subscriber ID Type Phone A [facility] xxxxxxxxx CHIP Contracted CHOICE CHIP Advance Directives For more information, please contact:[place] [id number] [place], [place] [phone] Code Status Date Activated Date Inactivated Comments Full Code 02/08/2017 3:22 AM 02/08/2017 9:13 PM This code status was determined by: Patient
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
--- OUTSIDE RECORDS SUMMARY | 2020-02-05 06:11 | XMS REPORT | Continuity of Care Document ---
:1990 Author Organization [facility] Care Team Providers Name Role Phone [facility] Unavailable Un available Problems Problem Status Onset Classification Date Comments Sour e Date Reported Pelvic and Active Problem 07/03/2018 [place] f or perineal pain [facility] Medications No Data Provided for This Section Allergies, Adverse Reactions, Alerts No Known Medication Allergies Immunizations No Data Provided for This Section Results No Data Provided for This Section Pathology Reports No Data Provided for This Section Diagnostic Reports No Data Provided for This Section Consultation Notes No Data Provided for This Section Discharge Summaries No Data Provided for This Section History and Physicals No Data Provided for This Section Vital Signs No Data Provided for This Section Encounters Location Location Encounter Encounter Reason Attending ADM ME Stat Source Details Type Number For Provider Date Date Visit Center For Unknown [id number] 08/27 08/27 [facility] [id number] for Health/ C. [id number] [facility] 3ae [facility] MD Toña, PhD, PA Center For Unknown [id number] 08/27 08/27 [facility] [id number] for Health/ C. [id number] [facility] fc6 Keyla Ding MD, PhD, PA Center For Unknown [id number] 08/27 08/27 [facility] [id number] for Health/ C. b- [facility] 87c Keyla Ding MD, PhD, PA Center For surgery [id number] 09/05 09/05 [facility] [id number] for Health/ C. [id number] [facility] 785 Keyla Ding MD, PhD, PA Center For surgery [id number] 09/05 09/05 [facility] [id number] for Health/ C. [id number] W radha Cruzo e11 Health MD Toña, PhD, PA Center For Rx Request, [id number] 09/16 09/16 [place] [facility] [id number] for Health/ C. [id number] W radha Cruzo 8aa [facility] MD Toña, PhD, [place] Procedures No Data Provided for This Section Assessment and Plan No Data Provided for This Section Plan of Care No Data Provided for This Section Social History Social History Date Source Social History ElementQualifiersDate Reported 09/04/2016 [place] for [facility] Do you smoke? . Answer: nonsmoker Sep 04, 2016 Use of recreational / street drugs? . Answer: No Sep 04, 2016 Marital Status: . Single Sep 04, 2016 Caffeine intake? . Status: Yes, What type: Soft Drinks Sep 04, 2016 Do you exercise? . Answer: No Sep 04, 2016 Do you drink alcohol? . Status: No Sep 04, 2016 Occupation: . Unemployed Sep 04, 2016 Family History No Data Provided for This Section Advance Directives No Data Provided for This Section Functional Status No Data Provided for This Section
--- OUTSIDE RECORDS SUMMARY | 2020-02-05 06:22 | XMS REPORT | Continuity of Care Document ---
:1990 Author Organization [facility] [place] [facility] t Address [address] [place] [address] Care Team Providers Name Role Phone Sharpless Primary Care Physician Júnior Ahn MD Attending Clinician Doctor Unassigned, Name Attending Clinician Unavailable AZEEM Attending Clinician Unavailable DR Argelia DILL Attending Clinician Unavailable DR VAHE Attending Clinician Unavailable Sarah Barrera Attending Clinician Rian Vazquez MD Attending Clinician QUINTIN Attending Clinician Unavailable DR ESCOBAR Attending Clinician Unavailable FELISHA Attending Clinician Unavailable DR MILENA Attending Clinician Unavailable DR SUE Attending Clinician Unavailable DR Nicola LONG Attending Clinician Unavailable ОЛЕГ MOISE Attending Clinician Unavailable DR Jey LEHMAN Attending Clinician Unavailable ALEXA Attending Clinician Unavailable DR Yamilka ENCISO Attending Clinician Unavailable RICHELLE Attending Clinician Unavailable DR ROSA Attending Clinician Unavailable SOTERO Attending Clinician Unavailable DR DEVIN SARGENT Attending Clinician Unavailable DR FUENTES Attending Clinician Unavailable DR SEAN Attending Clinician Unavailable Ty COREAS Attending Clinician Unavailable BERE Attending Clinician Unavailable VINICIO Attending Clinician Unavailable DR BONI WHITFIELD Attending Clinician Unavailable Jimy MARSH, Júnior Admitting Clinician DR Argelia DILL Admitting Clinician Unavailable VAHE, Admitting Clinician Unavailable DR ESCOBAR Admitting Clinician Unavailable DR MILENA Admitting Clinician Unavailable DR SUE Admitting Clinician Unavailable DR Nicola LONG Admitting Clinician Unavailable DR Jey LEHMAN Admitting Clinician Unavailable DR Yamilka ENCISO Admitting Clinician Unavailable DR ROSA Admitting Clinician Unavailable DR DEVIN SARGENT Admitting Clinician Unavailable DR FUENTES Admitting Clinician Unavailable DR SEAN Admitting Clinician Unavailable Ty COREAS Admitting Clinician Unavailable FLY RUIZ Admitting Clinician Unavailable DR BONI WHITFIELD Admitting Clinician Unavailable Payers Payer Name Policy Policy Number Effective Expiration Source Type Date Date AMERIGROUPAMERIGRP xxxxxxxxx 2019 Charan n STAR 00:00:00 [id number] xxxxxxxxx 2019 smiley xx2019-Present 00:00:00 [facility]ist L Problems Condition Condition Condition Status Onset Resolution Last Treating Co mments Source Name Details Category Date Date Treatment Clinician Date Hemorrhagi Hemorrhagi Disease Active C HI [facility] ovarian c ovarian 7-15 [facility] History of History of Problem Resolve Univers Anxiety Anxiety d ity of [place] Phys[facility] ans History of History of Problem Resolve Univers Cysts of Cysts of d ity of both both [place] ovaries ovaries Physici ans Cannot Cannot Problem Active Univers sleep sleep ity of [place] [facility] Gastritis, Gastritis, Problem Active U nivers chronic chronic ity of [place] [facility] Impetigo Impetigo Problem Active Unive rs contagiosa contagiosa it y of [place] [facility] BMI BMI Problem Active Univers 28.0-28.9, 28.0-28.9, it y of adult adult [place] [facility] Pelvic Pelvic Problem Active Univers pain pain [facility] [place] [facility] Bacterial Bacterial Problem Active Uni vers vaginosis vaginosis ity of [place] [facility] Anabell Anabell Problem Active Univers vaginitis vaginitis ity of [place] [facility] Generalize Generalize Problem Active U nivers d anxiety d anxiety ity of disorder disorder [place] [facility] Major Major Problem Active Univers depressive depressive it y of disorder disorder [place] [facility] Allergies, Adverse Reactions, Alerts Allergy Allergy Status Severity Reaction(s) Onset Inactive Treating Comm ents Source Name Type Date Date Clinician Ketorola Propensi Active [place] ty to 11-27 [facility] adverse 00:00: st reaction 00 s to drug tramadol DA [facility] [place] tramadol DA Active [facility] [place] Tramadol Propensi Active [place] ty to 01-05 [facility] adverse 00:00: st reaction 00 s to drug No Known DA Active U 2006-0 [facility] Contrast 4-10 [facility]: [facility] [place] No Known DA Active U 2006-0 [facility] Drug 4-10 [facility]: [facility] [place] No Known DA Active U 2006-0 [facility] Food 4-10 [facility]: [facility] [place] No Known DA Active U 2007-0 [facility] Other 4-10 [facility]: [facility] [place] Tramadol Allergy Active Univers to drug ity of (finding [place] ) Physici ans Family History Family Member Diagnosis Comments Start Date Stop Date Source Mother Family history of Univers ity of depression [place] [facility] Mother Family history of Univers ity of Diverticulitis [place] [facility] Mother Family history of [facility] ity of Anxiety [place] depression [place] [facility] Father Family history of CAD Uni versity of (coronary artery [place] [facility] disease) Father Family history of [facility] [place]y of [place] depression [place] [facility] Natural mother Other [facility] Natural sister Other [facility] Social History Social Habit Start Date Stop Date Quantity Comments Source Sex Assigned At [place] [facility] Alcohol intake 2019-05-23 2019-05-23 Current drinker [place] [facility] 00:00:00 00:00:00 of alcohol (finding) Alcohol Comment 2017-01-05 2017-01-05 on occasion David [facility] [employer] 00:00:00 00:00:00 [place]? 2016-09-04 2016-09-04 [facility] kp 00:00:00 00:00:00 Smoking Status Start Date Stop Date Source Never smoker [place] [facility] t Medications Ordered Filled Start Stop Current Ordering Indication Dosage Frequency Signature Comments Components Source Medication Medication Date Date Medication? Clinician (SIG) Name Name cyclobenzap 2018-07- No 10mg [id number] Take 1 [place] rine 05-28 [id number] tablet (10 Me thodi (FLEXERIL) 00:00: 23:59 3D mg total) s t 10 mg 00 :00 by mouth 3 tablet (three) times a day as needed for muscle spasms for up to 5 days. acetaminoph 2018-07- No acute pain 1{tbl} Q6H Take 1 [place] en-codeine 0 10-30 tablet by Met bautista (TYLENOL 00:00: 23:[address] WITH 00 :00 every 6 CODEINE #3) (six) 300-30 mg hours as per tablet needed for severe pain for up to 3 days .Acute Pain. clonazePAM Yes .5mg Take 0.5 [facility] [address] (KLONOPIN) 1-25 mg by Kayli - 0.5 MG 02:45: mouth 2 Medical tablet 30 (two) Center times daily as needed for Anxiety. metroNIDAZO metroNIDAZO 2017-07 Yes JERNAE 1 Q0.5D TAKE 1 Univers LE 500 MG LE 500 MG 2-21 BIJOU N.P. TABLET ity of Oral Tablet Oral Tablet 00:00: TWICE [place] 00 DAILY Physici ans Miconazole Miconazole 2017-07 Yes JERNAE INSERT 1 Univers 7 2 % 7 2 % 2-21 BIJOU N.P. APPLICATOR i ty of Vaginal Vaginal 00:00: FUL [place] Cream Cream 00 INTRAVAGIN Physici ALLY AT ans BEDTIME NIGHTLY. Sertraline Sertraline 2017-07 Yes ORLANDOOFABIÁNE 2 QD TAKE 2 Univers HCl - 100 HCl - 100 2-18 GANN M.D. TABLET ity of MG Oral MG Oral 00:00: DAILY [place] Tablet Tablet 00 Physici ans clonazePAM clonazePAM 2017-07 Yes SHAOJIE TAKE 1/2 Univers 1 MG Oral 1 MG Oral 2-18 GANN M.D. TABLET 3 ity of Tablet Tablet 00:00: TIMES [place] 00 DAILY Physici NEEDED. ans IBU 600 MG IBU 600 MG 2017-07 Yes NANNETTE Q0.25D TAKE 1 Univers Oral Tablet Oral Tablet 0-31 BHALWAL TABLET 4 ity of 00:00: M.D. TIMES [place] 00 DAILY Physici NEEDED. ans Tylenol 8 Tylenol 8 2017-07 Yes NANNETTE Q0.25D TAKE 1 Univers Hour 650 MG Hour 650 MG 0-31 BHALWAL TABLET 4 ity of Oral Tablet Oral Tablet 00:00: M.D. TIMES [place] Extended Extended 00 DAILY Phy sici Release Release NEEDED. ans Mupirocin 2 Mupirocin 2 2017-07 Yes UNIQUE Q0.3333D APPLY A Univers % External % External 0-08 SOTERO SMALL ity of Ointment Ointment 00:00: N.P. AMOUNT 3 [place] 00 TIMES Physici DAILY ans DIRECTED. Ondansetron Ondansetron Yes UNIQUE 1 Q8H TAKE 1 Univers 8 MG Oral 8 MG Oral 5-24 SOTERO TABLET ity of Tablet Tablet 00:00: N.P. EVERY 8 [place] Disintegrat Disintegrat 00 HOURS Physici ing ing ans ALPRAZolam Yes .5mg QD Take 0.5 Eve [address]on (XANAX) 0.5 7-25 mg by Methodi MG tablet 03:46: mouth st 12 nightly as needed for anxiety. zolpidem Yes 5mg QD Take 5 mg [place] (AMBIEN) 5 7-25 by mouth Metho di MG tablet 03:46: nightly as st 12 needed for sleep. norethindro Yes 1{tbl} QD Take [address] ne-ethinyl 7-14 tablet by Luke s - estradiol 22:32: mouth Medical (MICROGESTI 23 daily. Center N 08/16) 1-20 mg-mcg per tablet ALPRAZolam Yes .5mg Take 0.[address] (XANAX) 0.5 7-14 mg by [facility] - MG tablet 22:32: mouth Medical 23 every Center night as needed for Anxiety. Zolpidem Zolpidem Yes SHAOJIE TAKE 1 Univers Tartrate 10 Tartrate 10 1-31 GANN M.D. TABLET AT ity of MG Oral MG Oral 00:00: BEDTIME [place] Tablet Tablet 00 NEEDED. Physici ans Vital Signs Vital Name Observation Time Observation Value Comments Source Systolic blood 2019-05-23 88 mm[Hg] [place] pressure 12:04:00 [facility] Diastolic blood 2019-05-23 51 mm[Hg] [place] pressure 12:04:00 [facility] Heart rate 2019-05-23 90 /min [place] 12:04:00 [facility] Respiratory rate 2019-05-23 20 /min [place] 12:04:00 [facility] Oxygen saturation 2019-05-23 100 /min [place] in Arterial blood 12:04:00 [facility] by Pulse oximetry Body temperature 2019-05-23 36.28 Althea [place] 05:50:00 [facility] Body height 2019-05-23 167.6 cm [facility] 05:50:00 [facility] Body weight 2019-05-23 72.576 kg [place] 05:50:00 [facility] BMI 2019-05-23 25.82 kg/m2 [facility] 05:50:00 [facility] BP Systolic 2019-04-19 103 mm[Hg] Location: [facility] 10:56:00 Position: [place] [facility] s Sitting BP Diastolic 2019-04-19 66 mm[Hg] Location: [facility] 10:56:00 Position: [place] [facility] s Sitting Height 2019-04-19 65 [in_us] [facility] 10:56:00 [place] [facility] s Weight 2019-04-19 169 [lb_av] [facility] 10:56:00 [place] [facility] Body Mass Index 2019-04-19 28.12 kg/m2 [facility] f Calculated 10:56:00 [place] [facility] s Temperature 2019-04-19 98.1 [degF] Method: Oral [facility] 10:56:00 [place] [facility] Heart Rate 2019-04-19 62 /min Location: [facility] 10:56:00 Radial; [place] Phys[facility] s Quality: Normal Respiration Rate 2019-04-19 16 /min Quality: Normal Universi ty of 10:56:00 [place] [facility] s O2 SAT 2019-04-19 97 % Source: [facility] of 10:56:00 [place] [facility] s BP Systolic 2019-03-23 111 mm[Hg] Location: [facility]; [facility] 14:08:00 Position: [place] Physician s Sitting BP Diastolic 2019-03-23 68 mm[Hg] Location: [facility]; [facility] of 14:08:00 Position: [place] Physician s Sitting Height 2019-03-23 65 [in_us] University of 14:08:00 [place] [facility] s Weight 2019-03-23 169 [lb_av] University of 14:08:00 [place] [facility] s Body Mass Index 2019-03-23 28.12 kg/m2 University o f Calculated 14:08:00 [place] [facility] s Temperature 2019-03-23 98.3 [degF] Method: Oral [facility] of 14:08:00 [place] [facility] s Heart Rate 2019-03-23 84 /min Location: [facility] 14:08:00 Radial; [place] [facility] s Quality: Normal Respiration Rate 2019-03-23 16 /min Quality: Normal Universi ty of 14:08:00 [place] [facility] s O2 SAT 2019-03-23 98 % Source: [facility] 14:08:00 [place] [facility] s BP Systolic 2019-02-26 102 mm[Hg] [facility] 12:[facility] Position: [place] [facility] s Sitting BP Diastolic 2019-02-26 66 mm[Hg] Location: [facility]; [facility] of 12:55:00 Position: [place] Physician s Sitting Height 2019-02-26 65 [in_us] University of 12:55:00 [place] [facility] s Weight 2019-02-26 169.125 [lb_av] University o f 12:55:00 [place] [facility] s Body Mass Index 2019-02-26 28.14 kg/m2 University o f Calculated 12:55:00 [place] [facility] s Temperature 2019-02-26 98.5 [degF] Method: Oral [facility] 12:55:00 [place] [facility] Heart Rate 2019-02-26 81 /min Location: [facility] 12:55:00 Brachial [place] [facility] s Artery; Respiration Rate 2019-02-26 16 /min Quality: Normal Universi ty of 12:55:00 [place] [facility] s O2 SAT 2019-02-26 100 % Source: [facility] 12:55:00 [place] [facility] s BP Systolic 2019-01-27 118 mm[Hg] [facility] 16:[facility] Position: [place] [facility] s Sitting BP Diastolic 2019-01-27 77 mm[Hg] [facility] Position: [place] [facility] Sitting Height 2019-01-27 65 [in_us] University of 16:56:00 [place] [facility] s Weight 2019-01-27 159 [lb_av] University of 16:56:00 [place] [facility] s Body Mass Index 2019-01-27 26.46 kg/m2 University o f Calculated 16:56:00 [place] [facility] s Temperature 2019-01-27 98.3 [degF] Method: Oral University of 16:56:00 [place] [facility] Heart Rate 2019-01-27 107 /min Location: [facility] 16:56:00 Radial; [place] [facility] s Respiration Rate 2019-01-27 16 /min Quality: Normal Universi of 16:56:00 [place] [facility] s O2 SAT 2019-01-27 96 % Source: [facility] 16:56:00 [place] [facility] s BP Systolic 2018-11-27 94 mm[Hg] [facility] 15:28[facility] Position: [place] Physician s Sitting BP Diastolic 2018-11-27 62 mm[Hg] [facility] 15:28:[facility] Position: [place] [facility] s Sitting Weight 2018-11-27 162.5 [lb_av] University of 15:28:00 [place] [facility] Body Mass Index 2018-11-27 27.04 kg/m2 University o f Calculated 15:28:00 [place] [facility] Heart Rate 2018-11-27 84 /min Location: [facility] 15:28:00 Radial; [place] [facility] s BP Systolic 2018-07-17 114 mm[Hg] University of 15:40:00 [place] [facility] s BP Diastolic 2018-07-17 73 mm[Hg] University of 15:40:00 [place] [facility] Height 2018-07-17 65 [in_us] University of 15:40:00 [place] [facility] Weight 2018-07-17 160 [lb_av] University of 15:40:00 [place] [facility] Body Mass Index 2018-07-17 26.63 kg/m2 University o f Calculated 15:40:00 [place] [facility] s Temperature 2018-07-17 98.6 [degF] University of 15:40:00 [place] [facility] Heart Rate 2018-07-17 78 /min University of 15:40:00 [place] [facility] s Respiration Rate 2018-07-17 17 /min University of 15:40:00 [place] [facility] s O2 SAT 2018-07-17 97 % University of 15:40:00 [place] [facility] s BP Systolic 2018-07-14 102 mm[Hg] University of 16:00:00 [place] [facility] s BP Diastolic 2018-07-14 64 mm[Hg] University of 16:00:00 [place] [facility] Height 2018-07-14 65 [in_us] University of 16:00:00 [place] [facility] Weight 2018-07-14 159.4 [lb_av] University of 16:00:00 [place] [facility] Body Mass Index 2018-07-14 26.53 kg/m2 University o f Calculated 16:00:00 [place] [facility] s Temperature 2018-07-14 98 [degF] University of 16:00:00 [place] [facility] Heart Rate 2018-07-14 75 /min University of 16:00:00 [place] [facility] s Respiration Rate 2018-07-14 16 /min University of 16:00:00 [place] [facility] s O2 SAT 2018-07-14 100 % University of 16:00:00 [place] [facility] BP Systolic 2018-05-27 102 mm[Hg] Location: Counts include 234 beds at the [facility] 13:35:00 Position: [place] Physician s Sitting BP Diastolic 2018-05-27 67 mm[Hg] Location: Counts include 234 beds at the [facility] 13:35:00 Position: [place] Physician s Sitting Height 2018-05-27 65 [in_us] University of 13:35:00 [place] [facility] s Weight 2018-05-27 166.375 [lb_av] University o f 13:35:00 [place] [facility] s Body Mass Index 2018-05-27 27.69 kg/m2 University o f Calculated 13:35:00 [place] [facility] s Heart Rate 2018-05-27 80 /min University of 13:35:00 [place] [facility] s BP Systolic 2018-05-12 91 mm[Hg] University of 08:21:00 [place] [facility] s BP Diastolic 2018-05-12 62 mm[Hg] University of 08:21:00 [place] [facility] s Weight 2018-05-12 164 [lb_av] University of 08:21:00 [place] [facility] Body Mass Index 2018-05-12 27.29 kg/m2 University o f Calculated 08:21:00 [place] [facility] s Temperature 2018-05-12 98.4 [degF] University of 08:21:00 [place] [facility] s Heart Rate 2018-05-12 77 /min University of 08:21:00 [place] [facility] s O2 SAT 2018-05-12 98 % University of 08:21:00 [place] [facility] s BP Systolic 2018-05-04 107 mm[Hg] University of 11:21:00 [place] [facility] s BP Diastolic 2018-05-04 70 mm[Hg] University of 11:21:00 [place] [facility] Height 2018-05-04 65 [in_us] University of 11:21:00 [place] [facility] Weight 2018-05-04 168.5 [lb_av] University 11:21:00 [place] [facility] Body Mass Index 2018-05-04 28.04 kg/m2 University o f Calculated 11:21:00 [place] [facility] s Temperature 2018-05-04 99.28 [degF] University 11:21:00 [place] [facility] Heart Rate 2018-05-04 88 /min University 11:21:00 [place] [facility] s Respiration Rate 2018-05-04 18 /min University 11:21:00 [place] [facility] O2 SAT 2018-05-04 98 % University of 11:21:00 [place] [facility] BP Systolic 2018-02-10 120 mm[Hg] Location: [facility] 08:22:00 Position: [place] Physician s Sitting BP Diastolic 2018-02-10 70 mm[Hg] Location: [facility] 08:22:00 Position: [place] Physician s Sitting Height 2018-02-10 65 [in_us] [facility] 08:22:00 [place] [facility] Body Mass Index 2018-02-10 18.66 kg/m2 University o f Calculated 08:22:00 [place] [facility] s Weight 2018-02-10 112.125 [lb_av] University o f 08:22:00 [place] [facility] s Temperature 2018-02-10 98.8 [degF] Method: [facility] 08:22:00 Tympanic [place] [facility] Heart Rate 2018-02-10 67 /min University 08:22:00 [place] [facility] s Respiration Rate 2018-02-10 16 /min [facility] 08:22:00 [place] [facility] O2 SAT 2018-02-10 99 % [facility] 08:22:00 [place] [facility] BP Systolic 2018-02-10 88 mm[Hg] Location: [facility] 08:12:00 Position: [place] Physician s Sitting BP Diastolic 2018-02-10 64 mm[Hg] [facility] 08:12:[facility] Position: [place] [facility] s Sitting Height 2018-02-10 65 [in_us] [facility] 08:12:00 [place] [facility] Weight 2018-02-10 163 [lb_av] [facility] 08:12:00 [place] [facility] Body Mass Index 2018-02-10 27.12 kg/m2 University o f Calculated 08:12:00 [place] [facility] s Temperature 2018-02-10 98 [degF] [facility] 08:12:00 [place] [facility] Heart Rate 2018-02-10 89 /min [facility] 08:12:00 [place] [facility] s Respiration Rate 2018-02-10 16 /min [facility] 08:12:00 [place] [facility] s O2 SAT 2018-02-10 100 % [facility] 08:12:00 [place] [facility] s BP Systolic 2017-12-18 100 mm[Hg] Location: [facility]; [facility] 15:57:00 Position: [place] Physician s Sitting BP Diastolic 2017-12-18 64 mm[Hg] [facility] Position: [place] [facility] s Sitting Height 2017-12-18 65 [in_us] University 15:57:00 [place] [facility] s Weight 2017-12-18 163.375 [lb_av] University o f 15:57:00 [place] [facility] Body Mass Index 2017-12-18 27.19 kg/m2 University o f Calculated 15:57:00 [place] [facility] s Temperature 2017-12-18 98.1 [degF] Method: Oral University 15:57:00 [place] [facility] Heart Rate 2017-12-18 80 /min [facility] 15:57:00 [place] [facility] s Respiration Rate 2017-12-18 16 /min [facility] 15:57:00 [place] [facility] BP Systolic 2017-11-11 101 mm[Hg] [facility] 08:04:00 [place] [facility] BP Diastolic 2017-11-11 58 mm[Hg] [facility] 08:04:00 [place] [facility] Procedures Procedure Date / Time Performing Clinician Source Performed CT LUMBAR SPINE WO 2019-05-23 09:36:18 Chelita Walden [employer] CONTRAST CT CERVICAL SPINE WO 2019-05-23 09:36:07 Chelita Walden on [facility] CONTRAST HCG QUALITATIVE, SERUM 2019-05-23 08:24:00 Anderson Vazquez on [facility] SCREEN Rian . [facility] - Affirm VPIII 2018-05-27 00:00:00 [facility] (BV Panel) Physicians [QH] HEPATITIS B 2018-05-27 00:00:00 [facility] SURFACE ANTIGEN W/REFL Physician s CONFIRM [QH] HIV AB, HIV 1/2, 2018-05-27 00:00:00 [facility] EIA, WITH REFLEXES Physicians [QLH] CULTURE, URINE, 2018-05-27 00:00:00 [facility] ROUTINE Physicians [QLH] HEPATITIS C 2018-05-27 00:00:00 [facility] ANTIBODY Physicians [QLH] RPR 2018-05-27 00:00:00 [facility] Physicians . [facility] - GC/Chlamydia 2018-05-27 00:00:00 [facility] Physicians [QLH] CBC (INCLUDES 2018-05-27 00:00:00 Universi ty [facility] [place] [facility] DIFF/PLT) Physicians US Pelvis with Pelvis 2018-05-27 00:00:00 [facility] Transvaginal [id number] Physicians [QLH] CBC (INCLUDES 2017-12-18 00:00:00 Universi ty [facility] [place] [facility] DIFF/PLT) Physicians [QLH] CMP W/EGFR 2017-12-18 00:00:00 [facility] Physicians [QL] LIPID PANEL 2017-12-18 00:00:00 [facility] Physicians [QLH] AMYLASE 2017-12-18 00:00:00 [facility] Physicians [QLH] LIPASE 2017-12-18 00:00:00 [facility] Physicians [QLH] Helicobacter 2017-12-18 00:00:00 [facility] pylori Breath Test Physicians History of Ovarian [facility] Cystectomy Physicians History of [facility] Section Physicians History of Colonoscopy [facility] Physicians Plan of Care Planned Activity Planned Date Details Comments Source Future Scheduled 2020-02-26 INFLUENZA VACCINE [place] [facility] Test 00:00:00 [code = INFLUENZA VACCINE] Future Scheduled 2013 Screening for [facility] Test 00:00:00 malignant neoplasm of cervix (procedure) [code = 135023893] Encounters Start End Encounter Admission Attending Care Care Encounter Source Date/Time Date/Time Type Type Clinicians Facility Department ID 2020-01-31 2020-01-31 [facility] Esperanza Ahn [facility] [id number] 06:05:00 09:10:00 Encounter Júnior Chiu [id number] Vicky [id number] [place] [id number] 2020-01-31 2020-01-31 Orders Doctor ROBBY [id number] 00:00:00 00:00:00 Only Unassigned, DONA [id number] [place] [facility] [id number] 2019-11-16 2019-11-16 Appointmen CIPRIANO GANN UTP [id number] Univers 12:00:00 12:00:00 t; RADHA GANN ity o f SHAOJIE, M.D. [place] M.D. Physici ans 2019-10-23 2019-10-23 Emergency E [facility] [id number] [facility] 07:12:00 07:12:00 2019-10-19 2019-10-19 Emergency E GERALDO DILL [facility] [id number] [place] 02:28:00 04:35:00 Medica l Center 2019-09-18 2019-09-20 Emergency E MANUEL COTTER [facility] [id number] [place] 23:34:00 01:55:00 Medica l Center 2019-08-18 2019-08-18 Orders Doctor BUSTAMANTE [id number] 00:00:00 00:00:00 Only UnassignedDONA [id number] [place] [facility] [id number] 2019-08-17 2019-08-17 Appointmen CIPRIANO GANN Multispecia [id number] Univers 12:00:00 12:00:00 t; RADHA GANN lty - ity o f SHAOJIE, M.D. Internation Rory as Siddhartha [facility] Phys ici ans 2019-08-14 2019-08-14 Emergency Ty Nesbitt [facility] [id number] 10:21:47 13:32:00 Sarah Chiu [id number] [place] [id number] [place] [id number] 2019-08-14 2019-08-14 Orders Doctor ROBBY [id number] 00:00:00 00:00:00 Only Unassigned, DONA [id number] [place] [facility] [id number] 2019-04-19 2019-04-19 AppointCIPRIANO [place] [facility] [id number] Univers 10:30:00 10:30:00 t; RADHA GANN lty - ity o f SHAOJIE, M.D. Internation Rory as Siddhartha al [facility] Phys [facility] ans 2019-04-08 2019-04-08 CIPRIANO Zeng [id number] Univers 13:00:00 13:00:00 t; [facility] 2019-03-23 2019-03-23 AppointCIPRIANO [place] Mult[facility]pec[facility] [id number] Univers 13:30:00 13:30:00 t; RADHA GANN lty - ity o f SHAOJIE, M.D. Internation Rory as MEliasDElias [facility] Phys [facility] ans 2019-03-07 2019-03-07 Emergency E ELENA [facility] [id number] [facility] 03:26:00 06:00:00 Medica l [place] 2019-03-03 2019-03-03 CIPRIANO Zeng [facility] [id number] Univers 12:00:00 12:00:00 t; [facility] 2019-02-26 2019-02-26 CIPRIANO Oneal Multispecia [id number] Univers 12:30:00 12:30:00 t; RADHA GANN lty - ity o f SHAOJIE, M.D. Internation Rory as MEliasDElias al [facility] Phys [facility] ans 2019-01-27 2019-01-27 AppointCIPRIANO [place] Multispecia [id number] Univers 14:00:00 14:00:00 t; RADHA GANN lty - ity o f SHAOJIE, M.D. Internation Rory as Siddhartha al [facility] 2018-11-27 2018-11-27 AppointCIPRIANO [facility] [id number] Univers 15:00:00 15:00:00 t; CLOTILDE BAEZA, Health and it y carmen MABRY M.D. [facility] 2018-11-13 2018-11-13 Emergency E MANUEL COTTER [facility] 1000 [id number] [place] 02:44:00 04:14:00 Medica l Center 2018-11-04 2018-11-04 Emergency E MHSW MHSW [id number] [facility] 08:04:00 08:04:00 2018-10-22 2018-10-22 Emergency E GERALDO DILL [facility] [id number] [place] 10:10:00 13:01:00 Medica l [place] 2018-10-19 2018-10-19 Emergency E GERALDO DILL [facility] [id number] [place] 15:20:00 18:15:00 Medica l Center 2018-10-06 2018-10-06 Emergency E OEI [facility] [id number] [place] 12:53:00 14:15:00 DANIELLE Medic al [place] 2018-09-25 2018-09-25 AppointCIPRIANO Bautista [facility] [id number] Univers 11:00:00 11:00:00 t; CLOTILDE BAEZA ity o f KAIRAV, M.D. [facility] 2018-09-11 2018-09-11 Emergency E SUE [facility] [id number] [place] 13:37:00 17:15:00 NICANOR Medica l [facility] 2018-09-09 2018-09-09 Emergency E MERCEDES [facility] [id number] [place] 12:45:00 16:45:00 ABDIAS Medica l [place] 2018-08-17 2018-08-17 Emergency E GERALDO DILL [facility] [id number] [place] 01:32:00 04:20:00 Medica l Center 2018-07-28 2018-07-28 Outpatient E DOMINIK [facility] TELE [id number] [place] 06:49:00 16:28:00 MEHJABIN Medic al Center 2018-07-17 2018-07-17 Appointmen ALEXA [facility] [id number] Univers 15:30:00 15:30:00 t; SIENNA LIU NP Health and ity of SIEN[place], JOSH [facility] [place] - Physici [place] ans 2018-07-14 2018-07-14 Appointmen CIPRIANO BAEZA Comprehensi [id number] Univers 16:00:00 16:00:00 t; CLOTILDE BAEZA ve Sickle ity carmen MABRY M.D. 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 [facility] [place] - Physici Boat[place] ans 2018-05-10 2018-05-10 Emergency E ROSA [facility] [id number] [place] 12:36:00 16:00:00 GLORY Medica l Center 2018-05-04 2018-05-04 Appointmen SOTERO [facility] [id number] Univers 11:00:00 11:00:00 t; JOSH CALHOUN Health and ity carmen BEY [facility] JOSH CALHOUN Center - Phys ici [place] ans 2018-05-01 2018-05-01 Emergency E GERALDO DILL [facility] [id number] [place] 01:08:00 03:19:00 Medica l Center 2018-04-05 2018-04-05 Emergency E GERALDO DILL [facility] [id number] [place] 14:18:00 17:55:00 Medica l Center 2018-02-24 2018-02-24 Emergency E ARIE [facility] [id number] [place] 03:20:00 05:50:00 RINCON Medic al Center 2018-02-10 2018-02-10 [facility] [id number] Univers 08:00:00 08:00:00 t; CLOTILDE BAEZA, Health and it y carmen MABRY M.D. [facility] [place] - Physicjey Boateng [facility] 2017-12-18 2017-12-18 [facility] [id number] Univers 15:30:00 15:30:00 t; JOSH CALHOUN [facility] Phys ici [place] [facility] 2017-11-22 2017-11-22 Emergency E MERCEDES [facility] [id number] [place] 06:21:00 11:45:00 ABDIAS Medica l [place] 2017-11-11 2017-11-11 Appointcarmine BAEZA [facility] [id number] Univers 08:00:00 08:00:00 t; CLOTILDE BAEZA Health and it y carmen MABRY M.D. [facility] Physicjey Boateng [facility] 2017-08-20 2017-08-20 Emergency E FUENTES [facility] [id number] [place] 08:47:00 09:45:00 RADHA Medica l [place] 2017-08-20 2017-08-20 Appointmen [facility] [id number] Univers 08:00:00 08:00:00 t; CLOTILDE BAEZA ity o f KAIRAV, M.D. [place] Siddhartha Physici [facility] 2017-08-15 2017-08-15 Emergency E SEAN [facility] [id number] [place] 00:28:00 02:58:00 ALISE Medic al Center 2017-06-21 2017-06-21 Emergency E JOSS [facility] [id number] [place] 14:26:00 18:19:00 [facility] 2017-05-26 2017-05-26 CIPRIANO Rudolph [id number] Univers 14:00:00 14:00:00 t; Varsha JOHNSON M.D. [place] [facility] M.DElias ans 2017-05-20 2017-05-20 CIPRIANO [place] [id number] Univers 10:00:00 10:00:00 t; CLOTILDE BAEZA ity o f KAIRAV, M.D. [facility] Physici ans 2017-03-14 2017-03-14 CIPRIANO [place] [id number] Univers 08:00:00 08:00:00 t; CLOTILDE BAEZA ity o f KAIRAV, M.D. [facility] Physici ans 2016-12-27 2016-12-27 [place] [id number] eClinic 12:04:00 12:04:00 Toña Girard MD PhD PA PhD PA 2016-12-03 2016-12-03 CIPRIANO [place] UTP [id number] Univers 08:00:00 08:00:00 t; CLOTILDE BAEZA ity o f KAIRAV, M.D. [facility] Physici ans 2016-10-25 2016-10-25 CIPRIANO [place] UTP [id number] Univers 13:00:00 13:00:00 t; CLOTILDE BAEZA ity o f KAIRAV, M.D. [facility] Physici ans 2016-09-16 2016-09-16 Outpatient [id number] eClinic 10:22:00 10:22:00 For Women Women s alWo rks s Health/ Health/ C. C. FunToña Beckwith MD, PhD, MD, PhD, PA PA 2016-09-04 2016-09-04 Outpatient Center [facility] 8 96 eClinic 18:20:00 18:20:00 For Women Women s alWo rks s Health/ Health/ C. C. Adriano Oh Fagbohun, Fagbohun, MD, PhD, MD, PhD, PA PA 2016-08-27 2016-08-27 CIPRIANO [place] [id number] Univers 16:00:00 16:00:00 t; CLOTILDE BAEZA ity o f KAIRAV, M.D. [place] Teresa Physici ans 2016-08-27 2016-08-27 Outpatient Center [id number] eClinic 11:29:00 11:29:00 For Women Women s alWo rks s Health/ Health/ C. C. Toña Matos MD, PhD, MD, PhD, PA PA 2016-07-24 2016-07-24 CIPRIANO [place] [id number] Univers 15:30:00 15:30:00 t; CLOTILDE BAEZA ity o f KAIRAV, M.D. [facility] Physici ans 2016-06-25 2016-06-25 CIPRIANO [place] [id number] Univers 16:00:00 16:00:00 t; CLOTILDE BAEZA ity o f KAIRAV, M.D. [place] Teresa Physici ans 2016-05-22 2016-05-22 CIPRIANO [place] [id number] Univers 14:40:00 14:40:00 t; CLOTILDE BAEZA ity o f KAIRAV, M.D. [place] Teresa Physici ans 2016-05-03 2016-05-03 CIPRIANO [place] [id number] Univers 15:00:00 15:00:00 t; CLOTILDE BAEZA ity o f KAIRAV, M.D. [place] Marilee Physici ans 2016-04-24 2016-04-24 CIPRIANO [place] [id number] Univers 08:00:00 08:00:00 t; CLOTILDE BAEZA ity o f KAIRAV, M.D. [facility] Physici ans Results Test Description Test Time Test Comments Results Result Comments Source GLUBED 2019-11-23 13:57:00 Test Item Value Reference Range Interpretation Comme nts GLUBED (test code = GLUBED) 78 mg/dL 65-110 N AMYLASE AND [id number] 03:51:00 Test Item Value Reference Range Interpretation Comments AMYLASE (test code = 10A) 47 U/L 28-100 LIPASE (test code = 60A) 84 IU/L 73-393 BETA HCG QUANTITATIVE [id number] 03:51:00 Test Item Value Reference Range Interpretation Comments BHCG QUANT (test >522718.00 mIU/mL code = A17) BHCGQ (test code = QUANTITATIVE BHCG BHCQ) RESULT INTERPRETATION --- APPROXIMATE APPROXIMATE GESTATIONAL AGE HCG RANGE (WEEKS) (mIU/mL) - 0.2 - 1 5 - 50 1 - 2 50 - 500 2 - 3 100 - 5,000 3 - 4 500 - 10,000 4 - 5 1,000 - 50,000 5 - 6 10,000 - 100,000 6 - 8 15,000 - 200,000 8 - 12 10,000 - 100,000 --- COMPREHENSIVE METABOLIC [id number] 03:51:00 Test Item Value Reference Range Interpretation Comments GLUCOSE (test code = 88 mg/dL 75-100 06D) SODIUM (test code = 139 mmol/L 136-145 01A) POTASSIUM (test code = 3.7 mmol/L 3.6-5.1 01B) CHLORIDE (test code = 107 mmol/L 98-107 04A) CO2 (test code = 02A) 23 mmol/L 22-32 ANION GAP (test code = 12.7 mmol/L ANG) BUN (test code = 05D) 8 mg/dL 7-18 CREATININE (test code 0.6 mg/dL 0.4-1.1 = 03E) GFR (test code = GFR) 128 mL/min/1.73m\\S\\2 >=90 GFR 149 mL/min/1.73m\\S\\2 >=90 (test code = GFRAA) EGFR (test code = eGFR BY CKD-EPI EGFR) CALCULATION IS NOT RECOMMENDED FOR PATIENTS UNDER 18 YEARS OF AGE. BUN/CREA (test code = 14 12-20 BCR) CALCIUM (test code = 8.8 mg/dL 8.3-9.5 09D) BILI TOTAL (test code 0.2 mg/dL 0.2-1.0 = 11A) PROTEIN (test code = 7.6 g/dL 6.4-8.2 07D) ALBUMIN (test code = 3.5 g/dL 3.5-4.8 08D) GLOBULIN (test code = 4.1 g/dL 1.5-3.8 H GLB) ALB/GLOB (test code = 0.9 1.0-2.6 L AGRR) ALK PHOS (test code = 87 IU/L 42-121 35A) AST (test code = 30A) 13 IU/L <=42 ALT (test code = 31A) 12 IU/L <=78 URINALYSIS WITH [id number] 03:32:00 Test Item Value Reference Range Interpretation Comments COLOR (test code = COLU) YELLOW YELLOW CLARITY (test code = CLA) CLOUDY CLEAR A GLUCOSE UR (test code = UA GLUCOSE) NEGATIVE NEGATIVE BILI UR (test code = BILE) NEGATIVE NEGATIVE KETONES UR (test code = KARSON) NEGATIVE NEGATIVE SP GRAVITY (test code = SPGR) 1.013 1.005-1.030 PH UR (test code = PH) 7.0 4.5-8.0 PROTEIN UR (test code = PU) NEGATIVE NEGATIVE UROBIL UR (test code = UROQ) 0.2 EU/dL 0.2-1.0 NITRITE UR (test code = NITRITE) NEGATIVE NEGATIVE BLOOD UR (test code = UA BLOOD) NEGATIVE NEGATIVE LEUK ES UR (test code = LEUK) 3+ NEGATIVE A WBC UR (test code = UWBC) 7 /HPF 0-5 H RBC UR (test code = URBC) 0 /HPF 0-2 EPITH UR (test code = UEPC) FEW /LPF FEW BACTERIA UR (test code = UBACT) FEW /HPF NONE A CAST UR (test code = CAST) /LPF NONE CRYSTAL UR (test code = CRYU) / LPF NONE MUCUS UR (test code = MUC) / HPF NONE AMORPH UR (test code = BRENT) / HPF NONE TRICH UR (test code = UTRICH) /HPF NONE YEAST UR (test code = UY) /HPF NONE SPERM UR (test code = USPERM) /HPF NONE CBC (INCLUDES AUTOMATED DIFFERENTIAL)2019-10-19 03:20:00 Test Item Value Reference Range Interpretation Comments WBC (test code = WBC) 6.4 10\\S\\3/uL 4.5-11.0 RBC (test code = RBC) 4.31 10\\S\\6/uL 4.30-5.70 HGB (test code = HBG) 9.6 g/dL 12.0-15.5 L HCT (test code = HCT) 31.8 % 35.0-44.0 L MCV (test code = MCV) 73.8 fL 81.0-99.0 L MCH (test code = MCH) 22.3 pg 27.0-31.0 L MCHC (test code = MCHC) 30.2 g/dL 32.0-36.0 L RDW (test code = RDW) 17.2 % 11.5-14.5 H PLT (test code = PLT) 235 10\\S\\3/uL 130-400 MPV (test code = MPV) 11.4 fL 9.4-12.4 NEUTROP # (test code = NE#) 3.9 10\\S\\3/uL 1.6-8.0 LYMPH # (test code = LY#) 1.7 10\\S\\3/uL 1.1-3.5 MONOCYTE # (test code = MO#) 0.6 10\\S\\3/uL 0.0-1.1 EOSINOPH # (test code = EO#) 0.1 10\\S\\3/uL 0.0-0.7 BASOPHIL # (test code = BA#) 0.0 10\\S\\3/uL 0.0-0.3 IG # (test code = IG#) 0.01 10\\S\\3/uL 0.00-0.06 NRBC # (test code = NRBC#) 0.00 10\\S\\3/uL 0.00-0.01 NEUTROPH % (test code = NE%) 61.3 % 35.0-73.0 LYMPH % (test code = LY%) 26.5 % 20.0-55.0 MONO % (test code = MO%) 9.8 % 2.5-10.0 EOSINOPH % (test code = EO%) 1.7 % 0.0-5.0 BASOPHIL % (test code = BA%) 0.5 % 0.0-2.0 IG % (test code = IG%) 0.2 % 0.0-0.8 NRBC% (test code = NRBC%) 0.0 % 0.0-0.2 MANDIFF (test code = MDIFF) NO NO RBC MORPH (test code = RBCMOR) NORMAL BETA HCG QUANTITATIVE [id number] 00:51:00 Test Item Value Reference Range Interpretation Comments BHCG QUANT (test 1354.00 mIU/mL code = A17) BHCGQ (test code = QUANTITATIVE BHCG BHCQ) RESULT INTERPRETATION --- APPROXIMATE APPROXIMATE GESTATIONAL AGE HCG RANGE (WEEKS) (mIU/mL) - 0.2 - 1 5 - 50 1 - 2 50 - 500 2 - 3 100 - 5,000 3 - 4 500 - 10,000 4 - 5 1,000 - 50,000 5 - 6 10,000 - 100,000 6 - 8 15,000 - 200,000 8 - 12 10,000 - 100,000 --- COMPREHENSIVE METABOLIC [id number] 00:51:00 Test Item Value Reference Range Interpretation Comments GLUCOSE (test code = 85 mg/dL 75-100 06D) SODIUM (test code = 139 mmol/L 136-145 01A) POTASSIUM (test code = 3.7 mmol/L 3.6-5.1 01B) CHLORIDE (test code = 110 mmol/L 98-107 H 04A) CO2 (test code = 02A) 24 mmol/L 22-32 ANION GAP (test code = 8.7 mmol/L ANG) BUN (test code = 05D) 13 mg/dL 7-18 CREATININE (test code 0.7 mg/dL 0.4-1.1 = 03E) GFR (test code = GFR) 119 mL/min/1.73m\\S\\2 >=90 GFR 138 mL/min/1.73m\\S\\2 >=90 (test code = GFRAA) EGFR (test code = eGFR BY CKD-EPI EGFR) CALCULATION IS NOT RECOMMENDED FOR PATIENTS UNDER 18 YEARS OF AGE. BUN/CREA (test code = 19 12-20 BCR) CALCIUM (test code = 8.5 mg/dL 8.3-9.5 09D) BILI TOTAL (test code 0.2 mg/dL 0.2-1.0 = 11A) PROTEIN (test code = 7.7 g/dL 6.4-8.2 07D) ALBUMIN (test code = 3.7 g/dL 3.5-4.8 08D) GLOBULIN (test code = 4.0 g/dL 1.5-3.8 H GLB) ALB/GLOB (test code = 0.9 1.0-2.6 L AGRR) ALK PHOS (test code = 97 IU/L 42-121 35A) AST (test code = 30A) 12 IU/L <=42 ALT (test code = 31A) 9 IU/L <=78 PRO TIME AND [id number] 00:37:00 Test Item Value Reference Range Interpretation Comments PT (test code = 12.4 s 9.8-13.6 TT) INR (test code = 1.1 INR) INRH (test code = SUGGESTED INRH) THERAPEUTIC RANGE FOR INR: 2.5 - 3.5 For Patients with Prosthetic Valves or Patients with recurrent Thromboembolic Events 2.0 - 3.0 For Most Other Applications PTT (test code = 33.2 s 20.2-38.0 PTT) PTTH (test code = To monitor the PTTH) effectiveness of heparin, we offer the Anti-Xa (Heparin Assay). It can be used for either unfractionated or LMW Heparin. Order Code is ANTI-XA CBC (INCLUDES AUTOMATED DIFFERENTIAL)2019-09-19 00:31:00 Test Item Value Reference Range Interpretation Comments WBC (test code = WBC) 7.2 10\\S\\3/uL 4.5-11.0 RBC (test code = RBC) 3.90 10\\S\\6/uL 4.30-5.70 L HGB (test code = HBG) 8.8 g/dL 12.0-15.5 L HCT (test code = HCT) 29.1 % 35.0-44.0 L MCV (test code = MCV) 74.6 fL 81.0-99.0 L MCH (test code = MCH) 22.6 pg 27.0-31.0 L MCHC (test code = MCHC) 30.2 g/dL 32.0-36.0 L RDW (test code = RDW) 17.2 % 11.5-14.5 H PLT (test code = PLT) 249 10\\S\\3/uL 130-400 MPV (test code = MPV) 10.9 fL 9.4-12.4 NEUTROP # (test code = NE#) 4.4 10\\S\\3/uL 1.6-8.0 LYMPH # (test code = LY#) 1.9 10\\S\\3/uL 1.1-3.5 MONOCYTE # (test code = MO#) 0.7 10\\S\\3/uL 0.0-1.1 EOSINOPH # (test code = EO#) 0.2 10\\S\\3/uL 0.0-0.7 BASOPHIL # (test code = BA#) 0.1 10\\S\\3/uL 0.0-0.3 IG # (test code = IG#) 0.02 10\\S\\3/uL 0.00-0.06 NRBC # (test code = NRBC#) 0.00 10\\S\\3/uL 0.00-0.01 NEUTROPH % (test code = NE%) 60.7 % 35.0-73.0 LYMPH % (test code = LY%) 26.2 % 20.0-55.0 MONO % (test code = MO%) 9.9 % 2.5-10.0 EOSINOPH % (test code = EO%) 2.2 % 0.0-5.0 BASOPHIL % (test code = BA%) 0.7 % 0.0-2.0 IG % (test code = IG%) 0.3 % 0.0-0.8 NRBC% (test code = NRBC%) 0.0 % 0.0-0.2 MANDIFF (test code = MDIFF) NO NO RBC MORPH (test code = RBCMOR) NORMAL [id number] 00:31:00 Test Item Value Reference Range Interpretation Comments COLOR (test code = COLU) YELLOW YELLOW CLARITY (test code = CLA) CLEAR CLEAR GLUCOSE UR (test code = UA GLUCOSE) NEGATIVE NEGATIVE BILI UR (test code = BILE) NEGATIVE NEGATIVE KETONES UR (test code = KARSON) NEGATIVE NEGATIVE SP GRAVITY (test code = SPGR) 1.008 1.005-1.030 PH UR (test code = PH) 6.0 4.5-8.0 PROTEIN UR (test code = PU) NEGATIVE NEGATIVE UROBIL UR (test code = UROQ) 0.2 EU/dL 0.2-1.0 NITRITE UR (test code = NITRITE) NEGATIVE NEGATIVE BLOOD UR (test code = UA BLOOD) NEGATIVE NEGATIVE LEUK ES UR (test code = LEUK) NEGATIVE NEGATIVE URINE [id number] 00:25:00 Test Item Value Reference Range Interpretation Comments PREG UR (test code = PGU) POSITIVE NEGATIVE A CT Lumbar Spine Wo [id number] 11:30:12Hm Interface, Radiology Results 05/23/2019 11:33 AM CDTEXAMINATION: CT LUMBAR SPINE WO CO NTRASTCLINICAL HISTORY: Back pain 6wks no red flags no prior management, MVACOMPARISON: None.TECHNIQUE:Axial helical CT images throughout the lumbar spine were performed without IV contrast. Sagittal and coronal reformatted images were generated.All CT images were acquired using low-dose technique with automated exposure control.FINDINGS: There is no evidence of acute fracture, subluxation, ordislocation. There is normal lumbar lordosis and alignment. Vertebral bodies are preserved. There isno evidence of paraspinal hematoma.No significant spondylosis is appreciated. Intervertebral disc spaces are relatively preserved.Visualized paraspinal soft tissues are unremarkable.IMPRESSION:Unremarkable lumbar spinal CT with no evidence of acute traumatic abnormality.[id number] MethodistCO Cervical Spine Wo [id number] 09:48:46Hm Interface, Radiology Results 05/23/2019 9:51 AM CDTEXAMINATION: CT CERVICAL SPINE WOCONTRASTCLINICAL HISTORY: Neck pain initial examCOMPARISON: None.TECHNIQUE:Axial helical CT images throughout the cervical spine were performed without IV contrast. Sagittal and coronal reformatted images were generated.All CT images were acquired using low-dose technique with automated exposure control.FINDINGS:There is no evidence of acute fracture, traumatic subluxation, or dislocation. There is normal cervical lordosis and alignment. Vertebral bodies are preserved. There is no evidence of paraspinal hematoma.No significant cervical spondylosis is appreciated. The study is limited due to motion artifact which limits the evaluation of C3-C4 region.IMPRESSION:No acute cervical spine bony abnormality.[facility]-[id number] MethodistG qualitative, serum [id number] 08:51:48 Test Item Value Reference Range Interpretation Comments hCG qualitative, Negative The ghislaine valdes stated serum (test code = sensitivi ty of HcG test 2118-02) for serum is >/ = 10 mIU/ml and urine is >/ = 20mIU/ml. [facility] NECK W/[id number] 05:21:32HISTORY: Neck swellingTechnique: Axial tomograms through the neck were obtained after intravenouscontrast. Dose reduction techniques were utilized in compliance with ACR imagewisely.Location: C3 FINDINGS:The visualized aerodigestive tract is within normal limits. No peritonsillar orparapharyngeal massor fluid collection. The parotid glands and submandibularglands as well as thyroid gland show no sign ificant abnormalities. No softtissue mass or fluid collection.Scattered small lymph nodes are present along the jugular chains bilaterally.No acute osseous abnormalities demonstrated.IMPRESSION:1. No soft tissue mass or fluid collection. No other acute abnormalities.T4 [id number] 04:37:00 Test Item Value Reference Range Interpretation Comments T4 FREE (test code = A91) 1.12 ng/dL 0.76-1.46 THYROID PANEL/SCREEN (TSH)2019-03-07 04:27:00 Test Item Value Reference Range Interpretation Comments TSH (test code = A57) 5.350 uIU/mL 0.358-3.740 H CBC WITH [id number] 04:16:00 Test Item Value Reference Range Interpretation Comments WBC (test code = WBC) 9.3 10\\S\\3/uL 4.5-11.0 RBC (test code = RBC) 3.91 10\\S\\6/uL 4.30-5.70 L HGB (test code = HBG) 8.3 g/dL 12.0-15.5 L HCT (test code = HCT) 28.7 % 35.0-44.0 L MCV (test code = MCV) 73.4 fL 81.0-99.0 L MCH (test code = MCH) 21.2 pg 27.0-31.0 L MCHC (test code = MCHC) 28.9 g/dL 32.0-36.0 L RDW (test code = RDW) 18.0 % 11.5-14.5 H PLT (test code = PLT) 272 10\\S\\3/uL 130-400 MPV (test code = MPV) 10.3 fL 9.4-12.4 NEUTROP # (test code = NE#) 5.7 10\\S\\3/uL 1.6-8.0 LYMPH # (test code = LY#) 2.6 10\\S\\3/uL 1.1-3.5 MONOCYTE # (test code = 0.7 10\\S\\3/uL 0.0-1.1 MO#) EOSINOPH # (test code = 0.2 10\\S\\3/uL 0.0-0.7 EO#) BASOPHIL # (test code = 0.1 10\\S\\3/uL 0.0-0.3 BA#) IG # (test code = IG#) 0.02 10\\S\\3/uL 0.00-0.06 NRBC # (test code = NRBC#) 0.00 10\\S\\3/uL 0.00-0.01 NEUTROPH % (test code = 61.2 % 35.0-73.0 NE%) LYMPH % (test code = LY%) 27.9 % 20.0-55.0 MONO % (test code = MO%) 8.0 % 2.5-10.0 EOSINOPH % (test code = 2.2 % 0.0-5.0 EO%) BASOPHIL % (test code = 0.5 % 0.0-2.0 BA%) IG % (test code = IG%) 0.2 % 0.0-0.8 NRBC% (test code = NRBC%) 0.0 % 0.0-0.2 PLT EST (test code = ADEQUATE ADEQUATE PLTEST) PLT MORPH (test code = NORMAL (1.5-3 um) NORMAL PLTMOR) AMYLASE AND [id number] 04:13:00 Test Item Value Reference Range Interpretation Comments AMYLASE (test code = 10A) 50 U/L 28-100 LIPASE (test code = 60A) 87 IU/L 73-393 COMPREHENSIVE METABOLIC [id number] 04:13:00 Test Item Value Reference Range Interpretation Comments GLUCOSE (test code = 06D) 99 mg/dL 75-100 SODIUM (test code = 01A) 139 mmol/L 136-145 POTASSIUM (test code = 01B) 3.3 mmol/L 3.6-5.1 L CHLORIDE (test code = 04A) 106 mmol/L 98-107 CO2 (test code = 02A) 26 mmol/L 22-32 ANION GAP (test code = ANG) 10.3 mmol/L BUN (test code = 05D) 17 mg/dL 7-18 CREATININE (test code = 03E) 1.1 mg/dL 0.4-1.1 BUN/CREA (test code = BCR) 16 12-20 CALCIUM (test code = 09D) 8.9 mg/dL 8.3-9.5 BILI TOTAL (test code = 11A) 0.3 mg/dL 0.2-1.0 PROTEIN (test code = 07D) 7.9 g/dL 6.4-8.2 ALBUMIN (test code = 08D) 3.9 g/dL 3.5-4.8 GLOBULIN (test code = GLB) 4.0 g/dL 1.5-3.8 H ALB/GLOB (test code = AGRR) 1.0 1.0-2.6 ALK PHOS (test code = 35A) 102 IU/L 42-121 AST (test code = 30A) 15 IU/L <=42 ALT (test code = 31A) 8 IU/L <=78 [id number] 04:08:00 Test Item Value Reference Range Interpretation Comments MAGNESIUM (test code = 48A) 1.9 mg/dL 1.8-2.4 SERUM [id number] 04:08:00 Test Item Value Reference Range Interpretation Comments PREG SRM (test code = PGS) NEGATIVE NEGATIVE LIVER [id number] 04:00:00 Test Item Value Reference Range Interpretation Comments BILI TOTAL (test code = 11A) 0.4 mg/dL 0.2-1.0 BILI DIRCT (test code = 12A) <0.1 mg/dL 0.0-0.2 PROTEIN (test code = 07D) 8.8 g/dL 6.4-8.2 H ALBUMIN (test code = 08D) 4.7 g/dL 3.5-4.8 GLOBULIN (test code = GLB) 4.1 g/dL 1.5-3.8 H ALB/GLOB (test code = AGRR) 1.1 1.0-2.6 ALK PHOS (test code = 35A) 99 IU/L 42-121 AST (test code = 30A) 16 IU/L <=42 ALT (test code = 31A) 9 IU/L <=78 AMYLASE AND [id number] 03:24:00 Test Item Value Reference Range Interpretation Comments AMYLASE (test code = 10A) 48 U/L 28-100 LIPASE (test code = 60A) 122 IU/L 73-393 BASIC METABOLIC [id number] 03:23:00 Test Item Value Reference Range Interpretation Comments GLUCOSE (test code = 06D) 92 mg/dL 75-100 SODIUM (test code = 01A) 138 mmol/L 136-145 POTASSIUM (test code = 01B) 3.3 mmol/L 3.6-5.1 L CHLORIDE (test code = 04A) 104 mmol/L 98-107 CO2 (test code = 02A) 25 mmol/L 22-32 ANION GAP (test code = ANG) 12.3 mmol/L BUN (test code = 05D) 12 mg/dL 7-18 CREATININE (test code = 03E) 0.8 mg/dL 0.4-1.1 BUN/CREA (test code = BCR) 16 12-20 CALCIUM (test code = 09D) 8.8 mg/dL 8.3-9.5 URINALYSIS WITH [id number] 03:20:00 Test Item Value Reference Range Interpretation Comments COLOR (test code = COLU) YELLOW YELLOW CLARITY (test code = CLA) CLOUDY CLEAR A GLUCOSE UR (test code = UA GLUCOSE) NEGATIVE NEGATIVE BILI UR (test code = BILE) NEGATIVE NEGATIVE KETONES UR (test code = KARSON) NEGATIVE NEGATIVE SP GRAVITY (test code = SPGR) 1.025 1.005-1.030 PH UR (test code = PH) 6.0 4.5-8.0 PROTEIN UR (test code = PU) TRACE NEGATIVE A UROBIL UR (test code = UROQ) 0.2 EU/dL 0.2-1.0 NITRITE UR (test code = NITRITE) NEGATIVE NEGATIVE BLOOD UR (test code = UA BLOOD) NEGATIVE NEGATIVE LEUK ES UR (test code = LEUK) 2+ NEGATIVE A WBC UR (test code = UWBC) 4 /HPF 0-5 RBC UR (test code = URBC) 0 /HPF 0-2 EPITH UR (test code = UEPC) MANY /LPF FEW A BACTERIA UR (test code = UBACT) FEW /HPF NONE A CAST UR (test code = CAST) /LPF NONE CRYSTAL UR (test code = CRYU) / LPF NONE MUCUS UR (test code = MUC) / HPF NONE AMORPH UR (test code = BRENT) / HPF NONE TRICH UR (test code = UTRICH) /HPF NONE YEAST UR (test code = UY) /HPF NONE SPERM UR (test code = USPERM) /HPF NONE SERUM [id number] 03:18:00 Test Item Value Reference Range Interpretation Comments PREG SRM (test code = PGS) NEGATIVE NEGATIVE CBC (INCLUDES AUTOMATED DIFFERENTIAL)2018-11-13 03:12:00 Test Item Value Reference Range Interpretation Comments WBC (test code = WBC) 8.5 10\\S\\3/uL 4.5-11.0 RBC (test code = RBC) 4.42 10\\S\\6/uL 4.30-5.70 HGB (test code = HBG) 9.7 g/dL 12.0-15.5 L HCT (test code = HCT) 33.0 % 35.0-44.0 L MCV (test code = MCV) 74.7 fL 81.0-99.0 L MCH (test code = MCH) 21.9 pg 27.0-31.0 L MCHC (test code = MCHC) 29.4 g/dL 32.0-36.0 L RDW (test code = RDW) 17.1 % 11.5-14.5 H PLT (test code = PLT) 244 10\\S\\3/uL 130-400 MPV (test code = MPV) 10.9 fL 9.4-12.4 NEUTROP # (test code = NE#) 5.1 10\\S\\3/uL 1.6-8.0 LYMPH # (test code = LY#) 2.5 10\\S\\3/uL 1.1-3.5 MONOCYTE # (test code = MO#) 0.7 10\\S\\3/uL 0.0-1.1 EOSINOPH # (test code = EO#) 0.2 10\\S\\3/uL 0.0-0.7 BASOPHIL # (test code = BA#) 0.0 10\\S\\3/uL 0.0-0.3 IG # (test code = IG#) 0.02 10\\S\\3/uL 0.00-0.06 NRBC # (test code = NRBC#) 0.00 10\\S\\3/uL 0.00-0.01 NEUTROPH % (test code = NE%) 59.6 % 35.0-73.0 LYMPH % (test code = LY%) 29.7 % 20.0-55.0 MONO % (test code = MO%) 8.0 % 2.5-10.0 EOSINOPH % (test code = EO%) 2.1 % 0.0-5.0 BASOPHIL % (test code = BA%) 0.4 % 0.0-2.0 IG % (test code = IG%) 0.2 % 0.0-0.8 NRBC% (test code = NRBC%) 0.0 % 0.0-0.2 MANDIFF (test code = MDIFF) NO NO RBC MORPH (test code = RBCMOR) NORMAL CT ABDOMEN AND PELVIS WITH [id number] 12:25:13CT abdomen and pelvis with contrastLocation Code: [id number] HISTORY: Lower abdominal painCOMPARISON: 09/11/2018Technique: Helical CT [...] surrounding soft tissues are unremarkable.IMPRESSION: No acute intra-abdominal or pelvic abnormality.AMYLASE AND [id number] 11:44:00 Test Item Value Reference Range Interpretation Comments AMYLASE (test code = 10A) 41 U/L 28-100 LIPASE (test code = 60A) 76 IU/L 73-393 COMPREHENSIVE METABOLIC [id number] 11:44:00 Test Item Value Reference Range Interpretation Comments GLUCOSE (test code = 06D) 89 mg/dL 75-100 SODIUM (test code = 01A) 140 mmol/L 136-145 POTASSIUM (test code = 01B) 3.7 mmol/L 3.6-5.1 CHLORIDE (test code = 04A) 106 mmol/L 98-107 CO2 (test code = 02A) 26 mmol/L 22-32 ANION GAP (test code = ANG) 11.7 mmol/L BUN (test code = 05D) 14 mg/dL 7-18 CREATININE (test code = 03E) 0.7 mg/dL 0.4-1.1 BUN/CREA (test code = BCR) 21 12-20 H CALCIUM (test code = 09D) 9.3 mg/dL 8.3-9.5 BILI TOTAL (test code = 11A) 0.5 mg/dL 0.2-1.0 PROTEIN (test code = 07D) 8.6 g/dL 6.4-8.2 H ALBUMIN (test code = 08D) 4.4 g/dL 3.5-4.8 GLOBULIN (test code = GLB) 4.2 g/dL 1.5-3.8 H ALB/GLOB (test code = AGRR) 1.0 1.0-2.6 ALK PHOS (test code = 35A) 105 IU/L 42-121 AST (test code = 30A) 34 IU/L <=42 ALT (test code = 31A) 23 IU/L <=78 PRO TIME AND [id number] 11:41:00 Test Item Value Reference Range Interpretation Comments PT (test code = 12.2 s 9.8-13.6 TT) INR (test code = 1.1 INR) INRH (test code = SUGGESTED INRH) THERAPEUTIC RANGE FOR INR: 2.5 - 3.5 For Patients with Prosthetic Valves or Patients with recurrent Thromboembolic Events 2.0 - 3.0 For Most Other Applications PTT (test code = 30.5 s 20.2-38.0 PTT) PTTH (test code = To monitor the PTTH) effectiveness of heparin, we offer the Anti-Xa (Heparin Assay). It can be used for either unfractionated or LMW Heparin. Order Code is ANTI-XA SERUM [id number] 11:39:00 Test Item Value Reference Range Interpretation Comments PREG SRM (test code = PGS) NEGATIVE NEGATIVE [id number] 11:39:00 Test Item Value Reference Range Interpretation Comments MAGNESIUM (test code = 48A) 2.1 mg/dL 1.8-2.4 OCCULT [id number] 11:28:00 Test Item Value Reference Range Interpretation Comments Direct Exam (test code POSITIVE FOR OCCULT = DE1) BLOOD CBC (INCLUDES AUTOMATED DIFFERENTIAL)2018-10-22 11:24:00 Test Item Value Reference Range Interpretation Comments WBC (test code = WBC) 6.4 10\\S\\3/uL 4.5-11.0 RBC (test code = RBC) 4.34 10\\S\\6/uL 4.30-5.70 HGB (test code = HBG) 9.4 g/dL 12.0-15.5 L HCT (test code = HCT) 32.8 % 35.0-44.0 L MCV (test code = MCV) 75.6 fL 81.0-99.0 L MCH (test code = MCH) 21.7 pg 27.0-31.0 L MCHC (test code = MCHC) 28.7 g/dL 32.0-36.0 L RDW (test code = RDW) 16.9 % 11.5-14.5 H PLT (test code = PLT) 241 10\\S\\3/uL 130-400 MPV (test code = MPV) 11.0 fL 9.4-12.4 NEUTROP # (test code = NE#) 4.7 10\\S\\3/uL 1.6-8.0 LYMPH # (test code = LY#) 1.2 10\\S\\3/uL 1.1-3.5 MONOCYTE # (test code = MO#) 0.4 10\\S\\3/uL 0.0-1.1 EOSINOPH # (test code = EO#) 0.1 10\\S\\3/uL 0.0-0.7 BASOPHIL # (test code = BA#) 0.0 10\\S\\3/uL 0.0-0.3 IG # (test code = IG#) 0.02 10\\S\\3/uL 0.00-0.06 NRBC # (test code = NRBC#) 0.00 10\\S\\3/uL 0.00-0.01 NEUTROPH % (test code = NE%) 72.5 % 35.0-73.0 LYMPH % (test code = LY%) 19.1 % 20.0-55.0 L MONO % (test code = MO%) 6.4 % 2.5-10.0 EOSINOPH % (test code = EO%) 1.2 % 0.0-5.0 BASOPHIL % (test code = BA%) 0.5 % 0.0-2.0 IG % (test code = IG%) 0.3 % 0.0-0.8 NRBC% (test code = NRBC%) 0.0 % 0.0-0.2 MANDIFF (test code = MDIFF) NO NO RBC MORPH (test code = RBCMOR) NORMAL DRUGS OF [id number] 17:34:00 Test Item Value Reference Range Interpretation Comments DRUG SCRN (test code URINE DRUG SCREEN = HDOA) This is an unconfirmed screening result and should not be used for non-medical purposes CANNABINOD (test code Negative NEGATIVE = 88C) AMPHETAMINE (test Negative NEGATIVE code = 84A) BENZODIAZP (test code POSITIVE NEGATIVE A = 86A) BARBITURAT (test code Negative NEGATIVE = 85A) OPIATES (test code = Negative NEGATIVE 92B) COCAINE (test code = Negative NEGATIVE 87A) PHENCYCLID (test code Negative NEGATIVE = 66A) METHADONE (test code Negative NEGATIVE = 64A) DOAH (test code = DOAH.) *URINE DRUG SCREEN Cut-off values are as follows: Cannabinoids 50 ng/mL Cocaine 300 ng/mL Amphetamines 1000 ng/mL Phencyclidine 25 ng/mL Benzodiazepines 200 ng.mL Methadone 300 ng/mL Barbiturates 200 ng/mL Opiates 2000 ng/mL U/S [id number] 17:32:02PELVIC ULTRASOUND:Location code: [id number] HISTORY: [id number]: Acute pelvic painComparison: NoneTECHNIQUE: Transabdominal sonography of the pelvis was performed. The patientrefused transvaginal scan.. FINDINGS: The uterus is uniform in echogenicity measuring 7.8 x 83.7 x 6.9 cm. The endometrium is poorly visualized. The bilateral ovaries are nonvisualized. There is no adnexal mass or freefluid.IMPRESSION:No visualized acute abnormality on limited examination.COMPREHENSIVE METABOLIC [id number] 16:53:00 Test Item Value Reference Range Interpretation Comments GLUCOSE (test code = 06D) 106 mg/dL 75-100 H SODIUM (test code = 01A) 141 mmol/L 136-145 POTASSIUM (test code = 01B) 4.2 mmol/L 3.6-5.1 CHLORIDE (test code = 04A) 109 mmol/L 98-107 H CO2 (test code = 02A) 27 mmol/L 22-32 ANION GAP (test code = ANG) 9.2 mmol/L BUN (test code = 05D) 9 mg/dL 7-18 CREATININE (test code = 03E) 0.6 mg/dL 0.4-1.1 BUN/CREA (test code = BCR) 15 12-20 CALCIUM (test code = 09D) 9.2 mg/dL 8.3-9.5 BILI TOTAL (test code = 11A) 0.4 mg/dL 0.2-1.0 PROTEIN (test code = 07D) 7.6 g/dL 6.4-8.2 ALBUMIN (test code = 08D) 3.8 g/dL 3.5-4.8 GLOBULIN (test code = GLB) 3.8 g/dL 1.5-3.8 ALB/GLOB (test code = AGRR) 1.0 1.0-2.6 ALK PHOS (test code = 35A) 104 IU/L 42-121 AST (test code = 30A) 38 IU/L <=42 ALT (test code = 31A) 21 IU/L <=78 AMYLASE AND [id number] 16:47:00 Test Item Value Reference Range Interpretation Comments AMYLASE (test code = 10A) 45 U/L 28-100 LIPASE (test code = 60A) 47 IU/L 73-393 L SERUM [id number] 16:46:00 Test Item Value Reference Range Interpretation Comments PREG SRM (test code = PGS) NEGATIVE NEGATIVE [id number] 16:39:00 Test Item Value Reference Range Interpretation Comments COLOR (test code = COLU) YELLOW YELLOW CLARITY (test code = CLA) CLEAR CLEAR GLUCOSE UR (test code = UA GLUCOSE) NEGATIVE NEGATIVE BILI UR (test code = BILE) NEGATIVE NEGATIVE KETONES UR (test code = KARSON) NEGATIVE NEGATIVE SP GRAVITY (test code = SPGR) 1.006 1.005-1.030 PH UR (test code = PH) 7.0 4.5-8.0 PROTEIN UR (test code = PU) NEGATIVE NEGATIVE UROBIL UR (test code = UROQ) 0.2 EU/dL 0.2-1.0 NITRITE UR (test code = NITRITE) NEGATIVE NEGATIVE BLOOD UR (test code = UA BLOOD) NEGATIVE NEGATIVE LEUK ES UR (test code = LEUK) NEGATIVE NEGATIVE CBC (INCLUDES AUTOMATED DIFFERENTIAL)2018-10-19 16:37:00 Test Item Value Reference Range Interpretation Comments WBC (test code = WBC) 8.0 10\\S\\3/uL 4.5-11.0 RBC (test code = RBC) 4.15 10\\S\\6/uL 4.30-5.70 L HGB (test code = HBG) 9.1 g/dL 12.0-15.5 L HCT (test code = HCT) 31.2 % 35.0-44.0 L MCV (test code = MCV) 75.2 fL 81.0-99.0 L MCH (test code = MCH) 21.9 pg 27.0-31.0 L MCHC (test code = MCHC) 29.2 g/dL 32.0-36.0 L RDW (test code = RDW) 17.1 % 11.5-14.5 H PLT (test code = PLT) 244 10\\S\\3/uL 130-400 MPV (test code = MPV) 11.1 fL 9.4-12.4 NEUTROP # (test code = NE#) 6.4 10\\S\\3/uL 1.6-8.0 LYMPH # (test code = LY#) 1.0 10\\S\\3/uL 1.1-3.5 L MONOCYTE # (test code = MO#) 0.4 10\\S\\3/uL 0.0-1.1 EOSINOPH # (test code = EO#) 0.1 10\\S\\3/uL 0.0-0.7 BASOPHIL # (test code = BA#) 0.0 10\\S\\3/uL 0.0-0.3 IG # (test code = IG#) 0.02 10\\S\\3/uL 0.00-0.06 NRBC # (test code = NRBC#) 0.00 10\\S\\3/uL 0.00-0.01 NEUTROPH % (test code = NE%) 80.6 % 35.0-73.0 H LYMPH % (test code = LY%) 12.0 % 20.0-55.0 L MONO % (test code = MO%) 4.9 % 2.5-10.0 EOSINOPH % (test code = EO%) 1.8 % 0.0-5.0 BASOPHIL % (test code = BA%) 0.4 % 0.0-2.0 IG % (test code = IG%) 0.3 % 0.0-0.8 NRBC% (test code = NRBC%) 0.0 % 0.0-0.2 MANDIFF (test code = MDIFF) NO NO CBC WITH [id number] 13:43:00 Test Item Value Reference Range Interpretation Comments WBC (test code = WBC) 5.2 10\\S\\3/uL 4.5-11.0 RBC (test code = RBC) 3.74 10\\S\\6/uL 4.30-5.70 L HGB (test code = HBG) 8.2 g/dL 12.0-15.5 L HCT (test code = HCT) 28.5 % 35.0-44.0 L MCV (test code = MCV) 76.2 fL 81.0-99.0 L MCH (test code = MCH) 21.9 pg 27.0-31.0 L MCHC (test code = MCHC) 28.8 g/dL 32.0-36.0 L RDW (test code = RDW) 18.0 % 11.5-14.5 H PLT (test code = PLT) 169 10\\S\\3/uL 130-400 MPV (test code = MPV) 10.1 fL 9.4-12.4 NEUTROP # (test code = NE#) 3.7 10\\S\\3/uL 1.6-8.0 LYMPH # (test code = LY#) 1.0 10\\S\\3/uL 1.1-3.5 L MONOCYTE # (test code = 0.4 10\\S\\3/uL 0.0-1.1 MO#) EOSINOPH # (test code = 0.1 10\\S\\3/uL 0.0-0.7 EO#) BASOPHIL # (test code = 0.0 10\\S\\3/uL 0.0-0.3 BA#) IG # (test code = IG#) 0.02 10\\S\\3/uL 0.00-0.06 NRBC # (test code = NRBC#) 0.00 10\\S\\3/uL 0.00-0.01 NEUTROPH % (test code = 71.8 % 35.0-73.0 NE%) LYMPH % (test code = LY%) 18.7 % 20.0-55.0 L MONO % (test code = MO%) 7.3 % 2.5-10.0 EOSINOPH % (test code = 1.2 % 0.0-5.0 EO%) BASOPHIL % (test code = 0.6 % 0.0-2.0 BA%) IG % (test code = IG%) 0.4 % 0.0-0.8 NRBC% (test code = NRBC%) 0.0 % 0.0-0.2 PLT EST (test code = ADEQUATE ADEQUATE PLTEST) PLT MORPH (test code = NORMAL (1.5-3 um) NORMAL PLTMOR) HYPOCHROM (test code = 1+ NONE A HYPOC) POLYCHROM (test code = 1+ NONE A POLY) BASIC METABOLIC [id number] 13:40:00 Test Item Value Reference Range Interpretation Comments GLUCOSE (test code = 06D) 96 mg/dL 75-100 SODIUM (test code = 01A) 142 mmol/L 136-145 POTASSIUM (test code = 01B) 3.7 mmol/L 3.6-5.1 CHLORIDE (test code = 04A) 109 mmol/L 98-107 H CO2 (test code = 02A) 24 mmol/L 22-32 ANION GAP (test code = ANG) 12.7 mmol/L BUN (test code = 05D) 10 mg/dL 7-18 CREATININE (test code = 03E) 0.6 mg/dL 0.4-1.1 BUN/CREA (test code = BCR) 16 12-20 CALCIUM (test code = 09D) 8.8 mg/dL 8.3-9.5 [id number] 13:30:00 Test Item Value Reference Range Interpretation Comments COLOR (test code = COLU) YELLOW YELLOW CLARITY (test code = CLA) CLEAR CLEAR GLUCOSE UR (test code = UA GLUCOSE) NEGATIVE NEGATIVE BILI UR (test code = BILE) NEGATIVE NEGATIVE KETONES UR (test code = KARSON) TRACE NEGATIVE A SP GRAVITY (test code = SPGR) 1.007 1.005-1.030 PH UR (test code = PH) 6.0 4.5-8.0 PROTEIN UR (test code = PU) NEGATIVE NEGATIVE UROBIL UR (test code = UROQ) 0.2 EU/dL 0.2-1.0 NITRITE UR (test code = NITRITE) NEGATIVE NEGATIVE BLOOD UR (test code = UA BLOOD) NEGATIVE NEGATIVE LEUK ES UR (test code = LEUK) NEGATIVE NEGATIVE URINE [id number] 13:30:00 Test Item Value Reference Range Interpretation Comments PREG UR (test code = PGU) NEGATIVE NEGATIVE CT ABDOMEN AND PELVIS W/O [id number] 15:32:22CT abdomen and pelvis without contrastLocation Code: [id number] HISTORY: Pain in pelvisCOMPARISON: Technique: Helical CT [...] no acute intra-abdominal or pelvic abnormality.URINALYSIS WITH [id number] 14:45:00 Test Item Value Reference Range Interpretation Comments COLOR (test code = COLU) ORANGE YELLOW A CLARITY (test code = CLA) CLOUDY CLEAR A GLUCOSE UR (test code = UA NEGATIVE NEGATIVE GLUCOSE) BILI UR (test code = BILE) 1+ NEGATIVE A KETONES UR (test code = KARSON) TRACE NEGATIVE A SP GRAVITY (test code = SPGR) 1.029 1.005-1.030 PH UR (test code = PH) 5.5 4.5-8.0 PROTEIN UR (test code = PU) 1+ NEGATIVE A UROBIL UR (test code = UROQ) 1.0 EU/dL 0.2-1.0 NITRITE UR (test code = POSITIVE NEGATIVE A NITRITE) BLOOD UR (test code = UA NEGATIVE NEGATIVE BLOOD) LEUK ES UR (test code = LEUK) 2+ NEGATIVE A WBC UR (test code = UWBC) 6 /HPF 0-5 H RBC UR (test code = URBC) 0 /HPF 0-2 EPITH UR (test code = UEPC) MODERATE /LPF FEW A BACTERIA UR (test code = MODERATE /HPF NONE A UBACT) CAST UR (test code = CAST) /LPF NONE CRYSTAL UR (test code = CRYU) / LPF NONE MUCUS UR (test code = MUC) MODERATE / HPF NONE A AMORPH UR (test code = BRENT) / HPF NONE TRICH UR (test code = UTRICH) /HPF NONE YEAST UR (test code = UY) /HPF NONE SPERM UR (test code = USPERM) /HPF NONE URINE [id number] 14:40:00 Test Item Value Reference Range Interpretation Comments PREG UR (test code = PGU) NEGATIVE NEGATIVE DIRECT STREP GROUP [id number] 10:48:00 Test Item Value Reference Range Interpretation Comments Culture Observations NO BETA HEMOLYTIC (test code = COB1) STREPTOCOCCUS ISOLATED Direct Exam (test code NO STREPTOCOCCUS GROUP = DE1) A ANTIGEN DETECTED COMPREHENSIVE METABOLIC [id number] 23:46:00 Test Item Value Reference Range Interpretation Comments SODIUM (test code = NA) 137 mEq/L 135-145 N POTASSIUM (test code = K) 3.8 mEq/L 3.5-5.0 N CHLORIDE (test code = CL) 104 mEq/L 100-115 N CARBON DIOXIDE (test code = CO2) 28 mEq/L 22-31 N ANION GAP (test code = GAP) 9.00 10-20 L GLUCOSE (test code = GLU) 89 mg/dL 65-110 N BLOOD UREA NITROGEN (test code = 9 mg/dL 7-18 N BUN) GLOMERULAR FILTRATION RATE (test 102 ml/min >60 N code = GFR) CREATININE (test code = CREAT) 0.7 mg/dL 0.5-1.0 N TOTAL PROTEIN (test code = PROT) 7.1 gm/dL 6.3-8.2 N ALBUMIN (test code = ALB) 3.4 gm/dL 3.4-4.8 N CALCIUM (test code = CA) 8.7 mg/dL 8.4-10.2 N BILIRUBIN TOTAL (test code = 0.2 mg/dL 0.2-1.0 N BILT) SGOT/AST (test code = AST) 27 units/L 15-37 N SGPT/ALT (test code = ALT) 15 units/L 12-78 N ALKALINE PHOSPHATASE TOTAL (test 118 units/L 46-116 H code = ALKP) CBC W/AUTO [id number] 23:30:00 Test Item Value Reference Range Interpretation Comments WHITE BLOOD CELL (test code = WBC) 4.2 K/mm3 6.6-12.1 L RED BLOOD CELL (test code = RBC) 3.74 M/mm3 3.45-5.01 N HEMOGLOBIN (test code = HGB) 8.2 g/dL 10.7-13.9 L HEMATOCRIT (test code = HCT) 28.1 % 32.1-42.1 L MEAN CELL VOLUME (test code = MCV) 75 fL 84.1-94.8 L MEAN CELL HGB (test code = MCH) 21.9 pg 27-35 L MEAN CELL HGB CONCETRATION (test 29.2 gm/dL 32.2-34.1 L code = MCHC) RED CELL DISTRIBUTION WIDTH (test 18.3 % 12.4-16.5 H code = RDW) PLATELET COUNT (test code = PLT) 198 K/mm3 133-385 N IMMATURE PLATELET FRACTION (test 0.0 % 0.0-10.8 N code = IPF) MEAN PLATELET VOLUME (test code = 10.9 fl 9.1-12.7 N MPV) NEUTROPHIL % (test code = NT%) 75.1 % 56.5-79.4 N LYMPHOCYTE % (test code = LY%) 9.1 % 14.3-34.3 L MONOCYTE % (test code = MO%) 12.5 % 5.1-10.4 H EOSINOPHIL % (test code = EO%) 2.6 % 0.1-3.0 N BASOPHIL % (test code = BA%) 0.5 % 0.1-1.0 N NEUTROPHIL # (test code = NT#) 3.1 K/mm3 LYMPHOCYTE # (test code = LY#) 0.4 K/mm3 MONOCYTE # (test code = MO#) 0.5 K/mm3 EOSINOPHIL # (test code = EO#) 0.11 K/mm3 BASOPHIL # (test code = BA#) 0.0 K/mm3 RBC MORPHOLOGY REQUIRED (test code NORMAL NORMAL = RBCM) PLATELET MORPHOLOGY REQUIRED (test NORMAL NORMAL code = PLTMR) INFLUENZA A B [id number] 23:18:00 Test Item Value Reference Range Interpretation Comments INFLUENZA A PCR (test POSITIVE NEGATIVE A RESULT S CALLED TO code = FLUAPCR) GENI.READ BA CK & CONFIRMED? Y.BY F.LAB.LGL0 08/28 10/13 3699. INFLUENZA B PCR (test NEGATIVE NEGATIVE code = FLUBPCR) UA RFLX MICR CULT IF [id number] 22:36:00 Test Item Value Reference Range Interpretation Comments UA COLOR (test code = COLU) YELLOW YELLOW UA APPEARANCE (test code = CLOUDY CLEAR A APPU) UA GLUCOSE DIPSTICK (test code NEGATIVE NEG = DGLUU) UA BILIRUBIN DIPSTICK (test NEGATIVE NEG code = BILU) UA KETONE DIPSTICK (test code NEGATIVE NEG = KETU) UA SPECIFIC GRAVITY (test code 1.013 1.001-1.035 N = SGU) UA BLOOD DIPSTICK (test code = 1+ NEG A SANAZ) UA PH DIPSTICK (test code = 5.0 5-9 ELISA) UA PROTEIN DIPSTICK (test code NEGATIVE NEG = PROU) UA UROBILINIOGEN DIPSTICK NEGATIVE mg/dL NEG (test code = URO) UA NITRITE DIPSTICK (test code NEG NEG = GREGORIO) UA LEUKOCYTE ESTERASE DIPSTICK 3+ NEG A (test code = LEUU) UA WBC (test code = WBCU) 31-40 #/hpf NONE SEEN A UA RBC (test code = RBCU) 21-30 #/hpf NONE SEEN A UA EPITHELIAL CELLS (test code MANY #/HPF RARE-FEW A = EPIU) UA BACTERIA (test code = BACU) RARE /HPF RARE-FEW UA MUCUS (test code = MUCU) RARE NONE SEEN UR HCG [id number] 22:36:00 Test Item Value Reference Range Interpretation Comments UR HCG QUAL (test NEGATIVE 1. Very di lute urine code = HCGQLU) specimens, as indicated by a lowspecific g ravity, may not contain rep resentative levels ofhCG. 2 . False negative result s may occur when the levels of hCGare below the sensi tivity level of the test. If is still suspec susy, a first morningurine sp ecimen should be colle cted 48 hours later and tested. UA RFLX MICR CULT IF [id number] 22:33:00 Test Item Value Reference Range Interpretation Comments UA COLOR (test code = COLU) YELLOW UA APPEARANCE (test code = APPU) CLEAR UA GLUCOSE DIPSTICK (test code = NEGATIVE DGLUU) UA BILIRUBIN DIPSTICK (test code = NEGATIVE BILU) UA KETONE DIPSTICK (test code = KETU) NEGATIVE UA SPECIFIC GRAVITY (test code = SGU) 1.001-1.035 UA BLOOD DIPSTICK (test code = SANAZ) NEGATIVE UA PH DIPSTICK (test code = ELISA) 5-9 UA PROTEIN DIPSTICK (test code = PROU) NEGATIVE UA UROBILINIOGEN DIPSTICK (test code = EU/dL <=1.0 URO) UA NITRITE DIPSTICK (test code = GREGORIO) NEGATIVE UA LEUKOCYTE ESTERASE DIPSTICK (test NEG code = LEUU) UA WBC (test code = WBCU) #/hpf NONE SEEN UA EPITHELIAL CELLS (test code = EPIU) #/HPF RARE-FEW UR HCG [id number] 22:33:00 Test Item Value Reference Range Interpretation Comments UR HCG QUAL (test NEGATIVE 1. Very di lute urine code = HCGQLU) specimens, as indicated by a lowspecific g ravity, may not contain rep resentative levels ofhCG. 2 . False negative result s may occur when the levels of hCGare below the sensi tivity level of the test. If is still suspec susy, a first morningurine sp ecimen should be colle cted 48 hours later and tested. U/S [id number] 15:54:21PELVIC ULTRASOUND:Location code: [id number] HISTORY: lower abdominal pain, 4cm ovarian cyst on CTComparison: CT performed earlier on same dayTECHNIQUE: Transabdominal sonography of the pelvis was perfor med. FINDINGS: The uterus is uniform in echogenicity [...] torsion.2. Nonvisualization of the right ovary.U/S NON [id number] 15:54:21PELVIC ULTRASOUND:Location code: [id number] HISTORY: lower abdominal pain, 4cm ovarian cyst on CTComp arison: CT performed earlier on same dayTECHNIQUE: Transabdominal [...] torsion.2. Nonvisualization of the right ovary.URINALYSIS WITH [id number] 15:27:00 Test Item Value Reference Range Interpretation Comments COLOR (test code = COLU) YELLOW YELLOW CLARITY (test code = CLA) CLOUDY CLEAR A GLUCOSE UR (test code = UA GLUCOSE) NEGATIVE NEGATIVE BILI UR (test code = BILE) NEGATIVE NEGATIVE KETONES UR (test code = KARSON) NEGATIVE NEGATIVE SP GRAVITY (test code = SPGR) 1.025 1.005-1.030 PH UR (test code = PH) 7.5 4.5-8.0 PROTEIN UR (test code = PU) TRACE NEGATIVE A UROBIL UR (test code = UROQ) 0.2 EU/dL 0.2-1.0 NITRITE UR (test code = NITRITE) NEGATIVE NEGATIVE BLOOD UR (test code = UA BLOOD) NEGATIVE NEGATIVE LEUK ES UR (test code = LEUK) 2+ NEGATIVE A WBC UR (test code = UWBC) 6 /HPF 0-5 H RBC UR (test code = URBC) 0 /HPF 0-2 EPITH UR (test code = UEPC) FEW /LPF FEW BACTERIA UR (test code = UBACT) FEW /HPF NONE A CAST UR (test code = CAST) /LPF NONE CRYSTAL UR (test code = CRYU) / LPF NONE MUCUS UR (test code = MUC) / HPF NONE AMORPH UR (test code = BRENT) / HPF NONE TRICH UR (test code = UTRICH) /HPF NONE YEAST UR (test code = UY) /HPF NONE SPERM UR (test code = USPERM) /HPF NONE CT ABDOMEN AND PELVIS WITH [id number] 14:44:45CT abdomen and pelvis with contrastLocation Code: [id number] HISTORY: 2 days post laparoscopy with abd [...] cyst.2. Otherwise, no acute abnormality.XR CHEST 2 [id number] 14:10:17PA and lateral chest, 2 viewsLocation code: [id number] HISTORY: CoughCOMPARISON: 06/07/2016COMMENTS:The lungs are clear and well inflated. The costophrenic angles aresharp. The cardiomediastinal silhouette is unremarkable. The bones are intact.IMPRESSION: Stable chest with no acute abnormalityAMYLASE AND [id number] 14:07:00 Test Item Value Reference Range Interpretation Comments AMYLASE (test code = 10A) 34 U/L 28-100 LIPASE (test code = 60A) 45 IU/L 73-393 L COMPREHENSIVE METABOLIC [id number] 14:07:00 Test Item Value Reference Range Interpretation Comments GLUCOSE (test code = 06D) 100 mg/dL 75-100 SODIUM (test code = 01A) 135 mmol/L 136-145 L POTASSIUM (test code = 01B) 3.8 mmol/L 3.6-5.1 CHLORIDE (test code = 04A) 102 mmol/L 98-107 CO2 (test code = 02A) 24 mmol/L 22-32 ANION GAP (test code = ANG) 12.8 mmol/L BUN (test code = 05D) 9 mg/dL 7-18 CREATININE (test code = 03E) 0.8 mg/dL 0.4-1.1 BUN/CREA (test code = BCR) 12 12-20 CALCIUM (test code = 09D) 8.9 mg/dL 8.3-9.5 BILI TOTAL (test code = 11A) 0.5 mg/dL 0.2-1.0 PROTEIN (test code = 07D) 8.2 g/dL 6.4-8.2 ALBUMIN (test code = 08D) 3.9 g/dL 3.5-4.8 GLOBULIN (test code = GLB) 4.3 g/dL 1.5-3.8 H ALB/GLOB (test code = AGRR) 0.9 1.0-2.6 L ALK PHOS (test code = 35A) 134 IU/L 42-121 H AST (test code = 30A) 36 IU/L <=42 ALT (test code = 31A) 23 IU/L <=78 PRO TIME AND [id number] 14:00:00 Test Item Value Reference Range Interpretation Comments PT (test code = 12.0 s 9.8-13.6 TT) INR (test code = 1.1 INR) INRH (test code = SUGGESTED INRH) THERAPEUTIC RANGE FOR INR: 2.5 - 3.5 For Patients with Prosthetic Valves or Patients with recurrent Thromboembolic Events 2.0 - 3.0 For Most Other Applications PTT (test code = 32.4 s 20.2-38.0 PTT) PTTH (test code = To monitor the PTTH) effectiveness of heparin, we offer the Anti-Xa (Heparin Assay). It can be used for either unfractionated or LMW Heparin. Order Code is ANTI-XA SERUM [id number] 13:59:00 Test Item Value Reference Range Interpretation Comments PREG SRM (test code = PGS) NEGATIVE NEGATIVE CBC (INCLUDES AUTOMATED DIFFERENTIAL)2018-09-09 13:53:00 Test Item Value Reference Range Interpretation Comments WBC (test code = WBC) 7.3 10\\S\\3/uL 4.5-11.0 RBC (test code = RBC) 4.26 10\\S\\6/uL 4.30-5.70 L HGB (test code = HBG) 9.4 g/dL 12.0-15.5 L HCT (test code = HCT) 31.8 % 35.0-44.0 L MCV (test code = MCV) 74.6 fL 81.0-99.0 L MCH (test code = MCH) 22.1 pg 27.0-31.0 L MCHC (test code = MCHC) 29.6 g/dL 32.0-36.0 L RDW (test code = RDW) 18.2 % 11.5-14.5 H PLT (test code = PLT) 232 10\\S\\3/uL 130-400 MPV (test code = MPV) 10.9 fL 9.4-12.4 NEUTROP # (test code = NE#) 5.9 10\\S\\3/uL 1.6-8.0 LYMPH # (test code = LY#) 0.4 10\\S\\3/uL 1.1-3.5 L MONOCYTE # (test code = MO#) 0.7 10\\S\\3/uL 0.0-1.1 EOSINOPH # (test code = EO#) 0.2 10\\S\\3/uL 0.0-0.7 BASOPHIL # (test code = BA#) 0.0 10\\S\\3/uL 0.0-0.3 IG # (test code = IG#) 0.01 10\\S\\3/uL 0.00-0.06 NRBC # (test code = NRBC#) 0.00 10\\S\\3/uL 0.00-0.01 NEUTROPH % (test code = NE%) 81.5 % 35.0-73.0 H LYMPH % (test code = LY%) 5.8 % 20.0-55.0 L MONO % (test code = MO%) 9.5 % 2.5-10.0 EOSINOPH % (test code = EO%) 2.7 % 0.0-5.0 BASOPHIL % (test code = BA%) 0.4 % 0.0-2.0 IG % (test code = IG%) 0.1 % 0.0-0.8 NRBC% (test code = NRBC%) 0.0 % 0.0-0.2 MANDIFF (test code = MDIFF) NO NO RBC MORPH (test code = RBCMOR) NORMAL DIRECT INFLUENZA A AND B [id number] 13:24:00 Test Item Value Reference Range Interpretation Comments Direct Exam (test PRESUMPTIVE NEGATIVE FOR code = DE1) THE PRESENCE OF INFLUENZA ANTIGEN PERITONEUM,[id number] 14:26:00 RUN DATE: 09/07/18 [facility] PAGE 1 RUN TIME: 1455 Specimen Inquiry RUN USER: INTERFACE PATIENT: TOBY WELLS [facility] #: [id number] AGE/SX: 27/F ROOM: [facility] RE09/04/18REG DR: Ganga Payne MD : 92 BED: A DIS: 09/05/18 STATUS: DIS Wilver TLOC: SPEC #: [id number] RECD: 09/04/18-1435 STATUS: BRUCE REQ #: [id number] CHACHO: 09/04/18- SUBM DR: Ganga Payne MD ENTERED: 09/05/18-1436 SP TYPE: PERITBX OTHR DR: ORDERED: LEVEL IV CODES: [id number] - PERITONEUM, NOS PROCEDURES: LEVEL IV (Incomplete) TISSUES: PERITONEUM, NOS - SIDEWALL CLINICAL HISTORY 27 year old, chronic pelvic pain, ova ry cyst, endometriosis (kr) FINAL DIAGNOSIS Tissue from sidewall, laterality undesignated: - benign cysts lined by tubal epithelial consistent with benign paratubal cysts (2) Tissue code 1 CPT code(s): 96783 cds/kr dt: 09/07/18 GROSS DESCRIPTION ANATOMICSOURCE OF TISSUE (per Requisition): Sidewall The specimen is received in a formalin-filled container, labeled with the patient's name and designated "possible endometriosis sidewall". The specimen consists of a 0.5 cm portion of elizabeth tissue and is submitted in one cassette. hz/kr 09/04/18 @4196 MICROSCOPIC DESCRIPTION Two benign paratubal cysts are present. No endometriosis perse is identified. cds/kr dt: 09/07/18 Signed Martín Corralesgarrett Chávez 09/07/18 1426 END OF REPORT HCG SERUM [id number] 20:10:00 Test Item Value Reference Range Interpretation Comments HCG SERUM QUAL (test code = HCGQL) NEGATIVE CBC W/AUTO [id number] 19:43:00 Test Item Value Reference Range Interpretation Comments WHITE BLOOD CELL (test 7.6 K/mm3 6.6-12.1 N code = WBC) RED BLOOD CELL (test 4.22 M/mm3 3.45-5.01 N code = RBC) HEMOGLOBIN (test code 9.0 g/dL 10.7-13.9 L = HGB) HEMATOCRIT (test code 32.2 % 32.1-42.1 N = HCT) MEAN CELL VOLUME (test 76 fL 84.1-94.8 L code = MCV) MEAN CELL HGB (test 21.3 pg 27-35 L code = MCH) MEAN CELL HGB 28.0 gm/dL 32.2-34.1 L CONCETRATION (test code = MCHC) RED CELL DISTRIBUTION 18.0 % 12.4-16.5 H WIDTH (test code = RDW) PLATELET COUNT (test 266 K/mm3 133-385 N code = PLT) IMMATURE PLATELET 0.0 % 0.0-10.8 N FRACTION (test code = IPF) MEAN PLATELET VOLUME 11.8 fl 9.1-12.7 N (test code = MPV) NEUTROPHIL % (test 64.3 % 56.5-79.4 N code = NT%) LYMPHOCYTE % (test 25.3 % 14.3-34.3 N code = LY%) MONOCYTE % (test code 6.6 % 5.1-10.4 N = MO%) EOSINOPHIL % (test 3.0 % 0.1-3.0 N code = EO%) BASOPHIL % (test code 0.5 % 0.1-1.0 N = BA%) NEUTROPHIL # (test 4.9 K/mm3 code = NT#) LYMPHOCYTE # (test 1.9 K/mm3 code = LY#) MONOCYTE # (test code 0.5 K/mm3 = MO#) EOSINOPHIL # (test 0.23 K/mm3 code = EO#) BASOPHIL # (test code 0.0 K/mm3 = BA#) RBC MORPHOLOGY ABNORMAL NORMAL +1 HYPOCHROMI A+1 REQUIRED (test code = ANISOC YTOSIS RBCM) PLATELET MORPHOLOGY NORMAL NORMAL REQUIRED (test code = PLTMR) URINALYSIS [id number] 19:35:00 Test Item Value Reference Range Interpretation Comments UA COLOR (test code = COLU) YELLOW YELLOW UA APPEARANCE (test code = Slightly-Cloudy CLEAR APPU) UA GLUCOSE DIPSTICK (test NEGATIVE NEG code = DGLUU) UA BILIRUBIN DIPSTICK (test NEGATIVE NEG code = BILU) UA KETONE DIPSTICK (test code NEGATIVE NEG = KETU) UA SPECIFIC GRAVITY (test 1.011 1.001-1.035 N code = SGU) UA BLOOD DIPSTICK (test code NEG NEG = SANAZ) UA PH DIPSTICK (test code = 5.0 5-9 ELISA) UA PROTEIN DIPSTICK (test NEGATIVE NEG code = PROU) UA UROBILINIOGEN DIPSTICK NEGATIVE mg/dL NEG (test code = URO) UA NITRITE DIPSTICK (test NEG NEG code = GREGORIO) UA LEUKOCYTE ESTERASE NEG NEG DIPSTICK (test code = LEUU) UA WBC (test code = WBCU) 0-2 #/hpf NONE SEEN UA RBC (test code = RBCU) 0-2 #/hpf NONE SEEN UA EPITHELIAL CELLS (test RARE #/HPF RARE-FEW code = EPIU) UA BACTERIA (test code = NEGATIVE /HPF RARE-FEW BACU) UA MUCUS (test code = MUCU) RARE NONE SEEN URINE SAMPLE: CLEAN CATCHU/S, PELVIS, WITH ENDOVAG AND [id number] 05:32:00Reason for exam:->right lower quadrant painShould this be [...] IMPRESSION: Unremarkable sonographic examination of the pelvis. Signed:Jennifer Peres MDReport Verified Date/Time: 08/21/2018 05:32:26 Reading Location: [address] Neuro Reading Room BASIC METABOLIC [id number] 03:50:00 Test Item Value Reference Range Interpretation Comments SODIUM (BEAKER) 140 meq/L 135-148 (test code = 381) POTASSIUM (BEAKER) 4.0 meq/L 3.6-5.5 (test code = 379) CHLORIDE (BEAKER) 108 meq/L 98-106 H (test code = 382) CO2 (BEAKER) (test 23 meq/L 20-29 code = 355) BLOOD UREA NITROGEN 12 mg/dL 10-26 (BEAKER) (test code = 354) CREATININE (BEAKER) 0.71 mg/dL 0.50-1.20 (test code = 358) GLUCOSE RANDOM 87 mg/dL 70-110 (BEAKER) (test code = 652) CALCIUM (BEAKER) 8.8 mg/dL 8.5-10.5 (test code = 697) EGFR (BEAKER) (test 100 mL/min/1.73 ESTIM ATED GFR IS code = 1092) sq m NOT ACCURATE CREATININE CLEARANCE IN PREDICTING GLOMERULAR FILTRATION RATE . ESTIMATED GFR I S NOT APPLICABLE FOR DIALYSIS PATIEN TS. CBC W/PLT COUNT & AUTO [id number] 03:44:00 Test Item Value Reference Range Interpretation Comments WHITE BLOOD CELL COUNT (BEAKER) 7.2 K/ L 4.0-10.0 (test code = 775) RED BLOOD CELL COUNT (BEAKER) 4.11 M/ L 4.00-5.00 (test code = 761) HEMOGLOBIN (BEAKER) (test code = 8.9 GM/DL 12.0-15.5 L 410) HEMATOCRIT (BEAKER) (test code = 30.7 % 36.0-46.0 L 411) MEAN CORPUSCULAR VOLUME (BEAKER) 74.7 fL 82.0-99.0 L (test code = 753) MEAN CORPUSCULAR HEMOGLOBIN 21.7 pg 27.0-33.0 L (BEAKER) (test code = 751) MEAN CORPUSCULAR HEMOGLOBIN CONC 29.0 GM/DL 32.0-36.0 L (BEAKER) (test code = 752) RED CELL DISTRIBUTION WIDTH 17.9 % 12.0-15.0 H (BEAKER) (test code = 412) PLATELET COUNT (BEAKER) (test 242 K/CU MM 150-430 code = 756) MEAN PLATELET VOLUME (BEAKER) 11.8 fL 6.0-11.5 H (test code = 754) NUCLEATED RED BLOOD CELLS 0 /100 WBC 0-0 (BEAKER) (test code = 413) NEUTROPHILS RELATIVE PERCENT 57 % (BEAKER) (test code = 429) LYMPHOCYTES RELATIVE PERCENT 31 % (BEAKER) (test code = 430) MONOCYTES RELATIVE PERCENT 8 % (BEAKER) (test code = 431) EOSINOPHILS RELATIVE PERCENT 3 % (BEAKER) (test code = 432) BASOPHILS RELATIVE PERCENT 1 % (BEAKER) (test code = 437) NEUTROPHILS ABSOLUTE COUNT 4.11 K/ L 1.80-8.00 (BEAKER) (test code = 670) LYMPHOCYTES ABSOLUTE COUNT 2.22 K/ L 1.48-4.50 (BEAKER) (test code = 414) MONOCYTES ABSOLUTE COUNT (BEAKER) 0.60 K/ L 0.00-1.30 (test code = 415) EOSINOPHILS ABSOLUTE COUNT 0.24 K/ L 0.00-0.50 (BEAKER) (test code = 416) BASOPHILS ABSOLUTE COUNT (BEAKER) 0.05 K/ L 0.00-0.20 (test code = 417) IMMATURE GRANULOCYTES-RELATIVE 0 % 0-0 PERCENT (BEAKER) (test code = 2801) URINALYSIS W/ [id number] 03:31:00 Test Item Value Reference Range Interpretation Comments COLOR (BEAKER) (test code = Yellow 470) CLARITY (BEAKER) (test code = Slightly Cloudy 469) SPECIFIC GRAVITY UA (BEAKER) 1.015 1.001-1.035 (test code = 468) PH UA (BEAKER) (test code = 6.5 5.0-8.0 467) PROTEIN UA (BEAKER) (test Negative Negative code = 464) GLUCOSE UA (BEAKER) (test Negative Negative code = 365) KETONES UA (BEAKER) (test Negative Negative code = 371) BILIRUBIN UA (BEAKER) (test Negative Negative code = 462) BLOOD UA (BEAKER) (test code Negative Negative = 461) NITRITE UA (BEAKER) (test Negative Negative code = 465) LEUKOCYTE ESTERASE UA Moderate Negative A (BEAKER) (test code = 466) UROBILINOGEN UA (BEAKER) 0.2 mg/dL 0.2-1.0 (test code = 463) BACTERIA (BEAKER) (test code Few = 517) RBC UA-MANUAL (BEAKER) (test <5 /HPF code = 1659) WBC UA-MANUAL (BEAKER) (test 10-20 /HPF code = 1661) SQUAMOUS EPITHELIAL MANUAL 10-20 /HPF (BEAKER) (test code = 1663) SOURCE(BEAKER) (test code = 2795) SCREEN, [id number] 03:25:00 Test Item Value Reference Range Interpretation Comments TEST URINE (BEAKER) (test Negative code = 583) U/S [id number] 03:53:09AFTER HOURS SERVICE ON: 08/17/2018 3:51 AMPelvic UltrasoundLocation Code V88Babturl: pelvic painTRANSABDOMINAL ScanTechnique: Longitudinal and transverse real-time [...] Thereis no free fluid. Impression:Unremarkable ultrasound.DRUGS OF [id number] 02:28:00 Test Item Value Reference Range Interpretation Comments DRUG SCRN (test code URINE DRUG SCREEN = HDOA) This is an unconfirmed screening result and should not be used for non-medical purposes CANNABINOD (test code Negative NEGATIVE = 88C) AMPHETAMINE (test Negative NEGATIVE code = 84A) BENZODIAZP (test code Negative NEGATIVE = 86A) BARBITURAT (test code Negative NEGATIVE = 85A) OPIATES (test code = Negative NEGATIVE 92B) COCAINE (test code = Negative NEGATIVE 87A) PHENCYCLID (test code Negative NEGATIVE = 66A) METHADONE (test code Negative NEGATIVE = 64A) DOAH (test code = DOAH.) *URINE DRUG SCREEN Cut-off values are as follows: Cannabinoids 50 ng/mL Cocaine 300 ng/mL Amphetamines 1000 ng/mL Phencyclidine 25 ng/mL Benzodiazepines 200 ng.mL Methadone 300 ng/mL Barbiturates 200 ng/mL Opiates 2000 ng/mL AMYLASE AND [id number] 02:27:00 Test Item Value Reference Range Interpretation Comments AMYLASE (test code = 10A) 62 U/L 28-100 LIPASE (test code = 60A) 112 IU/L 73-393 COMPREHENSIVE METABOLIC [id number] 02:27:00 Test Item Value Reference Range Interpretation Comments GLUCOSE (test code = 06D) 95 mg/dL 75-100 SODIUM (test code = 01A) 141 mmol/L 136-145 POTASSIUM (test code = 01B) 4.1 mmol/L 3.6-5.1 CHLORIDE (test code = 04A) 107 mmol/L 98-107 CO2 (test code = 02A) 26 mmol/L 22-32 ANION GAP (test code = ANG) 12.1 mmol/L BUN (test code = 05D) 12 mg/dL 7-18 CREATININE (test code = 03E) 0.7 mg/dL 0.4-1.1 BUN/CREA (test code = BCR) 16 12-20 CALCIUM (test code = 09D) 8.7 mg/dL 8.3-9.5 BILI TOTAL (test code = 11A) 0.2 mg/dL 0.2-1.0 PROTEIN (test code = 07D) 8.2 g/dL 6.4-8.2 ALBUMIN (test code = 08D) 4.5 g/dL 3.5-4.8 GLOBULIN (test code = GLB) 3.7 g/dL 1.5-3.8 ALB/GLOB (test code = AGRR) 1.2 1.0-2.6 ALK PHOS (test code = 35A) 108 IU/L 42-121 AST (test code = 30A) 29 IU/L <=42 ALT (test code = 31A) 15 IU/L <=78 URINALYSIS WITH [id number] 02:26:00 Test Item Value Reference Range Interpretation Comments COLOR (test code = COLU) YELLOW YELLOW CLARITY (test code = CLA) CLOUDY CLEAR A GLUCOSE UR (test code = UA GLUCOSE) NEGATIVE NEGATIVE BILI UR (test code = BILE) NEGATIVE NEGATIVE KETONES UR (test code = KARSON) NEGATIVE NEGATIVE SP GRAVITY (test code = SPGR) 1.008 1.005-1.030 PH UR (test code = PH) 6.5 4.5-8.0 PROTEIN UR (test code = PU) NEGATIVE NEGATIVE UROBIL UR (test code = UROQ) 0.2 EU/dL 0.2-1.0 NITRITE UR (test code = NITRITE) NEGATIVE NEGATIVE BLOOD UR (test code = UA BLOOD) NEGATIVE NEGATIVE LEUK ES UR (test code = LEUK) TRACE NEGATIVE A WBC UR (test code = UWBC) 1 /HPF 0-5 RBC UR (test code = URBC) 0 /HPF 0-2 EPITH UR (test code = UEPC) FEW /LPF FEW BACTERIA UR (test code = UBACT) NONE /HPF NONE CAST UR (test code = CAST) /LPF NONE CRYSTAL UR (test code = CRYU) / LPF NONE MUCUS UR (test code = MUC) / HPF NONE AMORPH UR (test code = BRENT) FEW / HPF NONE A TRICH UR (test code = UTRICH) /HPF NONE YEAST UR (test code = UY) /HPF NONE SPERM UR (test code = USPERM) /HPF NONE SERUM [id number] 02:24:00 Test Item Value Reference Range Interpretation Comments PREG SRM (test code = PGS) NEGATIVE NEGATIVE CBC (INCLUDES AUTOMATED DIFFERENTIAL)2018-08-17 02:12:00 Test Item Value Reference Range Interpretation Comments WBC (test code = WBC) 7.6 10\\S\\3/uL 4.5-11.0 RBC (test code = RBC) 4.23 10\\S\\6/uL 4.30-5.70 L HGB (test code = HBG) 9.4 g/dL 12.0-15.5 L HCT (test code = HCT) 32.1 % 35.0-44.0 L MCV (test code = MCV) 75.9 fL 81.0-99.0 L MCH (test code = MCH) 22.2 pg 27.0-31.0 L MCHC (test code = MCHC) 29.3 g/dL 32.0-36.0 L RDW (test code = RDW) 17.9 % 11.5-14.5 H PLT (test code = PLT) 229 10\\S\\3/uL 130-400 MPV (test code = MPV) 11.0 fL 9.4-12.4 NEUTROP # (test code = NE#) 4.3 10\\S\\3/uL 1.6-8.0 LYMPH # (test code = LY#) 2.4 10\\S\\3/uL 1.1-3.5 MONOCYTE # (test code = MO#) 0.7 10\\S\\3/uL 0.0-1.1 EOSINOPH # (test code = EO#) 0.3 10\\S\\3/uL 0.0-0.7 BASOPHIL # (test code = BA#) 0.1 10\\S\\3/uL 0.0-0.3 IG # (test code = IG#) 0.01 10\\S\\3/uL 0.00-0.06 NRBC # (test code = NRBC#) 0.00 10\\S\\3/uL 0.00-0.01 NEUTROPH % (test code = NE%) 56.1 % 35.0-73.0 LYMPH % (test code = LY%) 31.3 % 20.0-55.0 MONO % (test code = MO%) 8.5 % 2.5-10.0 EOSINOPH % (test code = EO%) 3.3 % 0.0-5.0 BASOPHIL % (test code = BA%) 0.7 % 0.0-2.0 IG % (test code = IG%) 0.1 % 0.0-0.8 NRBC% (test code = NRBC%) 0.0 % 0.0-0.2 MANDIFF (test code = MDIFF) NO NO RBC MORPH (test code = RBCMOR) NORMAL DIRECT CHLAMYDIA EXAM *WW*2018-07-31 10:12:00 Test Item Value Reference Range Interpretation Comments CHLAMYDIA NOT DETECTED NOT DETECTED TRACHOMATIS (test code = 77240382) NEISSERIA NOT DETECTED NOT DETECTED GONORRHOEAE (test code = 69587069) Endnote (test code This test was = 97940730) performed using the APTIMA COMBO2 Assay([employer]The bernardo tical performance characteristics of thisassay, when used to test SurePat h specimens haveb een determined by [employer].MATTHEW T PERFORMED AT:[facility] [id number] [place] [address]QOYRW GERRI, M.D. HEPATITIS C ANTIBODY *WW*2018-07-29 00:07:00 Test Item Value Reference Range Interpretation Comments HCAB (test code = HCAB) NON-REACTIVE NON-REACTIVE HIV *WW*2018-07-29 00:06:00 Test Item Value Reference Range Interpretation Comments HIV-1,2 and p24 (test code = NON-REACTIVE NON-REACTIVE CHIV) HEPATITIS B SURFACE ANTIGEN *WW*2018-07-28 23:39:00 Test Item Value Reference Range Interpretation Comments HBSAG (test code = HBSAG) NON-REACTIVE NON-REACTIVE SYPHILIS SCREENING WW2018-07-28 23:38:00 Test Item Value Reference Range Interpretation Comments T PALLIDUM AB (test NON-REACTIVE NON-REACTIVE code = SYPHINT) SYPHC (test code = RPR test has been SYPHC) updated to Treponemal Immunoassay. Interpretation of results is similar MRI PELVIS W/WO CONTRAST*WW*2018-07-28 12:54:44Exam: MRI of the pelvis with and without contrastHistory: Pain with thickened endometriumLocation: [id number]: High-resolution multiplanar multiecho imaging of the pelvis wasperformed with and esmoegu95 cc of intravenous Dotarem.Findings:Endometrium is thickened at 19 mm. There is no definite enhancing endometriallesion.No definite uterine mass, fibroid, or irregular endometrial lesion.There is no adnexal mass noted. No evidence of ovarian neoplasm.There is no evidence of pelvic adenopathy or mass. No evidence of free intrapelvic fluid.The marrow signal throughout the osseous structures is preserved.Impression:1. Thickened endometrium without definite worrisome mass although clinicalcorrelation recommended.MRCP *WW*2018-07-28 12:11:11MRCPLocation code: J4Ojgaqclt history: Dilated common ductComparison: Reference is made to CT performed on 07/28/18 at 5:41 AMTechnique: Heavily T2- weighted MR imaging of the abdomen was performed [...] in the liver.CT ABDOMEN AND PELVIS WITH [id number] 06:13:19CT abdomen and pelvis with contrastLocation Code: Y36YALKUSOS HISTORY: [id number]: Acute pelvic painCO MPARISON: NoneTechnique: Helical CT of the abdomen and [...] MRCP to exclude the presence ofcholedocholithiasis or stricture. U/S NON [id number] 05:59:08PELVIC ULTRASOUND:Location code: X9SLDTPLEN HISTORY: Pain, bleedingComparison: NoneTECHNIQUE: Transabdominal sonography of the pelvis was performed followed byendovaginal scanning for better characterization of the ovaries. FINDINGS: The uterus is uniform in echogenicity measuring 7.7 x 5.9 x 5.5 cm.The endometrium is slightly heterogeneous and hyperdense measuring up to 1 cmThe bilateral adnexa are not visualized. Trace free fluid is noted within tsbrgi-ss-swp.IMPRESSION:Nonspecific heterogeneityof the endometriumThe bilateral adnexa are not visualized.U/S [id number] 05:59:08PELVIC ULTRASOUND:Location code: [id number] HISTORY: Pain, bleedingComparison: NoneTECHNIQUE: Transabdominal sonography of the pelvis was performed followed byendovaginal scanning for better characterization of the ovaries. FINDINGS: The uterus is uniform in echogenicity measuring 7.7 x 5.9 x 5.5 cm.The endometrium is slightly heterogeneous and hyperdense measuring up to 1 cmThe bilateral adnexa are not visualized. Trace free fluid is noted within ozeega-dm-mmh.IMPRESSION:Nonspecific heterogeneityof the endometriumThe bilateral adnexa are not visualized.AMYLASE AND [id number] 05:13:00 Test Item Value Reference Range Interpretation Comments AMYLASE (test code = 10A) 80 U/L 28-100 LIPASE (test code = 60A) 150 IU/L 73-393 COMPREHENSIVE METABOLIC [id number] 05:13:00 Test Item Value Reference Range Interpretation Comments GLUCOSE (test code = 06D) 88 mg/dL 75-100 SODIUM (test code = 01A) 140 mmol/L 136-145 POTASSIUM (test code = 01B) 3.7 mmol/L 3.6-5.1 CHLORIDE (test code = 04A) 109 mmol/L 98-107 H CO2 (test code = 02A) 27 mmol/L 22-32 ANION GAP (test code = ANG) 7.7 mmol/L BUN (test code = 05D) 11 mg/dL 7-18 CREATININE (test code = 03E) 0.6 mg/dL 0.4-1.1 BUN/CREA (test code = BCR) 18 12-20 CALCIUM (test code = 09D) 8.2 mg/dL 8.3-9.5 L BILI TOTAL (test code = 11A) 0.2 mg/dL 0.2-1.0 PROTEIN (test code = 07D) 7.2 g/dL 6.4-8.2 ALBUMIN (test code = 08D) 3.6 g/dL 3.5-4.8 GLOBULIN (test code = GLB) 3.6 g/dL 1.5-3.8 ALB/GLOB (test code = AGRR) 1.0 1.0-2.6 ALK PHOS (test code = 35A) 82 IU/L 42-121 AST (test code = 30A) 21 IU/L <=42 ALT (test code = 31A) 16 IU/L <=78 URINALYSIS WITH [id number] 05:10:00 Test Item Value Reference Range Interpretation Comments COLOR (test code = COLU) YELLOW YELLOW CLARITY (test code = CLA) CLOUDY CLEAR A GLUCOSE UR (test code = UA GLUCOSE) NEGATIVE NEGATIVE BILI UR (test code = BILE) NEGATIVE NEGATIVE KETONES UR (test code = KARSON) NEGATIVE NEGATIVE SP GRAVITY (test code = SPGR) 1.011 1.005-1.030 PH UR (test code = PH) 6.5 4.5-8.0 PROTEIN UR (test code = PU) NEGATIVE NEGATIVE UROBIL UR (test code = UROQ) 0.2 EU/dL 0.2-1.0 NITRITE UR (test code = NITRITE) NEGATIVE NEGATIVE BLOOD UR (test code = UA BLOOD) NEGATIVE NEGATIVE LEUK ES UR (test code = LEUK) 3+ NEGATIVE A WBC UR (test code = UWBC) 8 /HPF 0-5 H RBC UR (test code = URBC) 0 /HPF 0-2 EPITH UR (test code = UEPC) FEW /LPF FEW BACTERIA UR (test code = UBACT) FEW /HPF NONE A CAST UR (test code = CAST) /LPF NONE CRYSTAL UR (test code = CRYU) / LPF NONE MUCUS UR (test code = MUC) / HPF NONE AMORPH UR (test code = BRENT) / HPF NONE TRICH UR (test code = UTRICH) /HPF NONE YEAST UR (test code = UY) /HPF NONE SPERM UR (test code = USPERM) /HPF NONE URINE [id number] 05:01:00 Test Item Value Reference Range Interpretation Comments PREG UR (test code = PGU) NEGATIVE NEGATIVE CBC (INCLUDES AUTOMATED DIFFERENTIAL)2018-07-28 04:48:00 Test Item Value Reference Range Interpretation Comments WBC (test code = WBC) 7.3 10\\S\\3/uL 4.5-11.0 RBC (test code = RBC) 3.99 10\\S\\6/uL 4.30-5.70 L HGB (test code = HBG) 8.7 g/dL 12.0-15.5 L HCT (test code = HCT) 29.5 % 35.0-44.0 L MCV (test code = MCV) 73.9 fL 81.0-99.0 L MCH (test code = MCH) 21.8 pg 27.0-31.0 L MCHC (test code = MCHC) 29.5 g/dL 32.0-36.0 L RDW (test code = RDW) 18.0 % 11.5-14.5 H PLT (test code = PLT) 198 10\\S\\3/uL 130-400 MPV (test code = MPV) 10.7 fL 9.4-12.4 NEUTROP # (test code = NE#) 4.4 10\\S\\3/uL 1.6-8.0 LYMPH # (test code = LY#) 2.2 10\\S\\3/uL 1.1-3.5 MONOCYTE # (test code = MO#) 0.5 10\\S\\3/uL 0.0-1.1 EOSINOPH # (test code = EO#) 0.2 10\\S\\3/uL 0.0-0.7 BASOPHIL # (test code = BA#) 0.0 10\\S\\3/uL 0.0-0.3 IG # (test code = IG#) 0.02 10\\S\\3/uL 0.00-0.06 NRBC # (test code = NRBC#) 0.00 10\\S\\3/uL 0.00-0.01 NEUTROPH % (test code = NE%) 60.3 % 35.0-73.0 LYMPH % (test code = LY%) 29.8 % 20.0-55.0 MONO % (test code = MO%) 6.4 % 2.5-10.0 EOSINOPH % (test code = EO%) 2.7 % 0.0-5.0 BASOPHIL % (test code = BA%) 0.5 % 0.0-2.0 IG % (test code = IG%) 0.3 % 0.0-0.8 NRBC% (test code = NRBC%) 0.0 % 0.0-0.2 MANDIFF (test code = MDIFF) NO NO RBC MORPH (test code = RBCMOR) NORMAL URINALYSIS WITH [id number] 18:39:00 Test Item Value Reference Range Interpretation Comments COLOR (test code = COLU) YELLOW YELLOW CLARITY (test code = CLA) HAZY CLEAR A GLUCOSE UR (test code = UA GLUCOSE) NEGATIVE NEGATIVE BILI UR (test code = BILE) NEGATIVE NEGATIVE KETONES UR (test code = KARSON) NEGATIVE NEGATIVE SP GRAVITY (test code = SPGR) 1.019 1.005-1.030 PH UR (test code = PH) 6.5 4.5-8.0 PROTEIN UR (test code = PU) TRACE NEGATIVE A UROBIL UR (test code = UROQ) 0.2 EU/dL 0.2-1.0 NITRITE UR (test code = NITRITE) NEGATIVE NEGATIVE BLOOD UR (test code = UA BLOOD) 1+ NEGATIVE A LEUK ES UR (test code = LEUK) 3+ NEGATIVE A WBC UR (test code = UWBC) 8 /HPF 0-5 H RBC UR (test code = URBC) 2 /HPF 0-2 EPITH UR (test code = UEPC) FEW /LPF FEW BACTERIA UR (test code = UBACT) FEW /HPF NONE A CAST UR (test code = CAST) /LPF NONE CRYSTAL UR (test code = CRYU) / LPF NONE MUCUS UR (test code = MUC) FEW / HPF NONE A AMORPH UR (test code = BRENT) / HPF NONE TRICH UR (test code = UTRICH) /HPF NONE YEAST UR (test code = UY) FEW /HPF NONE A SPERM UR (test code = USPERM) /HPF NONE URINE [id number] 18:31:00 Test Item Value Reference Range Interpretation Comments PREG UR (test code = PGU) NEGATIVE NEGATIVE [QLH] CBC (INCLUDES DIFF/PLT)2018-05-27 15:00:01 Test Item Value Reference Range Interpretation Comments WBC (test code = 6690-2) 5.7 {K/CMM} 3.7-10.4 RBC; Below Low Threshold (test 4.02 {M/CMM} 4.20-5.40 code = 789-8) Hgb; Below Low Threshold (test 8.9 g/dl 12.0-16.0 code = 718-7) Hct; Below Low Threshold (test 28.9 % 36.0-48.0 code = 08866-6) MCV; Below Low Threshold (test 71.8 fL 80.0-98.0 code = 787-2) MCH; Below Low Threshold (test 22.2 pg 27.0-31.0 code = 785-6) MCHC; Below Low Threshold (test 30.9 g/dl 32.0-36.0 code = 786-4) RDW; Above High Threshold (test 18.7 % 11.5-14.5 code = 788-0) Platelet (test code = 99964-9) 180 {K/CMM} 133-450 Mean Platelet Volume (test code 8.9 fL 7.4-10.4 = 23167-3) [facility]] [id number] 15:00:01 Test Item Value Reference Range Interpretation Comments Segmented Neutrophils (test code 61.8 % 45.0-75.0 = 44473-0) Monocytes (test code = 18500-9) 6.8 % 2.0-12.0 Lymphocytes (test code = 87036-5) 28.1 % 20.0-40.0 Eosinophils (test code = 88310-0) 2.5 % 0.0-4.0 Basophils (test code = 706-2) 0.8 % 0.0-1.0 Segs-Bands # (test code = 3.5 {K/CMM} 1.5-8.1 83685-8) Lymphocytes # (test code = 1.6 {K/CMM} 1.0-5.5 91575-4) Monocytes # (test code = 64021-8) 0.4 {K/CMM} 0.0-0.8 Eosinophils # (test code = 0.1 {K/CMM} 0.0-0.5 01772-8) Microcyte (test code = Microcyte) 2+ None Seen A [facility][] HEPATITIS B SURFACE ANTIGEN W/REFL CONFIRM 2018-05-27 15:00:01 Test Item Value Reference Range Interpretation Comments Hepatitis B Surface Antigen (test Negative Negative code = 5195-3) [facility]] HEPATITIS C [id number] 15:00:01 Test Item Value Reference Range Interpretation Comments Hepatitis C Antibody (test code = Negative 38735-5) [facility][] HIV AB, HIV 1/2, EIA, WITH [id number] 15:00:01 Test Item Value Reference Range Interpretation Comments HIV Ag/Ab 4th Gen Negative Negative HIV test r esults should be (test code = considered posi tive only 82411-5) when both the s creening andthe confirma tory tests are positive. A negative confirmatory te st in patientswith a positive screening test does not exclude HIV inf ection. If clincallywarran susy, an HIV RNA quantitativ e test should be order ed. [facility]] [id number] 15:00:01 Test Item Value Reference Range Interpretation Comments RPR (test code = 78931-5) Non-Reactive Non-Reactive [facility]] CULTURE, URINE, [id number] 15:00:01 Test Item Value Reference Range Interpretation Comments FINAL REPORT (test code 10,000 - 50,000 = FINAL REPORT) CFU/mL Yeast [facility]. [facility] - [id number] 00:00:00 Test Item Value Reference Range Interpretation Comments GC/Chlamydia REPORT (test code = See Comment 21671-3) [facility] [id number] 18:46:36HISTORY: Pain.Location Code: [id number]: Multiple transverse and longitudinal sonographic images wereobtained.FINDINGS: [...] and ovaries are not well seen.URINALYSIS WITH [id number] 18:33:00 Test Item Value Reference Range Interpretation Comments COLOR (test code = COLU) YELLOW YELLOW CLARITY (test code = CLA) CLEAR CLEAR GLUCOSE UR (test code = UA GLUCOSE) NEGATIVE NEGATIVE BILI UR (test code = BILE) NEGATIVE NEGATIVE KETONES UR (test code = KARSON) NEGATIVE NEGATIVE SP GRAVITY (test code = SPGR) 1.007 1.005-1.030 PH UR (test code = PH) 6.0 4.5-8.0 PROTEIN UR (test code = PU) NEGATIVE NEGATIVE UROBIL UR (test code = UROQ) 0.2 EU/dL 0.2-1.0 NITRITE UR (test code = NITRITE) NEGATIVE NEGATIVE BLOOD UR (test code = UA BLOOD) TRACE NEGATIVE A LEUK ES UR (test code = LEUK) NEGATIVE NEGATIVE WBC UR (test code = UWBC) 2 /HPF 0-5 RBC UR (test code = URBC) 4 /HPF 0-2 H EPITH UR (test code = UEPC) FEW /LPF FEW BACTERIA UR (test code = UBACT) NONE /HPF NONE CAST UR (test code = CAST) /LPF NONE CRYSTAL UR (test code = CRYU) / LPF NONE MUCUS UR (test code = MUC) / HPF NONE AMORPH UR (test code = BRENT) / HPF NONE TRICH UR (test code = UTRICH) /HPF NONE YEAST UR (test code = UY) /HPF NONE SPERM UR (test code = USPERM) /HPF NONE COMPREHENSIVE METABOLIC [id number] 18:31:00 Test Item Value Reference Range Interpretation Comments GLUCOSE (test code = 06D) 94 mg/dL 75-100 SODIUM (test code = 01A) 141 mmol/L 136-145 POTASSIUM (test code = 01B) 3.8 mmol/L 3.6-5.1 CHLORIDE (test code = 04A) 109 mmol/L 98-107 H CO2 (test code = 02A) 26 mmol/L 22-32 ANION GAP (test code = ANG) 9.8 mmol/L BUN (test code = 05D) 10 mg/dL 7-18 CREATININE (test code = 03E) 0.7 mg/dL 0.4-1.1 BUN/CREA (test code = BCR) 14 12-20 CALCIUM (test code = 09D) 9.2 mg/dL 8.3-9.5 BILI TOTAL (test code = 11A) 0.4 mg/dL 0.2-1.0 PROTEIN (test code = 07D) 8.5 g/dL 6.4-8.2 H ALBUMIN (test code = 08D) 4.5 g/dL 3.5-4.8 GLOBULIN (test code = GLB) 4.0 g/dL 1.5-3.8 H ALB/GLOB (test code = AGRR) 1.1 1.0-2.6 ALK PHOS (test code = 35A) 92 IU/L 42-121 AST (test code = 30A) 18 IU/L <=42 ALT (test code = 31A) 11 IU/L <=78 AMYLASE AND [id number] 18:31:00 Test Item Value Reference Range Interpretation Comments AMYLASE (test code = 10A) 46 U/L 28-100 LIPASE (test code = 60A) 97 IU/L 73-393 URINE [id number] 18:29:00 Test Item Value Reference Range Interpretation Comments PREG UR (test code = PGU) NEGATIVE NEGATIVE CBC (INCLUDES AUTOMATED DIFFERENTIAL)2018-05-21 18:19:00 Test Item Value Reference Range Interpretation Comments WBC (test code = WBC) 7.0 10\\S\\3/uL 4.5-11.0 RBC (test code = RBC) 4.47 10\\S\\6/uL 4.30-5.70 HGB (test code = HBG) 9.8 g/dL 12.0-15.5 L HCT (test code = HCT) 33.4 % 35.0-44.0 L MCV (test code = MCV) 74.7 fL 81.0-99.0 L MCH (test code = MCH) 21.9 pg 27.0-31.0 L MCHC (test code = MCHC) 29.3 g/dL 32.0-36.0 L RDW (test code = RDW) 18.0 % 11.5-14.5 H PLT (test code = PLT) 298 10\\S\\3/uL 130-400 MPV (test code = MPV) 10.8 fL 9.4-12.4 NEUTROP # (test code = NE#) 4.7 10\\S\\3/uL 1.6-8.0 LYMPH # (test code = LY#) 1.5 10\\S\\3/uL 1.1-3.5 MONOCYTE # (test code = MO#) 0.6 10\\S\\3/uL 0.0-1.1 EOSINOPH # (test code = EO#) 0.2 10\\S\\3/uL 0.0-0.7 BASOPHIL # (test code = BA#) 0.1 10\\S\\3/uL 0.0-0.3 IG # (test code = IG#) 0.01 10\\S\\3/uL 0.00-0.06 NRBC # (test code = NRBC#) 0.00 10\\S\\3/uL 0.00-0.01 NEUTROPH % (test code = NE%) 67.2 % 35.0-73.0 LYMPH % (test code = LY%) 21.5 % 20.0-55.0 MONO % (test code = MO%) 7.9 % 2.5-10.0 EOSINOPH % (test code = EO%) 2.6 % 0.0-5.0 BASOPHIL % (test code = BA%) 0.7 % 0.0-2.0 IG % (test code = IG%) 0.1 % 0.0-0.8 NRBC% (test code = NRBC%) 0.0 % 0.0-0.2 MANDIFF (test code = MDIFF) NO NO RBC MORPH (test code = RBCMOR) NORMAL URINE [id number] 08:09:00 Test Item Value Reference Range Interpretation Comments Culture Observations (test NO GROWTH (<1,000 code = COB1) CFU/ML) U/S [id number] 15:59:01EXAM: Pelvic ultrasoundLocation: A1 COMPARISON: Pelvic ultrasound [...] right ovarian cyst or dominant follicle. No ovar alyce torsion.2. 1.6 cm hyperechoic uterine mass, suggestive of a fibroid. The endometrialstripe is within normal limits.3. No free fluid.COMPREHENSIVE METABOLIC [id number] 13:45:00 Test Item Value Reference Range Interpretation Comments GLUCOSE (test code = 06D) 122 mg/dL 75-100 H SODIUM (test code = 01A) 139 mmol/L 136-145 POTASSIUM (test code = 01B) 3.7 mmol/L 3.6-5.1 CHLORIDE (test code = 04A) 106 mmol/L 98-107 CO2 (test code = 02A) 24 mmol/L 22-32 ANION GAP (test code = ANG) 12.7 mmol/L BUN (test code = 05D) 10 mg/dL 7-18 CREATININE (test code = 03E) 0.8 mg/dL 0.4-1.1 BUN/CREA (test code = BCR) 13 12-20 CALCIUM (test code = 09D) 8.8 mg/dL 8.3-9.5 BILI TOTAL (test code = 11A) 0.5 mg/dL 0.2-1.0 PROTEIN (test code = 07D) 8.3 g/dL 6.4-8.2 H ALBUMIN (test code = 08D) 4.3 g/dL 3.5-4.8 GLOBULIN (test code = GLB) 4.0 g/dL 1.5-3.8 H ALB/GLOB (test code = AGRR) 1.1 1.0-2.6 ALK PHOS (test code = 35A) 101 IU/L 42-121 AST (test code = 30A) 22 IU/L <=42 ALT (test code = 31A) 17 IU/L <=78 [id number] 13:45:00 Test Item Value Reference Range Interpretation Comments AMYLASE (test code = 10A) 54 U/L 28-100 LIPASE [id number] 13:40:00 Test Item Value Reference Range Interpretation Comments LIPASE (test code = 60A) 87 IU/L 73-393 URINALYSIS WITH [id number] 13:39:00 Test Item Value Reference Range Interpretation Comments COLOR (test code = COLU) DK YELLOW YELLOW A CLARITY (test code = CLA) CLOUDY CLEAR A GLUCOSE UR (test code = UA NEGATIVE NEGATIVE GLUCOSE) BILI UR (test code = BILE) 1+ NEGATIVE A KETONES UR (test code = KARSON) NEGATIVE NEGATIVE SP GRAVITY (test code = SPGR) 1.026 1.005-1.030 PH UR (test code = PH) 5.5 4.5-8.0 PROTEIN UR (test code = PU) TRACE NEGATIVE A UROBIL UR (test code = UROQ) 0.2 EU/dL 0.2-1.0 NITRITE UR (test code = NEGATIVE NEGATIVE NITRITE) BLOOD UR (test code = UA BLOOD) NEGATIVE NEGATIVE LEUK ES UR (test code = LEUK) 2+ NEGATIVE A WBC UR (test code = UWBC) 12 /HPF 0-5 H RBC UR (test code = URBC) 0 /HPF 0-2 EPITH UR (test code = UEPC) MODERATE /LPF FEW A BACTERIA UR (test code = UBACT) FEW /HPF NONE A CAST UR (test code = CAST) /LPF NONE CRYSTAL UR (test code = CRYU) / LPF NONE MUCUS UR (test code = MUC) / HPF NONE AMORPH UR (test code = BRENT) / HPF NONE TRICH UR (test code = UTRICH) /HPF NONE YEAST UR (test code = UY) /HPF NONE SPERM UR (test code = USPERM) /HPF NONE CBC (INCLUDES AUTOMATED DIFFERENTIAL)2018-05-10 13:33:00 Test Item Value Reference Range Interpretation Comments WBC (test code = WBC) 8.1 10\\S\\3/uL 4.5-11.0 RBC (test code = RBC) 4.52 10\\S\\6/uL 4.30-5.70 HGB (test code = HBG) 9.8 g/dL 12.0-15.5 L HCT (test code = HCT) 33.6 % 35.0-44.0 L MCV (test code = MCV) 74.3 fL 81.0-99.0 L MCH (test code = MCH) 21.7 pg 27.0-31.0 L MCHC (test code = MCHC) 29.2 g/dL 32.0-36.0 L RDW (test code = RDW) 17.7 % 11.5-14.5 H PLT (test code = PLT) 222 10\\S\\3/uL 130-400 MPV (test code = MPV) 10.9 fL 9.4-12.4 NEUTROP # (test code = NE#) 5.5 10\\S\\3/uL 1.6-8.0 LYMPH # (test code = LY#) 1.9 10\\S\\3/uL 1.1-3.5 MONOCYTE # (test code = MO#) 0.5 10\\S\\3/uL 0.0-1.1 EOSINOPH # (test code = EO#) 0.2 10\\S\\3/uL 0.0-0.7 BASOPHIL # (test code = BA#) 0.0 10\\S\\3/uL 0.0-0.3 IG # (test code = IG#) 0.02 10\\S\\3/uL 0.00-0.06 NRBC # (test code = NRBC#) 0.00 10\\S\\3/uL 0.00-0.01 NEUTROPH % (test code = NE%) 68.2 % 35.0-73.0 LYMPH % (test code = LY%) 22.8 % 20.0-55.0 MONO % (test code = MO%) 6.2 % 2.5-10.0 EOSINOPH % (test code = EO%) 2.1 % 0.0-5.0 BASOPHIL % (test code = BA%) 0.5 % 0.0-2.0 IG % (test code = IG%) 0.2 % 0.0-0.8 NRBC% (test code = NRBC%) 0.0 % 0.0-0.2 MANDIFF (test code = MDIFF) NO NO RBC MORPH (test code = RBCMOR) NORMAL URINE [id number] 13:31:00 Test Item Value Reference Range Interpretation Comments PREG UR (test code = PGU) NEGATIVE NEGATIVE CT ABDOMEN AND PELVIS WITH [id number] 03:08:26CT OF THE ABDOMEN AND PELVIS WITH CONTRASTLocation code:[id number] HISTORY:lower abdominal pain COMPARISON: None TECHNIQUE:Multiple transaxial [...] There is no free pelvic fluid.Visualized skeletal struc tures are within normal limits.IMPRESSION: 1. Unremarkable CT evaluation of the abdomen and pelvis.CBC WITH [id number] 02:39:00 Test Item Value Reference Range Interpretation Comments WBC (test code = WBC) 9.0 10\\S\\3/uL 4.5-11.0 RBC (test code = RBC) 3.97 10\\S\\6/uL 4.30-5.70 L HGB (test code = HBG) 8.5 g/dL 12.0-15.5 L HCT (test code = HCT) 29.4 % 35.0-44.0 L MCV (test code = MCV) 74.1 fL 81.0-99.0 L MCH (test code = MCH) 21.4 pg 27.0-31.0 L MCHC (test code = MCHC) 28.9 g/dL 32.0-36.0 L RDW (test code = RDW) 17.2 % 11.5-14.5 H PLT (test code = PLT) 224 10\\S\\3/uL 130-400 MPV (test code = MPV) 11.3 fL 9.4-12.4 NEUTROP # (test code = NE#) 5.9 10\\S\\3/uL 1.6-8.0 LYMPH # (test code = LY#) 2.2 10\\S\\3/uL 1.1-3.5 MONOCYTE # (test code = 0.7 10\\S\\3/uL 0.0-1.1 MO#) EOSINOPH # (test code = 0.2 10\\S\\3/uL 0.0-0.7 EO#) BASOPHIL # (test code = 0.0 10\\S\\3/uL 0.0-0.3 BA#) IG # (test code = IG#) 0.02 10\\S\\3/uL 0.00-0.06 NRBC # (test code = NRBC#) 0.00 10\\S\\3/uL 0.00-0.01 NEUTROPH % (test code = 65.4 % 35.0-73.0 NE%) LYMPH % (test code = LY%) 24.2 % 20.0-55.0 MONO % (test code = MO%) 7.9 % 2.5-10.0 EOSINOPH % (test code = 1.9 % 0.0-5.0 EO%) BASOPHIL % (test code = 0.4 % 0.0-2.0 BA%) IG % (test code = IG%) 0.2 % 0.0-0.8 NRBC% (test code = NRBC%) 0.0 % 0.0-0.2 PLT EST (test code = ADEQUATE ADEQUATE PLTEST) PLT MORPH (test code = NORMAL (1.5-3 um) NORMAL PLTMOR) POIK (test code = POIK) 1+ NONE A HYPOCHROM (test code = 3+ NONE A HYPOC) OVALOCYTES (test code = 1+ NONE A OVA) TEAR DROP (test code = TD) 1+ NONE A AMYLASE AND [id number] 02:19:00 Test Item Value Reference Range Interpretation Comments AMYLASE (test code = 10A) 67 U/L 28-100 LIPASE (test code = 60A) 127 IU/L 73-393 COMPREHENSIVE METABOLIC [id number] 02:19:00 Test Item Value Reference Range Interpretation Comments GLUCOSE (test code = 06D) 90 mg/dL 75-100 SODIUM (test code = 01A) 139 mmol/L 136-145 POTASSIUM (test code = 01B) 3.8 mmol/L 3.6-5.1 CHLORIDE (test code = 04A) 106 mmol/L 98-107 CO2 (test code = 02A) 28 mmol/L 22-32 ANION GAP (test code = ANG) 8.8 mmol/L BUN (test code = 05D) 10 mg/dL 7-18 CREATININE (test code = 03E) 0.6 mg/dL 0.4-1.1 BUN/CREA (test code = BCR) 16 12-20 CALCIUM (test code = 09D) 8.6 mg/dL 8.3-9.5 BILI TOTAL (test code = 11A) 0.2 mg/dL 0.2-1.0 PROTEIN (test code = 07D) 7.3 g/dL 6.4-8.2 ALBUMIN (test code = 08D) 3.6 g/dL 3.5-4.8 GLOBULIN (test code = GLB) 3.7 g/dL 1.5-3.8 ALB/GLOB (test code = AGRR) 1.0 1.0-2.6 ALK PHOS (test code = 35A) 101 IU/L 42-121 AST (test code = 30A) 10 IU/L <=42 ALT (test code = 31A) 10 IU/L <=78 URINALYSIS WITH [id number] 02:01:00 Test Item Value Reference Range Interpretation Comments COLOR (test code = COLU) YELLOW YELLOW CLARITY (test code = CLA) CLOUDY CLEAR A GLUCOSE UR (test code = UA GLUCOSE) NEGATIVE NEGATIVE BILI UR (test code = BILE) NEGATIVE NEGATIVE KETONES UR (test code = KARSON) NEGATIVE NEGATIVE SP GRAVITY (test code = SPGR) 1.010 1.005-1.030 PH UR (test code = PH) 7.0 4.5-8.0 PROTEIN UR (test code = PU) NEGATIVE NEGATIVE UROBIL UR (test code = UROQ) 0.2 EU/dL 0.2-1.0 NITRITE UR (test code = NITRITE) NEGATIVE NEGATIVE BLOOD UR (test code = UA BLOOD) NEGATIVE NEGATIVE LEUK ES UR (test code = LEUK) 2+ NEGATIVE A WBC UR (test code = UWBC) 4 /HPF 0-5 RBC UR (test code = URBC) 0 /HPF 0-2 EPITH UR (test code = UEPC) FEW /LPF FEW BACTERIA UR (test code = UBACT) FEW /HPF NONE A CAST UR (test code = CAST) /LPF NONE CRYSTAL UR (test code = CRYU) / LPF NONE MUCUS UR (test code = MUC) / HPF NONE AMORPH UR (test code = BRENT) / HPF NONE TRICH UR (test code = UTRICH) /HPF NONE YEAST UR (test code = UY) /HPF NONE SPERM UR (test code = USPERM) /HPF NONE SERUM [id number] 02:01:00 Test Item Value Reference Range Interpretation Comments PREG SRM (test code = PGS) NEGATIVE NEGATIVE U/S NON [id number] 17:52:13EXAM: Pelvic ultrasoundLocation: A1 COMPARISON: Pelvic ultrasound on 08/15/17INDICATION: Pelvic [...] size and echogenicity. The right ovary measures 2 .1 x2 x 1.2 cm and the left ovary measures 3.4 x 2.9 x 1.9 cm. A 2.2 cm dominantleft ovarian follicle is noted. Ovarian flow is appropriate. Small volumenonspecific cul-de-sac free fluid is seen.IMPRESSION:1. Trace nonspecific endometrial canal free fluid. The uterus is otherwiseunremarkable.2. 2.2 cm dominant left ovarian follicle. No solid ovarian mass or torsion isseen.3. Small volume nonspecific cul-de-sac free fluid.COMPREHENSIVE METABOLIC [id number] 15:32:00 Test Item Value Reference Range Interpretation Comments GLUCOSE (test code = 06D) 87 mg/dL 75-100 SODIUM (test code = 01A) 140 mmol/L 136-145 POTASSIUM (test code = 01B) 4.0 mmol/L 3.6-5.1 CHLORIDE (test code = 04A) 108 mmol/L 98-107 H CO2 (test code = 02A) 25 mmol/L 22-32 ANION GAP (test code = ANG) 11.0 mmol/L BUN (test code = 05D) 7 mg/dL 7-18 CREATININE (test code = 03E) 0.6 mg/dL 0.4-1.1 BUN/CREA (test code = BCR) 12 12-20 CALCIUM (test code = 09D) 8.9 mg/dL 8.3-9.5 BILI TOTAL (test code = 11A) 0.6 mg/dL 0.2-1.0 PROTEIN (test code = 07D) 7.5 g/dL 6.4-8.2 ALBUMIN (test code = 08D) 4.2 g/dL 3.5-4.8 GLOBULIN (test code = GLB) 3.3 g/dL 1.5-3.8 ALB/GLOB (test code = AGRR) 1.3 1.0-2.6 ALK PHOS (test code = 35A) 98 IU/L 42-121 AST (test code = 30A) 16 IU/L <=42 ALT (test code = 31A) 11 IU/L <=78 SERUM [id number] 15:31:00 Test Item Value Reference Range Interpretation Comments PREG SRM (test code = PGS) NEGATIVE NEGATIVE CBC (INCLUDES AUTOMATED DIFFERENTIAL)2018-04-05 15:25:00 Test Item Value Reference Range Interpretation Comments WBC (test code = WBC) 6.4 10\\S\\3/uL 4.5-11.0 RBC (test code = RBC) 4.11 10\\S\\6/uL 4.30-5.70 L HGB (test code = HBG) 9.0 g/dL 12.0-15.5 L HCT (test code = HCT) 30.3 % 35.0-44.0 L MCV (test code = MCV) 73.7 fL 81.0-99.0 L MCH (test code = MCH) 21.9 pg 27.0-31.0 L MCHC (test code = MCHC) 29.7 g/dL 32.0-36.0 L RDW (test code = RDW) 16.8 % 11.5-14.5 H PLT (test code = PLT) 249 10\\S\\3/uL 130-400 MPV (test code = MPV) 11.3 fL 9.4-12.4 NEUTROP # (test code = NE#) 3.8 10\\S\\3/uL 1.6-8.0 LYMPH # (test code = LY#) 1.9 10\\S\\3/uL 1.1-3.5 MONOCYTE # (test code = MO#) 0.6 10\\S\\3/uL 0.0-1.1 EOSINOPH # (test code = EO#) 0.1 10\\S\\3/uL 0.0-0.7 BASOPHIL # (test code = BA#) 0.0 10\\S\\3/uL 0.0-0.3 IG # (test code = IG#) 0.01 10\\S\\3/uL 0.00-0.06 NRBC # (test code = NRBC#) 0.00 10\\S\\3/uL 0.00-0.01 NEUTROPH % (test code = NE%) 58.2 % 35.0-73.0 LYMPH % (test code = LY%) 28.7 % 20.0-55.0 MONO % (test code = MO%) 9.8 % 2.5-10.0 EOSINOPH % (test code = EO%) 2.2 % 0.0-5.0 BASOPHIL % (test code = BA%) 0.9 % 0.0-2.0 IG % (test code = IG%) 0.2 % 0.0-0.8 NRBC% (test code = NRBC%) 0.0 % 0.0-0.2 MANDIFF (test code = MDIFF) NO NO PRO TIME AND [id number] 15:20:00 Test Item Value Reference Range Interpretation Comments PT (test code = 12.2 s 9.8-13.6 TT) INR (test code = 1.1 INR) INRH (test code = SUGGESTED INRH) THERAPEUTIC RANGE FOR INR: 2.5 - 3.5 For Patients with Prosthetic Valves or Patients with recurrent Thromboembolic Events 2.0 - 3.0 For Most Other Applications PTT (test code = 18.9 s 20.2-38.0 L PTT) PTTH (test code = To monitor the PTTH) effectiveness of heparin, we offer the Anti-Xa (Heparin Assay). It can be used for either unfractionated or LMW Heparin. Order Code is ANTI-XA URINALYSIS WITH [id number] 15:19:00 Test Item Value Reference Range Interpretation Comments COLOR (test code = COLU) YELLOW YELLOW CLARITY (test code = CLA) CLOUDY CLEAR A GLUCOSE UR (test code = UA NEGATIVE NEGATIVE GLUCOSE) BILI UR (test code = BILE) NEGATIVE NEGATIVE KETONES UR (test code = KARSON) NEGATIVE NEGATIVE SP GRAVITY (test code = SPGR) 1.024 1.005-1.030 PH UR (test code = PH) 8.0 4.5-8.0 PROTEIN UR (test code = PU) 1+ NEGATIVE A UROBIL UR (test code = UROQ) 0.2 EU/dL 0.2-1.0 NITRITE UR (test code = NEGATIVE NEGATIVE NITRITE) BLOOD UR (test code = UA BLOOD) NEGATIVE NEGATIVE LEUK ES UR (test code = LEUK) 1+ NEGATIVE A WBC UR (test code = UWBC) 4 /HPF 0-5 RBC UR (test code = URBC) 1 /HPF 0-2 EPITH UR (test code = UEPC) MODERATE /LPF FEW A BACTERIA UR (test code = UBACT) MODERATE /HPF NONE A CAST UR (test code = CAST) /LPF NONE CRYSTAL UR (test code = CRYU) / LPF NONE MUCUS UR (test code = MUC) FEW / HPF NONE A AMORPH UR (test code = BRENT) / HPF NONE TRICH UR (test code = UTRICH) /HPF NONE YEAST UR (test code = UY) /HPF NONE SPERM UR (test code = USPERM) /HPF NONE URINALYSIS WITH [id number] 05:18:00 Test Item Value Reference Range Interpretation Comments COLOR (test code = COLU) YELLOW YELLOW CLARITY (test code = CLA) HAZY CLEAR A GLUCOSE UR (test code = UA NEGATIVE NEGATIVE GLUCOSE) BILI UR (test code = BILE) NEGATIVE NEGATIVE KETONES UR (test code = KARSON) NEGATIVE NEGATIVE SP GRAVITY (test code = SPGR) 1.012 1.005-1.030 PH UR (test code = PH) 6.5 4.5-8.0 PROTEIN UR (test code = PU) NEGATIVE NEGATIVE UROBIL UR (test code = UROQ) 0.2 EU/dL 0.2-1.0 NITRITE UR (test code = NEGATIVE NEGATIVE NITRITE) BLOOD UR (test code = UA BLOOD) NEGATIVE NEGATIVE LEUK ES UR (test code = LEUK) TRACE NEGATIVE A WBC UR (test code = UWBC) 1 /HPF 0-5 RBC UR (test code = URBC) 0 /HPF 0-2 EPITH UR (test code = UEPC) MODERATE /LPF FEW A BACTERIA UR (test code = UBACT) NONE /HPF NONE CAST UR (test code = CAST) /LPF NONE CRYSTAL UR (test code = CRYU) / LPF NONE MUCUS UR (test code = MUC) / HPF NONE AMORPH UR (test code = BRENT) FEW / HPF NONE A TRICH UR (test code = UTRICH) /HPF NONE YEAST UR (test code = UY) /HPF NONE SPERM UR (test code = USPERM) /HPF NONE URINE [id number] 05:01:00 Test Item Value Reference Range Interpretation Comments PREG UR (test code = PGU) NEGATIVE NEGATIVE PRO TIME AND [id number] 04:14:00 Test Item Value Reference Range Interpretation Comments PT (test code = 11.4 s 9.8-13.6 TT) INR (test code = 1.0 INR) INRH (test code = SUGGESTED INRH) THERAPEUTIC RANGE FOR INR: 2.5 - 3.5 For Patients with Prosthetic Valves or Patients with recurrent Thromboembolic Events 2.0 - 3.0 For Most Other Applications PTT (test code = 29.4 s 20.2-38.0 PTT) PTTH (test code = To monitor the PTTH) effectiveness of heparin, we offer the Anti-Xa (Heparin Assay). It can be used for either unfractionated or LMW Heparin. Order Code is ANTI-XA COMPREHENSIVE METABOLIC [id number] 04:08:00 Test Item Value Reference Range Interpretation Comments GLUCOSE (test code = 06D) 92 mg/dL 75-100 SODIUM (test code = 01A) 140 mmol/L 136-145 POTASSIUM (test code = 01B) 3.6 mmol/L 3.6-5.1 CHLORIDE (test code = 04A) 106 mmol/L 98-107 CO2 (test code = 02A) 28 mmol/L 22-32 ANION GAP (test code = ANG) 9.6 mmol/L BUN (test code = 05D) 12 mg/dL 7-18 CREATININE (test code = 03E) 0.7 mg/dL 0.4-1.1 BUN/CREA (test code = BCR) 17 12-20 CALCIUM (test code = 09D) 9.2 mg/dL 8.3-9.5 BILI TOTAL (test code = 11A) 0.3 mg/dL 0.2-1.0 PROTEIN (test code = 07D) 7.9 g/dL 6.4-8.2 ALBUMIN (test code = 08D) 4.0 g/dL 3.5-4.8 GLOBULIN (test code = GLB) 3.9 g/dL 1.5-3.8 H ALB/GLOB (test code = AGRR) 1.0 1.0-2.6 ALK PHOS (test code = 35A) 100 IU/L 42-121 AST (test code = 30A) 22 IU/L <=42 ALT (test code = 31A) 15 IU/L <=78 CBC (INCLUDES AUTOMATED DIFFERENTIAL)2018-02-24 03:53:00 Test Item Value Reference Range Interpretation Comments WBC (test code = WBC) 7.7 10\\S\\3/uL 4.5-11.0 RBC (test code = RBC) 4.25 10\\S\\6/uL 4.30-5.70 L HGB (test code = HBG) 9.3 g/dL 12.0-15.5 L HCT (test code = HCT) 31.8 % 35.0-44.0 L MCV (test code = MCV) 74.8 fL 81.0-99.0 L MCH (test code = MCH) 21.9 pg 27.0-31.0 L MCHC (test code = MCHC) 29.2 g/dL 32.0-36.0 L RDW (test code = RDW) 17.2 % 11.5-14.5 H PLT (test code = PLT) 233 10\\S\\3/uL 130-400 MPV (test code = MPV) 10.8 fL 9.4-12.4 NEUTROP # (test code = NE#) 4.4 10\\S\\3/uL 1.6-8.0 LYMPH # (test code = LY#) 2.5 10\\S\\3/uL 1.1-3.5 MONOCYTE # (test code = MO#) 0.6 10\\S\\3/uL 0.0-1.1 EOSINOPH # (test code = EO#) 0.3 10\\S\\3/uL 0.0-0.7 BASOPHIL # (test code = BA#) 0.0 10\\S\\3/uL 0.0-0.3 IG # (test code = IG#) 0.01 10\\S\\3/uL 0.00-0.06 NRBC # (test code = NRBC#) 0.00 10\\S\\3/uL 0.00-0.01 NEUTROPH % (test code = NE%) 56.6 % 35.0-73.0 LYMPH % (test code = LY%) 31.9 % 20.0-55.0 MONO % (test code = MO%) 7.8 % 2.5-10.0 EOSINOPH % (test code = EO%) 3.2 % 0.0-5.0 BASOPHIL % (test code = BA%) 0.4 % 0.0-2.0 IG % (test code = IG%) 0.1 % 0.0-0.8 NRBC% (test code = NRBC%) 0.0 % 0.0-0.2 MANDIFF (test code = MDIFF) NO NO RBC MORPH (test code = RBCMOR) NORMAL CT HEAD W/O [id number] 07:27:51Clinical History: Headache.Location: D4.Findings: Multislice axial noncontrast [...] sinuses andwithin the left frontal sinus.DRUGS OF [id number] 07:16:00 Test Item Value Reference Range Interpretation Comments DRUG SCRN (test code URINE DRUG SCREEN = HDOA) This is an unconfirmed screening result and should not be used for non-medical purposes CANNABINOD (test code Negative NEGATIVE = 88C) AMPHETAMINE (test Negative NEGATIVE code = 84A) BENZODIAZP (test code POSITIVE NEGATIVE A = 86A) BARBITURAT (test code Negative NEGATIVE = 85A) OPIATES (test code = Negative NEGATIVE 92B) COCAINE (test code = Negative NEGATIVE 87A) PHENCYCLID (test code Negative NEGATIVE = 66A) METHADONE (test code Negative NEGATIVE = 64A) DOAH (test code = DOAH) *URINE DRUG SCREEN Cut-off values are as follows: Cannabinoids 50 ng/mL Cocaine 300 ng/mL Amphetamines 1000 ng/mL Phencyclidine 25 ng/mL Benzodiazepines 200 ng.mL Methadone 300 ng/mL Barbiturates 200 ng/mL Opiates 2000 ng/mL URINALYSIS WITH [id number] 07:14:00 Test Item Value Reference Range Interpretation Comments COLOR (test code = YELLOW YELLOW COLU) CLARITY (test code CLOUDY CLEAR A = CLA) GLUCOSE UR (test NEGATIVE NEGATIVE code = UA GLUCOSE) BILI UR (test code NEGATIVE NEGATIVE = BILE) KETONES UR (test NEGATIVE NEGATIVE code = KARSON) SP GRAVITY (test 1.017 1.005-1.030 code = SPGR) PH UR (test code = 7.0 4.5-8.0 PH) PROTEIN UR (test NEGATIVE NEGATIVE code = PU) UROBIL UR (test 1.0 EU/dL 0.2-1.0 code = UROQ) NITRITE UR (test NEGATIVE NEGATIVE code = NITRITE) BLOOD UR (test code NEGATIVE NEGATIVE = UA BLOOD) LEUK ES UR (test 3+ NEGATIVE A code = LEUK) WBC UR (test code = 10 /HPF 0-5 H Previous ly reported UWBC) as: 4 On 10/27 07:14 By [id number] RBC UR (test code = 1 /HPF 0-2 Previous ly reported URBC) as: 0 On 10/27 07:14 By [id number] EPITH UR (test MODERATE /LPF FEW A Previously reported code = UEPC) as: FEW On 11/22/2017 07:1 4 By MR33 BACTERIA UR (test MANY /HPF NONE A Previously reported code = UBACT) as: NONE On 11/22/2017 07:1 4 By MR33 CAST UR (test code /LPF NONE = CAST) CRYSTAL UR (test / LPF NONE code = CRYU) MUCUS UR (test code / HPF NONE = MUC) AMORPH UR (test FEW / HPF NONE A code = BRENT) TRICH UR (test code /HPF NONE = UTRICH) YEAST UR (test code /HPF NONE = UY) SPERM UR (test code /HPF NONE = USPERM) COMPREHENSIVE METABOLIC [id number] 06:59:00 Test Item Value Reference Range Interpretation Comments GLUCOSE (test code = 06D) 99 mg/dL 75-100 SODIUM (test code = 01A) 137 mmol/L 136-145 POTASSIUM (test code = 01B) 3.9 mmol/L 3.6-5.1 CHLORIDE (test code = 04A) 105 mmol/L 98-107 CO2 (test code = 02A) 27 mmol/L 22-32 ANION GAP (test code = ANG) 8.9 mmol/L BUN (test code = 05D) 8 mg/dL 7-18 CREATININE (test code = 03E) 0.8 mg/dL 0.4-1.1 BUN/CREA (test code = BCR) 10 12-20 L CALCIUM (test code = 09D) 9.1 mg/dL 8.3-9.5 BILI TOTAL (test code = 11A) 0.6 mg/dL 0.2-1.0 PROTEIN (test code = 07D) 8.1 g/dL 6.4-8.2 ALBUMIN (test code = 08D) 3.9 g/dL 3.5-4.8 GLOBULIN (test code = GLB) 4.2 g/dL 1.5-3.8 H ALB/GLOB (test code = AGRR) 0.9 1.0-2.6 L ALK PHOS (test code = 35A) 102 IU/L 42-121 AST (test code = 30A) 23 IU/L <=42 ALT (test code = 31A) 14 IU/L <=78 SERUM [id number] 06:51:00 Test Item Value Reference Range Interpretation Comments PREG SRM (test code = PGS) NEGATIVE NEGATIVE CBC (INCLUDES AUTOMATED DIFFERENTIAL)2017-11-22 06:51:00 Test Item Value Reference Range Interpretation Comments WBC (test code = WBC) 8.6 10\\S\\3/uL 4.5-11.0 RBC (test code = RBC) 4.65 10\\S\\6/uL 4.30-5.70 HGB (test code = HBG) 10.2 g/dL 12.0-15.5 L HCT (test code = HCT) 34.1 % 35.0-44.0 L MCV (test code = MCV) 73.3 fL 81.0-99.0 L MCH (test code = MCH) 21.9 pg 27.0-31.0 L MCHC (test code = MCHC) 29.9 g/dL 32.0-36.0 L RDW (test code = RDW) 17.7 % 11.5-14.5 H PLT (test code = PLT) 231 10\\S\\3/uL 130-400 MPV (test code = MPV) 11.5 fL 9.4-12.4 NEUTROP # (test code = NE#) 6.4 10\\S\\3/uL 1.6-8.0 LYMPH # (test code = LY#) 1.6 10\\S\\3/uL 1.1-3.5 MONOCYTE # (test code = MO#) 0.4 10\\S\\3/uL 0.0-1.1 EOSINOPH # (test code = EO#) 0.1 10\\S\\3/uL 0.0-0.7 BASOPHIL # (test code = BA#) 0.0 10\\S\\3/uL 0.0-0.3 IG # (test code = IG#) 0.02 10\\S\\3/uL 0.00-0.06 NRBC # (test code = NRBC#) 0.00 10\\S\\3/uL 0.00-0.01 NEUTROPH % (test code = NE%) 74.1 % 35.0-73.0 H LYMPH % (test code = LY%) 18.6 % 20.0-55.0 L MONO % (test code = MO%) 5.0 % 2.5-10.0 EOSINOPH % (test code = EO%) 1.6 % 0.0-5.0 BASOPHIL % (test code = BA%) 0.5 % 0.0-2.0 IG % (test code = IG%) 0.2 % 0.0-0.8 NRBC% (test code = NRBC%) 0.0 % 0.0-0.2 MANDIFF (test code = MDIFF) NO NO RBC MORPH (test code = RBCMOR) NORMAL URINE [id number] 10:45:00 Test Item Value Reference Range Interpretation Comments Culture Observations (test NO GROWTH (<1,000 code = COB1) CFU/ML) U/S PELVIS*WW*2017-08-15 02:47:38U/S PELVIS*WW*Location: [address] services provided 08/15/2017 2:45 AMIndication: pelvic painComparison: 06/21/17Technique:Transabdominal sonographic osorio scale, color and Doppler imaging wasperformed to the female pelvis.Findings:Uterus: Normal in size and echogenicity measuring 7.3 x 4.5 x 6.0 cm.Endometrial complex: Normal at 4 mm.Ovaries: Not seen secondary to overlying bowel gas.Other: The urinary bladder appears normal.Impression:Nonvisualization of the ovaries, otherwise normal transabdominalpelvic ultrasound.URINALYSIS WITH MICRO *WW*2017-08-15 01:24:00 Test Item Value Reference Range Interpretation Comments COLOR (test code = YELLOW YELLOW COLU) CLARITY (test code = SLT HAZY CLEAR A CLA) GLUCOSE UR (test NEGATIVE NEGATIVE code = UA GLUCOSE) BILI UR (test code = NEGATIVE NEGATIVE BILE) KETONES UR (test NEGATIVE NEGATIVE code = KARSON) SP GRAVITY (test <=1.005 1.005-1.030 code = SPGR) PH UR (test code = 6.5 4.5-8.0 PH) PROTEIN UR (test NEGATIVE NEGATIVE code = PU) UROBIL UR (test code 0.2 EU/dL 0.2-1.0 = UROQ) NITRITE UR (test NEGATIVE NEGATIVE code = NITRITE) BLOOD UR (test code 3+ NEGATIVE A = UA BLOOD) LEUK ES UR (test 3+ NEGATIVE A code = LEUK) WBC UR (test code = 10 /HPF 0-5 H few wbc clumps seen UWBC) RBC UR (test code = 3 /HPF 0-2 H URBC) EPITH UR (test code FEW /LPF FEW = UEPC) BACTERIA UR (test MODERATE /HPF NONE A code = UBACT) CAST UR (test code = /LPF NONE CAST) CRYSTAL UR (test / LPF NONE code = CRYU) MUCUS UR (test code / HPF NONE = MUC) AMORPH UR (test code / HPF NONE = BRENT) TRICH UR (test code /HPF NONE = UTRICH) YEAST UR (test code /HPF NONE rare fun gal elements = UY) seen SPERM UR (test code /HPF NONE = USPERM) URINE MONOCLONAL *WW*2017-08-15 01:07:00 Test Item Value Reference Range Interpretation Comments PREG UR (test code = PGU) NEGATIVE NEGATIVE U/S [id number] 18:19:54PELVIC ULTRASOUND:Location code: [id number] HISTORY: Pelvic pain with ovarian cystComparison: NoneTECHNIQUE: Transabdominal sonography of the pelvis was performed. FINDINGS: The uterus is uniform in ec hogenicity measuring 8.5 x 4.5 x 6.4 cm. [...] right ovary and otherwise unremarkable exam.BASIC METABOLIC [id number] 15:38:00 Test Item Value Reference Range Interpretation Comments GLUCOSE (test code = 06D) 89 mg/dL 75-100 SODIUM (test code = 01A) 139 mmol/L 136-145 POTASSIUM (test code = 01B) 4.2 mmol/L 3.6-5.1 CHLORIDE (test code = 04A) 106 mmol/L 98-107 CO2 (test code = 02A) 27 mmol/L 22-32 ANION GAP (test code = ANG) 10.2 mmol/L BUN (test code = 05D) 12 mg/dL 7-18 CREATININE (test code = 03E) 0.9 mg/dL 0.4-1.1 BUN/CREA (test code = BCR) 14 12-20 CALCIUM (test code = 09D) 8.8 mg/dL 8.3-9.5 [id number] 15:37:00 Test Item Value Reference Range Interpretation Comments COLOR (test code = COLU) YELLOW YELLOW CLARITY (test code = CLA) CLEAR CLEAR GLUCOSE UR (test code = UA GLUCOSE) NEGATIVE NEGATIVE BILI UR (test code = BILE) NEGATIVE NEGATIVE KETONES UR (test code = KARSON) NEGATIVE NEGATIVE SP GRAVITY (test code = SPGR) 1.011 1.005-1.030 PH UR (test code = PH) 6.5 4.5-8.0 PROTEIN UR (test code = PU) NEGATIVE NEGATIVE UROBIL UR (test code = UROQ) 0.2 EU/dL 0.2-1.0 NITRITE UR (test code = NITRITE) NEGATIVE NEGATIVE BLOOD UR (test code = UA BLOOD) NEGATIVE NEGATIVE LEUK ES UR (test code = LEUK) NEGATIVE NEGATIVE SERUM [id number] 15:35:00 Test Item Value Reference Range Interpretation Comments PREG SRM (test code = PGS) NEGATIVE NEGATIVE PRO TIME AND [id number] 15:31:00 Test Item Value Reference Range Interpretation Comments PT (test code = 12.0 s 9.8-13.6 TT) INR (test code = 1.1 INR) INRH (test code = SUGGESTED INRH) THERAPEUTIC RANGE FOR INR: 2.5 - 3.5 For Patients with Prosthetic Valves or Patients with recurrent Thromboembolic Events 2.0 - 3.0 For Most Other Applications PTT (test code = 29.5 s 20.2-38.0 PTT) PTTH (test code = To monitor the PTTH) effectiveness of heparin, we offer the Anti-Xa (Heparin Assay). It can be used for either unfractionated or LMW Heparin. Order Code is ANTI-XA CBC (INCLUDES AUTOMATED DIFFERENTIAL)2017-06-21 15:21:00 Test Item Value Reference Range Interpretation Comments WBC (test code = WBC) 6.3 10\\S\\3/uL 4.5-11.0 RBC (test code = RBC) 4.35 10\\S\\6/uL 4.30-5.70 HGB (test code = HBG) 9.5 g/dL 12.0-15.5 L HCT (test code = HCT) 31.4 % 35.0-44.0 L MCV (test code = MCV) 72.2 fL 81.0-99.0 L MCH (test code = MCH) 21.8 pg 27.0-31.0 L MCHC (test code = MCHC) 30.3 g/dL 32.0-36.0 L RDW (test code = RDW) 17.0 % 11.5-14.5 H PLT (test code = PLT) 253 10\\S\\3/uL 130-400 MPV (test code = MPV) 11.5 fL 9.4-12.4 NEUTROP # (test code = NE#) 3.9 10\\S\\3/uL 1.6-8.0 LYMPH # (test code = LY#) 1.5 10\\S\\3/uL 1.1-3.5 MONOCYTE # (test code = MO#) 0.5 10\\S\\3/uL 0.0-1.1 EOSINOPH # (test code = EO#) 0.2 10\\S\\3/uL 0.0-0.7 BASOPHIL # (test code = BA#) 0.1 10\\S\\3/uL 0.0-0.3 IG # (test code = IG#) 0.01 10\\S\\3/uL 0.00-0.06 NRBC # (test code = NRBC#) 0.00 10\\S\\3/uL 0.00-0.01 NEUTROPH % (test code = NE%) 62.5 % 35.0-73.0 LYMPH % (test code = LY%) 24.2 % 20.0-55.0 MONO % (test code = MO%) 8.3 % 2.5-10.0 EOSINOPH % (test code = EO%) 3.8 % 0.0-5.0 BASOPHIL % (test code = BA%) 1.0 % 0.0-2.0 IG % (test code = IG%) 0.2 % 0.0-0.8 NRBC% (test code = NRBC%) 0.0 % 0.0-0.2 MANDIFF (test code = MDIFF) NO NO RBC MORPH (test code = RBCMOR) NORMAL DIRECT CHLAMYDIA [id number] 15:42:00 Test Item Value Reference Range Interpretation Comments CHLAMYDIA NOT DETECTED NOT DETECTED TRACHOMATIS (test code = 75150135) NEISSERIA NOT DETECTED NOT DETECTED GONORRHOEAE (test code = 06617948) Endnote (test code This test was = 37322064) performed using the APTIMA COMBO2 Assay(saperatec.).The bernardo tical performance characteristics of thisassay, when used to test SurePat h specimens haveb een determined by [employer].MATTHEW T PERFORMED AT:[facility] [address] [id number] TALLEY M.D. U/S [id number] 23:50:15LOCATION: [id number]: 26-year-old female who presents with pelvic pain.COMMENT: After-hours service at 11:47 p.m.Sonographic imaging of this patient's pelvis was obtained with transabdominaltechnique. G rayscale, color-flow, and Doppler waveform imaging modalities wereutilized.An [...] no sonographic evidence of ovarian torsion.URINALYSIS WITH [id number] 22:11:00 Test Item Value Reference Range Interpretation Comments COLOR (test code = COLU) YELLOW YELLOW CLARITY (test code = CLA) HAZY CLEAR A GLUCOSE UR (test code = UA GLUCOSE) NEGATIVE NEGATIVE BILI UR (test code = BILE) NEGATIVE NEGATIVE KETONES UR (test code = KARSON) NEGATIVE NEGATIVE SP GRAVITY (test code = SPGR) 1.028 1.005-1.030 PH UR (test code = PH) 6.0 4.5-8.0 PROTEIN UR (test code = PU) TRACE NEGATIVE A UROBIL UR (test code = UROQ) 0.2 EU/dL 0.2-1.0 NITRITE UR (test code = NITRITE) NEGATIVE NEGATIVE BLOOD UR (test code = UA BLOOD) NEGATIVE NEGATIVE LEUK ES UR (test code = LEUK) TRACE NEGATIVE A WBC UR (test code = UWBC) 3 /HPF 0-5 RBC UR (test code = URBC) 1 /HPF 0-2 EPITH UR (test code = UEPC) FEW /LPF FEW BACTERIA UR (test code = UBACT) FEW /HPF NONE A CAST UR (test code = CAST) /LPF NONE CRYSTAL UR (test code = CRYU) / LPF NONE MUCUS UR (test code = MUC) / HPF NONE AMORPH UR (test code = BRENT) / HPF NONE TRICH UR (test code = UTRICH) /HPF NONE YEAST UR (test code = UY) /HPF NONE SPERM UR (test code = USPERM) /HPF NONE URINE [id number] 21:56:00 Test Item Value Reference Range Interpretation Comments PREG UR (test code = PGU) NEGATIVE NEGATIVE CBC W/PLT COUNT & AUTO [id number] 18:46:00 Test Item Value Reference Range Interpretation Comments WHITE BLOOD CELL COUNT (BEAKER) 4.8 K/ L 4.0-10.0 (test code = 775) RED BLOOD CELL COUNT (BEAKER) 3.93 M/ L 4.00-5.00 L (test code = 761) HEMOGLOBIN (BEAKER) (test code = 8.7 GM/DL 12.0-15.0 L 410) HEMATOCRIT (BEAKER) (test code = 28.0 % 36.0-45.0 L 411) MEAN CORPUSCULAR VOLUME (BEAKER) 71.3 fL 82.0-99.0 L (test code = 753) MEAN CORPUSCULAR HEMOGLOBIN 22.2 pg 27.0-33.0 L (BEAKER) (test code = 751) MEAN CORPUSCULAR HEMOGLOBIN CONC 31.1 GM/DL 32.0-36.0 L (BEAKER) (test code = 752) RED CELL DISTRIBUTION WIDTH 17.0 % 10.3-14.2 H (BEAKER) (test code = 412) PLATELET COUNT (BEAKER) (test 179 K/CU MM 150-430 code = 756) MEAN PLATELET VOLUME (BEAKER) 9.3 fL 6.5-10.5 (test code = 754) NUCLEATED RED BLOOD CELLS 0 /100 WBC 0-0 (BEAKER) (test code = 413) NEUTROPHILS RELATIVE PERCENT 55 % (BEAKER) (test code = 429) LYMPHOCYTES RELATIVE PERCENT 33 % (BEAKER) (test code = 430) MONOCYTES RELATIVE PERCENT 8 % (BEAKER) (test code = 431) EOSINOPHILS RELATIVE PERCENT 3 % (BEAKER) (test code = 432) BASOPHILS RELATIVE PERCENT 1 % (BEAKER) (test code = 437) NEUTROPHILS ABSOLUTE COUNT 2.60 K/ L 1.80-8.00 (BEAKER) (test code = 670) LYMPHOCYTES ABSOLUTE COUNT 1.60 K/ L 1.48-4.50 (BEAKER) (test code = 414) MONOCYTES ABSOLUTE COUNT (BEAKER) 0.40 K/ L 0.00-1.30 (test code = 415) EOSINOPHILS ABSOLUTE COUNT 0.10 K/ L 0.00-0.50 (BEAKER) (test code = 416) BASOPHILS ABSOLUTE COUNT (BEAKER) 0.00 K/ L 0.00-0.20 (test code = 417) (MANUAL DIFFERENTIAL)2017-02-08 18:46:00 Test Item Value Reference Range Interpretation Comments TOTAL COUNTED (BEAKER) (test code = 1351) WBC MORPHOLOGY (BEAKER) (test Normal code = 487) PLT MORPHOLOGY (BEAKER) (test Normal code = 486) HYPOCHROMIA (BEAKER) (test code = 2+ moderate 963) MACROCYTES (BEAKER) (test code = 1+ few 964) SCREEN, [id number] 00:18:00 Test Item Value Reference Range Interpretation Comments TEST URINE (BEAKER) (test Negative code = 583) URINALYSIS W/ REFLEX URINE [id number] 00:16:00 Test Item Value Reference Range Interpretation Comments COLOR (BEAKER) (test code = Yellow 470) CLARITY (BEAKER) (test code = Slightly Cloudy 469) SPECIFIC GRAVITY UA (BEAKER) 1.020 1.001-1.035 (test code = 468) PH UA (BEAKER) (test code = 6.0 5.0-8.0 467) PROTEIN UA (BEAKER) (test Negative Negative code = 464) GLUCOSE UA (BEAKER) (test Negative Negative code = 365) KETONES UA (BEAKER) (test Negative Negative code = 371) BILIRUBIN UA (BEAKER) (test Negative Negative code = 462) BLOOD UA (BEAKER) (test code Large Negative A = 461) NITRITE UA (BEAKER) (test Negative Negative code = 465) LEUKOCYTE ESTERASE UA Negative Negative (BEAKER) (test code = 466) UROBILINOGEN UA (BEAKER) 0.2 mg/dL 0.2-1.0 (test code = 463) BACTERIA (BEAKER) (test code Few = 517) RBC UA-MANUAL (BEAKER) (test 10-20 /HPF code = 1659) WBC UA-MANUAL (BEAKER) (test <5 /HPF code = 1661) SQUAMOUS EPITHELIAL MANUAL <5 /HPF (BEAKER) (test code = 1663) SOURCE(BEAKER) (test code = 2795) CBC W/PLT COUNT & AUTO [id number] 00:08:00 Test Item Value Reference Range Interpretation Comments WHITE BLOOD CELL COUNT (BEAKER) 7.7 K/ L 4.0-10.0 (test code = 775) RED BLOOD CELL COUNT (BEAKER) 4.33 M/ L 4.00-5.00 (test code = 761) HEMOGLOBIN (BEAKER) (test code = 9.6 GM/DL 12.0-15.0 L 410) HEMATOCRIT (BEAKER) (test code = 31.2 % 36.0-45.0 L 411) MEAN CORPUSCULAR VOLUME (BEAKER) 72.0 fL 82.0-99.0 L (test code = 753) MEAN CORPUSCULAR HEMOGLOBIN 22.2 pg 27.0-33.0 L (BEAKER) (test code = 751) MEAN CORPUSCULAR HEMOGLOBIN CONC 30.9 GM/DL 32.0-36.0 L (BEAKER) (test code = 752) RED CELL DISTRIBUTION WIDTH 16.7 % 10.3-14.2 H (BEAKER) (test code = 412) PLATELET COUNT (BEAKER) (test 204 K/CU MM 150-430 code = 756) MEAN PLATELET VOLUME (BEAKER) 10.0 fL 6.5-10.5 (test code = 754) NEUTROPHILS RELATIVE PERCENT 62 % (BEAKER) (test code = 429) LYMPHOCYTES RELATIVE PERCENT 29 % (BEAKER) (test code = 430) MONOCYTES RELATIVE PERCENT 6 % (BEAKER) (test code = 431) EOSINOPHILS RELATIVE PERCENT 2 % (BEAKER) (test code = 432) BASOPHILS RELATIVE PERCENT 1 % (BEAKER) (test code = 437) NEUTROPHILS ABSOLUTE COUNT 4.80 K/ L 1.80-8.00 (BEAKER) (test code = 670) LYMPHOCYTES ABSOLUTE COUNT 2.20 K/ L 1.48-4.50 (BEAKER) (test code = 414) MONOCYTES ABSOLUTE COUNT (BEAKER) 0.50 K/ L 0.00-1.30 (test code = 415) EOSINOPHILS ABSOLUTE COUNT 0.20 K/ L 0.00-0.50 (BEAKER) (test code = 416) BASOPHILS ABSOLUTE COUNT (BEAKER) 0.00 K/ L 0.00-0.20 (test code = 417) (MANUAL DIFFERENTIAL)2017-02-08 00:08:00 Test Item Value Reference Range Interpretation Comments TOTAL COUNTED (BEAKER) (test code = 1351) WBC MORPHOLOGY (BEAKER) (test Normal code = 487) PLT MORPHOLOGY (BEAKER) (test Normal code = 486) HYPOCHROMIA (BEAKER) (test code = 2+ moderate 963) MICROCYTES (BEAKER) (test code = 1+ few 965) BASIC METABOLIC [id number] 00:04:00 Test Item Value Reference Range Interpretation Comments SODIUM (BEAKER) 142 meq/L 135-148 (test code = 381) POTASSIUM (BEAKER) 3.4 meq/L 3.6-5.5 L (test code = 379) CHLORIDE (BEAKER) 110 meq/L 98-106 H (test code = 382) CO2 (BEAKER) (test 20 meq/L 20-29 code = 355) BLOOD UREA NITROGEN 6 mg/dL 10-26 L (BEAKER) (test code = 354) CREATININE (BEAKER) 0.80 mg/dL 0.50-1.20 (test code = 358) GLUCOSE RANDOM 88 mg/dL 70-110 (BEAKER) (test code = 652) CALCIUM (BEAKER) 9.1 mg/dL 8.5-10.5 (test code = 697) EGFR (BEAKER) (test 88 mL/min/1.73 ESTIMA SUSY GFR IS code = 1092) sq m NOT ACCURATE CREATININE CLEARANCE IN PREDICTING GLOMERULAR FILTRATION RATE . ESTIMATED GFR I S NOT APPLICABLE FOR DIALYSIS PATIEN TS. [id number] 22:38:00 Test Item Value Reference Range Interpretation Comments COLOR (test code = COLU) YELLOW YELLOW CLARITY (test code = CLA) CLEAR CLEAR GLUCOSE UR (test code = UA GLUCOSE) NEGATIVE NEGATIVE BILI UR (test code = BILE) NEGATIVE NEGATIVE KETONES UR (test code = KARSON) NEGATIVE NEGATIVE SP GRAVITY (test code = SPGR) 1.026 1.005-1.030 PH UR (test code = PH) 6.5 4.5-8.0 PROTEIN UR (test code = PU) NEGATIVE NEGATIVE UROBIL UR (test code = UROQ) 0.2 EU/dL 0.2-1.0 NITRITE UR (test code = NITRITE) NEGATIVE NEGATIVE BLOOD UR (test code = UA BLOOD) NEGATIVE NEGATIVE LEUK ES UR (test code = LEUK) NEGATIVE NEGATIVE AUAM (test code = AUAM) NO NO CT ABDOMEN AND PELVIS WITH [id number] 22:32:06LOCATION: [id number]: 26-year-old female who presents with periumbilical abdominal pain andbloody sto ol.COMMENT: After-hours service at 10:[address] imaging of this patient's abdomen and pelvis was obtained during andafter [...] is unremarkable.The liver, spleen, pancreas, adrenal glands, kidneys, and gallbladder areunremarkable.The upper intestinal tract on [...] cm diameter. Pelvicultrasound correlation is suggested. SERUM [id number] 21:33:00 Test Item Value Reference Range Interpretation Comments PREG SRM (test code = PGS) NEGATIVE NEGATIVE AMYLASE AND [id number] 21:31:00 Test Item Value Reference Range Interpretation Comments AMYLASE (test code = 10A) 54 U/L 28-100 LIPASE (test code = 60A) 113 IU/L 73-393 COMPREHENSIVE METABOLIC [id number] 21:31:00 Test Item Value Reference Range Interpretation Comments GLUCOSE (test code = 06D) 106 mg/dL 75-100 H SODIUM (test code = 01A) 141 mmol/L 136-145 POTASSIUM (test code = 01B) 3.6 mmol/L 3.6-5.1 CHLORIDE (test code = 04A) 106 mmol/L 98-107 CO2 (test code = 02A) 28 mmol/L 22-32 ANION GAP (test code = ANG) 10.6 mmol/L BUN (test code = 05D) 8 mg/dL 7-18 CREATININE (test code = 03E) 0.7 mg/dL 0.4-1.1 BUN/CREA R (test code = BCR) 11 12-20 L CALCIUM (test code = 09D) 8.5 mg/dL 8.3-9.5 BILI TOTAL (test code = 11A) 0.3 mg/dL 0.2-1.0 PROTEIN (test code = 07D) 8.0 g/dL 6.4-8.2 ALBUMIN (test code = 08D) 4.1 g/dL 3.5-4.8 GLOBULIN (test code = GLB) 3.9 g/dL 1.5-3.8 H ALB/GLOB (test code = AGRR) 1.1 1.0-2.6 ALK PHOS (test code = 35A) 104 IU/L 42-121 AST (test code = 30A) 50 IU/L <=42 H ALT (test code = 31A) 23 IU/L <=78 OCCULT [id number] 21:12:00 Test Item Value Reference Range Interpretation Comments Direct Exam (test code NEGATIVE FOR OCCULT = DE3) BLOOD CBC (INCLUDES AUTOMATED DIFFERENTIAL)2017-01-20 21:12:00 Test Item Value Reference Range Interpretation Comments WBC (test code = WBC) 7.8 10\\S\\3/uL 4.5-11.0 RBC (test code = RBC) 4.19 10\\S\\6/uL 4.30-5.70 L HGB (test code = HBG) 9.4 g/dL 12.0-15.5 L HCT (test code = HCT) 31.1 % 35.0-44.0 L MCV (test code = MCV) 74.2 fL 81.0-99.0 L MCH (test code = MCH) 22.4 pg 27.0-31.0 L MCHC (test code = MCHC) 30.2 g/dL 32.0-36.0 L RDW (test code = RDW) 17.1 % 11.5-14.5 H PLT (test code = PLT) 261 10\\S\\3/uL 130-400 MPV (test code = MPV) 11.0 fL 9.4-12.4 NEUTROP # (test code = NE#) 5.9 10\\S\\3/uL 1.6-8.0 LYMPH # (test code = LY#) 1.2 10\\S\\3/uL 1.1-3.5 MONOCYTE # (test code = MO#) 0.6 10\\S\\3/uL 0.0-1.1 EOSINOPH # (test code = EO#) 0.1 10\\S\\3/uL 0.0-0.7 BASOPHIL # (test code = BA#) 0.0 10\\S\\3/uL 0.0-0.3 IG # (test code = IG#) 0.02 10\\S\\3/uL 0.00-0.06 NRBC # (test code = NRBC#) 0.00 10\\S\\3/uL 0.00-0.01 NEUTROPH % (test code = NE%) 75.5 % 35.0-73.0 H LYMPH % (test code = LY%) 15.7 % 20.0-55.0 L MONO % (test code = MO%) 7.2 % 2.5-10.0 EOSINOPH % (test code = EO%) 0.9 % 0.0-5.0 BASOPHIL % (test code = BA%) 0.4 % 0.0-2.0 IG % (test code = IG%) 0.3 % 0.0-0.8 NRBC% (test code = NRBC%) 0.0 % 0.0-0.2 MANDIFF (test code = MDIFF) NO NO RBC MORPH (test code = RBCMOR) NORMAL URINALYSIS WITH [id number] 15:38:00 Test Item Value Reference Range Interpretation Comments COLOR (test code = COLU) YELLOW YELLOW CLARITY (test code = CLA) HAZY CLEAR A GLUCOSE UR (test code = UA GLUCOSE) NEGATIVE NEGATIVE BILI UR (test code = BILE) NEGATIVE NEGATIVE KETONES UR (test code = KARSON) NEGATIVE NEGATIVE SP GRAVITY (test code = SPGR) 1.005 1.005-1.030 PH UR (test code = PH) 7.0 4.5-8.0 PROTEIN UR (test code = PU) NEGATIVE NEGATIVE UROBIL UR (test code = UROQ) 0.2 EU/dL 0.2-1.0 NITRITE UR (test code = NITRITE) NEGATIVE NEGATIVE BLOOD UR (test code = UA BLOOD) NEGATIVE NEGATIVE LEUK ES UR (test code = LEUK) TRACE NEGATIVE A WBC UR (test code = UWBC) 4 /HPF 0-5 RBC UR (test code = URBC) 0 /HPF 0-2 EPITH UR (test code = UEPC) FEW /LPF FEW BACTERIA UR (test code = UBACT) NONE /HPF NONE CAST UR (test code = CAST) /LPF NONE CRYSTAL UR (test code = CRYU) / LPF NONE MUCUS UR (test code = MUC) / HPF NONE AMORPH UR (test code = BRENT) / HPF NONE TRICH UR (test code = UTRICH) /HPF NONE YEAST UR (test code = UY) /HPF NONE SPERM UR (test code = USPERM) /HPF NONE U/S [id number] 15:37:29LOCATION: [id number]: 26-year-old female who presents with pelvic pain.COMMENT:Sonographic imaging of this patient's pelvis was obtained with transabdominaltechnique utilizing a scale, color flow, and D oppler waveform imagingmodalities.An older examination of 12/14/16 is [...] in the pelvic cul-de-sac adjacent to the leftovary.IMPRESSION:Sonographic findings compatible with a hemorrhagic cyst are seen in thispatient's left ovary. Thereis no evidence on the Doppler study of torsion ofthis ovary.The uterus is retroverted but otherwise unremarkable.The right ovary is not seen. AMYLASE AND [id number] 15:00:00 Test Item Value Reference Range Interpretation Comments AMYLASE (test code = 10A) 54 U/L 28-100 LIPASE (test code = 60A) 93 IU/L 73-393 COMPREHENSIVE METABOLIC [id number] 15:00:00 Test Item Value Reference Range Interpretation Comments GLUCOSE (test code = 06D) 109 mg/dL 75-100 H SODIUM (test code = 01A) 139 mmol/L 136-145 POTASSIUM (test code = 01B) 4.0 mmol/L 3.6-5.1 CHLORIDE (test code = 04A) 106 mmol/L 98-107 CO2 (test code = 02A) 25 mmol/L 22-32 ANION GAP (test code = ANG) 12.0 mmol/L BUN (test code = 05D) 7 mg/dL 7-18 CREATININE (test code = 03E) 0.9 mg/dL 0.4-1.1 BUN/CREA R (test code = BCR) 8 12-20 L CALCIUM (test code = 09D) 9.0 mg/dL 8.3-9.5 BILI TOTAL (test code = 11A) 0.7 mg/dL 0.2-1.0 PROTEIN (test code = 07D) 7.8 g/dL 6.4-8.2 ALBUMIN (test code = 08D) 3.9 g/dL 3.5-4.8 GLOBULIN (test code = GLB) 3.9 g/dL 1.5-3.8 H ALB/GLOB (test code = AGRR) 1.0 1.0-2.6 ALK PHOS (test code = 35A) 90 IU/L 42-121 AST (test code = 30A) 15 IU/L <=42 ALT (test code = 31A) 12 IU/L <=78 SERUM [id number] 14:52:00 Test Item Value Reference Range Interpretation Comments PREG SRM (test code = PGS) NEGATIVE NEGATIVE CBC (INCLUDES AUTOMATED DIFFERENTIAL)[id number] 14:40:00 Test Item Value Reference Range Interpretation Comments WBC (test code = WBC) 6.4 10\\S\\3/uL 4.5-11.0 RBC (test code = RBC) 4.31 10\\S\\6/uL 4.30-5.70 HGB (test code = HBG) 9.8 g/dL 12.0-15.5 L HCT (test code = HCT) 32.2 % 35.0-44.0 L MCV (test code = MCV) 74.7 fL 81.0-99.0 L MCH (test code = MCH) 22.7 pg 27.0-31.0 L MCHC (test code = MCHC) 30.4 g/dL 32.0-36.0 L RDW (test code = RDW) 16.5 % 11.5-14.5 H PLT (test code = PLT) 173 10\\S\\3/uL 130-400 MPV (test code = MPV) 11.5 fL 9.4-12.4 NEUTROP # (test code = NE#) 3.6 10\\S\\3/uL 1.6-8.0 LYMPH # (test code = LY#) 2.2 10\\S\\3/uL 1.1-3.5 MONOCYTE # (test code = MO#) 0.5 10\\S\\3/uL 0.0-1.1 EOSINOPH # (test code = EO#) 0.1 10\\S\\3/uL 0.0-0.7 BASOPHIL # (test code = BA#) 0.0 10\\S\\3/uL 0.0-0.3 IG # (test code = IG#) 0.02 10\\S\\3/uL 0.00-0.06 NRBC # (test code = NRBC#) 0.00 10\\S\\3/uL 0.00-0.01 NEUTROPH % (test code = NE%) 56.2 % 35.0-73.0 LYMPH % (test code = LY%) 33.7 % 20.0-55.0 MONO % (test code = MO%) 7.3 % 2.5-10.0 EOSINOPH % (test code = EO%) 1.9 % 0.0-5.0 BASOPHIL % (test code = BA%) 0.6 % 0.0-2.0 IG % (test code = IG%) 0.3 % 0.0-0.8 NRBC% (test code = NRBC%) 0.0 % 0.0-0.2 MANDIFF (test code = MDIFF) NO NO RBC MORPH (test code = RBCMOR) NORMAL U/S [id number] 09:19:09Exam: Ultrasound pelvis with transvaginalLocation: A 1History: Abdominal painComparison: 09/18/2016Technique: Static grayscale images of the pelvis were obtained bothtransabdominally and endovaginally.Fi ndings:The uterus is retroverted and measures 7.6 x [...] of the pelvis.CT ABDOMEN AND PELVIS WITH [id number] 07:27:27CT abdomen and pelvis with contrast.Clinical indication: [...] abnormality to account for patient's symptoms.DRUGS OF [id number] 06:49:00 Test Item Value Reference Range Interpretation Comments DRUG SCRN (test code URINE DRUG SCREEN = HDOA) This is an unconfirmed screening result and should not be used for non-medical purposes CANNABINOD (test Negative NEGATIVE code = 88C) AMPHETHETM (test Negative NEGATIVE code = 84A) BENZODIAZP (test Negative NEGATIVE code = 86A) BARBITURAT (test Negative NEGATIVE code = 85A) OPIATES (test code = Negative NEGATIVE 92B) COCAINE (test code = Negative NEGATIVE 87A) PHENCYCLID (test Negative NEGATIVE code = 66A) METHADONE (test code Negative NEGATIVE = 64A) DOAH (test code = DOAH) URINE DRUG SCREEN Cut-off values are as follows: Cannabinoids 50 ng/mL Cocaine 300 ng/mL Amphetamines 1000 ng/mL Phencyclidine 25 ng/mL Benzodiazepines 200 ng.mL Methadone 300 ng/mL Barbiturates 200 ng/mL Opiates 2000 ng/mL COMPREHENSIVE METABOLIC [id number] 06:28:00 Test Item Value Reference Range Interpretation Comments GLUCOSE (test code = 06D) 86 mg/dL 75-100 SODIUM (test code = 01A) 141 mmol/L 136-145 POTASSIUM (test code = 01B) 4.6 mmol/L 3.6-5.1 CHLORIDE (test code = 04A) 106 mmol/L 98-107 CO2 (test code = 02A) 29 mmol/L 22-32 ANION GAP (test code = ANG) 10.6 mmol/L BUN (test code = 05D) 8 mg/dL 7-18 CREATININE (test code = 03E) 0.8 mg/dL 0.4-1.1 BUN/CREA R (test code = BCR) 10 12-20 L CALCIUM (test code = 09D) 9.2 mg/dL 8.3-9.5 BILI TOTAL (test code = 11A) 0.4 mg/dL 0.2-1.0 PROTEIN (test code = 07D) 8.0 g/dL 6.4-8.2 ALBUMIN (test code = 08D) 3.9 g/dL 3.5-4.8 GLOBULIN (test code = GLB) 4.1 g/dL 1.5-3.8 H ALB/GLOB (test code = AGRR) 1.0 1.0-2.6 ALK PHOS (test code = 35A) 93 IU/L 42-121 AST (test code = 30A) 44 IU/L <=42 H ALT (test code = 31A) 17 IU/L <=78 LIPASE [id number] 06:28:00 Test Item Value Reference Range Interpretation Comments LIPASE (test code = 60A) 103 IU/L 73-393 SERUM [id number] 06:20:00 Test Item Value Reference Range Interpretation Comments PREG SRM (test code = PGS) NEGATIVE NEGATIVE CBC (INCLUDES AUTOMATED DIFFERENTIAL)2016-12-14 06:19:00 Test Item Value Reference Range Interpretation Comments WBC (test code = WBC) 7.5 10\\S\\3/uL 4.5-11.0 RBC (test code = RBC) 4.17 10\\S\\6/uL 4.30-5.70 L HGB (test code = HBG) 9.5 g/dL 12.0-15.5 L HCT (test code = HCT) 31.6 % 35.0-44.0 L MCV (test code = MCV) 75.8 fL 81.0-99.0 L MCH (test code = MCH) 22.8 pg 27.0-31.0 L MCHC (test code = MCHC) 30.1 g/dL 32.0-36.0 L RDW (test code = RDW) 16.4 % 11.5-14.5 H PLT (test code = PLT) 221 10\\S\\3/uL 130-400 MPV (test code = MPV) 11.5 fL 9.4-12.4 NEUTROP # (test code = NE#) 3.6 10\\S\\3/uL 1.6-8.0 LYMPH # (test code = LY#) 3.0 10\\S\\3/uL 1.1-3.5 MONOCYTE # (test code = MO#) 0.8 10\\S\\3/uL 0.0-1.1 EOSINOPH # (test code = EO#) 0.2 10\\S\\3/uL 0.0-0.7 BASOPHIL # (test code = BA#) 0.1 10\\S\\3/uL 0.0-0.3 IG # (test code = IG#) 0.01 10\\S\\3/uL 0.00-0.06 NRBC # (test code = NRBC#) 0.00 10\\S\\3/uL 0.00-0.01 NEUTROPH % (test code = NE%) 47.1 % 35.0-73.0 LYMPH % (test code = LY%) 39.1 % 20.0-55.0 MONO % (test code = MO%) 10.2 % 2.5-10.0 H EOSINOPH % (test code = EO%) 2.8 % 0.0-5.0 BASOPHIL % (test code = BA%) 0.7 % 0.0-2.0 IG % (test code = IG%) 0.1 % 0.0-0.8 NRBC% (test code = NRBC%) 0.0 % 0.0-0.2 MANDIFF (test code = MDIFF) NO NO RBC MORPH (test code = RBCMOR) NORMAL [id number] 06:17:00 Test Item Value Reference Range Interpretation Comments COLOR (test code = COLU) YELLOW YELLOW CLARITY (test code = CLA) CLEAR CLEAR GLUCOSE UR (test code = UA GLUCOSE) NEGATIVE NEGATIVE BILI UR (test code = BILE) NEGATIVE NEGATIVE KETONES UR (test code = KARSON) NEGATIVE NEGATIVE SP GRAVITY (test code = SPGR) 1.005 1.005-1.030 PH UR (test code = PH) 6.5 4.5-8.0 PROTEIN UR (test code = PU) NEGATIVE NEGATIVE UROBIL UR (test code = UROQ) 0.2 EU/dL 0.2-1.0 NITRITE UR (test code = NITRITE) NEGATIVE NEGATIVE BLOOD UR (test code = UA BLOOD) NEGATIVE NEGATIVE LEUK ES UR (test code = LEUK) NEGATIVE NEGATIVE U/S [id number] 10:33:25PELVIC ULTRASOUND:Location code: [id number] HISTORY: Pain,, recent ovarian cyst removalComparison: NoneTECHNIQUE: Transabdominal sonography of the pelvis was performed. The patientdeclined transvaginalscanning.FINDINGS: Evaluation is limited. The uterus and bilateral ovaries arenonvisualized. There is no pelvic mass or fluid collection. IMPRESSION:Limited exam with no visualized acute abnormality.URINALYSIS WITH [id number] 09:15:00 Test Item Value Reference Range Interpretation Comments COLOR (test code = COLU) YELLOW YELLOW CLARITY (test code = CLA) HAZY CLEAR A GLUCOSE UR (test code = UA GLUCOSE) NEGATIVE NEGATIVE BILI UR (test code = BILE) NEGATIVE NEGATIVE KETONES UR (test code = KARSON) NEGATIVE NEGATIVE SP GRAVITY (test code = SPGR) 1.007 1.005-1.030 PH UR (test code = PH) 6.0 4.5-8.0 PROTEIN UR (test code = PU) NEGATIVE NEGATIVE UROBIL UR (test code = UROQ) 0.2 EU/dL 0.2-1.0 NITRITE UR (test code = NITRITE) NEGATIVE NEGATIVE BLOOD UR (test code = UA BLOOD) NEGATIVE NEGATIVE LEUK ES UR (test code = LEUK) 2+ NEGATIVE A WBC UR (test code = UWBC) 8 /HPF 0-5 H RBC UR (test code = URBC) 0 /HPF 0-2 EPITH UR (test code = UEPC) MANY /LPF FEW A BACTERIA UR (test code = UBACT) MANY /HPF NONE A CAST UR (test code = CAST) /LPF NONE CRYSTAL UR (test code = CRYU) / LPF NONE MUCUS UR (test code = MUC) / HPF NONE AMORPH UR (test code = BRENT) / HPF NONE TRICH UR (test code = UTRICH) /HPF NONE YEAST UR (test code = UY) FEW /HPF NONE A SPERM UR (test code = USPERM) /HPF NONE CBC WITH [id number] 08:42:00 Test Item Value Reference Range Interpretation Comments WBC (test code = WBC) 5.7 10\\S\\3/uL 4.5-11.0 RBC (test code = RBC) 4.05 10\\S\\6/uL 4.30-5.70 L HGB (test code = HBG) 9.8 g/dL 12.0-15.5 L HCT (test code = HCT) 32.1 % 35.0-44.0 L MCV (test code = MCV) 79.3 fL 81.0-99.0 L MCH (test code = MCH) 24.2 pg 27.0-31.0 L MCHC (test code = MCHC) 30.5 g/dL 32.0-36.0 L RDW (test code = RDW) 15.1 % 11.5-14.5 H PLT (test code = PLT) 251 10\\S\\3/uL 130-400 MPV (test code = MPV) 10.1 fL 9.4-12.4 NEUTROP # (test code = NE#) 3.1 10\\S\\3/uL 1.6-8.0 LYMPH # (test code = LY#) 2.0 10\\S\\3/uL 1.1-3.5 MONOCYTE # (test code = 0.4 10\\S\\3/uL 0.0-1.1 MO#) EOSINOPH # (test code = 0.2 10\\S\\3/uL 0.0-0.7 EO#) BASOPHIL # (test code = 0.0 10\\S\\3/uL 0.0-0.3 BA#) IG # (test code = IG#) 0.02 10\\S\\3/uL 0.00-0.06 NRBC # (test code = NRBC#) 0.00 10\\S\\3/uL 0.00-0.01 NEUTROPH % (test code = 53.8 % 35.0-73.0 NE%) LYMPH % (test code = LY%) 34.7 % 20.0-55.0 MONO % (test code = MO%) 6.5 % 2.5-10.0 EOSINOPH % (test code = 3.9 % 0.0-5.0 EO%) BASOPHIL % (test code = 0.7 % 0.0-2.0 BA%) IG % (test code = IG%) 0.4 % 0.0-0.8 NRBC% (test code = NRBC%) 0.0 % 0.0-0.2 PLT EST (test code = ADEQUATE ADEQUATE PLTEST) PLT MORPH (test code = NORMAL (1.5-3 um) NORMAL PLTMOR) HYPOCHROM (test code = 1+ NONE A HYPOC) MICROCYTIC (test code = 1+ NONE A MICRO) STOMATO (test code = STOM) 1+ NONE A COMPREHENSIVE METABOLIC [id number] 08:38:00 Test Item Value Reference Range Interpretation Comments GLUCOSE (test code = 06D) 98 mg/dL 75-100 SODIUM (test code = 01A) 140 mmol/L 136-145 POTASSIUM (test code = 01B) 4.2 mmol/L 3.6-5.1 CHLORIDE (test code = 04A) 106 mmol/L 98-107 CO2 (test code = 02A) 27 mmol/L 22-32 ANION GAP (test code = ANG) 11.2 mmol/L BUN (test code = 05D) 10 mg/dL 7-18 CREATININE (test code = 03E) 0.7 mg/dL 0.4-1.1 BUN/CREA R (test code = BCR) 15 12-20 CALCIUM (test code = 09D) 8.6 mg/dL 8.3-9.5 BILI TOTAL (test code = 11A) 0.2 mg/dL 0.2-1.0 PROTEIN (test code = 07D) 7.1 g/dL 6.4-8.2 ALBUMIN (test code = 08D) 3.5 g/dL 3.5-4.8 GLOBULIN (test code = GLB) 3.6 g/dL 1.5-3.8 ALB/GLOB (test code = AGRR) 1.0 1.0-2.6 ALK PHOS (test code = 35A) 101 IU/L 42-121 AST (test code = 30A) 56 IU/L <=42 H ALT (test code = 31A) 31 IU/L <=78 SERUM [id number] 08:30:00 Test Item Value Reference Range Interpretation Comments PREG SRM (test code = PGS) NEGATIVE NEGATIVE BASIC METABOLIC PANEL 2016-09-12 08:28:00 Test Item Value Reference Range Interpretation Comments GLUCOSE (test code = 06D) 89 mg/dL 75-100 SODIUM (test code = 01A) 138 mmol/L 136-145 POTASSIUM (test code = 01B) 4.3 mmol/L 3.6-5.1 CHLORIDE (test code = 04A) 105 mmol/L 98-107 CO2 (test code = 02A) 23 mmol/L 22-32 ANION GAP (test code = ANG) 14.3 mmol/L BUN (test code = 05D) 13 mg/dL 7-18 CREATININE (test code = 03E) 0.6 mg/dL 0.4-1.1 BUN/CREA R (test code = BCR) 20 12-20 CALCIUM (test code = 09D) 8.7 mg/dL 8.3-9.5 CBC (INCLUDES AUTOMATED DIFFERENTIAL)*[id number] 08:01:00 Test Item Value Reference Range Interpretation Comments WBC (test code = WBC) 6.6 10\\S\\3/uL 4.5-11.0 RBC (test code = RBC) 4.21 10\\S\\6/uL 4.30-5.70 L HGB (test code = HBG) 10.3 g/dL 12.0-15.5 L HCT (test code = HCT) 33.9 % 35.0-44.0 L MCV (test code = MCV) 80.5 fL 81.0-99.0 L MCH (test code = MCH) 24.5 pg 27.0-31.0 L MCHC (test code = MCHC) 30.4 g/dL 32.0-36.0 L RDW (test code = RDW) 15.1 % 11.5-14.5 H PLT (test code = PLT) 227 10\\S\\3/uL 130-400 MPV (test code = MPV) 11.4 fL 9.4-12.4 NEUTROP # (test code = NE#) 4.0 10\\S\\3/uL 1.6-8.0 LYMPH # (test code = LY#) 1.7 10\\S\\3/uL 1.1-3.5 MONOCYTE # (test code = MO#) 0.6 10\\S\\3/uL 0.0-1.1 EOSINOPH # (test code = EO#) 0.3 10\\S\\3/uL 0.0-0.7 BASOPHIL # (test code = BA#) 0.0 10\\S\\3/uL 0.0-0.3 IG # (test code = IG#) 0.01 10\\S\\3/uL 0.00-0.06 NRBC # (test code = NRBC#) 0.00 10\\S\\3/uL 0.00-0.01 NEUTROPH % (test code = NE%) 61.1 % 35.0-73.0 LYMPH % (test code = LY%) 25.6 % 20.0-55.0 MONO % (test code = MO%) 8.5 % 2.5-10.0 EOSINOPH % (test code = EO%) 4.0 % 0.0-5.0 BASOPHIL % (test code = BA%) 0.6 % 0.0-2.0 IG % (test code = IG%) 0.2 % 0.0-0.8 NRBC% (test code = NRBC%) 0.0 % 0.0-0.2 MANDIFF (test code = WMDIFF) NO NO RBC MORPH (test code = NORMAL WRBCMOR) URINE MONOCLONAL *WW*2016-09-12 07:44:00 Test Item Value Reference Range Interpretation Comments PREG UR (test code = PGU) NEGATIVE NEGATIVE URINALYSIS *WW*2016-09-12 07:44:00 Test Item Value Reference Range Interpretation Comments COLOR (test code = COLU) YELLOW YELLOW CLARITY (test code = CLA) CLEAR CLEAR GLUCOSE UR (test code = UA GLUCOSE) NEGATIVE NEGATIVE BILI UR (test code = BILE) NEGATIVE NEGATIVE KETONES UR (test code = KARSON) NEGATIVE NEGATIVE SP GRAVITY (test code = SPGR) 1.025 1.005-1.030 PH UR (test code = PH) 6.0 4.5-8.0 PROTEIN UR (test code = PU) NEGATIVE NEGATIVE UROBIL UR (test code = UROQ) 0.2 EU/dL 0.2-1.0 NITRITE UR (test code = NITRITE) NEGATIVE NEGATIVE BLOOD UR (test code = UA BLOOD) NEGATIVE NEGATIVE LEUK ES UR (test code = LEUK) NEGATIVE NEGATIVE AUAM (test code = WAUAM) NO NO
[2020-02-05 06:38] LABS: Urine Blood NEGATIVE (NEG); Urine Glucose NEGATIVE (NEG); Urine Protein NEGATIVE (NEG); Urine Specific Gravity 1.025 (1.005-1.030)
[2020-02-05] MEDS ORDERED: Ringers Lactate 1,000 ML IV ONE (06:38)
[2020-02-05 06:58] LABS: Absolute Lymphocytes (CBC) 2.2 K/uL (0.7-4.9); Basophils % 0.3 % (0-1.3); Hematocrit 24.2 % (36.0-45.0); Lymphocytes % 18.5 % (15.3-44.8); MPV 8.7 fL (7.6-11.3); RBC Red Blood Cell Count 3.59 M/uL (3.86-4.86)
[2020-02-05 07:04] LABS: ALT/SGPT 7 U/L (12-78); AST/SGOT 11 U/L (15-37); Albumin 2.8 g/dL (3.4-5.0); Alkaline Phosphatase 125 U/L (45-117); BUN Blood Urea Nitrogen 5 mg/dL (7-18); Bicarbonate 24 mmol/L (21-32); Bilirubin Direct < 0.1 mg/dL (0-0.2); Bilirubin Total 0.2 mg/dL (0.2-1.0); Glucose Level 86 mg/dL (74-106); Lipase 49 U/L (73-393); Magnesium 2.1 mg/dL (1.8-2.4); Potassium 3.5 mmol/L (3.5-5.1); Protein, Total 7.4 g/dL (6.4-8.2); Sodium Level 138 mmol/L (136-145)
[2020-02-05] MEDS ORDERED: FENTANYL CITR 100 MCG/2 ML ONE (07:59)
--- NOTE | 2020-02-05 08:26 | ER ---
Nurse's Notes [facility] Name: Charley Wells Age: 29 yrs Sex: Female : 1990 Arrival Date: 02/05/2020 Time: 06:09 Bed 7 Private MD: Diagnosis: Dehydration;Iron deficiency anemia Presentation: 02/04 06:11 Chief complaint: Patient states: 25 wks , reports having abd pain as well as sg leg pain, and also having nausea. Was seen at [facility] L\T\D and the baby checked out fine, sent to the ED for evaluation of symptoms, denies Fever/Chills/Diarrhea at this time. Coronavirus screen: Proceed with normal triage. Ebola Screen: Patient negative for fever greater than or equal to 101.5 degrees Fahrenheit, and additional compatible Ebola Virus Disease symptoms Patient denies exposure to infectious person. Patient denies travel to an Ebola-affected area in the 21 days before illness onset. No symptoms or risks identified at this time. Initial Sepsis Screen: Does the patient meet any 2 criteria? No. Patient's initial sepsis screen is negative. Does the patient have a suspected source of infection? Yes: Acute abdominal pain. Risk Assessment: Do you want to hurt yourself or someone else? Patient reports no desire to harm self or others. Onset of symptoms was February 05, 2020. Care prior to arrival: None. Transition of care: patient was not received from another setting of care. 06:11 Method Of Arrival: Ambulatory 06:11 Acuity: STACEY 3 sg Triage Assessment: 06:20 General: Appears uncomfortable, Behavior is appropriate for age. Pain: Complains of ea pain in abdomen. GI: Reports nausea, vomiting. Historical: - Allergies: 06:14 Toradol; sg 06:14 tramadol; sg - PMHx: 06:14 Anxiety; Endometriosis; Ovarian cyst; sg - PSHx: 06:14 ruptured ovarian cyst; ; surgery for endometriosis; sg - Immunization history:: Adult Immunizations up to date. - Social history:: Smoking status: Patient denies any tobacco usage or history of. Screenin:19 Abuse screen: Denies threats or abuse. Nutritional screening: No deficits noted. ea Tuberculosis screening: No symptoms or risk factors identified. Fall Risk None identified. Assessment: 06:39 General: Appears uncomfortable, Behavior is appropriate for age. Pain: Complains of ea pain in abdomen. Neuro: Level of Consciousness is awake, alert, obeys commands, Oriented to person, place, time, situation. Respiratory: Airway is patent Respiratory effort is even, unlabored, Respiratory pattern is regular, symmetrical. Derm: Skin is dry, Skin is pale, Skin temperature is warm. 07:00 Reassessment: RECD REPORT FROM ANTONIETA REYES. 29YO WF P/W N/B IN 1ST TRIMESTER . bp ALL CURRENT ORDERS COMPLETED, RESULTS PENDING. 09:02 Reassessment: PT D/C HOME AMBULATORY, DX WITH DEHYDRATION AND IRON DEFICIENCY ANEMIA. bp Vital Signs: 06:19 BP 118 / 59; Pulse 114; Resp 19; Temp 97.9; Pulse Ox 100% ; Weight 81.65 kg; Height 5 ea ft. 6 in. (167.64 cm); 07:02 BP 96 / 60; Pulse 89; Resp 17; Pulse Ox 99% ; bp 08:10 BP 99 / 49; Pulse 94; Resp 16; Pulse Ox 100% ; bp 09:02 BP 96 / 66; Pulse 87; Resp 16; Temp 98; Pulse Ox 100% ; bp 06:19 Body Mass Index 29.05 (81.65 kg, 167.64 cm) ea ED Course: 06:09 Patient arrived in ED. ds1 06:13 Triage completed. sg 06:13 Arm band placed on. sg 06:18 Didier Mccord PA is PHCP. jr8 06:18 Armando Be MD is Attending Physician. jr8 06:19 Patient has correct armband on for positive identification. Placed in gown. Bed in low ea position. Call light in reach. Side rails up X 1. 06:20 Inserted saline lock: 20 gauge in right antecubital area, using aseptic technique. mg2 Blood collected. 06:27 No provider procedures requiring assistance completed. mg2 06:54 Urine --Ancillary (enter results) Sent. ds4 07:01 Noam Ariza, RN is Primary Nurse. bp 09:02 IV discontinued, intact, bleeding controlled, No redness/swelling at site. Pressure bp dressing applied. Administered Medications: 06:37 Drug: Ringers - Lactated Ringers Solution 1000 ml Route: IV; Rate: bolus; Site: right ea antecubital; 09:05 Follow up: IV Status: Completed infusion; IV Intake: 1000ml bp 07:30 Drug: fentaNYL (PF) 25 mcg Route: IVP; Site: right antecubital; bp 09:04 Follow up: Response: Pain is decreased bp Intake: 09:05 IV: 1000ml; Total: 1000ml. bp Outcome: 08:26 Discharge ordered by MD. lange 09:02 Discharged to home ambulatory. bp 09:02 Condition: stable 09:02 Discharge instructions given to patient, Instructed on discharge instructions, follow up and referral plans. medication usage, Demonstrated understanding of instructions, follow-up care, medications, Prescriptions given X 1. 09:06 Patient left the ED. bp Signatures: Angel Miranda RN Rody Donald ds1 Didier Mccord PA PA jr8 Swanson, Donovan ds4 Antonieta Rosales RN RN ea Peltier, Brian, RN RN bp Jeffery Eubanks RN RN mg2
--- NOTE | 2020-02-05 08:26 | EDPHYS ---
Physician Documentation [facility] Name: Charley Wells Age: 29 yrs Sex: Female : 1990 Arrival Date: 02/05/2020 Time: 06:09 Bed 7 Private MD: ED Physician Armando Be HPI: 02/04 07:16 This 29 yrs old Female presents to ER via Ambulatory with complaints of Body jr8 pain, Nausea - 25 Wks Preg. 07:16 Patient stated that she has pain to bilateral lower legs below knees, back pain and jr8 side pain. Stated that her toes are cramping and she cannot get comfortable. Was evaluated for in OB floor here with no acute findings . Onset: The symptoms/episode began/occurred acutely, today. Severity of symptoms: At their worst the symptoms were moderate in the emergency department the symptoms are unchanged. The patient has not experienced similar symptoms in the past. The patient has not recently seen a physician. Historical: - Allergies: 06:14 Toradol; sg 06:14 tramadol; sg - PMHx: 06:14 Anxiety; Endometriosis; Ovarian cyst; sg - PSHx: 06:14 ruptured ovarian cyst; ; surgery for endometriosis; sg - Immunization history:: Adult Immunizations up to date. - Social history:: Smoking status: Patient denies any tobacco usage or history of. ROS: 07:24 Eyes: Negative for injury, pain, redness, and discharge, ENT: Negative for injury, jr8 pain, and discharge, Neck: Negative for injury, pain, and swelling, Cardiovascular: Negative for chest pain, palpitations, and edema, Respiratory: Negative for shortness of breath, cough, wheezing, and pleuritic chest pain, Abdomen/GI: Negative for abdominal pain, nausea, vomiting, diarrhea, and constipation, Skin: Negative for injury, rash, and discoloration, Neuro: Negative for headache, weakness, numbness, tingling, and seizure. 07:24 Constitutional: Negative for body aches, chills, fever, poor PO intake. 07:24 Back: Positive for pain at rest, pain with movement, Negative for radiated pain. 07:24 MS/extremity: Positive for pain, of the right leg and left leg. Exam: 07:24 Eyes: Pupils equal round and reactive to light, extra-ocular motions intact. Lids and jr8 lashes normal. Conjunctiva and sclera are non-icteric and not injected. Cornea within normal limits. Periorbital areas with no swelling, redness, or edema. ENT: Nares patent. No nasal discharge, no septal abnormalities noted. Tympanic membranes are normal and external auditory canals are clear. Oropharynx with no redness, swelling, or masses, exudates, or evidence of obstruction, uvula midline. Mucous membranes moist. Neck: Trachea midline, no thyromegaly or masses palpated, and no cervical lymphadenopathy. Supple, full range of motion without nuchal rigidity, or vertebral point tenderness. No Meningismus. Cardiovascular: Regular rate and rhythm with a normal S1 and S2. No gallops, murmurs, or rubs. Normal PMI, no JVD. No pulse deficits. Respiratory: Lungs have equal breath sounds bilaterally, clear to auscultation and percussion. No rales, rhonchi or wheezes noted. No increased work of breathing, no retractions or nasal flaring. Abdomen/GI: Soft, non-tender, with normal bowel sounds. No distension or tympany. No guarding or rebound. No evidence of tenderness throughout. Skin: Warm, dry with normal turgor. Normal color with no rashes, no lesions, and no evidence of cellulitis. MS/ Extremity: Pulses equal, no cyanosis. Neurovascular intact. Full, normal range of motion. Neuro: Awake and alert, GCS 15, oriented to person, place, time, and situation. Cranial nerves II-XII grossly intact. Motor strength 5/5 in all extremities. Sensory grossly intact. Cerebellar exam normal. Normal gait. 07:24 Constitutional: The patient appears alert, awake, uncomfortable. 07:24 Back: pain, that is mild, of the left mid back and right mid back, ROM is painful, normal spinal alignment noted, CVA tenderness, is absent. Vital Signs: 06:19 BP 118 / 59; Pulse 114; Resp 19; Temp 97.9; Pulse Ox 100% ; Weight 81.65 kg; Height 5 ea ft. 6 in. (167.64 cm); 07:02 BP 96 / 60; Pulse 89; Resp 17; Pulse Ox 99% ; bp 08:10 BP 99 / 49; Pulse 94; Resp 16; Pulse Ox 100% ; bp 09:02 BP 96 / 66; Pulse 87; Resp 16; Temp 98; Pulse Ox 100% ; bp 06:19 Body Mass Index 29.05 (81.65 kg, 167.64 cm) ea MDM: 06:18 Patient medically screened. jr8 07:20 Data reviewed: vital signs, nurses notes, lab test result(s). Data interpreted: Pulse jr8 oximetry: on room air is 99 %. Interpretation: normal. Counseling: I had a detailed discussion with the patient and/or guardian regarding: the historical points, exam findings, and any diagnostic results supporting the discharge/admit diagnosis, lab results, the need for outpatient follow up, an OB/Gyne specialist. ED course: Reviewed labs from this past september. Patient with chronic microcytic hypochromic anemia. Slightly worse on this visit but still not to point of transfusion. Will place patient on iron supplementation and told to f/u with OB for close monitoring of this along with today's problems. 08:25 ED course: Patient feeling markedly better post fluids and pain medicine. Will send jr8 home to f/u with OB . 02/04 06:26 Order name: Urine Dipstick--Ancillary (enter results); Complete Time: 07:15 4 02/04 06:26 Order name: Basic Metabolic Panel; Complete Time: 07:15 02/04 06:26 Order name: CBC with Diff 02/04 06:26 Order name: Hepatic Function; Complete Time: 07:15 02/04 06:26 Order name: Lipase; Complete Time: 07:15 02/04 06:26 Order name: Magnesium; Complete Time: 07:15 02/04 06:26 Order name: IV Saline Lock; Complete Time: 06:38 02/04 06:26 Order name: Labs collected and sent; Complete Time: 06:38 02/04 06:26 Order name: Urine Test (obtain specimen); Complete Time: 06:41 02/04 06:26 Order name: Urine Dipstick-Ancillary (obtain specimen); Complete Time: 06:41 02/04 08:02 Order name: Urine --Ancillary (enter results) eb Administered Medications: 06:37 Drug: Ringers - Lactated Ringers Solution 1000 ml Route: IV; Rate: bolus; Site: right ea antecubital; 09:05 Follow up: IV Status: Completed infusion; IV Intake: 1000ml bp 07:30 Drug: fentaNYL (PF) 25 mcg Route: IVP; Site: right antecubital; bp 09:04 Follow up: Response: Pain is decreased bp Disposition: 02/05/20 08:26 Discharged to Home. Impression: Dehydration, Iron deficiency anemia. - Condition is Stable. - Discharge Instructions: Iron Deficiency Anemia, Adult, Dehydration, Adult, Iron-Rich Diet. - Prescriptions for Ferrous Sulfate 325 mg (65 mg Iron) Oral Tablet - take 1 tablet by ORAL route every 8 hours; 90 tablet. - Medication Reconciliation Form, Thank You Letter, Antibiotic Education, Prescription Opioid Use form. - Follow up: Private Physician; When: 48 Hours; Reason: Recheck today's complaints, Continuance of care, Re-evaluation by your physician. - Problem is new. - Symptoms have improved. Addendum: 02/08/2020 00:24 Co-signature as Attending Physician, Armando Be MD. m Signatures: Dispatcher [employer] EDMS Angel Miranda RN RN Didier Seo PA PA jr8 Antonieta Rosales RN RN Noam Yip RN RN bp Armando Be MD MD [email or web address] Corrections: (The following items were deleted from the chart) 02/04 09:06 08:26 02/05/2020 08:26 Discharged to Home. Impression: Dehydration; Iron deficiency bp anemia. Condition is Stable. Forms are Medication Reconciliation Form, Thank You Letter, Antibiotic Education, Prescription Opioid Use. Follow up: Private Physician; When: 48 Hours; Reason: Recheck today's complaints, Continuance of care, Re-evaluation by your physician. Problem is new. Symptoms have improved. jr8
[2020-02-05 09:13] VITALS: O2SAT 100
[2020-02-05 09:14] VITALS: BP 96/66; TEMP 98
[2020-02-05 09:14] LABS: Urine Specific Gravity 1.025 (1.005-1.030)
[2020-02-05 10:21] LABS: Blood Morphology Comment NOTED (NOT SEEN); Platelet Estimate ADEQ; Urine White Blood Cell Casts OK
[2020-02-05 10:22] LABS: Anisocytosis 1+; Hypochromasia 1+
== END 2020-02-05 09:06 | disposition home or self-care (01) ==
LOC: ER 06:08
DX: O99.012 Anemia complicating pregnancy, second trimester (principal); O99.282 Endocrine, nutritional and metabolic diseases complicating pregnancy, second trimester; E86.0 Dehydration; Z3A.25 25 weeks gestation of pregnancy; Z88.5 Allergy status to narcotic agent
CPT/HCPCS: 96365; 85025; 80048; 36415; 83735; 81025; 80076; 81003; 83690; 96375; 99284; 96366; J3010; J7120

== ENCOUNTER 2020-03-10 06:04 | Emergency (ER) | payer OTHER ==
--- OUTSIDE RECORDS SUMMARY | 2020-03-10 06:07 | XMS REPORT | Clinical Summary ---
:1990 Author Organization [facility] Address [address] [place] [address] Care Team Providers Name Role Phone Mario [...] midline low back pain without sciatica after 03/10/2019 Social History Tobacco Use Types Packs/Day Years [...] Comments CERVICAL CANCER SCREENING 2013 INFLUENZA VACCINE 03/28/2020 Procedures Procedure Name Priority Date/Time Associated Diagnosis [...] are i n the results section. after 03/10/[address] Lumbar Spine Wo Contrast (05/23/2019 [...] no evidence of acut e traumatic abnormality. [id number] Procedure Note Interface, Radiology Results Incoming - [...] no ev idence of acute traumatic abnormality. [id number] Performing Organization Address City/State/Zipcode Phone Number [facility] [address] [place] [address] CT Cervical Spine Wo Contrast (05/23/2019 9:36 [...] No acute cervical spine bony abnormality . [id number] Procedure Note Interface, Radiology Results Incoming - [...] No acute cervical spine bony abnormality . [id number] Performing Organization Address City/[facility]/Zipcode Phone Number [facility] [address] [place] [address] hCG qualitative, serum screen (05/23/2019 8:24 AM CDT) hCG qualitative, Negative [facility] serum Comment: [facility] The manufacturers stated sensitivity of HcG test for s ewa is >/= 10 mIU/ml and urine is >/= 20mIU/ml. Specimen Blood Performing Organization Address City/State/Zipcode Phone Number [facility] OF PATHOLOGY AND [address] [place], [place] [address] GENOMIC MEDIC[facility] [address] [place], [place] [address] after 03/10/2019 Advance Directives For more information, please contact: [phone] Type Date Recorded Patient Rf Technician Explanati on Advance Directives, Living 05/23/2019 7:23 AM Will and Medical Power of Rooter Operator
--- OUTSIDE RECORDS SUMMARY | 2020-03-10 06:07 | XMS REPORT | Clinical Summary ---
:1990 Author Organization [facility] Address [address] [place] [address] Care Team Providers Name Role Phone Shira [...] Not on file Results Not on fileafter 03/10/2019 Insurance Payer Benefit Plan / Group Subscriber ID Type Phone A [facility] xxxxxxxxx CHIP Contracted CHOICE CHIP Advance Directives For more information, please contact:[place] [id number] [place], [place] [phone] Code Status Date Activated Date Inactivated Comments Full Code 02/08/2017 3:22 AM 02/08/2017 9:13 PM This code status was determined by: Patient
--- OUTSIDE RECORDS SUMMARY | 2020-03-10 06:07 | XMS REPORT | Continuity of Care Document ---
:1990 Author Organization [employer] Care Team Providers Name Role Phone [employer] Unavailable Un available Problems Problem Status Onset Classification Date Comments Sour e Date Reported Pelvic and Active Problem 07/03/2018 [place] f or perineal pain [facility] Medications No Data Provided for This [...] Location Location Encounter Encounter Reason Attending ADM MS Stat Source Details Type Number For Provider Date Date Visit Center For Unknown [id number] 08/27 08/27 [facility] [id number] for Health/ C. [id number] [facility] 3ae [facility] MD Toña, PhD, PA Center For Unknown [id number] 08/27 08/27 [facility] [id number] for Health/ C. [id number] W [facility] fc6 Keyla Ding MD, PhD, PA Center For Unknown [id number] 08/27 08/27 [facility] [id number] for Health/ C. [id number] [facility] 87c Keyla Ding MD, PhD, PA Center For surgery [id number] 09/05 09/05 [facility] [id number] for Health/ C. [id number] W [facility] 785 Keyla Ding MD, PhD, PA Center For surgery [id number] 09/05 09/05 [facility] [id number] for Health/ C. [id number] W radha Cruzo e11 Health MD Toña, PhD, PA Center For Rx Request, [id number] 09/16 09/16 [facility] [id number] for Health/ C. [id number] W radha Cruzo 8aa [facility] MD Toña, PhD, [place] Procedures No Data Provided for This Section Assessment and Plan No Data Provided for This Section Plan of Care No Data Provided for This Section Social History Social History Date Source Social History ElementQualifiersDate Reported 09/04/2016 [place] for [facility] Do you smoke? . Answer: nonsmoker Sep [...]
--- OUTSIDE RECORDS SUMMARY | 2020-03-10 06:16 | XMS REPORT | Continuity of Care Document ---
:1990 Author Organization [facility] t Address [address] [place] [address] Care Team Providers Name Role Phone Sharpless Primary Care Physician DR Yamilka ENCISO Attending Clinician Unavailable DR TOÑA Attending Clinician Unavailable Jimy MARSH, Júnior Attending Clinician Doctor Unassigned, Name Attending Clinician [...] Attending Clinician Unavailable ALEXA Attending Clinician Unavailable RICHELLE Attending Clinician Unavailable DR ROSA Attending Clinician Unavailable SOTERO Attending Clinician Unavailable DR DEVIN SARGENT Attending Clinician Unavailable DR FUENTES Attending Clinician Unavailable DR SEAN Attending Clinician Unavailable Ty COREAS Attending Clinician Unavailable BERE Attending Clinician Unavailable VINICIO Attending Clinician Unavailable NAHID, DR PLATA Attending Clinician Unavailable DR Yamilka ENCISO Admitting Clinician Unavailable TOÑA, Admitting Clinician Unavailable Jimy MARSH, Júnior Admitting Clinician DR Argelia DILL Admitting Clinician Unavailable VAHE, Admitting Clinician Unavailable DR ESCOBAR Admitting Clinician Unavailable DR MILENA Admitting Clinician Unavailable DR SUE Admitting Clinician Unavailable DR Nicola LONG Admitting Clinician Unavailable DR Jey LEHMAN Admitting Clinician Unavailable ROSA, Admitting Clinician Unavailable DR DEVIN SARGENT Admitting Clinician Unavailable DR FUENTES Admitting Clinician Unavailable DR SEAN Admitting Clinician Unavailable Ty COREAS Admitting Clinician Unavailable FLY RUIZ Admitting Clinician Unavailable DR BONI WHITFIELD Admitting Clinician Unavailable Payers Payer Name Policy Policy Number Effective Expiration Source Type Date Date AMERIGROUPAMERIGRP xxxxxxxxx 2019 [place] 00:00:00 Yarsanism [id number] 2019 [facility] xx2019-Present 00:00:00 Me thchuyst L Problems Condition Condition Condition Status Onset Resolution Last Treating Co mments Source Name Details Category Date Date Treatment Clinician Date Hemorrhagi Hemorrhagi Disease Active C HI [facility] c ovarian c ovarian 7-15 [facility] s - cyst cyst 00:00: [place] [id number] Center History of History of Problem Resolve Univers Anxiety Anxiety d [place] of [place] Physici ans History of History of Problem Resolve Univers Cysts of Cysts of d ity of both both [place] ovaries ovaries Physici ans Cannot Cannot Problem Active Univers sleep sleep [facility] of [place] [facility] Gastritis, Gastritis, Problem Active U nivers chronic chronic ity of [place] Physici ans Impetigo Impetigo Problem Active Unive [...] Problem Active Univers vaginitis vaginitis it[facility] of [place] [facility] ans Generalize Generalize Problem Active U nivers d anxiety d anxiety ity of disorder disorder [place] [facility] Major Major Problem Active Univers depressive depressive it y of disorder disorder [place] [facility] Allergies, Adverse Reactions, Alerts Allergy Allergy Status Severity Reaction(s) Onset Inactive Treating Comm ents Source Name Type Date Date Clinician tramadol DA Active U [facility] 7[facility] [place] Ketorola Propensi Active [place] to 5-03 Methodi adverse 00:00: st reaction 00 s to drug tramadol DA Active U [facility] 2-13 [facility] [place] tramadol DA Active U [facility] 2[facility]07 [facility] [place] Tramadol Propensi Active [place] to 6-11 Methodi adverse 00:00: st reaction 00 s to drug No Known DA Active U 2006-0 [facility] Contrast 4-10 [facility] Allergie 00:00: [facility] [place] No Known DA Active U 2006- [facility] Drug 4-10 [facility] All[facility]ie 00:[facility]: [facility] [place] No Known DA Active U 2006-0 [facility] Food 4-10 [facility] All[facility]ie 00:[facility]: [facility] [place] No Known DA Active U 2007-0 [facility] Other 4-10 [facility] All[facility]ie 00:[facility]: [facility] [place] Tramadol Allergy Active Univers to drug ity [...] depression [place] [facility] Social History Social Habit Start Date Stop Date Quantity Comments Source Sex Assigned At [place] M ethodist Alcohol intake 2019-05-23 2019-05-23 Current drinker [place] Yarsanism 00:00:00 00:00:00 of alcohol (finding) Alcohol Comment 2017-01-05 2017-01-05 on occasion [place] Yarsanism 00:00:00 00:00:00 Doy[place]moke? 2016-09-04 2016-09-04 [facility] kp 00:00:00 00:00:00 Smoking Status Start Date Stop Date Source Never smoker [place] Methodis t Medications Ordered Filled Start Stop Current Ordering Indication Dosage Frequency Signature Comments Components Source Medication Medication Date Date Medication? Clinician (SIG) Name Name cyclobenzap 2018-07- No 10mg [id number] Take 1 [place] rine 0-27 11- [id number] tablet (10 Me thodi (FLEXERIL) 00:00: 23:59 3D mg total) s t 10 mg 00 :00 by mouth 3 tablet (three) times a day as needed for muscle spasms for up to 5 days. acetaminoph 2018-07- No acute pain 1{tbl} Q6H Take 1 [place] en-codeine 0-27 10-30 tablet by Met bautista (TYLENOL 00:00: 23:[address] WITH 00 :00 every 6 CODEINE #3) (six) 300-30 mg hours as per tablet needed for severe pain for up to 3 days .Acute Pain. clonazePAM Yes .5mg Take 0.[address] (KLONOPIN) 1-25 mg by Kayli - 0.5 MG 02:45: mouth 2 Medical tablet 30 (two) Center times daily as needed for Anxiety. metroNIDAZO metroNIDAZO 2017-07 Yes SIENNA 1 Q0.5D TAKE 1 Univers LE 500 MG LE 500 MG 2-21 BIJOU N.P. TABLET ity of Oral Tablet Oral Tablet 00:00: TWICE [place] 00 DAILY Physici ans Miconazole Miconazole 2017-07 Yes SIENNA INSERT 1 Univers 7 2 % 7 2 % 2-21 BIJOU N.P. APPLICATOR i ty of Vaginal Vaginal 00:00: FUL [place] Cream Cream 00 INTRAVAGIN Physici ALLY AT ans BEDTIME NIGHTLY. Sertraline Sertraline 2017-07 Yes [place]OOJIE 2 QD TAKE 2 Univers HCl - [...] TAKE 1 Univers Tartrate 10 Tartrate 10 -31 GANN M.D. TABLET AT ity of MG Oral MG Oral 00:00: BEDTIME [place] Tablet Tablet 00 NEEDED. Physici ans Vital Signs Vital Name Observation Time Observation Value Comments Source Systolic blood 2019-05-23 88 mm[Hg] [place] pressure 12:04:00 Yarsanism Diastolic blood 2019-05-23 51 mm[Hg] [place] pressure 12:04:00 Yarsanism Heart rate 2019-05-23 90 /min [place] 12:04:00 Yarsanism Respiratory rate 2019-05-23 20 /min [place] 12:04:00 Yarsanism Oxygen saturation 2019-05-23 100 /min [place] in Arterial blood 12:04:00 Yarsanism by Pulse oximetry Body temperature 2019-05-23 36.28 Althea [place] 05:50:00 Yarsanism Body height 2019-05-23 167.6 cm [place] 05:50:00 Yarsanism Body weight 2019-05-23 72.576 kg [place] 05:50:00 Yarsanism BMI 2019-05-23 25.82 kg/m2 [place] 05:50:00 Yarsanism BP Systolic 2019-04-19 103 mm[Hg] Location: [facility] 10:56:00 Position: [place] Physician s Sitting BP Diastolic 2019-04-19 66 mm[Hg] Location: [facility] 10:56:00 Position: [place] Physician s Sitting Height 2019-04-19 65 [in_us] [facility] 10:56:00 [place] [facility] s Weight 2019-04-19 169 [lb_av] [facility] 10:56:00 [place] [facility] s Body Mass Index 2019-04-19 28.12 kg/m2 [place] [facility] f Calculated 10:56:00 [place] Phys[facility] s Temperature 2019-04-19 98.1 [degF] Method: Oral [facility] 10:56:00 [place] [facility] s Heart Rate 2019-04-19 62 /min Location: L [facility] 10:56:00 Radial; [place] Phys[facility] s Quality: Normal Respiration Rate 2019-04-19 16 /min Quality: Normal Universi ty of 10:56:00 [place] [facility] s O2 SAT 2019-04-19 97 % Source: [facility] 10:56:00 [place] [facility] s BP Systolic 2019-03-23 111 mm[Hg] [facility] 14:08:[facility] Position: [place] Physician s Sitting BP Diastolic 2019-03-23 68 mm[Hg] [facility] 14:08:[facility] Position: [place] Phys[facility] s Sitting Height 2019-03-23 65 [in_us] [place] of 14:08:00 [place] [facility] s Weight 2019-03-23 169 [lb_av] University of 14:08:00 [place] [facility] s Body Mass Index 2019-03-23 28.12 kg/m2 University o f Calculated 14:08:00 [place] [facility] s Temperature 2019-03-23 98.3 [degF] Method: Oral [place] of 14:08:00 [place] [facility] s Heart Rate 2019-03-23 84 /min Location: [facility] 14:08:00 Radial; [place] Physician s Quality: Normal Respiration Rate 2019-03-23 16 /min Quality: Normal Universi ty of 14:08:00 [place] Phys[facility] s O2 SAT 2019-03-23 98 % Source: [facility] [place] [facility] 14:08:00 [place] [facility] s BP Systolic 2019-02-26 102 mm[Hg] [facility] 12:55:00 Position: [place] Physician s Sitting BP Diastolic 2019-02-26 66 mm[Hg] [facility] 12:55:00 Position: [place] Physician s Sitting Height 2019-02-26 65 [in_us] University of 12:55:00 [place] [facility] s Weight 2019-02-26 169.125 [lb_av] University o f 12:55:00 [place] [facility] s Body Mass Index 2019-02-26 28.14 kg/m2 University o f Calculated 12:55:00 [place] [facility] s Temperature 2019-02-26 98.5 [degF] Method: Oral University of 12:55:00 [place] [facility] s Heart Rate 2019-02-26 81 /min Location: [facility] 12:55:00 Brachial [place] [facility] s Artery; Respiration Rate 2019-02-26 16 /min Quality: Normal Universi ty of 12:55:00 [place] [facility] s O2 SAT 2019-02-26 100 % Source: [facility] 12:55:00 [place] [facility] s BP Systolic 2019-01-27 118 mm[Hg] [facility] 16:56:00 Position: [place] Physician s Sitting BP Diastolic 2019-01-27 77 mm[Hg] Location: ABDULKADIR; [facility] 16:56:00 Position: [place] Physician s Sitting Height 2019-01-27 65 [in_us] University of 16:56:00 [place] [facility] s Weight 2019-01-27 159 [lb_av] University of 16:56:00 [place] [facility] s Body Mass Index 2019-01-27 26.46 kg/m2 University o f Calculated 16:56:00 [place] [facility] s Temperature 2019-01-27 98.3 [degF] Method: Oral University of 16:56:00 [place] [facility] s Heart Rate 2019-01-27 107 /min Location: [facility] 16:56:00 Radial; [place] [facility]ician s Respiration Rate 2019-01-27 16 /min Quality: Normal Universi of 16:56:00 [place] [facility] s O2 SAT 2019-01-27 96 % Source: [facility] 16:56:00 [place] [facility] s BP Systolic 2018-11-27 94 mm[Hg] [facility] 15:28:[facility] Position: [place] Physician s Sitting BP Diastolic 2018-11-27 62 mm[Hg] [facility] 15:28:00 Position: [place] Physician s Sitting Weight 2018-11-27 162.5 [lb_av] University of 15:28:00 [place] [facility] s Body Mass Index 2018-11-27 27.04 kg/m2 University o f Calculated 15:28:00 [place] [facility] s Heart Rate 2018-11-27 84 /min Location: [facility] 15:28:00 Radial; [place] Physician s BP [...] s BP Systolic 2018-05-27 102 mm[Hg] Location: [facility]; [facility] 13:35:00 Position: [place] Physician s Sitting BP Diastolic 2018-05-27 67 mm[Hg] Location: [facility] 13:35:00 Position: [place] Physician s Sitting Height 2018-05-27 65 [in_us] University of :35:00 [place] [facility] s Weight 2018-05-27 166.375 [lb_av] University o f 13:35: [place] Phys[facility] s Body Mass Index 2018-05-27 [...] Physician s Weight 2018-05-04 168.5 [lb_av] University of 11:21:00 [place] [facility] s Body Mass Index 2018-05-04 28.04 kg/m2 University o f Calculated 11:21:00 [place] [facility] s Temperature 2018-05-04 99.28 [degF] University 11:21:00 [place] [facility] Heart Rate 2018-05-04 88 /min University of 11:21:00 [place] [facility] s Respiration Rate 2018-05-04 18 /min University of 11:21:00 [place] [facility] s O2 SAT 2018-05-04 98 % University of 11:21:00 [place] [facility] s BP Systolic 2018-02-10 120 mm[Hg] Location: [facility] 08:22:00 Position: [place] Physician s Sitting BP Diastolic 2018-02-10 70 mm[Hg] Location: [facility] 08:22:00 Position: [place] Physician s Sitting Height 2018-02-10 65 [in_us] University of 08:22:00 [place] [facility] Body Mass Index 2018-02-10 18.66 kg/m2 University o f Calculated 08:22:00 [place] [facility] s Weight 2018-02-10 112.125 [lb_av] University o f 08:22:00 [place] [facility] s Temperature 2018-02-10 98.8 [degF] Method: [facility] 08:22:00 Tympanic [place] [facility] s Heart Rate 2018-02-10 67 /min University 08:22:00 [place] [facility] s Respiration Rate 2018-02-10 16 /min [place] of 08:22:00 [place] [facility] s O2 SAT 2018-02-10 99 % [facility] 08:22:00 [place] [facility] s BP Systolic 2018-02-10 88 mm[Hg] Location: [facility] 08:12:00 Position: [place] Physician s Sitting BP Diastolic 2018-02-10 64 mm[Hg] [facility]: [facility] 08:12:00 Position: [place] Physician s Sitting Height 2018-02-10 65 [in_us] [facility] 08:12:00 [place] [facility] s Weight 2018-02-10 163 [lb_av] [facility] 08:12:00 [place] [facility] s Body Mass Index 2018-02-10 27.12 kg/m2 University o f Calculated 08:12:00 [place] [facility] s Temperature 2018-02-10 98 [degF] [facility] 08:12:00 [place] [facility] s Heart Rate 2018-02-10 89 /min [facility] 08:12:00 [place] [facility] s Respiration Rate 2018-02-10 16 /min [facility] 08:12:00 [place] [facility] s O2 SAT 2018-02-10 100 % University of 08:12:00 [place] Phys[facility] s BP Systolic 2017-12-18 100 mm[Hg] Location: ABDULKADIR; [facility] 15:57:00 Position: [place] Physician s Sitting BP Diastolic 2017-12-18 64 mm[Hg] Location: [facility] 15:57:00 Position: [place] Physician s Sitting Height 2017-12-18 65 [in_us] University of 15:57:00 [place] [facility] s Weight 2017-12-18 163.375 [lb_av] University o f 15:57:00 [place] [facility] s Body Mass Index 2017-12-18 27.19 kg/m2 University o f Calculated 15:57:00 [place] [facility] s Temperature 2017-12-18 98.1 [degF] Method: Oral University of 15:57:00 [place] [facility] s Heart Rate 2017-12-18 80 /min University of 15:57:00 [place] [facility] s Respiration Rate 2017-12-18 16 /min [facility] 15:57:00 [place] [facility] s BP Systolic 2017-11-11 101 mm[Hg] University of 08:04:00 [place] [facility] s BP Diastolic 2017-11-11 58 mm[Hg] [facility] 08:04:00 [place] [facility] s Procedures Procedure Date / Time Performing Clinician Source Performed CT LUMBAR SPINE WO 2019-05-23 09:36:18 Chelita Walden Yarsanism CONTRAST CT CERVICAL SPINE WO 2019-05-23 09:36:07 Chelita Walden on Yarsanism CONTRAST HCG QUALITATIVE, SERUM 2019-05-23 08:24:00 Anderson Vazquez on Yarsanism SCREEN Rian . [facility] - Affirm VPIII 2018-05-27 00:00:00 [facility] (BV Panel) Physicians [QH] HEPATITIS B 2018-05-27 00:00:00 [facility] SURFACE ANTIGEN W/REFL Physician s CONFIRM [QH] HIV AB, HIV 1/2, 2018-05-27 00:00:00 [facility] EIA, WITH REFLEXES Physicians [QLH] CULTURE, URINE, 2018-05-27 00:00:00 [facility] ROUTINE Physicians [QL] HEPATITIS C 2018-05-27 00:00:00 [facility] ANTIBODY Physicians [QLH] RPR 2018-05-27 00:00:00 [place] [facility] [place] [facility]icians . [facility] - GC/Chlamydia 2018-05-27 00:00:00 [facility] Physicians [QLH] CBC (INCLUDES 2018-05-27 00:00:00 [facility] DIFF/PLT) Physicians US Pelvis with Pelvis 2018-05-27 00:00:00 [facility] Transvaginal [id number] Physicians [QLH] CBC (INCLUDES 2017-12-18 00:00:00 [facility] DIFF/PLT) Physicians [QLH] CMP W/EGFR 2017-12-18 00:00:00 [facility] Physicians [QLH] LIPID PANEL 2017-12-18 00:00:00 [facility] Physicians [QLH] AMYLASE 2017-12-18 00:00:00 [facility] [place] [facility] [QLH] LIPASE 2017-12-18 00:00:00 [place] [facility] [place] [facility] [QLH] Helicobacter 2017-12-18 00:00:00 [facility] pylori Breath Test Physicians History of Ovarian [facility] Cystectomy Physicians History of [place] [facility] Section Physicians History of Colonoscopy [facility] Physicians Plan of Care Planned Activity Planned Date Details Comments Source Future Scheduled 2020-03-28 INFLUENZA VACCINE [place] [facility] Test 00:00:00 [code = INFLUENZA VACCINE] Future Scheduled 2013 Screening for Hernandez Me thodist Test 00:00:00 malignant neoplasm of cervix (procedure) [code = 122509181] Encounters Start End Encounter Admission Attending Care Care Encounter Source Date/Time Date/Time Type Type Clinicians Facility Department ID 2020-02-10 2020-02-10 Emergency E ZARIA [facility] [id number] [place] 08:45:00 09:58:00 KIMMY [facility] [place] 2020-02-10 2020-02-10 Outpatient E TOÑABryon [facility] OB [id number] [place] 06:41:00 08:40:00 FUNSHO [facility]ica [facility] [place] 2020-01-31 2020-01-31 [facility] Esperanza Ahn [facility] [id number] 06:05:00 09:10:00 Encounter Cam Aram [id number] Vicky [id number] [place] [id number] 2020-01-31 2020-01-31 Orders Doctor ROBBY [id number] 00:00:00 00:00:00 Only Unassigned, DONA [id number] [id number] 2019-11-16 2019-11-16 Appointmen CIPRIANO GANN [id number] Univers 12:00:00 12:00:00 t; RADHA GANN ity o f SHAOJIE, M.D. [place] [facility] Physici ans 2019-10-23 2019-10-23 Emergency E [facility] [id number] [facility] 07:12:00 07:12:00 2019-10-19 2019-10-19 Emergency E GERALDO DILL [facility] ECC [id number] [place] 02:28:00 04:35:00 Medica [facility] [place] 2019-09-18 2019-09-20 Emergency E COTTERMANUEL Galloway [facility] ECC [id number] [place] 23:34:00 01:55:00 [facility]ica [facility] [place] 2019-08-18 2019-08-18 Orders Doctor ROBBY [id number] 00:00:00 00:00:00 Only Unassigned, DONA [id number] [id number] 2019-08-17 2019-08-17 AppointCIPRIANO [place] [facility] [id number] Univers 12:00:00 12:00:00 t; RADHA GANN lty - ity o f SHAOJIE, M.D. Internation Rory as M.D. [facility] Phys ici ans 2019-08-14 2019-08-14 Emergency Ty Nesbitt [facility] [id number] 10:21:47 13:32:00 Sarah Chiu [id number] [place] [id number] [place] [id number] 2019-08-14 2019-08-14 Orders Doctor ROBBY [id number] 00:00:00 00:00:00 Only Unassigned, DONA [id number] Miston [facility] [id number] 2019-04-19 2019-04-19 AppointCIPRIANO [place] [facility] [id number] Univers 10:30:00 10:30:00 t; RADHA GANN lty - ity o f SHAOJIE, M.D. Internation Rory as MEliasD. [facility] Phys [facility] ans 2019-04-08 2019-04-08 CIPRIANO Zeng [id number] Univers 13:00:00 13:00:00 t; LOIUS RIBEIRO ity of DENISE, [employer] [facility] Physici ans 2019-03-23 2019-03-23 AppointCIPRIANO [place] [facility] [id number] Univers 13:30:00 13:30:00 t; RADHA GANN lty - ity o f SHAOJIE, M.D. Internation Rory as MEliasDElias [facility] Phys ici ans 2019-03-07 2019-03-07 Emergency E ELENA CODY [facility] [id number] [facility] 06[facility]00 Medica Center 2019-03-03 2019-03-03 CIPRIANO Zeng UTP [id number] Univers 12:00:00 12:00:00 t; [place] RIBEIRO ity of DENISE, [facility] Physici ans 2019-02-26 2019-02-26 AppointCIPRIANO [place] [facility] [id number] Univers 12:30:00 12:30:00 t; RADHA GANN lty - ity o f SHAOJIE, M.D. Internation Rory as M.D. al [facility] Phys ici ans 2019-01-27 2019-01-27 AppointCIPRIANO [place] [facility] [id number] Univers 14:00:00 14:00:00 t; RADHA GANN lty - ity o f SHAOJIE, M.D. Internation Rory as M.D. al [facility] Phys ici ans 2018-11-27 2018-11-27 AppointCIPRIANO Bautista [facility] [id number] Univers 15:00:00 15:00:00 t; CLOTILDE BAEZA, Health and it y carmen MABRY M.D. [facility] [place] [facility] 2018-11-13 2018-11-13 Emergency E MANUEL COTTER [facility] ECC [id number] [place] 02:44:00 04:14:00 Medica [facility] [place] 2018-11-04 2018-11-04 Emergency E MHSW [address] [facility] 08:04:00 08:04:00 2018-10-22 2018-10-22 Emergency E DILLGERALDO [facility] ECC [id number] [place] 10:10:00 13:01:00 Medica [facility] [place] 2018-10-19 2018-10-19 Emergency E DILLGERALDO [facility] ECC [id number] [place] 15:20:00 18:15:00 Medica l [place] 2018-10-06 2018-10-06 Emergency E MILENA [facility] ECC [id number] [place] 12:53:00 14:15:00 DANIELLE Medic al [place] 2018-09-25 2018-09-25 AppointCIPRIANO Bautista RUST [id number] Univers 11:00:00 11:00:00 t; CLOTILDE BAEZA ity o f KAIRAV, M.D. [facility] 2018-09-11 2018-09-11 Emergency E SUE [facility] ECC [id number] [place] 13:37:00 17:15:00 NICANOR Medica l [facility] 2018-09-09 2018-09-09 Emergency E MERCEDES [facility] ECC [id number] [place] 12:45:00 16:45:00 ABDIAS [facility]ica [facility] [place] 2018-08-17 2018-08-17 Emergency E GERALDO DILL [facility] ECC [id number] [place] 01:32:00 04:20:00 [facility]ica [facility] [place] 2018-07-28 2018-07-28 Outpatient E DOMINIK [facility] TELE [id number] [place] 06:49:00 16:28:00 MEHJABIN Medic al [place] 2018-07-17 2018-07-17 Appointmen ALEXA [facility] [id number] Univers 15:30:00 15:30:00 t; SIENNA LIU, JOSH Health and ity carmen EL NP Wellness [facility] 2018-07-14 2018-07-14 Appointmen CIPRIANO BAEZA [facility] [id number] [facility] 16:00:00 16:00:00 t; CLOTILDE BAEZA ve Sickle ity carmen MABRY M.D. [facility] Physici ans 2018-06-29 2018-06-29 Outpatient C Funsho C Funsho [id number] [facility] 20:35:00 20:35:00 Toña Girard MD PhD PA PhD PA 2018-06-19 2018-06-19 Emergency E ZARIA [facility] ECC [id number] [place] 17:59:00 19:07:00 KIMMY [facility]ica [facility] [place] 2018-05-27 2018-05-27 Appointmen ALEJANDRA PEOPLES [employer] [id number] Univers 13:00:00 13:00:00 t; Siddhartha PEOPLES M.D. [place] Physici ans 2018-05-21 2018-05-21 Emergency E ZARIA [facility] ECC [id number] [place] 17:21:00 20:22:00 [facility] Medica l [place] 2018-05-12 2018-05-12 Appointmen CIPRIANO BAEZA [facility] [id number] Univers 08:00:00 08:00:00 t; CLOTILDE BAEZA Health and it y camren MABRY M.D. Wellness [facility] Physicjey Boat[facility] 2018-05-10 2018-05-10 Emergency E ROSA [facility] ECC [id number] [place] 12:36:00 16:00:00 GLORY [facility] [place] 2018-05-04 2018-05-[facility] S[facility] [id number] Univers 11:00:00 11:00:00 t; JOSH CALHOUN Health and ity SOTERO [facility] JOSH CALHOUN [facility] Phys mary Boateng [facility] 2018-05-01 2018-05-01 Emergency E GERALDO DILL [facility] ECC [id number] [place] 01:08:00 03:19:00 Medica l Center 2018-04-05 2018-04-05 Emergency E GERALDO DILL [facility] ECC [id number] [place] 14:18:00 17:55:00 Medica [facility] [place] 2018-02-24 2018-02-24 Emergency E ARIE [facility] ECC [id number] [place] 03:20:00 05:50:00 RINCON Medic al [place] 2018-02-10 2018-02-[facility] [id number] Univers 08:00:00 08:00:00 t; CLOTILDE BAEZA Health and it y of Siddhartha MABRY [facility] Physicjey [facility] 2017-12-18 2017-12-18 [facility] [id number] Univers 15:30:00 15:30:00 t; JOSH CALHOUN Health and ity SOTERO [facility] JOSH CALHOUN [facility] Phys mary [facility] 2017-11-22 2017-11-22 Emergency E [facility] [id number] [place] 06:21:00 11:45:00 ABDIAS Medica l [place] 2017-11-11 2017-11-11 [facility] [id number] Univers 08:00:00 08:00:00 t; CLOTILDE BAEZA, Health and it y carmen MABRY M.D. [facility] Physicjey Boateng [facility] 2017-08-20 2017-08-20 Emergency E [facility] [id number] [place] 08:47:00 09:45:00 RADHA [facility] 2017-08-20 2017-08-20 Appointmen CIPRIANO BAEZA UTP [id number] Univers 08:00:00 08:00:00 t; CLOTILDE BAEZA ity o f KAIRAV, M.D. [place] [facility] 2017-08-15 2017-08-15 Emergency E [facility] [id number] [place] 00:28:00 02:58:00 ALISE Medic al Center 2017-06-21 2017-06-21 Emergency E JOSS, [facility] [id number] [place] 14:26:00 18:19:00 ROBBY Medica l Center 2017-05-26 2017-05-26 Appointmen CIPRIANO BLACKBURN [id number] Univers 14:00:00 14:00:00 t; Varsha JOHNSON M.D. [facility] M.DElias ans 2017-05-20 2017-05-20 CIPRIANO Lima UTP [id number] Univers 10:00:00 10:00:00 t; CLOTILDE BAEZA ity o f KAIRAV, M.D. [place] M[facility]. Physici ans 2017-03-14 2017-03-14 CIPRIANO Lima UTP [id number] Univers 08:00:00 08:00:00 t; CLOTILDE BAEZA ity o f KAIRAV, M.D. [place] [facility] 2016-12-27 2016-12-27 Outpatient C Funsho C Funsho [id number] eClinic 12:04:00 12:04:00 Toña Girard MD PhD PA PhD PA 2016-12-03 2016-12-03 CIPRIANO Lima UTP [id number] Univers 08:00:00 08:00:00 t; CLOTILDE BAEZA ity o f KAIRAV, M.D. [place] [facility].DE[facility] Physici ans 2016-10-25 2016-10-25 AppointCIPRIANO Bautista UTP [id number] Univers 13:00:00 13:00:00 t; CLOTILDE BAEZA ity o f KAIRAV, M.D. [place] [facility] 2016-09-16 2016-09-16 Out[id number] eClinic 10:22:00 10:22:00 For Women Women s alWo rks s Health/ Health/ C. C. Randasho RandaToña Reyes MD, PhD, MD, PhD, PA PA 2016-09-04 2016-09-04 Outpatient [id number] eClinic 18:20:00 18:20:00 For Women Women s alWo rks s Health/ Health/ C. C. Randasho RandaToña Reyes MD, PhD, MD, PhD, PA PA 2016-08-27 2016-08-27 AppointCIPRIANO Bautista UTP [id number] Univers 16:00:00 16:00:00 t; CLOTILDE BAEZA ity o f KAIRAV, M.D. [place] [facility] 2016-08-27 2016-08-27 Outpatient [id number] eClinic 11:29:00 11:29:00 For Women Women s alWo rks s Health/ Health/ C. C. Randasho RandaToña Reyes MD, PhD, MD, PhD, PA PA 2016-07-24 2016-07-24 CIPRIANO Lima [id number] Univers 15:30:00 15:30:00 t; CLOTILDE BAEZA ity o f KAIRAV, M.D. [place] [facility] 2016-06-25 2016-06-25 CIPRIANO Lima UTP [id number] Univers 16:00:00 16:00:00 t; CLOTILDE BAEZA ity o f KAIRAV, M.D. [place] [facility] 2016-05-22 2016-05-22 CIPRIANO [place]ima [id number] Univers 14:40:00 14:40:00 t; CLOTILDE BAEZA ity o f KAIRAV, M.D. [place] [facility] 2016-05-03 2016-05-03 CIPRIANO Lima [id number] Univers 15:00:00 15:00:00 t; CLOTILDE BAEZA ity o f KAIRAV, M.D. [place] [facility] 2016-04-24 2016-04-24 Appointmen FELISHA CIPRIANO RUST [id number] Univers 08:00:00 08:00:00 CLOTILDE Harrell ity o f KAIRAV, M.D. [facility] Results Test Description Test Time Test Comments Results Result Comments Source BENZODIAZEPINE CONFIRMATION 2020-02-14 14:29:00 Test Item Value Reference Range Interpretation Comme nts OXAZEPAM (test code = OXAZ) POSITIVE Drug Quantitiation: 113 units: ng/mL Drug Iden tified: 7-aminoclonazep am GC/MS Cutoff: 300 units: ng/mL ALPHA HYDROXYALPROZOMAM (test code = POSITIVE Drug Quantitiation: 538 units: ALPHAHY) ng/mL Drug Iden tified: alpha-hydroxyal prazolam GC/MS Cutoff: 300 u nits: ng/mL - DUP VEIN [id number] 09:48:00 Patient Name: TOBY WELLS Unit No: [id number] EXAMS: CPT CODE: [id number] DUP VEIN SEAN [id number] Clinical Indication: 26 weeks with bilateral lower extremity pain Comparison: None TECHNIQUE: Sonographic evaluation of the bilateral lower extremity veins was performed using high resolution B-mode imaging, along with pulse and color Doppler imaging. FINDINGS:Right lower extremity: The common femoral vein, femoral vein, popliteal vein and visualized posterior tibial/calf veins are patent. There is no echogenic debris to suggest deep venous thrombosis.The saphenofemoral junction is unremarkable. Left lower extremity: The common femoral vein,superficial femoral vein, popliteal vein and visualized posterior tibial/calf veins are patent. There is no echogenic debris to suggest deep venous thrombosis. The saphenofemoral junction is unremarkable. IMPRESSION: No Deep Venous Thrombosis of the lower extremities. SL:WISAM at 0948 Reported and signed by: Neil Butler MD CC: Technologist: Shantal Briscoe RDMS Probe: Trnscrbd D/ (0948) MaritzaMT17 Orig Print D/T: S: 02/12/2020 (9151) The [facility] NAME: TOBY WELLS Radiology Department PHYS: Ganga Hector MD [address] : 1990 A GE: 29 SEX: F [place], [place] [address] LOC: F.3068 A PHONE #: [phone] EXAM DATE: 02/12/2020 STATUS: ADM IN FAX #: [phone] RAD NO: Page 1 Signed Report Patient Name: TOBY WELLS Unit No: [id number] EXAMS: CPT CODE: [id number] DUP VEIN SEAN 92432 <Continued> The [facility] NAME: TOBY WELLS Radiology Department PHYS: Ganga Mariee MD [address] : 1990 AGE: 29 SEX: F [place], [place] [address] LOC: F.3068 A PHONE #: [phone] EXAM DATE: 02/12/2020 STATUS: ADM IN FAX #: [phone] RAD NO: Page 2 Signed Report CHEMISTRY 7 [id number] 21:37:00 Test Item Value Reference Range Interpretation Comments SODIUM (test code = NA) 138 mEq/L 135-145 N POTASSIUM (test code = K) 3.8 mEq/L 3.5-5.0 N CHLORIDE (test code = CL) 105 mEq/L 100-115 N CARBON DIOXIDE (test code = CO2) 27 mEq/L 22-31 N ANION GAP (test code = GAP) 10.10 10-20 N GLUCOSE (test code = GLU) 104 mg/dL 65-110 N BLOOD UREA NITROGEN (test code = 4 mg/dL 7-18 L BUN) GLOMERULAR FILTRATION RATE (test 148 ml/min >60 N code = GFR) CREATININE (test code = CREAT) 0.5 mg/dL 0.5-1.0 N CALCIUM (test code = CA) 7.6 mg/dL 8.4-10.2 L DRUGS OF ABUSE [id number] 21:31:00 Test Item Value Reference Range Interpretation Comments UR COCAINE (test code = NEGATIVE NEGATIVE DETE CTION CUT OFF: COCAU) 150 ng/mL UR CANNABINOIDS (test NEGATIVE NEGATIVE DETECT ION CUT OFF: 50 code = CANU) ng/mL UR AMPHETAMINE (test NEGATIVE NEGATIVE DETECTI ON CUT OFF: code = AMPHU) 500 ng/mL UR BARBITURATE QUAL NEGATIVE NEGATIVE DETECTIO N CUT OFF: (test code = BARBQLU) 200 ng /mL UR BENZODIAZEPINE (test POSITIVE NEGATIVE A RESU LTS CALLED TO code = BENZU) VIRGEN TRINH SSREAD BACK & CONFIRME D? YES.BY F.LAB.TT T 02/10/200. DETECTION CUT O FF: 150 ng/mL UR OPIATES QUAL (test NEGATIVE NEGATIVE DETECT ION CUT OFF: code = OPIAQLU) 100 ng/mL UR PHENCYCLIDINE (PCP) NEGATIVE NEGATIVE DETEC TION CUT OFF: 25 (test code = PHENCU) ng/mL CBC W/AUTO [id number] 21:20:00 Test Item Value Reference Range Interpretation Comments WHITE BLOOD CELL (test 12.0 K/mm3 6.6-12.1 N code = WBC) RED BLOOD CELL (test 3.01 M/mm3 3.45-5.01 L code = RBC) HEMOGLOBIN (test code = 6.2 g/dL 10.7-13.9 LL RESU LTS CALLED TO HGB) PRINCESS HuntREAD BACK & CONFIRME D? Y.BY F.LAB.LGL0 02/10/202118.RESULTS VERIFIED BY REP EAT ANALYSIS HEMATOCRIT (test code = 22.5 % 32.1-42.1 L HCT) MEAN CELL VOLUME (test 75 fL 84.1-94.8 L code = MCV) MEAN CELL HGB (test code 20.6 pg 27-35 L = MCH) MEAN CELL HGB 27.6 gm/dL 32.2-34.1 L CONCETRATION (test code = MCHC) RED CELL DISTRIBUTION 18.3 % 12.4-16.5 H WIDTH (test code = RDW) PLATELET COUNT (test 208 K/mm3 133-385 N code = PLT) MEAN PLATELET VOLUME 10.5 fl 9.1-12.7 N (test code = MPV) NEUTROPHIL % (test code 76.6 % 56.5-79.4 N = NT%) LYMPHOCYTE % (test code 14.4 % 14.3-34.3 N = LY%) MONOCYTE % (test code = 5.9 % 5.1-10.4 N MO%) EOSINOPHIL % (test code 2.2 % 0.1-3.0 N = EO%) BASOPHIL % (test code = 0.2 % 0.1-1.0 N BA%) NEUTROPHIL # (test code 9.2 K/mm3 = NT#) LYMPHOCYTE # (test code 1.7 K/mm3 = LY#) MONOCYTE # (test code = 0.7 K/mm3 MO#) EOSINOPHIL # (test code 0.26 K/mm3 = EO#) BASOPHIL # (test code = 0.0 K/mm3 BA#) RBC MORPHOLOGY REQUIRED ABNORMAL NORMAL HYPO CHROMIA=1+ (test code = RBCM) PLATELET MORPHOLOGY NORMAL NORMAL REQUIRED (test code = PLTMR) Coronavirus 2019 nCoV [id number] 18:59:00 Test Item Value Reference Range Interpretation Comments Coronavirus 2019 nCoV Negative RESUL TS CALLED TO [facility] (test code = M.READ BACK & CONFIRMED? [id number]) YES BY FEliasLAB.I R 02/10/201850 This resul t does not rule out co-inf ections with otherpatho gens. * False negative results may occur if a spec imen isimproperly co llected, transported or handled. False negativer esults may also occur if amplification i nhibitors arepresent in t he specimen or if inadequat e levels of virusesare pres ent in the specimen. * As with any molecular test, if the virus mutates i n thetarget region, COVID-1 9 may not be detected or may bedetected less predictably.MATTHEW T PERFORMED UNDER AN EMERGE NCY USE AUTHORIZATION F ROM [facility] CBC WITH MORPHOLOGY *WW*2020-02-10 10:04:00 Test Item Value Reference Range Interpretation Comments WBC (test code = WBC) 11.1 10\\S\\3/uL 4.5-11.0 H RBC (test code = RBC) 3.34 10\\S\\6/uL 4.30-5.70 L HGB (test code = HBG) 6.9 g/dL 12.0-15.5 LL HCT (test code = HCT) 24.3 % 35.0-44.0 LL MCV (test code = MCV) 72.8 fL 81.0-99.0 L MCH (test code = MCH) 20.7 pg 27.0-31.0 L MCHC (test code = MCHC) 28.4 g/dL 32.0-36.0 L RDW (test code = RDW) 18.3 % 11.5-14.5 H PLT (test code = PLT) 224 10\\S\\3/uL 130-400 MPV (test code = MPV) 10.4 fL 9.4-12.4 NEUTROP # (test code = NE#) 7.8 10\\S\\3/uL 1.6-8.0 LYMPH # (test code = LY#) 2.1 10\\S\\3/uL 1.1-3.5 MONOCYTE # (test code = 0.7 10\\S\\3/uL 0.0-1.1 MO#) EOSINOPH # (test code = 0.3 10\\S\\3/uL 0.0-0.7 EO#) BASOPHIL # (test code = 0.0 10\\S\\3/uL 0.0-0.3 BA#) IG # (test code = IG#) 0.09 10\\S\\3/uL 0.00-0.06 H NRBC # (test code = NRBC#) 0.03 10\\S\\3/uL 0.00-0.01 H NEUTROPH % (test code = 70.5 % 35.0-73.0 NE%) LYMPH % (test code = LY%) 18.9 % 20.0-55.0 L MONO % (test code = MO%) 6.7 % 2.5-10.0 EOSINOPH % (test code = 2.8 % 0.0-5.0 EO%) BASOPHIL % (test code = 0.3 % 0.0-2.0 BA%) IG % (test code = IG%) 0.8 % 0.0-0.8 NRBC% (test code = NRBC%) 0.3 % 0.0-0.2 H PLT EST (test code = ADEQUATE ADEQUATE PLTEST) PLT MORPH (test code = NORMAL (1.5-3 um) NORMAL PLTMOR) ANISO (test code = ANISO) 1+ NONE A HYPOCHROM (test code = 1+ NONE A HYPOC) MICROCYTIC (test code = 1+ NONE A MICRO) POLYCHROM (test code = 1+ NONE A POLY) D-DIMER *WW*2020-02-10 10:00:00 Test Item Value Reference Range Interpretation Comments D-DIMER (test code = 219 ng/mL D-DU 0-234 DDI) D-DIMER COMMENT (test *Level to rule out code = DDCOM) DVT or PE: <235 ng/mL D-DU* AMYLASE AND LIPASE *WW*2020-02-10 09:49:00 Test Item Value Reference Range Interpretation Comments AMYLASE (test code = 10A) 46 U/L 28-100 LIPASE (test code = 60A) 50 IU/L 73-393 L COMPREHENSIVE METABOLIC MCKEON *WW*2020-02-10 09:49:00 Test Item Value Reference Range Interpretation Comments GLUCOSE (test code = 86 mg/dL 75-100 06D) SODIUM (test code = 137 mmol/L 136-145 01A) POTASSIUM (test code = 3.6 mmol/L 3.6-5.1 01B) CHLORIDE (test code = 106 mmol/L 98-107 04A) CO2 (test code = 02A) 24 mmol/L 22-32 ANION GAP (test code = 10.6 mmol/L ANG) BUN (test code = 05D) 7 mg/dL 7-18 CREATININE (test code 0.4 mg/dL 0.4-1.1 = 03E) GFR (test code = GFR) 143 mL/min/1.73m\\S\\2 >=90 GFR 165 mL/min/1.73m\\S\\2 >=90 (test code = GFRAA) EGFR (test code = eGFR BY CKD-EPI EGFR) CALCULATION IS NOT RECOMMENDED FOR PATIENTS UNDER 18 YEARS OF AGE. BUN/CREA (test code = 18 12-20 BCR) CALCIUM (test code = 7.9 mg/dL 8.3-9.5 L 09D) BILI TOTAL (test code 0.3 mg/dL 0.2-1.0 = 11A) PROTEIN (test code = 6.9 g/dL 6.4-8.2 07D) ALBUMIN (test code = 2.5 g/dL 3.5-4.8 L 08D) GLOBULIN (test code = 4.4 g/dL 1.5-3.8 H GLB) ALB/GLOB (test code = 0.6 1.0-2.6 L AGRR) ALK PHOS (test code = 121 IU/L 42-121 35A) AST (test code = 30A) 11 IU/L <=42 ALT (test code = 31A) <6 IU/L <=78 URINALYSIS *WW*2020-02-10 09:35:00 Test Item Value Reference Range Interpretation Comments COLOR (test code = COLU) YELLOW YELLOW CLARITY (test code = CLA) CLEAR CLEAR GLUCOSE UR (test code = UA GLUCOSE) NEGATIVE NEGATIVE BILI UR (test code = BILE) NEGATIVE NEGATIVE KETONES UR (test code = KARSON) NEGATIVE NEGATIVE SP GRAVITY (test code = SPGR) 1.020 1.005-1.030 PH UR (test code = PH) 6.0 4.5-8.0 PROTEIN UR (test code = PU) NEGATIVE NEGATIVE UROBIL UR (test code = UROQ) 0.2 EU/dL 0.2-1.0 NITRITE UR (test code = NITRITE) NEGATIVE NEGATIVE BLOOD UR (test code = UA BLOOD) NEGATIVE NEGATIVE LEUK ES UR (test code = LEUK) NEGATIVE NEGATIVE AUAM (test code = WAUAM) NO NO URINALYSIS 2020-02-10 07:32:00 Test Item Value Reference Range Interpretation Comments COLOR (test code = COLU) YELLOW YELLOW CLARITY (test code = CLA) CLEAR CLEAR GLUCOSE UR (test code = UA GLUCOSE) NEGATIVE NEGATIVE BILI UR (test code = BILE) NEGATIVE NEGATIVE KETONES UR (test code = KARSON) NEGATIVE NEGATIVE SP GRAVITY (test code = SPGR) >=1.030 1.005-1.030 PH UR (test code = PH) 6.0 4.5-8.0 PROTEIN UR (test code = PU) NEGATIVE NEGATIVE UROBIL UR (test code = UROQ) 0.2 EU/dL 0.2-1.0 NITRITE UR (test code = NITRITE) NEGATIVE NEGATIVE BLOOD UR (test code = UA BLOOD) NEGATIVE NEGATIVE LEUK ES UR (test code = LEUK) NEGATIVE NEGATIVE AUAM (test code = WAUAM) NO NO [id number] 13:57:00 Test Item Value Reference Range Interpretation Comments GLUBED (test code = GLUBED) 78 mg/dL 65-110 N AMYLASE AND [id number] 03:51:00 Test Item Value Reference Range Interpretation Comments AMYLASE (test code = 10A) 47 U/L 28-100 LIPASE (test code = 60A) 84 IU/L 73-393 BETA HCG QUANTITATIVE [id number] 03:51:00 Test Item Value Reference Range Interpretation Comments BHCG QUANT (test >690713.00 mIU/mL code = A17) BHCGQ (test code [...] 12 10,000 - 100,000 --- COMPREHENSIVE METABOLIC [id number] 03:51:00 Test Item Value Reference Range Interpretation [...] = 31A) 12 IU/L <=78 URINALYSIS WITH [id number] 03:32:00 Test Item Value Reference Range Interpretation [...] code = RBCMOR) NORMAL BETA HCG QUANTITATIVE [id number] 00:51:00 Test Item Value Reference Range Interpretation [...] 12 10,000 - 100,000 --- COMPREHENSIVE METABOLIC [id number] 00:51:00 Test Item Value Reference Range Interpretation [...] 31A) 9 IU/L <=78 PRO TIME AND [id number] 00:37:00 Test Item Value Reference Range Interpretation [...] RBC MORPH (test code = RBCMOR) NORMAL [id number] 00:31:00 Test Item Value Reference Range Interpretation [...] (test code = LEUK) NEGATIVE NEGATIVE URINE [id number] 00:25:00 Test Item Value Reference Range Interpretation Comments PREG UR (test code = PGU) POSITIVE NEGATIVE A CT Lumbar Spine Wo [id number] 11:30:12Hm Interface, Radiology Results Incoming 05/23/2019 11:33 AM CDTEXAMINATION: CT LUMBAR SPINE [...] CT with no evidence of acute traumatic abnormality.[facility]8KD48635QKTrpuafdBaylor Scott & [facility] Cervical Spine Wo [id number] 09:48:46Hm Interface, Radiology Results 05/23/2019 9:51 AM [...] of C3-C4 region.IMPRESSION:No acute cervical spine bony abnormality.[facility]3TG62651WOPosbpuiLake Granbury Medical CenterG qualitative, serum [id number] 08:51:48 Test Item Value Reference Range Interpretation Comments hCG qualitative, Negative [facility] stated serum (test code = sensitivi ty of HcG test 8-8) for serum is >/ = 10 mIU/ml and urine is >/ = 20mIU/ml. [place] MethodUNC Health Lenoir NECK [id number] 05:21:32HISTORY: Neck swellingTechnique: Axial tomograms through the [...] or fluid collection. No other acute abnormalities.T4 [id number] 04:37:00 Test Item Value Reference Range Interpretation Comments T4 FREE (test code = A91) 1.12 ng/dL 0.76-1.46 THYROID PANEL/SCREEN (TSH)2019-03-07 04:27:00 Test Item Value Reference Range Interpretation Comments TSH (test code = A57) 5.350 uIU/mL 0.358-3.740 H CBC WITH [id number] 04:16:00 Test Item Value Reference Range Interpretation [...] NORMAL (1.5-3 um) NORMAL PLTMOR) AMYLASE AND [id number] 04:13:00 Test Item Value Reference Range Interpretation Comments AMYLASE (test code = 10A) 50 U/L 28-100 LIPASE (test code = 60A) 87 IU/L 73-393 COMPREHENSIVE METABOLIC [id number] 04:13:00 Test Item Value Reference Range Interpretation [...] (test code = 31A) 8 IU/L <=78 [id number] 04:08:00 Test Item Value Reference Range Interpretation Comments MAGNESIUM (test code = 48A) 1.9 mg/dL 1.8-2.4 SERUM [id number] 04:08:00 Test Item Value Reference Range Interpretation Comments PREG SRM (test code = PGS) NEGATIVE NEGATIVE LIVER [id number] 04:00:00 Test Item Value Reference Range Interpretation [...] = 31A) 9 IU/L <=78 AMYLASE AND [id number] 03:24:00 Test Item Value Reference Range Interpretation Comments AMYLASE (test code = 10A) 48 U/L 28-100 LIPASE (test code = 60A) 122 IU/L 73-393 BASIC METABOLIC [id number] 03:23:00 Test Item Value Reference Range Interpretation [...] = 09D) 8.8 mg/dL 8.3-9.5 URINALYSIS WITH [id number] 03:20:00 Test Item Value Reference Range Interpretation [...] (test code = USPERM) /HPF NONE SERUM [id number] 03:18:00 Test Item Value Reference Range Interpretation [...] RBCMOR) NORMAL CT ABDOMEN AND PELVIS WITH [id number] 12:25:13CT abdomen and pelvis with contrastLocation Code: L0WPMGOBIN HISTORY: Lower abdominal painCOMPARISON: 09/11/2018Technique: Helical CT [...] No acute intra-abdominal or pelvic abnormality.AMYLASE AND [id number] 11:44:00 Test Item Value Reference Range Interpretation Comments AMYLASE (test code = 10A) 41 U/L 28-100 LIPASE (test code = 60A) 76 IU/L 73-393 COMPREHENSIVE METABOLIC [id number] 11:44:00 Test Item Value Reference Range Interpretation [...] 31A) 23 IU/L <=78 PRO TIME AND [id number] 11:41:00 Test Item Value Reference Range Interpretation [...] LMW Heparin. Order Code is ANTI-XA SERUM [id number] 11:39:00 Test Item Value Reference Range Interpretation Comments PREG SRM (test code = PGS) NEGATIVE NEGATIVE [id number] 11:39:00 Test Item Value Reference Range Interpretation Comments MAGNESIUM (test code = 48A) 2.1 mg/dL 1.8-2.4 OCCULT [id number] 11:28:00 Test Item Value Reference Range Interpretation [...] (test code = RBCMOR) NORMAL DRUGS OF [id number] 17:34:00 Test Item Value Reference Range Interpretation [...] Barbiturates 200 ng/mL Opiates 2000 ng/mL U/S [id number] 17:32:02PELVIC ULTRASOUND:Location code: [id number] HISTORY: [id number]: Acute pelvic painComparison: NoneTECHNIQUE: Transabdominal sonography of the pelvis was performed. The patientrefused transvaginal scan.. FINDINGS: The uterus is uniform in echogenicity measuring 7.8 x 83.7 x 6.9 cm. The endometrium is poorly visualized. The bilateral ovaries are nonvisualized. There is no adnexal mass or freefluid.IMPRESSION:No visualized acute abnormality on limited examination.COMPREHENSIVE METABOLIC [id number] 16:53:00 Test Item Value Reference Range Interpretation [...] = 31A) 21 IU/L <=78 AMYLASE AND [id number] 16:47:00 Test Item Value Reference Range Interpretation Comments AMYLASE (test code = 10A) 45 U/L 28-100 LIPASE (test code = 60A) 47 IU/L 73-393 L SERUM [id number] 16:46:00 Test Item Value Reference Range Interpretation Comments PREG SRM (test code = PGS) NEGATIVE NEGATIVE [id number] 16:39:00 Test Item Value Reference Range Interpretation [...] code = MDIFF) NO NO CBC WITH [id number] 13:43:00 Test Item Value Reference Range Interpretation [...] = 1+ NONE A POLY) BASIC METABOLIC [id number] 13:40:00 Test Item Value Reference Range Interpretation [...] (test code = 09D) 8.8 mg/dL 8.3-9.5 [id number] 13:30:00 Test Item Value Reference Range Interpretation [...] (test code = LEUK) NEGATIVE NEGATIVE URINE [id number] 13:30:00 Test Item Value Reference Range Interpretation Comments PREG UR (test code = PGU) NEGATIVE NEGATIVE CT ABDOMEN AND PELVIS W/O [id number] 15:32:22CT abdomen and pelvis without contrastLocation Code: [id number] HISTORY: Pain in pelvisCOMPARISON: Technique: Helical CT [...] no acute intra-abdominal or pelvic abnormality.URINALYSIS WITH [id number] 14:45:00 Test Item Value Reference Range Interpretation [...] (test code = USPERM) /HPF NONE URINE [id number] 14:40:00 Test Item Value Reference Range Interpretation Comments PREG UR (test code = PGU) NEGATIVE NEGATIVE DIRECT STREP GROUP [id number] 10:48:00 Test Item Value Reference Range Interpretation Comments Culture Observations NO BETA HEMOLYTIC (test code = COB1) STREPTOCOCCUS ISOLATED Direct Exam (test code NO STREPTOCOCCUS GROUP = DE1) A ANTIGEN DETECTED COMPREHENSIVE METABOLIC [id number] 23:46:00 Test Item Value Reference Range Interpretation [...] 46-116 H code = ALKP) CBC W/AUTO [id number] 23:30:00 Test Item Value Reference Range Interpretation [...] NORMAL code = PLTMR) INFLUENZA A B [id number] 23:18:00 Test Item Value Reference Range Interpretation Comments INFLUENZA A PCR (test POSITIVE NEGATIVE A RESULT S CALLED TO code = FLUAPCR) GENI.READ BA CK & CONFIRMED? Y.BY F.LAB.LGL0 08/28 10/13 8542. INFLUENZA B PCR (test NEGATIVE NEGATIVE code = FLUBPCR) UA RFLX MICR CULT IF [id number] 22:36:00 Test Item Value Reference Range Interpretation [...] = MUCU) RARE NONE SEEN UR HCG [id number] 22:36:00 Test Item Value Reference Range Interpretation [...] and tested. UA RFLX MICR CULT IF [id number] 22:33:00 Test Item Value Reference Range Interpretation [...] code = EPIU) #/HPF RARE-FEW UR HCG [id number] 22:33:00 Test Item Value Reference Range Interpretation [...] cted 48 hours later and tested. U/S [id number] 15:54:21PELVIC ULTRASOUND:Location code: [id number] HISTORY: lower abdominal pain, 4cm ovarian cyst [...] torsion.2. Nonvisualization of the right ovary.U/S NON [id number] 15:54:21PELVIC ULTRASOUND:Location code: [id number] HISTORY: lower abdominal pain, 4cm ovarian cyst [...] torsion.2. Nonvisualization of the right ovary.URINALYSIS WITH [id number] 15:27:00 Test Item Value Reference Range Interpretation [...] /HPF NONE CT ABDOMEN AND PELVIS WITH [id number] 14:44:45CT abdomen and pelvis with contrastLocation Code: [id number] HISTORY: 2 days post laparoscopy with abd [...] cyst.2. Otherwise, no acute abnormality.XR CHEST 2 [id number] 14:10:17PA and lateral chest, 2 viewsLocation code: [id number] HISTORY: CoughCOMPARISON: 06/07/2016COMMENTS:The lungs are clear and well inflated. The costophrenic angles aresharp. The cardiomediastinal silhouette is unremarkable. The bones are intact.IMPRESSION: Stable chest with no acute abnormalityAMYLASE AND [id number] 14:07:00 Test Item Value Reference Range Interpretation Comments AMYLASE (test code = 10A) 34 U/L 28-100 LIPASE (test code = 60A) 45 IU/L 73-393 L COMPREHENSIVE METABOLIC [id number] 14:07:00 Test Item Value Reference Range Interpretation [...] 31A) 23 IU/L <=78 PRO TIME AND [id number] 14:00:00 Test Item Value Reference Range Interpretation [...] LMW Heparin. Order Code is ANTI-XA SERUM [id number] 13:59:00 Test Item Value Reference Range Interpretation [...] RBCMOR) NORMAL DIRECT INFLUENZA A AND B [id number] 13:24:00 Test Item Value Reference Range Interpretation Comments Direct Exam (test PRESUMPTIVE NEGATIVE FOR code = DE1) THE PRESENCE OF INFLUENZA ANTIGEN PERITONEUM,[id number] 14:26:00 RUN DATE: 09/07/18 [facility] PAGE 1 RUN TIME: 1455 Specimen Inquiry RUN USER: INTERFACE [facility] [id number] LOC: [facility] U #: [id number] AGE/SX: 27/F ROOM: [facility] RE09/04/18REG DR: Ganga Payne MD : [id number] BED: A DIS: 09/05/18 STATUS: DIS Wilver TLOC: SPEC #: [id number] RECD: 09/04/18 STATUS: BRUCE RE #: [id number] CHACHO: 09/04/18- SUBM DR: Ganga Payne MD ENTERED: 09/05/18 SP TYPE: PERITBX OTHR DR: ORDERED: LEVEL IV CODES: [id number] - PERITONEUM, NOS PROCEDURES: LEVEL IV (Incomplete) TISSUES: PERITONEUM, NOS - SIDEWALL CLINICAL HISTORY 27 year old, chronic pelvic pain, ova ry cyst, endometriosis (kr) FINAL DIAGNOSIS Tissue from sidewall, laterality undesignated: - benign cysts lined by tubal epithelial consistent with benign paratubal cysts (2) Tissue code 1 CPT code(s): 80501 cds/kr dt: 09/07/18 GROSS DESCRIPTION ANATOMICSOURCE OF TISSUE (per Requisition): Sidewall The specimen is received in a formalin-filled container, labeled with the patient's name and designated "possible endometriosis sidewall". The specimen consists of a 0.5 cm portion of elizabeth tissue and is submitted in one cassette. hz/kr 09/04/18 @7909 MICROSCOPIC DESCRIPTION Two benign paratubal cysts are present. No endometriosis perse is identified. cds/kr dt: 09/07/18 Signed Jay Corrales Kyler 09/07/18 1426 END OF REPORT HCG SERUM [id number] 20:10:00 Test Item Value Reference Range Interpretation Comments HCG SERUM QUAL (test code = HCGQL) NEGATIVE CBC W/AUTO [id number] 19:43:00 Test Item Value Reference Range Interpretation [...] NORMAL REQUIRED (test code = PLTMR) URINALYSIS [id number] 19:35:00 Test Item Value Reference Range Interpretation [...] SAMPLE: CLEAN CATCHU/S, PELVIS, WITH ENDOVAG AND [id number] 05:32:00Reason for exam:->right lower quadrant painShould this [...] MDReport Verified Date/Time: 08/21/2018 05:32:26 Reading Location: [address] Neuro Reading Room BASIC METABOLIC [id number] 03:50:00 Test Item Value Reference Range Interpretation [...] PATIEN TS. CBC W/PLT COUNT & AUTO [id number] 03:44:00 Test Item Value Reference Range Interpretation [...] (BEAKER) (test code = 2801) URINALYSIS W/ [id number] 03:31:00 Test Item Value Reference Range Interpretation [...] 1663) SOURCE(BEAKER) (test code = 2795) SCREEN, [id number] 03:25:00 Test Item Value Reference Range Interpretation Comments TEST URINE (BEAKER) (test Negative code = 583) U/S [id number] 03:53:09AFTER HOURS SERVICE ON: 08/17/2018 3:51 AMPelvic UltrasoundLocation Code Q04Uhcembr: pelvic painTRANSABDOMINAL ScanTechnique: Longitudinal and transverse real-time [...] Thereis no free fluid. Impression:Unremarkable ultrasound.DRUGS OF [id number] 02:28:00 Test Item Value Reference Range Interpretation [...] 200 ng/mL Opiates 2000 ng/mL AMYLASE AND [id number] 02:27:00 Test Item Value Reference Range Interpretation Comments AMYLASE (test code = 10A) 62 U/L 28-100 LIPASE (test code = 60A) 112 IU/L 73-393 COMPREHENSIVE METABOLIC [id number] 02:27:00 Test Item Value Reference Range Interpretation [...] = 31A) 15 IU/L <=78 URINALYSIS WITH [id number] 02:26:00 Test Item Value Reference Range Interpretation [...] (test code = USPERM) /HPF NONE SERUM [id number] 02:24:00 Test Item Value Reference Range Interpretation [...] DETECTED NOT DETECTED TRACHOMATIS (test code = 49811006) NEISSERIA NOT DETECTED NOT DETECTED GONORRHOEAE (test code = 10197705) Endnote (test code This test was = 05983574) performed using the APTIMA COMBO2 Assay([employer]The bernardo tical performance characteristics of thisassay, when used to test SurePat h specimens haveb een determined by [employer].MATTHEW T PERFORMED AT:[facility] [id number] [place] [id number] TALLEY M.D. HEPATITIS C ANTIBODY *WW*2018-07-29 00:07:00 [...] and without contrastHistory: Pain with thickened endometriumLocation: A9Nttgnwlis: High-resolution multiplanar multiecho imaging of the pelvis wasperformed with and fuiemxu55 cc of intravenous Dotarem.Findings:Endometrium is thickened at [...] mass although clinicalcorrelation recommended.MRCP *WW*2018-07-28 12:11:11MRCPLocation code: C3Bnitxhhu history: Dilated common ductComparison: Reference is made [...] in the liver.CT ABDOMEN AND PELVIS WITH [id number] 06:13:19CT abdomen and pelvis with contrastLocation Code: H35GHMBLBWR HISTORY: [id number]: Acute pelvic painCO MPARISON: NoneTechnique: Helical CT [...] the presence ofcholedocholithiasis or stricture. U/S NON [id number] 05:59:08PELVIC ULTRASOUND:Location code: U6MDNOOHXM HISTORY: Pain, bleedingComparison: NoneTECHNIQUE: Transabdominal sonography of the pelvis was performed followed byendovaginal scanning for better characterization of the ovaries. FINDINGS: The uterus is uniform in echogenicity measuring 7.7 x 5.9 x 5.5 cm.The endometrium is slightly heterogeneous and hyperdense measuring up to 1 cmThe bilateral adnexa are not visualized. Trace free fluid is noted within ayyduw-lp-cvu.IMPRESSION:Nonspecific heterogeneityof the endometriumThe bilateral adnexa are not visualized.U/S [id number] 05:59:08PELVIC ULTRASOUND:Location code: O7QHBKQLAY HISTORY: Pain, bleedingComparison: NoneTECHNIQUE: Transabdominal sonography of the pelvis was performed followed byendovaginal scanning for better characterization of the ovaries. FINDINGS: The uterus is uniform in echogenicity measuring 7.7 x 5.9 x 5.5 cm.The endometrium is slightly heterogeneous and hyperdense measuring up to 1 cmThe bilateral adnexa are not visualized. Trace free fluid is noted within zootvt-mf-bpb.IMPRESSION:Nonspecific heterogeneityof the endometriumThe bilateral adnexa are not visualized.AMYLASE AND [id number] 05:13:00 Test Item Value Reference Range Interpretation Comments AMYLASE (test code = 10A) 80 U/L 28-100 LIPASE (test code = 60A) 150 IU/L 73-393 COMPREHENSIVE METABOLIC [id number] 05:13:00 Test Item Value Reference Range Interpretation [...] = 31A) 16 IU/L <=78 URINALYSIS WITH [id number] 05:10:00 Test Item Value Reference Range Interpretation [...] (test code = USPERM) /HPF NONE URINE [id number] 05:01:00 Test Item Value Reference Range Interpretation [...] (test code = RBCMOR) NORMAL URINALYSIS WITH [id number] 18:39:00 Test Item Value Reference Range Interpretation [...] (test code = USPERM) /HPF NONE URINE [id number] 18:31:00 Test Item Value Reference Range Interpretation [...] Threshold (test 28.9 % 36.0-48.0 code = 10203-4) MCV; Below Low Threshold (test 71.8 fL 80.0-98.0 code = 787-2) MCH; Below Low Threshold (test 22.2 pg 27.0-31.0 code = 785-6) MCHC; Below Low Threshold (test 30.9 g/dl 32.0-36.0 code = 786-4) RDW; Above High Threshold (test 18.7 % 11.5-14.5 code = 788-0) Platelet (test code = 61867-2) 180 {K/CMM} 133-450 Mean Platelet Volume (test code 8.9 fL 7.4-10.4 = 43572-7) [facility]] [id number] 15:00:01 Test Item Value Reference Range Interpretation Comments Segmented Neutrophils (test code 61.8 % 45.0-75.0 = 70209-0) Monocytes (test code = 00645-9) 6.8 % 2.0-12.0 Lymphocytes (test code = 16006-2) 28.1 % 20.0-40.0 Eosinophils (test code = 15615-5) 2.5 % 0.0-4.0 Basophils (test code = 706-2) 0.8 % 0.0-1.0 Segs-Bands # (test code = 3.5 {K/CMM} 1.5-8.1 90957-8) Lymphocytes # (test code = 1.6 {K/CMM} 1.0-5.5 30117-3) Monocytes # (test code = 85978-7) 0.4 {K/CMM} 0.0-0.8 Eosinophils # (test code = 0.1 {K/CMM} 0.0-0.5 01422-3) Microcyte (test code = Microcyte) 2+ None Seen A [facility][] HEPATITIS B SURFACE ANTIGEN W/REFL CONFIRM 2018-05-27 15:00:01 Test Item Value Reference Range Interpretation Comments Hepatitis B Surface Antigen (test Negative Negative code = 5195-3) [facility]] HEPATITIS C [id number] 15:00:01 Test Item Value Reference Range Interpretation Comments Hepatitis C Antibody (test code = Negative 86261-0) [facility][] HIV AB, HIV 1/2, EIA, WITH [id number] 15:00:01 Test Item Value Reference Range Interpretation Comments HIV Ag/Ab 4th Gen Negative Negative HIV test r esults should be (test code = considered posi tive only 55146-7) when both the s creening andthe confirma tory tests are positive. A negative confirmatory te st in patientswith a positive screening test does not exclude HIV inf ection. If clincallywarran susy, an HIV RNA quantitativ e test should be order ed. [facility]] [id number] 15:00:01 Test Item Value Reference Range Interpretation Comments RPR (test code = 54030-4) Non-Reactive Non-Reactive [facility]] CULTURE, URINE, [id number] 15:00:01 Test Item Value Reference Range Interpretation Comments FINAL REPORT (test code 10,000 - 50,000 = FINAL REPORT) CFU/mL Yeast [facility]. [facility] - GC/[id number] 00:00:00 Test Item Value Reference Range Interpretation Comments GC/Chlamydia REPORT (test code = See Comment 49320-4) [facility]/S [id number] 18:46:36HISTORY: Pain.Location Code: H5UOZOWTVQF: Multiple transverse and longitudinal sonographic images wereobtained.FINDINGS: [...] and ovaries are not well seen.URINALYSIS WITH [id number] 18:33:00 Test Item Value Reference Range Interpretation [...] code = USPERM) /HPF NONE COMPREHENSIVE METABOLIC [id number] 18:31:00 Test Item Value Reference Range Interpretation [...] = 31A) 11 IU/L <=78 AMYLASE AND [id number] 18:31:00 Test Item Value Reference Range Interpretation Comments AMYLASE (test code = 10A) 46 U/L 28-100 LIPASE (test code = 60A) 97 IU/L 73-393 URINE [id number] 18:29:00 Test Item Value Reference Range Interpretation [...] MORPH (test code = RBCMOR) NORMAL URINE [id number] 08:09:00 Test Item Value Reference Range Interpretation Comments Culture Observations (test NO GROWTH (<1,000 code = COB1) CFU/ML) U/S [id number] 15:59:01EXAM: Pelvic ultrasoundLocation: A1 COMPARISON: Pelvic ultrasound [...] within normal limits.3. No free fluid.COMPREHENSIVE METABOLIC [id number] 13:45:00 Test Item Value Reference Range Interpretation [...] (test code = 31A) 17 IU/L <=78 [id number] 13:45:00 Test Item Value Reference Range Interpretation Comments AMYLASE (test code = 10A) 54 U/L 28-100 LIPASE [id number] 13:40:00 Test Item Value Reference Range Interpretation Comments LIPASE (test code = 60A) 87 IU/L 73-393 URINALYSIS WITH [id number] 13:39:00 Test Item Value Reference Range Interpretation [...] MORPH (test code = RBCMOR) NORMAL URINE [id number] 13:31:00 Test Item Value Reference Range Interpretation Comments PREG UR (test code = PGU) NEGATIVE NEGATIVE CT ABDOMEN AND PELVIS WITH [id number] 03:08:26CT OF THE ABDOMEN AND PELVIS WITH CONTRASTLocation code:O8YXDYGEEZ HISTORY:lower abdominal pain COMPARISON: None TECHNIQUE:Multiple transaxial [...] evaluation of the abdomen and pelvis.CBC WITH [id number] 02:39:00 Test Item Value Reference Range Interpretation [...] = TD) 1+ NONE A AMYLASE AND [id number] 02:19:00 Test Item Value Reference Range Interpretation Comments AMYLASE (test code = 10A) 67 U/L 28-100 LIPASE (test code = 60A) 127 IU/L 73-393 COMPREHENSIVE METABOLIC [id number] 02:19:00 Test Item Value Reference Range Interpretation [...] = 31A) 10 IU/L <=78 URINALYSIS WITH [id number] 02:01:00 Test Item Value Reference Range Interpretation [...] (test code = USPERM) /HPF NONE SERUM [id number] 02:01:00 Test Item Value Reference Range Interpretation Comments PREG SRM (test code = PGS) NEGATIVE NEGATIVE U/S NON [id number] 17:52:13EXAM: Pelvic ultrasoundLocation: A1 COMPARISON: Pelvic ultrasound [...] Small volume nonspecific cul-de-sac free fluid.COMPREHENSIVE METABOLIC [id number] 15:32:00 Test Item Value Reference Range Interpretation [...] code = 31A) 11 IU/L <=78 SERUM [id number] 15:31:00 Test Item Value Reference Range Interpretation [...] = MDIFF) NO NO PRO TIME AND [id number] 15:20:00 Test Item Value Reference Range Interpretation [...] Heparin. Order Code is ANTI-XA URINALYSIS WITH [id number] 15:19:00 Test Item Value Reference Range Interpretation [...] code = USPERM) /HPF NONE URINALYSIS WITH [id number] 05:18:00 Test Item Value Reference Range Interpretation [...] (test code = USPERM) /HPF NONE URINE [id number] 05:01:00 Test Item Value Reference Range Interpretation Comments PREG UR (test code = PGU) NEGATIVE NEGATIVE PRO TIME AND [id number] 04:14:00 Test Item Value Reference Range Interpretation [...] Heparin. Order Code is ANTI-XA COMPREHENSIVE METABOLIC [id number] 04:08:00 Test Item Value Reference Range Interpretation [...] code = RBCMOR) NORMAL CT HEAD W/O [id number] 07:27:51Clinical History: Headache.Location: D4.Findings: Multislice axial noncontrast [...] sinuses andwithin the left frontal sinus.DRUGS OF [id number] 07:16:00 Test Item Value Reference Range Interpretation [...] 200 ng/mL Opiates 2000 ng/mL URINALYSIS WITH [id number] 07:14:00 Test Item Value Reference Range Interpretation [...] code /HPF NONE = USPERM) COMPREHENSIVE METABOLIC [id number] 06:59:00 Test Item Value Reference Range Interpretation [...] code = 31A) 14 IU/L <=78 SERUM [id number] 06:51:00 Test Item Value Reference Range Interpretation [...] MORPH (test code = RBCMOR) NORMAL URINE [id number] 10:45:00 Test Item Value Reference Range Interpretation Comments Culture Observations (test NO GROWTH (<1,000 code = COB1) CFU/ML) U/S PELVIS*WW*2017-08-15 02:47:38U/S PELVIS*WW*Location: [address] services provided 08/15/2017 2:45 AMIndication: pelvic painComparison: 06/21/17Technique:Transabdominal sonographic soorio scale, color and Doppler imaging wasperformed to [...] (test code = PGU) NEGATIVE NEGATIVE U/S [id number] 18:19:54PELVIC ULTRASOUND:Location code: U9PLBCXMSM HISTORY: Pelvic pain with ovarian cystComparison: NoneTECHNIQUE: [...] right ovary and otherwise unremarkable exam.BASIC METABOLIC [id number] 15:38:00 Test Item Value Reference Range Interpretation [...] (test code = 09D) 8.8 mg/dL 8.3-9.5 [id number] 15:37:00 Test Item Value Reference Range Interpretation [...] (test code = LEUK) NEGATIVE NEGATIVE SERUM [id number] 15:35:00 Test Item Value Reference Range Interpretation Comments PREG SRM (test code = PGS) NEGATIVE NEGATIVE PRO TIME AND [id number] 15:31:00 Test Item Value Reference Range Interpretation [...] (test code = RBCMOR) NORMAL DIRECT CHLAMYDIA [id number] 15:42:00 Test Item Value Reference Range Interpretation Comments CHLAMYDIA NOT DETECTED NOT DETECTED TRACHOMATIS (test code = 30210287) NEISSERIA NOT DETECTED NOT DETECTED GONORRHOEAE (test code = 53290029) Endnote (test code This test was = 90168230) performed using the APTIMA COMBO2 Assay([employer]The bernardo tical performance characteristics of thisassay, when used to test SurePat h specimens haveb een determined by [employer].MATTHEW T PERFORMED AT:[facility] [address] [address]JMQYMTWILA TALLEY M.D. U/S [id number] 23:50:15LOCATION: E96AYBUCNL: 26-year-old female who presents with pelvic pain.COMMENT: [...] no sonographic evidence of ovarian torsion.URINALYSIS WITH [id number] 22:11:00 Test Item Value Reference Range Interpretation [...] (test code = USPERM) /HPF NONE URINE [id number] 21:56:00 Test Item Value Reference Range Interpretation Comments PREG UR (test code = PGU) NEGATIVE NEGATIVE CBC W/PLT COUNT & AUTO [id number] 18:46:00 Test Item Value Reference Range Interpretation [...] (test code = 1+ few 964) SCREEN, [id number] 00:18:00 Test Item Value Reference Range Interpretation Comments TEST URINE (BEAKER) (test Negative code = 583) URINALYSIS W/ REFLEX URINE [id number] 00:16:00 Test Item Value Reference Range Interpretation [...] = 2795) CBC W/PLT COUNT & AUTO [id number] 00:08:00 Test Item Value Reference Range Interpretation [...] code = 1+ few 965) BASIC METABOLIC [id number] 00:04:00 Test Item Value Reference Range Interpretation [...] S NOT APPLICABLE FOR DIALYSIS PATIEN TS. [id number] 22:38:00 Test Item Value Reference Range Interpretation [...] NO NO CT ABDOMEN AND PELVIS WITH [id number] 22:32:06LOCATION: X73LJYSHHS: 26-year-old female who presents with periumbilical abdominal [...] cm diameter. Pelvicultrasound correlation is suggested. SERUM [id number] 21:33:00 Test Item Value Reference Range Interpretation Comments PREG SRM (test code = PGS) NEGATIVE NEGATIVE AMYLASE AND [id number] 21:31:00 Test Item Value Reference Range Interpretation Comments AMYLASE (test code = 10A) 54 U/L 28-100 LIPASE (test code = 60A) 113 IU/L 73-393 COMPREHENSIVE METABOLIC [id number] 21:31:00 Test Item Value Reference Range Interpretation [...] code = 31A) 23 IU/L <=78 OCCULT [id number] 21:12:00 Test Item Value Reference Range Interpretation [...] (test code = RBCMOR) NORMAL URINALYSIS WITH [id number] 15:38:00 Test Item Value Reference Range Interpretation [...] (test code = USPERM) /HPF NONE U/S [id number] 15:37:29LOCATION: [id number]: 26-year-old female who presents with pelvic pain.COMMENT:Sonographic [...] right ovary is not seen. AMYLASE AND [id number] 15:00:00 Test Item Value Reference Range Interpretation Comments AMYLASE (test code = 10A) 54 U/L 28-100 LIPASE (test code = 60A) 93 IU/L 73-393 COMPREHENSIVE METABOLIC [id number] 15:00:00 Test Item Value Reference Range Interpretation [...] code = 31A) 12 IU/L <=78 SERUM [id number] 14:52:00 Test Item Value Reference Range Interpretation [...] MORPH (test code = RBCMOR) NORMAL U/S [id number] 09:19:09Exam: Ultrasound pelvis with transvaginalLocation: A 1History: [...] of the pelvis.CT ABDOMEN AND PELVIS WITH [id number] 07:27:27CT abdomen and pelvis with contrast.Clinical indication: [...] abnormality to account for patient's symptoms.DRUGS OF [id number] 06:49:00 Test Item Value Reference Range Interpretation [...] 200 ng/mL Opiates 2000 ng/mL COMPREHENSIVE METABOLIC [id number] 06:28:00 Test Item Value Reference Range Interpretation [...] code = 31A) 17 IU/L <=78 LIPASE [id number] 06:28:00 Test Item Value Reference Range Interpretation Comments LIPASE (test code = 60A) 103 IU/L 73-393 SERUM [id number] 06:20:00 Test Item Value Reference Range Interpretation [...] RBC MORPH (test code = RBCMOR) NORMAL [id number] 06:17:00 Test Item Value Reference Range Interpretation [...] (test code = LEUK) NEGATIVE NEGATIVE U/S [id number] 10:33:25PELVIC ULTRASOUND:Location code: B0NNFSMDZB HISTORY: Pain,, recent ovarian cyst removalComparison: NoneTECHNIQUE: Transabdominal sonography of the pelvis was performed. The patientdeclined transvaginalscanning.FINDINGS: Evaluation is limited. The uterus and bilateral ovaries arenonvisualized. There is no pelvic mass or fluid collection. IMPRESSION:Limited exam with no visualized acute abnormality.URINALYSIS WITH [id number] 09:15:00 Test Item Value Reference Range Interpretation [...] code = USPERM) /HPF NONE CBC WITH [id number] 08:42:00 Test Item Value Reference Range Interpretation [...] = STOM) 1+ NONE A COMPREHENSIVE METABOLIC [id number] 08:38:00 Test Item Value Reference Range Interpretation [...] code = 31A) 31 IU/L <=78 SERUM [id number] 08:30:00 Test Item Value Reference Range Interpretation [...] 09D) 8.7 mg/dL 8.3-9.5 CBC (INCLUDES AUTOMATED DIFFERENTIAL)*[id number] 08:01:00 Test Item Value Reference Range Interpretation [...]
[2020-03-10 06:31] LABS: Absolute Lymphocytes (CBC) 2.2 K/uL (0.7-4.9); Basophils % 0.5 % (0-1.3); Hematocrit 27.4 % (36.0-45.0); Lymphocytes % 19.3 % (15.3-44.8); MPV 8.5 fL (7.6-11.3); RBC Red Blood Cell Count 3.86 M/uL (3.86-4.86)
[2020-03-10] MEDS ORDERED: ONDANSETRON 4 MG/2 ML VIAL ONE (06:34)
[2020-03-10] MEDS ORDERED: NA CHLORIDE 0.9% 1,000 ML ONE (06:34)
[2020-03-10] MEDS ORDERED: FAMOTIDINE 20 MG/2 ML VIAL IV ONE (06:34)
[2020-03-10] MEDS ORDERED: MORPHINE 2 MG/ML SYR ONE (06:34)
[2020-03-10 06:44] LABS: ALT/SGPT 7 U/L (12-78); AST/SGOT 9 U/L (15-37); Albumin 2.7 g/dL (3.4-5.0); Alkaline Phosphatase 120 U/L (45-117); BUN Blood Urea Nitrogen 6 mg/dL (7-18); Bicarbonate 23 mmol/L (21-32); Bilirubin Direct < 0.1 mg/dL (0-0.2); Bilirubin Total 0.2 mg/dL (0.2-1.0); Glucose Level 95 mg/dL (74-106); Lipase 60 U/L (73-393); Potassium 3.9 mmol/L (3.5-5.1); Protein, Total 7.1 g/dL (6.4-8.2); Sodium Level 139 mmol/L (136-145)
--- NOTE | 2020-03-10 07:38 | ER ---
Nurse's Notes [facility] Name: Charley Wells Age: 29 yrs Sex: Female : 1990 Arrival Date: 03/10/2020 Time: 06:05 Bed 7 Private MD: Diagnosis: Upper abdominal pain, unspecified;Rib Pain Presentation: 03/10 06:12 Chief complaint: Patient states: Im 30 weeks , I was seen in LD and cleared and sg then instructed to come to the ED for evaluation. For 1 week, I have had rib pain that radiates into my back, I have also had epigastric pain that is described as burning, has been trying to control pain at home with tylenol and tums. denies N/V/D/Fever. Coronavirus screen: Client denies travel out of the [place] in the last 14 days. At this time, the client does not indicate any symptoms associated with coronavirus-19. Ebola Screen: Patient negative for fever greater than or equal to 101.5 degrees Fahrenheit, and additional compatible Ebola Virus Disease symptoms Patient denies exposure to infectious person. Patient denies travel to an Ebola-affected area in the 21 days before illness onset. No symptoms or risks identified at this time. Initial Sepsis Screen: Does the patient meet any 2 criteria? No. Patient's initial sepsis screen is negative. Does the patient have a suspected source of infection? No. Patient's initial sepsis screen is negative. Risk Assessment: Do you want to hurt yourself or someone else? Patient reports no desire to harm self or others. Onset of symptoms was March 10, 2020. Care prior to arrival: None. Transition of care: patient was not received from another setting of care. 06:12 Method Of Arrival: Ambulatory sg 06:12 Acuity: STACEY 3 sg 06:13 Ebola Screen: No symptoms or risks identified at this time. ea 06:13 Initial Sepsis Screen: Does the patient meet any 2 criteria? No. Patient's initial ea sepsis screen is negative. Does the patient have a suspected source of infection? No. Patient's initial sepsis screen is negative. Historical: - Allergies: 06:15 Toradol; sg 06:15 tramadol; sg - Home Meds: 06:15 vitamins [Active]; Alprazolam Oral [Active]; sg - PMHx: 06:15 Anxiety; Endometriosis; Ovarian cyst; sg - PSHx: 06:15 ruptured ovarian cyst; ; surgery for endometriosis; sg - Immunization history:: Adult Immunizations up to date. - Social history:: Smoking status: Patient denies any tobacco usage or history of. Screenin:12 Abuse screen: Denies threats or abuse. Nutritional screening: No deficits noted. ea Tuberculosis screening: No symptoms or risk factors identified. Fall Risk None identified. Assessment: 06:17 General: Appears uncomfortable, Behavior is appropriate for age. Pain: Complains of ea pain in abdomen. Neuro: Level of Consciousness is awake, alert, obeys commands, Oriented to person, place, time. Cardiovascular: Patient's skin is warm and dry. Respiratory: Airway is patent Respiratory effort is even, unlabored, Respiratory pattern is regular, symmetrical. GI: Bowel sounds present X 4 quads. Abd is soft and non tender X 4 quads. Derm: Skin is dry, Skin is pale, Skin temperature is warm. 07:00 Reassessment: RECD REPORT FROM MAKENNA REYES. 29YO WF P/W ABDOMINAL PAIN RADIATING TO BACK, bp \R\30 WK . 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 ALL CURRENT ORDERS COMPLETE, RESULTS PENDING FOR DISPO. 07:44 Reassessment: PT D/C HOME AMBULATORY, DX WITH UNSPECIFIED ABDOMINAL PAIN. bp Vital Signs: 06:12 BP 110 / 77; Pulse 92; Resp 16; Temp 98.6; Pulse Ox 100% ; ea 06:12 Weight 85.73 kg (R); Height 5 ft. 6 in. (167.64 cm) (R); sg 07:15 BP 109 / 66; Pulse 81; Resp 16; Pulse Ox 100% ; bp 06:12 Body Mass Index 30.51 (85.73 kg, 167.64 cm) sg ED Course: 06:05 Patient arrived in ED. es 06:06 Ymaini Delcid FNP-C is [facility]. kb 06:06 Brian Ahn MD is Attending Physician. kb 06:13 Patient has correct armband on for positive identification. Bed in low position. Call ea light in reach. Side rails up X 1. 06:13 Arm band placed on right wrist. Patient placed in an exam room, on a stretcher, on ea pulse oximetry. 06:15 Triage completed. sg 06:25 Inserted saline lock: 20 gauge in left forearm, using aseptic technique. Blood rr5 collected. 07:03 Chest Single View XRAY In Process Unspecified. EDMS 07:09 US Abdomen Limited In Process Unspecified. EDMS 07:16 Noam Ariza, RN is Primary Nurse. bp 07:44 No provider procedures requiring assistance completed. IV discontinued, intact, bp bleeding controlled, No redness/swelling at site. Pressure dressing applied. Administered Medications: 06:27 Drug: NS 0.9% 1000 ml Route: IV; Rate: 1000 ml; Site: left forearm; rr5 07:45 Follow up: IV Status: Completed infusion; IV Intake: 1000ml bp 06:28 Drug: Zofran (Ondansetron) 4 mg Route: IVP; Site: left forearm; rr5 06:51 Follow up: Response: No adverse reaction rr5 06:29 Drug: Pepcid 20 mg Route: IVP; Site: left forearm; rr5 06:51 Follow up: Response: No adverse reaction rr5 06:30 Drug: morphine 2 mg {Note: rass 0.} Route: IVP; Site: left forearm; rr5 06:51 Follow up: Response: No adverse reaction; RASS: Alert and Calm (0) rr5 Intake: 07:45 IV: 1000ml; Total: 1000ml. bp Outcome: 07:37 Discharge ordered by . kb 07:44 Discharged to home ambulatory. bp 07:44 Condition: stable 07:44 Discharge instructions given to patient, Instructed on discharge instructions, follow up and referral plans. Demonstrated understanding of instructions, follow-up care. 07:45 Patient left the ED. bp Signatures: Dispatcher [employer] EDMS Yamini Delcid, LOSS PREVENTION ASSOCIATE-C LOSS PREVENTION ASSOCIATE-CkAngel Kenney RN RN Karuna Mora Elena RN Noam Malik ea, RN RN Ollie Ross RN RN rr5
--- NOTE | 2020-03-10 07:38 | EDPHYS ---
Physician Documentation [facility] Name: Charley Wells Age: 29 yrs Sex: Female : 1990 Arrival Date: 03/10/2020 Time: 06:05 Bed 7 Private MD: ED Physician Brian Ahn HPI: 03/10 06:25 This 29 yrs old Female presents to ER via Ambulatory with complaints of kb Abdominal Pain, Rib pain. 06:25 The patient presents with abdominal pain in the epigastric area, in the upper abdomen. kb Onset: The symptoms/episode began/occurred 1 week(s) ago. The symptoms radiate to back. Associated signs and symptoms: none. The symptoms are described as constant. Modifying factors: The symptoms are alleviated by nothing, the symptoms are aggravated by nothing. Severity of pain: At its worst the pain was moderate in the emergency department the pain is unchanged. The patient has not experienced similar symptoms in the past. The patient has not recently seen a physician. Pt reports upper abd/lower rib pain for 1 week. States she has been taking tylenol, but it isn't helping. Also reports headaches. States she is urinating 2-3 times a day only.. Historical: - Allergies: 06:15 Toradol; sg 06:15 tramadol; sg - Home Meds: 06:15 vitamins [Active]; Alprazolam Oral [Active]; sg - PMHx: 06:15 Anxiety; Endometriosis; Ovarian cyst; sg - PSHx: 06:15 ruptured ovarian cyst; ; surgery for endometriosis; sg - Immunization history:: Adult Immunizations up to date. - Social history:: Smoking status: Patient denies any tobacco usage or history of. ROS: 06:22 Constitutional: Negative for fever, chills, and weight loss, Respiratory: Negative for kb shortness of breath, cough, wheezing, and pleuritic chest pain, Back: Negative for injury and pain, : Negative for injury, bleeding, discharge, and swelling, MS/Extremity: Negative for injury and deformity, Skin: Negative for injury, rash, and discoloration, Neuro: Negative for headache, weakness, numbness, tingling, and seizure. 06:22 Cardiovascular: Positive for chest pain, of the left lateral posterior chest, right lateral posterior chest, left lateral anterior chest and right lateral anterior chest (lower ribs). 06:22 Abdomen/GI: Positive for abdominal pain, Negative for nausea, vomiting, and diarrhea, constipation, abdominal cramps, abdominal distension, anorexia. Exam: 06:24 Constitutional: This is a well developed, well nourished patient who is awake, alert, kb and in no acute distress. Head/Face: Normocephalic, atraumatic. Cardiovascular: Regular rate and rhythm with a normal S1 and S2. No gallops, murmurs, or rubs. Normal PMI, no JVD. No pulse deficits. Respiratory: Lungs have equal breath sounds bilaterally, clear to auscultation and percussion. No rales, rhonchi or wheezes noted. No increased work of breathing, no retractions or nasal flaring. Back: No spinal tenderness. No costovertebral tenderness. Full range of motion. Skin: Warm, dry with normal turgor. Normal color with no rashes, no lesions, and no evidence of cellulitis. MS/ Extremity: Pulses equal, no cyanosis. Neurovascular intact. Full, normal range of motion. Neuro: Awake and alert, GCS 15, oriented to person, place, time, and situation. Cranial nerves II-XII grossly intact. Motor strength 5/5 in all extremities. Sensory grossly intact. Cerebellar exam normal. Normal gait. 06:24 Chest/axilla: Inspection: normal, Palpation: tenderness, that is moderate, of the left lateral posterior chest, right lateral posterior chest, left lateral anterior chest and right lateral anterior chest (lower ribs), that totally reproduces the patient's complaints. 06:24 Abdomen/GI: Inspection: gravid appearance, is noted, Bowel sounds: normal, in all quadrants, Palpation: moderate abdominal tenderness, in the epigastric area, right upper quadrant and left upper quadrant. Vital Signs: 06:12 BP 110 / 77; Pulse 92; Resp 16; Temp 98.6; Pulse Ox 100% ; ea 06:12 Weight 85.73 kg (R); Height 5 ft. 6 in. (167.64 cm) (R); sg 07:15 BP 109 / 66; Pulse 81; Resp 16; Pulse Ox 100% ; bp 06:12 Body Mass Index 30.51 (85.73 kg, 167.64 cm) sg MDM: 06:07 Patient medically screened. kb 06:21 Data reviewed: vital signs, nurses notes. Data interpreted: Pulse oximetry: on room air kb is 100 %. Interpretation: normal. 06:21 ED course: FTH 135, reported from [facility]. Pt was cleared by [facility] prior to coming to ER.. kb 06:23 ED course: Discussed use of narcotic pain medication in . Educated that kb tylenol was the only pain medication approved for . Pt states the tylenol hasn't helped and she needs some relief. Discussed use of morphine and risks, pt states she wants a dose for pain. 07:36 Counseling: I had a detailed discussion with the patient and/or guardian regarding: the kb historical points, exam findings, and any diagnostic results supporting the discharge/admit diagnosis, lab results, radiology results, the need for outpatient follow up, an OB/Gyne specialist, to return to the emergency department if symptoms worsen or persist or if there are any questions or concerns that arise at home. 03/10 06:15 Order name: Basic Metabolic Panel; Complete Time: 06:47 ea 03/10 06:15 Order name: CBC with Diff 03/10 06:15 Order name: Hepatic Function; Complete Time: 06:47 ea 03/10 06:15 Order name: Lipase; Complete Time: 06:47 ea 03/10 06:47 Order name: CBC Smear Scan EDDC 03/10 07:31 Order name: Urine Dipstick--Ancillary (enter results) 03/10 06:15 Order name: IV Saline Lock; Complete Time: 06:31 ea 03/10 06:19 Order name: Chest Single View XRAY 03/10 06:48 Order name: US Abdomen Limited 03/10 07:31 Order name: Urine --Ancillary (enter results) 03/10 06:15 Order name: Labs collected and sent; Complete Time: 06:31 ea 03/10 06:20 Order name: Urine Dipstick-Ancillary (obtain specimen); Complete Time: 07:18 kb Administered Medications: 06:27 Drug: NS 0.9% 1000 ml Route: IV; Rate: 1000 ml; Site: left forearm; rr5 07:45 Follow up: IV Status: Completed infusion; IV Intake: 1000ml bp 06:28 Drug: Zofran (Ondansetron) 4 mg Route: IVP; Site: left forearm; rr5 06:51 Follow up: Response: No adverse reaction rr5 06:29 Drug: Pepcid 20 mg Route: IVP; Site: left forearm; rr5 06:51 Follow up: Response: No adverse reaction rr5 06:30 Drug: morphine 2 mg {Note: rass 0.} Route: IVP; Site: left forearm; rr5 06:51 Follow up: Response: No adverse reaction; RASS: Alert and Calm (0) rr5 Disposition: 19:04 Co-signature as Attending Physician, Brian Ahn MD. [place] Disposition: 03/10/20 07:37 Discharged to Home. Impression: Upper abdominal pain, unspecified, Rib Pain. - Condition is Stable. - Discharge Instructions: Abdominal Pain During , [id number]. - Medication Reconciliation Form, Thank You Letter, Antibiotic Education, Prescription Opioid Use form. - Follow up: Private Physician; When: 2 - 3 days; Reason: Recheck today's complaints, Continuance of care, Re-evaluation by your physician. Follow up: Emergency Department; When: As needed; Reason: Worsening of condition. Signatures: Dispatcher [employer] EDMS Yamini Delcid, REYNA-C REYNA-Angel Mccoy RN RN sg Lam, Pin, MD MD pkl Antonieta Rosales, RN Noam Malik ea, RN RN Ollie Ross, RN RN rr5 Corrections: (The following items were deleted from the chart) 06:33 06:23 ED course: Discussed use of narcotic pain medication in . Educated that kb tylenol was the only pain medication approved for . Pt states the tylenol hasn't helped and she needs some relief. Discussed use of morphine and pt states she wants a dose for pain. kb 07:45 07:37 03/10/2020 07:37 Discharged to Home. Impression: Upper abdominal pain, bp unspecified; Rib Pain. Condition is Stable. Forms are Medication Reconciliation Form, Thank You Letter, Antibiotic Education, Prescription Opioid Use. Follow up: Private Physician; When: 2 - 3 days; Reason: Recheck today's complaints, Continuance of care, Re-evaluation by your physician. Follow up: Emergency Department; When: As needed; Reason: Worsening of condition. kb
[2020-03-10 07:51] VITALS: TEMP 98.6; O2SAT 100
[2020-03-10 07:52] VITALS: BP 109/66
--- NOTE | 2020-03-10 08:00 | RAD REPORT ---
EXAM DESCRIPTION: US - Abdomen Exam Limited - 03/10/2020 7:09 am CLINICAL HISTORY: Abdominal pain. COMPARISON: None. FINDINGS: The gallbladder wall is not thickened. A gallstone is not seen. The biliary tree is normal caliber. IMPRESSION: Unremarkable gallbladder ultrasound.
[2020-03-10 09:14] LABS: Urine Blood NEGATIVE (NEG); Urine Glucose NEGATIVE (NEG); Urine Protein NEGATIVE (NEG); Urine Specific Gravity 1.025 (1.005-1.030)
--- NOTE | 2020-03-10 09:28 | RAD REPORT ---
EXAM DESCRIPTION: Pamela Single View03/10/2020 7:03 am CLINICAL HISTORY: Chest pain COMPARISON: none FINDINGS: The lungs appear clear of acute infiltrate. The heart is normal size. Abdomen was shielde d IMPRESSION: No acute abnormalities displayed
[2020-03-10 09:49] LABS: Anisocytosis 2+; Blood Morphology Comment NOTED (NOT SEEN); Platelet Estimate ADEQ; Polychromasia SLIGHT; White Blood Cell Scan OK
== END 2020-03-10 07:45 | disposition home or self-care (01) ==
LOC: ER 06:04
DX: O26.893 Other specified pregnancy related conditions, third trimester (principal); R10.10 Upper abdominal pain, unspecified; R07.81 Pleurodynia; Z88.6 Allergy status to analgesic agent
CPT/HCPCS: 96361; 85025; 80048; 36415; 81025; 80076; 81003; 83690; 71045; 76705; 96375; 96374; 99284; J2270; J7030; J2405